=== PATIENT | female | born 1940 | race Caucasian/White ===

== ENCOUNTER 2020-10-09 16:52 | Inpatient (IN) | payer MEDICARE, BC, SELFPAY ==
[2020-10-09] VITALS (10 sets, daily range): BP systolic 90–115; BP diastolic 34–60; PULSE 92–118; RESP 18–28; TEMP 36.6–38.6; O2SAT 92–99; BMI 23.4; BMI 23.8; BMI 23.9
--- NOTE | 2020-10-09 17:17 | ED.DCSUM_ITS ---
History of Present Illness Chief Complaint: Fever Informant: Patient Narrative: Patient is a 79-year-old female with a past medical history of gastric lymphoma who presents to the emergency department after being told she had a fever today. She was at her oncologist office whenever they told her this. She was not aware that she had a fever. She has no complaints at time of arrival to the emergency department. She denies a cough, sore throat. No rashes. She denies any nausea/vomiting or diarrhea. No urinary symptoms. She states that she has been undergoing chemotherapy for the past few months. Patient is a relatively poor historian and wants me to contact her about most questions. She does not recall any other pertinent medical history. States she has a very distant smoking history. No known coronavirus exposures. Past Medical History - Allergies and Home Meds Allergies/Adverse Reactions: Allergies shellfish derived Allergy (Verified 10/09/20 16:55) Other Prior records reviewed: Yes Past Medical History: - - Gastric lymphoma Smoking Status: Former smoker - Family History Maternal Family History: Reports: No pertinent history Review of Systems All systems negative except as indicated General: Reports: Fever. Denies: Chills, Sweats Eyes: Denies: Visual changes - bilaterally, Diplopia ENT: Denies: Rhinorrhea, Sore throat Cardiovascular: Denies: Chest pain, Palpitations Respiratory: Denies: Dyspnea, Cough, Dyspnea on exertion Gastrointestinal: Denies: Abdominal pain, Nausea, Vomiting, Diarrhea, Melena, Hematochezia Genitourinary: Denies: Dysuria, Hematuria, Frequency Musculoskeletal: Denies: Back pain, Extremity Pain Skin: Denies: Rash, Wounds Neurological: Denies: Headache, Weakness, Numbness Physical Exam Vital Signs/Narrative: Vital Signs Temp Pulse Resp BP Pulse Ox 10/09/20 16:53 98.5 F 118 H 18 115/60 99 Inital Vital Signs reviewed: Yes - Tachycardic General: Well nourished, Well developed, No Acute Distress Head: Normocephalic, Atraumatic Eyes: Perrl, EOMI ENT: Moist mucous membranes, No rhinorrhea Neck: Supple, Nontender Cardiovascular: Regular rhythm, No murmurs, Tachycardia Respiratory: No distress, CTA bilaterally, Chest nontender Abdomen: Soft, Nontender, Nondistended, Normal bowel sounds Back: Nontender, Normal Inspection Extremities: Nontender, No edema Skin: Normal color, No rash Neurological: Alert, Cranial nerves II-XII grossly intact, Normal Strength, Normal Sensation Psychological: Normal affect, Normal Mood Diagnostic/Tx/Re-eval - Medical Decision Making Patient presents to the emerge department after she was told she has a fever. She has no infectious complaints. Upon arrival to the emergency department she is tachycardic and but does not have a fever here. She is satting 99% on room air. She is in no acute distress. Her oncologist did call him and recommended that she be hospitalized on IV antibiotics. Will check blood cultures, basic lab work, coronavirus swab, chest x-ray and urinalysis. Patient work-up showed her to have 0 neutrophils. She is leukopenic. She did receive Zosyn by her oncologist prior to coming in. We will add vancomycin as she started to have low blood pressure readings. Her work-up did not reveal any obvious source of infection including no pneumonia, no coronavirus, no evidence of urinary tract infection. She was asymptomatic with her low blood pressure readings but this was able to be brought up with IV fluids eventually. Patient is agreeable to staying in the hospital at this time. Blood cultures have been drawn prior to the vancomycin but not the Zosyn given prehospital. ED Disposition - Plan for ED Patient: Disposition: Acute Care Hospital [facility] Diagnosis: Neutropenic fever, Hypotension, Pancytopenia
--- NOTE | 2020-10-09 17:45 | RAD_ITS ---
STUDY: X-RAY CHEST REASON FOR EXAM: Female, 79 years old. Chemotherapy on Friday. Fever today. TECHNIQUE: Single AP portable view of the chest. COMPARISON: None. FINDINGS: Right jugular Port-A-Cath with its tip in the proximal superior vena cava. The lungs are clear and expanded. There is no demonstrated pleural abnormality. Normal size heart. Normal mediastinum and boo. Normal visualized pulmonary arteries. Normal visualized aortic arch and descending thoracic aorta. Normal visualized thoracic spine. There is degenerative osteoarthritis of the bilateral shoulders. Cholecystectomy clips are seen in the right upper quadrant. There is no other abnormality. RAD/Chest 1 View (Portable) IMPRESSION: 1. Right Port-A-Cath. 2. No acute cardiopulmonary disease. Electronically Signed: Imtiaz Aj DO at 18:02 EST Tel [phone], Service support ,
[2020-10-09 18:58] LABS: Absolute Lymphocyte Count 0.12 X10^3/uL (0.83-4.51); Hematocrit 25.8 % (37-47); Hemoglobin 8.8 g/dL (12.0-15.0); Lymphocyte # 0.12 X10^3/ul (4.0); Lymphocyte % 38.7 % (19-41); Mean Corp Hgb Conc 34.1 g/dL (32-36); Mean Corpuscular Hgb 31.4 pg (27.0-32.0); Mean Corpuscular Volume 92.1 fL (81-99); Mean Platelet Vol. 9.7 fl (6.2-12.0); Monocyte# 0.14 X10^3/uL; Monocyte% 45.2 % (0-10); NRBC Flagged by Analyzer 0 % (0-5); Neutrophil # 0.04 X10^3/uL (2.7-7.7); Neutrophil % 12.9 % (47-70); POSITIVE COUNT YES; POSITIVE DIFFERENTIAL YES; POSITIVE MORPHOLOGY YES; Platelet Count 51 K/mm3 (150-450); RBC Distribution Width CV 15.7 % (11.6-14.6); RBC Distribution Width SD 52.6 fl (35.1-43.9); White Blood Count 0.3 K/mm3 (4.4-11.0)
[2020-10-09 19:14] LABS: Differential Indicated SCAN CRITERIA MET
[2020-10-09 19:17] LABS: Lactic Acid 1.1 mmol/L (0.4-1.9)
[2020-10-09 19:31] LABS: ALB/GLOB Ratio 0.8 RATIO (0.9-2.4); AST(SGOT) 4 U/L (15-37); Alanine Aminotransfer ALT/SGPT 10 U/L (13-56); Albumin, Serum 2.3 g/dL (3.2-5.0); Alkaline Phosphatase 61 U/L (45-117); Anion Gap 5 (5-15); BUN 8 mg/dL (7-18); BUN/Creat Ratio 16.4 RATIO (10-20); Calcium,Total 8.2 mg/dL (8.5-10.1); Chloride 103 mmol/L (98-107); Creatinine, Serum 0.49 mg/dL (0.55-1.02); EST Glomerular Filtration Rate 130 mL/min (>60); Est Glom Filt Rate - Afr Amer 157 mL/min (>60); Estimated Creatinine Clearance 32.77 ml/min; Glucose 273 mg/dL (74-106); Potassium 3.7 mmol/L (3.5-5.1); Protein, Total 5.3 g/dL (6.4-8.2); Sodium Level 133 mmol/L (136-145)
[2020-10-09] MEDS: 0.9% Normal Saline 1,000 ML 999 ML IV (20:12)
[2020-10-09 21:36] LABS: Bacteria 0 SEEN /hpf (None Seen); Mucous, Urine 0 SEEN /hpf (<or=2+); Red Blood Cells-Urine 0 SEEN /hpf (0-5); Squamous Epithelial Cells - UA 0 SEEN /hpf (5-10); White Blood Cells 0 SEEN /hpf (0-5)
--- NOTE | 2020-10-09 21:41 | ED.RN ---
PT DOES NOT KNOW HOME MEDICATIONS.
[2020-10-09 21:46] LABS: Color, Urine Yellow (Yellow); Glucose, Dipstick 1000 mg/dl (Normal); Ketone-Dipstick 5 mg/dl (Negative); Leukocyte Esterase-Dipstick Negative /ul (Negative); Nitrite-Dipstick Negative (Negative); Occult Blood-Urine Negative /ul (Negative); Protein-Dipstick 30 mg/dl (Negative); Specific Gravity, Urine 1.015 (1.002-1.030); Urine Bilirubin Dipstick Negative (Negative); Urine Clarity Clear (Clear); Urine Urobilinogen Normal (Normal)
--- NOTE | 2020-10-09 22:12 | PCM.HP.STD ---
Problem List (1) Gastric lymphoma Status: Chronic (2) Neutropenic fever Status: Acute History of Present Illness Date of Admission: 10/09/20 Chief Complaint: fever after chemotherapy The patient is a 79 year old male patient with a significant past medical history of gastric lymphoma who presents to the emergency department after having fever following chemotherapy. The patient was at the office of her oncologist today when she was diagnosed with fever and given a dose of Zosyn. Patient denies any complaints at present time she does not have cough, sore throat no dysuria or nausea and/or vomiting. She has been ongoing chemotherapy for the past several months. She admits to being a poor historian and wants her contacted for further details. Patient has no known exposure to coronavirus. She has a remote history of smoking. Past Medical History Past Medical History (Chronic Problems): Chronic Problems Gastric lymphoma (Chronic) Allergies shellfish derived Allergy (Verified 10/09/20 16:55) Other Home Medications: Ambulatory Orders Medication Instructions Recorded Calcium Carb/Vitamin D 1 tab PO BIDCM 07/04/16 [Caltrate-600 With Vit D Tab] Metoprolol Tartrate [Lopressor 50 mg PO DAILY 07/04/16 (Beta Danyelle)] metFORMIN HCl [Glucophage] 500 mg PO 4X/DAY 07/04/16 Smoking Status: Former smoker - *Family History Maternal History Items: No pertinent history Review of Systems Constitutional: Reports: Fever, Weakness. Denies: Chills, Weight Change HEENT: Denies: Head Aches, Sinus Congestion, Sinus Drainage Cardiovascular: Denies: Chest Pain, Palpitations Respiratory: Denies: Cough, Shortness of breath at rest, Sputum production Gastrointestinal: Denies: Abdominal Pain, Nausea, Vomiting Genitourinary: Denies: Dysuria Musculoskeletal: Denies: Joint Pain, Joint Tenderness Skin: Denies: Rash, Wounds Neurological: Denies: Numbness, Tingling, Focal weakness Psychiatric: Denies: Anxiety, Depression, Homicidal Ideations, Suicidal Ideations Hematologic/ Lymphatic: Denies: Easy Bruising, Easy Bleeding VTE Information - Inpt Only VTE Present on Admission: No VTE Mechan Device Prophylaxis: SCD's VTE Pharm Prophylaxis ordered?: No - Physical Exam Vitals/I&O's: Vital Signs Temp Pulse Resp BP Pulse Ox 98 F 92 22 H 100/43 L 92 10/09/20 21:00 10/09/20 21:00 10/09/20 21:00 10/09/20 21:50 10/09/20 21:00 Oxygen Delivery Method Room Air Weight: 120 lb Body Mass Index (BMI) 23.4 General: Alert, Cooperative HEENT: Atraumatic, Normocephalic Neck: Supple Lungs: Clear to auscultation, Normal air movement Cardiovascular: Regular rate, Normal S1, Normal S2, No murmurs Abdomen: Bowel Sounds Present Extremities: No edema Skin: No rashes Musculoskeletal: No Tenderness to Palpation of Joints or Extremities Neurological: Neuro grossly intact Psych/Mental Status: Normal Affect, Appropriate Microbiology Past 72 Hours 10/09/20 19:02 Mucosa - Nose SARS-CoV-2 Antigen (Rapid) - Final Laboratory Results 10/09/20 18:35: WBC 0.3 L*, RBC 2.80 L, Hgb 8.8 L, Hct 25.8 L, MCV 92.1, MCH 31.4, MCHC 34.1, RDW Std Deviation 52.6 H, RDW Coeff of Renetta 15.7 H, Plt Count 51 L, MPV 9.7, Immature Gran % (Auto) 3.200 H, Neut % (Auto) 12.9 L, Lymph % (Auto) 38.7, [place] % (Auto) 45.2 H, Eos % (Auto) 0.0, Baso % (Auto) 0.0, Absolute Neuts (auto) 0.0 L, Absolute Lymphs (auto) 0.12 L, Nucleated RBC % 0, Diff Path Review January10/09/20 18:35: Sodium 133 L, Potassium 3.7, Chloride 103, Carbon Dioxide 25.0, Anion Gap 5, BUN 8, Creatinine 0.49 L, Estim Creat Clear Calc 32.77, Est GFR (MDRD) Af Amer 157, Est GFR (MDRD) Non-Af 130, BUN/Creatinine Ratio 16.4, Glucose 273 H, Calcium 8.2 L, Total Bilirubin 0.50, AST 4 L, ALT 10 L, Alkaline Phosphatase 61, Troponin I < 0.015, Total Protein 5.3 L, Albumin 2.3 L, Globulin 3.0, Albumin/Globulin Ratio 0.8 L 10/09/20 18:35: Lactic Acid 1.1 10/09/20 21:05: Urine Color Yellow, Urine Clarity Clear, Urine pH 6.0, Ur Specific Fischer 1.015, Urine Protein 30 H, Urine Glucose (UA) 1000 H, Urine Ketones 5 H, Urine Occult Blood Negative, Urine Nitrite Negative, Urine Bilirubin Negative, Urine Urobilinogen Normal, Ur Leukocyte Esterase Negative, Urine RBC 0 SEEN, Urine WBC 0 SEEN, Ur Squamous Epith Cells 0 SEEN, Urine Bacteria 0 SEEN, Urine Mucus 0 SEEN Assessment/Plan All Active Problems Neutropenic fever (Acute) Chronic Problems Gastric lymphoma (Chronic) Plan 1. Neutropenic fever- admit patient to general medical floor?initiate isolation per neutropenia procedures, vancomycin by weight protocol, Zosyn 3.375 mg IV every 6 hours, consult Dr. Carranza. Repeat CBC BMP in the morning 2. DVT prophylaxis?SCDs Inpatient E&M: 47035 Init Hosp L2
[2020-10-09] MEDS: Acetaminophen 325 MG Tablet 650 MG PO (22:34)
--- NOTE | 2020-10-09 22:43 | ED.RN ---
SPOUSE, YENNI NOTIFIED OF PT'S ADMISSION. HE STATES HE WILL BRING A LIST OF MEDICATIONS TOMORROW, BUT HE DOESN'T FEEL ANY OF THEM ARE CRITICAL FOR TONIGHT.
[2020-10-10 01:44] VITALS: BP 117/43; PULSE 103; RESP 18; TEMP 37.1; O2SAT 96
--- NOTE | 2020-10-10 02:59 | PCM.RX.CS ---
Consult Pharmacy has been consulted to manage selected antiobiotic: Vancomycin Type of Consult: New start Labs: Sodium 133 mmol/L (136-145) L 10/09/20 18:35 Potassium 3.7 mmol/L (3.5-5.1) 10/09/20 18:35 Chloride 103 mmol/L (98-107) 10/09/20 18:35 Carbon Dioxide 25.0 mmol/L (21.0-32.0) 10/09/20 18:35 Anion Gap 5 (5-15) 10/09/20 18:35 BUN 8 mg/dL (7-18) 10/09/20 18:35 Creatinine 0.49 mg/dL (0.55-1.02) L 10/09/20 18:35 Est GFR (MDRD) Af Amer 157 mL/min (>60) 10/09/20 18:35 Est GFR (MDRD) Non-Af 130 mL/min (>60) 10/09/20 18:35 BUN/Creatinine Ratio 16.4 RATIO (10-20) 10/09/20 18:35 Glucose 273 mg/dL (74-106) H 10/09/20 18:35 Microbiology: Microbiology 10/09/20 19:02 Mucosa - Nose SARS-CoV-2 Antigen (Rapid) - Final Weight used for dosin.5 kg Estimated Creatinine Clearance: 44.5 Goal Trough: 10-15 mcg/mL Pharmacy Plan for Drug Dosing: Pharmacy Service will continue to monitor and adjust dosing as required. Medications Vancomycin HCl 750 mg/ Sodium (Chloride) 265 mls @ 250 mls/hr IV Q24H SANGEETA Discontinued Medications Vancomycin HCl 1,250 mg/ (Sodium Chloride) 275 mls @ 167 mls/hr IV X1 ONE Stop: 10/09/20 21:53 Last Admin: 10/09/20 22:32 Dose: Infused Documented by: Follow-Up Labs: Trough Vancomycin Labs to be done on [date and time ordered]: 10/11 @ 1930
[2020-10-10] MEDS: 0.9% Saline Lock 10 ML Syringe IV ×3 (05:34→07:19)
[2020-10-10 05:36] VITALS: BP 111/46; PULSE 93; RESP 18; TEMP 36.4; O2SAT 96
[2020-10-10 06:14] LABS: Absolute Neutrophil Count 0.3 X10^3/uL (2.0-7.7); Basophil# 0.01 X10^3/uL; Basophil% 1.1 % (0-1); Differential Indicated SCAN CRITERIA MET; Eosinophil# 0.03 X10^3/uL; Eosinophils% 3.3 % (0-5); Hematocrit 28.5 % (37-47); Hemoglobin 9.3 g/dL (12.0-15.0); Lymphocyte % 32.6 % (19-41); Mean Corp Hgb Conc 32.6 g/dL (32-36); Mean Corpuscular Hgb 30.9 pg (27.0-32.0); Mean Corpuscular Volume 94.7 fL (81-99); Mean Platelet Vol. 9.9 fl (6.2-12.0); Monocyte# 0.28 X10^3/uL; Monocyte% 30.4 % (0-10); NRBC Flagged by Analyzer 0 % (0-5); Neutrophil % 32.6 % (47-70); POSITIVE COUNT YES; POSITIVE DIFFERENTIAL YES; POSITIVE MORPHOLOGY YES; Platelet Count 64 K/mm3 (150-450); RBC Distribution Width CV 15.7 % (11.6-14.6); RBC Distribution Width SD 54.8 fl (35.1-43.9); Red Blood Count 3.01 M/mm3 (4.2-5.4)
[2020-10-10 06:17] LABS: White Blood Count 0.9 K/mm3 (4.4-11.0)
[2020-10-10 06:33] LABS: Anion Gap 6 (5-15); BUN 8 mg/dL (7-18); BUN/Creat Ratio 14.3 RATIO (10-20); Calcium,Total 8.7 mg/dL (8.5-10.1); Chloride 108 mmol/L (98-107); Creatinine, Serum 0.56 mg/dL (0.55-1.02); EST Glomerular Filtration Rate 111 mL/min (>60); Est Glom Filt Rate - Afr Amer 134 mL/min (>60); Estimated Creatinine Clearance 32.77 ml/min; Glucose 161 mg/dL (74-106); Sodium Level 137 mmol/L (136-145)
[2020-10-10 06:36] LABS: Differential Comment SCANNED
[2020-10-10] MEDS: metFORMIN HCl 500 MG Tablet PO ×4 (07:19→21:30)
[2020-10-10] MEDS: Calcium Carb/Vitamin D 1 TABLET Tablet PO ×2 (07:19→17:42)
[2020-10-10 09:30] VITALS: BP 117/48; PULSE 94; RESP 16; TEMP 36.5; O2SAT 100
[2020-10-10 09:35] VITALS: PULSE 88
--- NOTE | 2020-10-10 10:07 | PCM.PROGNOTE ---
Patient Problems: Active and Suspected Problems Neutropenic fever (Acute) Pancytopenia (Acute) Subjective: Chief complaint: Follow-up after admission for febrile neutropenia, pancytopenia. Patient seen and examined. No acute events overnight. She denied any complaints. She still having spikes of fever, highest was 101.4 Fahrenheit. Other vital signs are stable. - Physical Exam Vitals/I&O's: Vital Signs Temp Pulse Resp BP Pulse Ox 97.6 F L 93 18 111/46 L 96 10/10/20 05:36 10/10/20 05:36 10/10/20 05:36 10/10/20 05:36 10/10/20 05:36 Oxygen Delivery Method Room Air Weight: 122 lb 6.4 oz Body Mass Index (BMI) 23.8 Intake and Output for Last 24 Hours 10/08/20 10/09/20 10/10/20 23:59 23:59 23:59 Intake Total 1475 / 1475 450.25 / 450.25 Balance 1475 / 1475 450.25 / 450.25 General: Alert, Oriented x3, Cooperative, No apparent distress HEENT: Atraumatic, PERRLA, EOMI, Normocephalic Oral: Moist Mucosa, No Gingival or Mucosal Lesions/ Ulcerations Neck: Supple, No JVD, Negative Carotid Bruits, Trachea Midline, Thyroid Normal Size and Texture Lungs: Clear to auscultation, Normal air movement, No rhonchi, No wheeze, No rales, Diminished Cardiovascular: Regular rate, Regular Rhythm, Normal S1, Normal S2, PMI Normal Abdomen: Bowel Sounds Present, Soft, Non Tender, Non-Distended, No Hepato-splenomegaly Extremities: No clubbing, No cyanosis, No edema Skin: No rashes, No breakdown Lymphatic: No Cervical, Supraclavicular, or Inguinal Adenopathy Neurological: Cranial nerves II-XII grossly intact, Motor Exam 5/5 strength throughout Psych/Mental Status: Normal Affect, Appropriate, Alert and oriented to time, place, person, mood and affect Microbiology Past 72 Hours 10/09/20 19:02 Mucosa - Nose SARS-CoV-2 Antigen (Rapid) - Final Laboratory Results 10/09/20 18:35: WBC 0.3 L*, RBC 2.80 L, Hgb 8.8 L, Hct 25.8 L, MCV 92.1, MCH 31.4, MCHC 34.1, RDW Std Deviation 52.6 H, RDW Coeff of Renetta 15.7 H, Plt Count 51 L, MPV 9.7, Immature Gran % (Auto) 3.200 H, Neut % (Auto) 12.9 L, Lymph % (Auto) 38.7, [place] % (Auto) 45.2 H, Eos % (Auto) 0.0, Baso % (Auto) 0.0, Absolute Neuts (auto) 0.0 L, Absolute Lymphs (auto) 0.12 L, Nucleated RBC % 0, Diff Path Review January10/09/20 18:35: Sodium 133 L, Potassium 3.7, Chloride 103, Carbon Dioxide 25.0, Anion Gap 5, BUN 8, Creatinine 0.49 L, Estim Creat Clear Calc 32.77, Est GFR (MDRD) Af Amer 157, Est GFR (MDRD) Non-Af 130, BUN/Creatinine Ratio 16.4, Glucose 273 H, Calcium 8.2 L, Total Bilirubin 0.50, AST 4 L, ALT 10 L, Alkaline Phosphatase 61, Troponin I < 0.015, Total Protein 5.3 L, Albumin 2.3 L, Globulin 3.0, Albumin/Globulin Ratio 0.8 L 10/09/20 18:35: Lactic Acid 1.1 10/09/20 21:05: Urine Color Yellow, Urine Clarity Clear, Urine pH 6.0, Ur Specific [place] 1.015, Urine Protein 30 H, Urine Glucose (UA) 1000 H, Urine Ketones 5 H, Urine Occult Blood Negative, Urine Nitrite Negative, Urine Bilirubin Negative, Urine Urobilinogen Normal, Ur Leukocyte Esterase Negative, Urine RBC 0 SEEN, Urine WBC 0 SEEN, Ur Squamous Epith Cells 0 SEEN, Urine Bacteria 0 SEEN, Urine Mucus 0 SEEN 10/10/20 06:06: Sodium 137, Potassium 3.0 L, Chloride 108 H, Carbon Dioxide 23.0, Anion Gap 6, BUN 8, Creatinine 0.56, Estim Creat Clear Calc 32.77, Est GFR (MDRD) Af Amer 134, Est GFR (MDRD) Non-Af 111, BUN/Creatinine Ratio 14.3, Glucose 161 H, Calcium 8.7 10/10/20 06:06: WBC 0.9 L*, RBC 3.01 L, Hgb 9.3 L, Hct 28.5 L, MCV 94.7, MCH 30.9, MCHC 32.6, RDW Std Deviation 54.8 H, RDW Coeff of Renetta 15.7 H, Plt Count 64 L, MPV 9.9, Immature Gran % (Auto) 0.000, Neut % (Auto) 32.6 L, Lymph % (Auto) 32.6, [place] % (Auto) 30.4 H, Eos % (Auto) 3.3, Baso % (Auto) 1.1 H, Absolute Neuts (auto) 0.3 L, Absolute Lymphs (auto) 0.30 L, Nucleated RBC % 0, Differential Comment SCANNED, Diff Path Review May foll Current Medications Calcium/Vitamin D (Calcium Carb/Vitamin D 1 Tablet Tablet) 1 tablet PO BIDCM [facility] Last Admin: 10/10/20 07:19 Dose: 1 tablet Documented by: Piperacillin Sod/Tazobactam (Sod 3.375 gm/ Sodium Chloride) 50 mls @ 12.5 mls/hr IV Q8 [facility] Last Infusion: 10/10/20 09:33 Dose: Infused Documented by: Sodium Chloride () 250 mls @ 15 mls/hr IV .[id number] PRN PRN Reason: Saline Flush Last Infusion: 10/10/20 09:33 Dose: 15 mls/hr Documented by: Sodium Chloride () 250 mls @ 15 mls/hr IV .[id number] PRN PRN Reason: Additional IVPB Infusion Metformin HCl (Metformin Hcl 500 Mg Tablet) 500 mg PO ACHS [facility] Last Admin: 10/10/20 07:19 Dose: 500 mg Documented by: Nutritional Formula (Lactose Free) (Ensure Enlive 120 Ml Liquid) 120 ml PO 4X/DAY [facility] Last Admin: 10/10/20 09:42 Dose: 120 ml Documented by: Ondansetron HCl (Ondansetron 4 Mg/2 Ml Vial) 4 mg IV Q8H PRN PRN PRN Reason: NAUSEA/VOMITING Sodium Chloride (0.9% Saline Lock 10 Ml Syringe) 10 - 40 ml IV UD PRN PRN Reason: Port-a-Cath (VAD) Flush Last Admin: 10/10/20 07:19 Dose: 10 ml Documented by: Medical Necessity - Tobacco Use Smoking Status: Former smoker Tobacco Use: Cigarettes Assessment/Plan All Active Problems Neutropenic fever (Acute) Pancytopenia (Acute) This is a 79 years old female patient presented to the emergency room because of fever after she received chemotherapy and she was found to have febrile neutropenia. #1 febrile neutropenia: She is on IV Zosyn and vancomycin. Absolute neutrophil count is 300 today, improved compared to yesterday. Chest x-ray showed no acute findings. Urinalysis was negative for acute cystitis. Patient has been having spikes of fever, blood pressure stabilized. Pulse ox is 96% on room air. Blood and urine cultures are pending. COVID-19 antigen came back negative. I am not sure if patient received Neulasta or Granix after chemotherapy but her ANC is improving as well as platelet count. Plan: DC IV vancomycin, continue IV Zosyn, monitor blood cultures, repeat CBC and BMP tomorrow morning, awaiting oncology recommendations. #2 pancytopenia: Secondary to chemotherapy. WBC is 900, hemoglobin is 9.3, platelets either, platelet count is 64,000 and all are improving. No indication for transfusion. Plan as above. #3 hypokalemia: Plan to replace with potassium chloride p.o. 60 mEq x 1, repeat BMP tomorrow morning. #4 type 2 diabetes mellitus: ADA diet, Accu-Cheks, insulin sliding scale, continue Metformin. #5 hypertension: Blood pressure stabilized, resume metoprolol when home medication list updated. #6 DVT prophylaxis: SCDs, no chemical prophylaxis because of thrombocytopenia. This note was generated with [employer] software. It may contain incorrect words, spelling, and punctuation that were not noted in checking the note before signing. Inpatient E&M: 24990 Subs Hosp L2
--- NOTE | 2020-10-10 10:15 | CASEMGMT ---
RN CM Face to Face with patient for initial transition planning/care coordination assessment. RN CM introduced self and role at [facility]. Patient sitting in chair, alert and oriented, at bedside. Patient willing to participate in assessment and is able to answer all questions appropriately. Care providers, pharmacy, and demographics verified. Patient wishes to discharge home, denies need for home health at this time. Patient states she has no further needs or concerns at this time. CM to follow for discharge planning needs that may arise. PCP: Nando Specialists: Tere oncologist Preferred Pharmacy: [address] [facility] Benef[facility]: yes Living Will/HPOA: yes, Eduard Aldrich LNOK: Living Arrangements: Patient lives with in a 2 story home with bed and bath on the first floor, 3 steps and railing to enter the home. Patient states he is independent at home. Transportation: self/ DME/HHC: patient states she has a cane at home. Denies previous HHC. Disposition Plan: Patient to discharge home with family support and follow-up plans in place. Rehana SCOTT, RN, CM
[2020-10-10] MEDS: Insulin Lispro 100 UNIT/ML INSULN.PEN SC ×3 (11:57→21:30)
[2020-10-10 12:06] LABS: Bedside Glucose 202 mg/dL (70-110)
--- NOTE | 2020-10-10 12:25 | CON.PCM_ITS ---
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 HPI:?79-year-old female with history of hypertension, diabetes mellitus who presented with progressive weight loss and abdominal pain for last 2 months. She had a history of pancreatic cancer status post [facility]ipple almost 25 years ago. ? She has no fever, chills or night sweats. However,?she had increased fatigue as well as weight loss of 15 pounds in the last 3 months. She initially started on Pepcid and subsequently saw her family physician and she started Protonix wi thout improvement. CT scan abdomen and pelvis showed gastric wall thickening with periaortic lymphadenopathy. Finding was consistent with possible lymphoma. She was referred to Dr. Leyva who performed upper endoscopy?on 05/23/20.?There were moderate inflammation of the gastric mucosa found in the antrum. The?biopsy specimen was positive for lymphoma, H. pylori was negative. ? Current treatment: 1) R-CHOP?&?Neulasta Following cycle number 3 was seen in the office yesterday for complaint of weakness and lethargy. CBC demonstrated profound neutropenia. Blood cultures were obtained and patient was given a dose of Zosyn and sent to the ER. Continued on Zosyn and vancomycin was administered. Blood cultures were obtained. Patient was admitted. She endorses that she is feeling good this morning. She has not had any shaking chills, nausea, rash, diarrhea or cough. No bladder symptoms. Past Medical History: Chronic Problems Hypertension (Chronic) Type 2 diabetes mellitus (Chronic) Gastric lymphoma (Chronic) Past Medical/Surgical History: Past Medical History - Most Recent Inpatient Visit Past Medical History Start: 10/09/20 23:15 Text: Status: Complete Freq: ONCE Protocol: Document 10/09/20 23:24 CDS (Rec: 10/09/20 23:27 CDS [id number]) BMI Required to complete PMH What is Patient's BMI 23.9 Past Medical History Unable History Recalled No Query Text:Pt Unable/Family Not Present Neurologic Medical History Hx Stroke/TIA No Hx Dementia/Alzheimer's No Hx Parkinson's Disease No Hx Seizures No Hx Multiple Sclerosis No Hx Migraines No Cardiac Medical History VTE Present on Admission No Hx of Deep Vein Thrombosis/VTE/PE No Hx Hypertension No Hx Chest Pain/Angina No Hx Heart Attack No Hx Cardiac Surgery/Stents/Etc. No Hx Heart Failure No Hx Pacemaker/AICD No Hx Irregular Heartbeat and/or Afib No Hx Anticoagulant Therapy No Query Text:(Coumadin, Aspirin, Plavix, Xarelto, etc.) Hx Pain in Legs when Walking/Leg Cramps No Respiratory Medical History Hx COPD No Hx Emphysema No Hx Smoking Yes Smoking Status Former smoker Tobacco Use Cigarettes Years Smoking 3 Packs Smoked per Day 0.5 Hx Smoking Cessation Date 09/22/1962 Hx Tobacco Use in last 12 months No Hx Sleep Apnea No Do you snore loudly (louder than talking No or can be heard through closed doors)? Do you often feel tired/ fatigued/ Yes sleepy during daytime? Has anyone observed you stop breathing No during sleep? STOP Results Negative GI Medical History Hx Ulcer No Hx Hepatitis No Hx Cirrhosis No Hx GI Bleed No Hx Unplanned Weight Loss Yes Genitourinary Medical History Indwelling Catheter in Place on Arrival/ No Admission Hx Renal Disease No Hx Dialysis No Musculoskeletal History Hx Arthritis No Hx Rheumatoid Arthritis No Endocrine Medical History Hx Diabetes No Hx Thyroid Disease No Hematologic Medical History Hx of Blood Transfusion No Hx of Transfusion in last 3 Months No Ever experience any problems with No transfusion(s)? Hx of Preganancy in last 3 Months No Nurse Filling Out Transfusion & CSNYDER Questions: Date: 10/09/20 Time: 23:26 Psycho/Social Medical History Hx Depression No Hx Anxiety No Hx Behavior Disorder No Hx Alcohol Use No Hx Substance Use No Other Medical History Hx Blood Disorders No Hx Anemia No Hx Cancer Yes: stomach Hx Drug Resistant Organism No Wound/Pressure Injury Present on Arrival No /Admission Query Text:If yes, chart assessment in Shift/Clinical Findings Central Line/PICC/VAD Present on Arrival Yes /Admission Risk for Readmission Number of Risk Factors 2 At Risk for Readmission Patient is Not at Risk Patient is eligible for Call Back N Maternal Family History: No pertinent history - Social History Smoking Status: Former smoker Tobacco Use: Cigarettes Allergies/Adverse Reactions: Allergy/AdvReac Type Severity Reaction Status Date / Time shellfish derived Allergy Other Verified 10/09/20 16:55 Vital Signs Temperature 97.7 F L 10/10/20 09:30 Temperature Source Oral 10/10/20 09:30 Pulse Rate 88 10/10/20 09:35 Pulse Strength Normal (2+) 10/10/20 09:35 Respiratory Rate 16 10/10/20 09:30 Respiratory Effort 10/10/20 09:35 Respiratory Depth Normal 10/10/20 09:35 Respiratory Pattern Normal 10/10/20 09:35 Blood Pressure 117/48 L 10/10/20 09:30 Blood Pressure Mean 71 10/10/20 09:30 Blood Pressure Source Monitor 10/10/20 09:30 Blood Pressure Position Semi-Fowlers 10/10/20 09:30 Blood Pressure Location Right Arm 10/10/20 09:30 Pulse Ox 100 10/10/20 09:30 Oxygen Delivery Method Room Air 10/10/20 09:35 - Physical Exam General: Alert, Oriented x3 Cardiac:: Regular rhythm Lungs: Normal air movement Abdomen:: Soft, Non-tender Laboratory Data: Microbiology 10/09/20 19:02 SARS-CoV-2 Antigen (Rapid) - Final Mucosa - Nose Laboratory Tests 10/10/20 10/10/20 10/10/20 Range/Units 11:50 06:06 06:06 WBC 0.9 L* (4.4-11.0) K/mm3 RBC 3.01 L (4.2-5.4) M/mm3 Hgb 9.3 L (12.0-15.0) g/dL Hct 28.5 L (37-47) % MCV 94.7 (81-99) fL MCH 30.9 (27.0-32.0) pg MCHC 32.6 (32-36) g/dL RDW Std Deviation 54.8 H (35.1-43.9) fl RDW Coeff of Renetta 15.7 H (11.6-14.6) % Plt Count 64 L (150-450) K/mm3 MPV 9.9 (6.2-12.0) fl Immature Gran % (Auto) 0.000 (0.0-0.9) % Neut % (Auto) 32.6 L (47-70) % Lymph % (Auto) 32.6 (19-41) % [place] % (Auto) 30.4 H (0-10) % Eos % (Auto) 3.3 (0-5) % Baso % (Auto) 1.1 H (0-1) % Absolute Neuts (auto) 0.3 L (2.0-7.7) X10^3/uL Absolute Lymphs (auto) 0.30 L (0.83-4.51) X10^3/uL Nucleated RBC % 0 (0-5) % Differential Comment SCANNED Diff Path Review January Sodium 137 (136-145) mmol/L Potassium 3.0 L (3.5-5.1) mmol/L Chloride 108 H (98-107) mmol/L Carbon Dioxide 23.0 (21.0-32.0) mmol/L Anion Gap 6 (5-15) BUN 8 (7-18) mg/dL Creatinine 0.56 (0.55-1.02) mg/dL Estim Creat Clear Calc 32.77 ml/min Est GFR (MDRD) Af Amer 134 (>60) mL/min Est GFR (MDRD) Non-Af 111 (>60) mL/min BUN/Creatinine Ratio 14.3 (10-20) RATIO Glucose 161 H (74-106) mg/dL Lactic Acid (0.4-1.9) mmol/L Calcium 8.7 (8.5-10.1) mg/dL Total Bilirubin (0.20-1.00) mg/dL AST (15-37) U/L ALT (13-56) U/L Alkaline Phosphatase (45-117) U/L Troponin I (<0.045) ng/mL Total Protein (6.4-8.2) g/dL Albumin (3.2-5.0) g/dL Globulin (2.2-4.2) g/dL Albumin/Globulin Ratio (0.9-2.4) RATIO Urine Color (Yellow) Urine Clarity (Clear) Urine pH (5.0 - 8.0) Ur Specific [place] (1.002-1.030) Urine Protein (Negative) mg/dl Urine Glucose (UA) (Normal) mg/dl Urine Ketones (Negative) mg/dl Urine Occult Blood (Negative) /ul Urine Nitrite (Negative) Urine Bilirubin (Negative) mg/dL Urine Urobilinogen (Normal) mg/dl Ur Leukocyte Esterase (Negative) /ul Urine RBC (0-5) /hpf Urine WBC (0-5) /hpf Ur Squamous Epith Cells (5-10) /hpf Urine Bacteria (None Seen) /hpf Urine Mucus (<or=2+) /hpf POC Glucose 202 H (70-110) mg/dL 10/09/20 10/09/20 10/09/20 Range/Units 21:05 18:35 18:35 WBC (4.4-11.0) K/mm3 RBC (4.2-5.4) M/mm3 Hgb (12.0-15.0) g/dL Hct (37-47) % MCV (81-99) fL MCH (27.0-32.0) pg MCHC (32-36) g/dL RDW Std Deviation (35.1-43.9) fl RDW Coeff of Renetta (11.6-14.6) % Plt Count (150-450) K/mm3 MPV (6.2-12.0) fl Immature Gran % (Auto) (0.0-0.9) % Neut % (Auto) (47-70) % Lymph % (Auto) (19-41) % [place] % (Auto) (0-10) % Eos % (Auto) (0-5) % Baso % (Auto) (0-1) % Absolute Neuts (auto) (2.0-7.7) X10^3/uL Absolute Lymphs (auto) (0.83-4.51) X10^3/uL Nucleated RBC % (0-5) % Differential Comment Diff Path Review Sodium 133 L (136-145) mmol/L Potassium 3.7 (3.5-5.1) mmol/L Chloride 103 (98-107) mmol/L Carbon Dioxide 25.0 (21.0-32.0) mmol/L Anion Gap 5 (5-15) BUN 8 (7-18) mg/dL Creatinine 0.49 L (0.55-1.02) mg/dL Estim Creat Clear Calc 32.77 ml/min Est GFR (MDRD) Af Amer 157 (>60) mL/min Est GFR (MDRD) Non-Af 130 (>60) mL/min BUN/Creatinine Ratio 16.4 (10-20) RATIO Glucose 273 H (74-106) mg/dL Lactic Acid 1.1 (0.4-1.9) mmol/L Calcium 8.2 L (8.5-10.1) mg/dL Total Bilirubin 0.50 (0.20-1.00) mg/dL AST 4 L (15-37) U/L ALT 10 L (13-56) U/L Alkaline Phosphatase 61 (45-117) U/L Troponin I < 0.015 (<0.045) ng/mL Total Protein 5.3 L (6.4-8.2) g/dL Albumin 2.3 L (3.2-5.0) g/dL Globulin 3.0 (2.2-4.2) g/dL Albumin/Globulin Ratio 0.8 L (0.9-2.4) RATIO Urine Color Yellow (Yellow) Urine Clarity Clear (Clear) Urine pH 6.0 (5.0 - 8.0) Ur Specific [place] 1.015 (1.002-1.030) Urine Protein 30 H (Negative) mg/dl Urine Glucose (UA) 1000 H (Normal) mg/dl Urine Ketones 5 H (Negative) mg/dl Urine Occult Blood Negative (Negative) /ul Urine Nitrite Negative (Negative) Urine Bilirubin Negative (Negative) mg/dL Urine Urobilinogen Normal (Normal) mg/dl Ur Leukocyte Esterase Negative (Negative) /ul Urine RBC 0 SEEN (0-5) /hpf Urine WBC 0 SEEN (0-5) /hpf Ur Squamous Epith Cells 0 SEEN (5-10) /hpf Urine Bacteria 0 SEEN (None Seen) /hpf Urine Mucus 0 SEEN (<or=2+) /hpf POC Glucose (70-110) mg/dL 10/09/20 Range/Units 18:35 WBC 0.3 L* (4.4-11.0) K/mm3 RBC 2.80 L (4.2-5.4) M/mm3 Hgb 8.8 L (12.0-15.0) g/dL Hct 25.8 L (37-47) % MCV 92.1 (81-99) fL MCH 31.4 (27.0-32.0) pg MCHC 34.1 (32-36) g/dL RDW Std Deviation 52.6 H (35.1-43.9) fl RDW Coeff of Renetta 15.7 H (11.6-14.6) % Plt Count 51 L (150-450) K/mm3 MPV 9.7 (6.2-12.0) fl Immature Gran % (Auto) 3.200 H (0.0-0.9) % Neut % (Auto) 12.9 L (47-70) % Lymph % (Auto) 38.7 (19-41) % [place] % (Auto) 45.2 H (0-10) % Eos % (Auto) 0.0 (0-5) % Baso % (Auto) 0.0 (0-1) % Absolute Neuts (auto) 0.0 L (2.0-7.7) X10^3/uL Absolute Lymphs (auto) 0.12 L (0.83-4.51) X10^3/uL Nucleated RBC % 0 (0-5) % Differential Comment Diff Path Review May foll Sodium (136-145) mmol/L Potassium (3.5-5.1) mmol/L Chloride (98-107) mmol/L Carbon Dioxide (21.0-32.0) mmol/L Anion Gap (5-15) BUN (7-18) mg/dL Creatinine (0.55-1.02) mg/dL Estim Creat Clear Calc ml/min Est GFR (MDRD) Af Amer (>60) mL/min Est GFR (MDRD) Non-Af (>60) mL/min BUN/Creatinine Ratio (10-20) RATIO Glucose (74-106) mg/dL Lactic Acid (0.4-1.9) mmol/L Calcium (8.5-10.1) mg/dL Total Bilirubin (0.20-1.00) mg/dL AST (15-37) U/L ALT (13-56) U/L Alkaline Phosphatase (45-117) U/L Troponin I (<0.045) ng/mL Total Protein (6.4-8.2) g/dL Albumin (3.2-5.0) g/dL Globulin (2.2-4.2) g/dL Albumin/Globulin Ratio (0.9-2.4) RATIO Urine Color (Yellow) Urine Clarity (Clear) Urine pH (5.0 - 8.0) Ur Specific [place] (1.002-1.030) Urine Protein (Negative) mg/dl Urine Glucose (UA) (Normal) mg/dl Urine Ketones (Negative) mg/dl Urine Occult Blood (Negative) /ul Urine Nitrite (Negative) Urine Bilirubin (Negative) mg/dL Urine Urobilinogen (Normal) mg/dl Ur Leukocyte Esterase (Negative) /ul Urine RBC (0-5) /hpf Urine WBC (0-5) /hpf Ur Squamous Epith Cells (5-10) /hpf Urine Bacteria (None Seen) /hpf Urine Mucus (<or=2+) /hpf POC Glucose (70-110) mg/dL Diagnostic Data: Diagnostic Data Chest X-Ray 10/09/20 17:45 IMPRESSION: 1. Right Port-A-Cath. 2. No acute cardiopulmonary disease. Electronically Signed: Imtiaz AjDO at 18:02 EST Tel [phone], Service support , Assessment and Plan 1) Neutropenic fever. Assessment: -Blood cultures drawn in the office yesterday remain negative. -Blood and urine cultures obtained here also no growth thus far. -ANC appears to be recovering. Plan: -Continue Zosyn. -No need for Neupogen unless ANC declines. -Monitor counts. Medications: Medications Added to Medication List This Visit Category Date Time Status Calcium Carb/Vitamin D [Os-Rodney 500MG + D] Med 10/10/20 08:00 Active 1 tablet PO BIDCM Ensure Enlive Med 10/10/20 10:00 Active 120 ml PO 4X/DAY Insulin Lispro [Humalog kwikpen (BKC)] Med 10/10/20 11:00 Active See Protocol SC ACHS Piperacil/Tazobactam [Zosyn] 3.375 gm Med 10/10/20 06:00 Active 0.9% Normal Saline 50 ml IV Q8 metFORMIN HCl [Glucophage] Med 10/10/20 07:00 Active 500 mg PO ACHS Primary Care Provider: Dr. Jose Collier MD Referring Provider:
[2020-10-10 14:14] LABS: Pathologist Review Reviewed
[2020-10-10 14:14] LABS: Pathologist Review Reviewed
[2020-10-10 15:43] VITALS: BP 124/48; PULSE 114; RESP 17; TEMP 37.2; O2SAT 100
[2020-10-10 16:11] LABS: Bedside Glucose 234 mg/dL (70-110)
[2020-10-10 21:30] VITALS: BP 116/45; PULSE 112; RESP 16; TEMP 36.9; O2SAT 98
[2020-10-10 22:11] LABS: Bedside Glucose 247 mg/dL (70-110)
[2020-10-11 05:45] VITALS: BP 107/58; PULSE 98; RESP 16; TEMP 36.8; O2SAT 98
[2020-10-11] MEDS: metFORMIN HCl 500 MG Tablet PO (06:16)
[2020-10-11] MEDS: Insulin Lispro 100 UNIT/ML INSULN.PEN SC (06:17)
[2020-10-11 06:29] LABS: Hematocrit 24.8 % (37-47); Hemoglobin 8.5 g/dL (12.0-15.0); Mean Corp Hgb Conc 34.3 g/dL (32-36); Mean Corpuscular Hgb 31.4 pg (27.0-32.0); Mean Corpuscular Volume 91.5 fL (81-99); Mean Platelet Vol. 10.5 fl (6.2-12.0); POSITIVE COUNT YES; POSITIVE DIFFERENTIAL YES; POSITIVE MORPHOLOGY YES; Platelet Count 110 K/mm3 (150-450); RBC Distribution Width CV 15.6 % (11.6-14.6); Red Blood Count 2.71 M/mm3 (4.2-5.4); White Blood Count 4.8 K/mm3 (4.4-11.0)
[2020-10-11 06:30] LABS: Bedside Glucose 220 mg/dL (70-110)
[2020-10-11 06:31] LABS: Differential Indicated MANUAL DIFF
[2020-10-11 06:57] LABS: Total Cells Counted 100 (MANUAL DIFF)
[2020-10-11 06:58] LABS: Anion Gap 6 (5-15); BUN 10 mg/dL (7-18); BUN/Creat Ratio 17.5 RATIO (10-20); Calcium,Total 8.8 mg/dL (8.5-10.1); Chloride 106 mmol/L (98-107); Creatinine, Serum 0.57 mg/dL (0.55-1.02); EST Glomerular Filtration Rate 109 mL/min (>60); Est Glom Filt Rate - Afr Amer 131 mL/min (>60); Estimated Creatinine Clearance 32.77 ml/min; Glucose 210 mg/dL (74-106); Potassium 3.6 mmol/L (3.5-5.1); Sodium Level 135 mmol/L (136-145)
[2020-10-11 07:02] LABS: Neutrophil-Band 8 % (0-5)
[2020-10-11 07:03] LABS: Eosinophil 1 % (0-5); Lymphocyte 8 % (19-41); Metamyelocyte 3 % (0-1); Monocyte 10 % (0-10); Neutrophil-Segmented 70 % (47-70)
[2020-10-11 07:04] LABS: Absolute Lymphocyte Count 0.38 X10^3/uL (0.83-4.51); Absolute Neutrophil Count 3.8 X10^3/uL (2.0-7.7); Lymphocyte # 0.38 X10^3/ul (4.0); Neutrophil # 3.77 X10^3/uL (2.7-7.7)
[2020-10-11 07:05] LABS: Platelet Estimate SLT DEC (ADEQ)
[2020-10-11 07:06] LABS: Red Cell Morphology NORM C+C NORMAL (NORM C&C); Toxic Granulation 1+
[2020-10-11 07:10] VITALS: O2SAT 95
[2020-10-11 07:34] VITALS: PULSE 100
[2020-10-11] MEDS: Calcium Carb/Vitamin D 1 TABLET Tablet PO (07:41)
[2020-10-11 08:15] VITALS: BP 132/67; PULSE 102; RESP 16; TEMP 36.7; O2SAT 98
--- NOTE | 2020-10-11 09:15 | DCINST_ITS ---
- Discharge Diagnoses Current Active Problems: Current Active and Chronic Problems Gastric lymphoma (Chronic) Neutropenic fever (Acute) Pancytopenia (Acute) You will use the following diet at home:: Calorie/Carbohydrate Controlled (specify 1200, 1400, etc) - 1800 ashly. Your food should be the consistency of: Regular Discharge Activity: Return to Normal Activity Weight Bearing Status: Weight bearing as tolerated Call your doctor if you observe: Fever of 101 or Higher, Shortness of breath, Dizziness, Fainting spells, Chest pain, Increased palpitations (irregular heartbeat), Uncontrolled pain Allergies/Adverse Reactions: Allergies shellfish derived Allergy (Verified 10/09/20 16:55) Other Medications to take at Discharge metFORMIN HCl [Glucophage] 1,000 mg PO BIDCM 07/04/16 Iron Polysaccharide Complex [Ferrex 150] 150 mg PO BIDCM 10/10/20 Metoprolol Succinate [Toprol Xl] 100 mg PO DAILY 10/10/20 Pantoprazole Sodium [Protonix] 40 mg PO 0700 10/10/20 Potassium Chloride [K-Dur] 20 meq PO DAILY 10/10/20 Primary Care Physician: Jose Collier MD [Primary Care Provider] - Please follow up with your Primary Care Physician in: 1 week. Test Results: Test results from this visit will be discussed in further detail at your follow- up appointment, if applicable. Please Follow Up With: Festus Bermudez DO When: please call his office.
[2020-10-11 09:20] VITALS: PULSE 102
[2020-10-11] MEDS: Metoprolol(XL)Succ 100 MG Tablet PO (09:20)
[2020-10-11] MEDS: 0.9% Saline Lock 10 ML Syringe IV (11:13)
--- NOTE | 2020-10-11 11:24 | DS.PCM_ITS ---
Discharge Date and Diagnosis - Problem List Patient Problems: Active and Suspected Problems Neutropenic fever (Acute) Pancytopenia (Acute) Date of Admission: 10/09/20 Date of Discharge: 10/11/20 - Primary Discharge Diagnosis Acute Problems: Active Problems #1 febrile neutropenia. #2 pancytopenia. #3 hypokalemia. - Secondary Discharge Diagnosis Chronic Problems: Chronic Problems Hypertension (Chronic) Type 2 diabetes mellitus (Chronic) Gastric lymphoma (Chronic) Hospital Course and Treatment Imaging Results: Clinical Impression(s) from Imaging Studies Chest X-Ray 10/09/20 17:45 IMPRESSION: 1. Right Port-A-Cath. 2. No acute cardiopulmonary disease. Electronically Signed: Imtiaz RochaonDO at 18:02 EST Tel [phone], Service support , Dr. Bermudez, oncology. Operations: None Procedures: None Summary of Care Provided: Patient seen and examined on the day of discharge and appeared to be stable to be discharged home. She denied any significant complaints. She has been afebrile for more than 24 hours. Her vital signs are stable. The patient is a 79 year old F presented to the emergency room because of fever after she received chemotherapy for gastric diffuse large B-cell lymphoma and she was found to have WBC of 300 and absolute neutrophil count of 0. She had fever of up to 101.4 Fahrenheit. There was no evidence of infection identified. She was treated with IV Zosyn empirically urinalysis showed no evidence of acute cystitis. Chest x-ray showed no acute infiltrate or consolidation. Reportedly, patient received Neulasta injection after her chemotherapy. On adm ission, WBC was 300 which improved to 4800. Admission absolute neutrophil count was 0 and upon discharge, her ANC was 3800. Hemoglobin was 8.8 on admission and upon discharge, it was 8.5 g/dL. There was no evidence of active bleeding and there was no indication for blood transfusion. Her platelet count also improved. Oncology consulted and recommended that patient received Neulasta injection on chemotherapy and her bone was recovering. COVID-19 antigen came back negative. Urine culture showed no growth. Blood culture showed no growth up to time of discharge. Patient felt better, symptoms improved. She remained afebrile for more than 24 hours. Patient discharged home in a stable medical condition, discharged on her same previous home medications without any changes, recommended follow-up with PCP in 1 week and follow-up with oncology as scheduled. Patient Problems: Active and Suspected Problems Neutropenic fever (Acute) Pancytopenia (Acute) - Physical Exam Vitals/I&O's: Vital Signs Temp Pulse Resp BP Pulse Ox 98.0 F 102 H 16 132/67 H 98 10/11/20 08:15 10/11/20 09:20 10/11/20 08:15 10/11/20 08:15 10/11/20 08:15 Oxygen Delivery Method Room Air Weight: 122 lb 6.41 oz Body Mass Index (BMI) 23.8 Intake and Output for Last 24 Hours 10/09/20 10/10/20 10/11/20 23:59 23:59 23:59 Intake Total 1475 / 1475 1489.50 / 1489.50 470.5 / 470.5 Output Total 0 / 0 Balance 1475 / 1475 1489.50 / 1489.50 470.5 / 470.5 General: Alert, Oriented x3, Cooperative, No apparent distress HEENT: Atraumatic, PERRLA, EOMI, Normocephalic Oral: Moist Mucosa, No Gingival or Mucosal Lesions/ Ulcerations Neck: Supple, No JVD, Negative Carotid Bruits, Trachea Midline, Thyroid Normal Size and Texture Lungs: Clear to auscultation, Normal air movement, No rhonchi, No wheeze, No rales, Diminished Cardiovascular: Regular rate, Regular Rhythm, Normal S1, Normal S2, PMI Normal Abdomen: Bowel Sounds Present, Soft, Non Tender, Non-Distended, No Hepato- splenomegaly Extremities: No clubbing, No cyanosis, No edema Skin: No rashes, No breakdown Lymphatic: No Cervical, Supraclavicular, or Inguinal Adenopathy Neurological: Cranial nerves II-XII grossly intact, Neuro grossly intact Psych/Mental Status: Normal Affect, Appropriate Microbiology Past 72 Hours 10/09/20 21:05 Urine, Clean Catch Urine Culture - Preliminary Culture exhibits no growth. 10/09/20 19:02 Mucosa - Nose SARS-CoV-2 Antigen (Rapid) - Final Laboratory Results 10/09/20 18:35: Diff Path Review Reviewed 10/10/20 06:06: Diff Path Review Reviewed 10/10/20 11:50: POC Glucose 202 H 10/10/20 16:03: POC Glucose 234 H 10/10/20 21:25: POC Glucose 247 H 10/11/20 06:15: POC Glucose 220 H 10/11/20 06:24: WBC 4.8, RBC 2.71 L, Hgb 8.5 L, Hct 24.8 L, MCV 91.5, MCH 31.4, MCHC 34.3 D, RDW Std Deviation 52.0 H, RDW Coeff of Renetta 15.6 H, Plt Count 110 L , MPV 10.5, Neut % (Auto) Not Reportable, Absolute Neuts (auto) 3.8, Absolute Ly mphs (auto) 0.38 L, Total Counted 100, Neutrophils % (Manual) 70, Band Neutrophils % 8 H, Lymphocytes % (Manual) 8 L, Monocytes % (Manual) 10, Eosinophils % (Manual) 1, Metamyelocytes % 3 H, Diff Path Review May foll, Toxic Granulation 1+, Platelet Estimate SLT DEC, RBC Morphology NORM C+C 10/11/20 06:24: Sodium 135 L, Potassium 3.6, Chloride 106, Carbon Dioxide 23.0, Anion Gap 6, BUN 10, Creatinine 0.57, Estim Creat Clear Calc 32.77, Est GFR (MDRD) Af Amer 131, Est GFR (MDRD) Non-Af 109, BUN/Creatinine Ratio 17.5, Glucose 210 H, Calcium 8.8 Current Medications Calcium/Vitamin D (Calcium Carb/Vitamin D 1 Tablet Tablet) 1 tablet PO BIDCM [facility] [place] Last Admin: 10/11/20 07:41 Dose: 1 tablet Documented by: Heparin Sodium (Beef Lung) (Heparin Pf Lock 10 Units/Ml 50 Units/5 Ml Syringe) 50 units IV UD PRN PRN Reason: Port-a-Cath (VAD)Heparin Flush Last Admin: 10/11/20 11:13 Dose: 50 units Documented by: Piperacillin Sod/Tazobactam (Sod 3.375 gm/ Sodium Chloride) 50 mls @ 12.5 mls/hr IV Q8 SANGEETA Last Infusion: 10/11/20 11:12 Dose: Infused Documented by: Sodium Chloride () 250 mls @ 15 mls/hr IV .[id number] PRN PRN Reason: Saline Flush Last Infusion: 10/11/20 11:12 Dose: Infused Documented by: Sodium Chloride () 250 mls @ 15 mls/hr IV .[id number] PRN PRN Reason: Additional IVPB Infusion Insulin Human Lispro (Insulin Lispro 100 Unit/Ml Insuln.Pen) 0 unit SC [facility]; Protocol Last Admin: 10/11/20 06:17 Dose: 2 u Documented by: Metformin HCl (Metformin Hcl 500 Mg Tablet) 500 mg PO [facility] [place] Last Admin: 10/11/20 06:16 Dose: 500 mg Documented by: Metoprolol Succinate (Metoprolol(Xl)Succ 100 Mg Tablet) 100 mg PO DAILY [facility] Last Admin: 10/11/20 09:20 Dose: 100 mg Documented by: Nutritional Formula (Lactose Free) (Ensure Enlive 120 Ml Liquid) 120 ml PO 4X/DAY [facility] [place] Last Admin: 10/11/20 07:41 Dose: Not Given Documented by: Ondansetron HCl (Ondansetron 4 Mg/2 Ml Vial) 4 mg IV Q8H PRN PRN PRN Reason: NAUSEA/VOMITING Pantoprazole Sodium (Pantoprazole Sodium 40 Mg Tablet) 40 mg PO 0700 [facility] [place] Polysaccharide Iron Complex (Iron Polysaccharide Complex 150 Mg Capsule) 150 mg PO BIDCM [facility] Sodium Chloride (0.9% Saline Lock 10 Ml Syringe) 10 - 40 ml IV UD PRN PRN Reason: Port-a-Cath (VAD) Flush Last Admin: 10/11/20 11:13 Dose: 10 ml Documented by: Discharge Activity: Return to Normal Activity Weight Bearing Status: Weight bearing as tolerated Call your doctor if you observe: Fever of 101 or Higher, Shortness of breath, Dizziness, Fainting spells, Chest pain, Increased palpitations (irregular heartbeat), Uncontrolled pain Home Medications: Medications to take at Discharge metFORMIN HCl [Glucophage] 1,000 mg PO BID 07/04/16 Iron Polysaccharide Complex [Ferrex 150] 150 mg PO BIDCM 10/10/20 Metoprolol Succinate [Toprol Xl] 100 mg PO DAILY 10/10/20 Pantoprazole Sodium [Protonix] 40 mg PO 0700 10/10/20 Potassium Chloride [K-Dur] 20 meq PO DAILY 10/10/20 Primary Care Physician: Jose Collier MD [Primary Care Provider] - Please follow up with your Primary Care Physician in: 1 week. Please Follow Up With: Festus Bermudez, DO When: please call his office. Disposition: Home Minutes spent on discharge:: 32 Patient Condition:: Stable Medical Necessity - Tobacco Use Smoking Status: Former smoker Tobacco Use: Cigarettes Meaningful Use Info Meaningful Use Diagnoses (Choose all that apply): None applicable Inpatient E&M: 83304 Disch Hosp
[2020-10-11 15:02] LABS: Pathologist Review Reviewed
== END 2020-10-11 11:41 | disposition home or self-care (01) | DRG 809 ==
LOC: ED 19:29 → MS3 22:42
PROVIDERS: Admitting Provider Family Medicine; Emergency Provider Emergency Medicine; PCP Family Medicine; Visit Provider Hospitalist
DX: D61.810 Antineoplastic chemotherapy induced pancytopenia (principal); C83.39 Diffuse large B-cell lymphoma, extranodal and solid organ sites; R50.81 Fever presenting with conditions classified elsewhere; T45.1X5A Adverse effect of antineoplastic and immunosuppressive drugs, initial encounter; Y92.9 Unspecified place or not applicable; E87.6 Hypokalemia; I95.9 Hypotension, unspecified; E11.9 Type 2 diabetes mellitus without complications; I10 Essential (primary) hypertension; Z20.822 Contact with and (suspected) exposure to COVID-19; Z79.84 Long term (current) use of oral hypoglycemic drugs; Z79.899 Other long term (current) drug therapy; Z87.891 Personal history of nicotine dependence; Z85.07 Personal history of malignant neoplasm of pancreas; Z90.411 Acquired partial absence of pancreas
CPT/HCPCS: 36591; 71045; 80048; 80053; 81001; 82962; 83605; 84484; 85025; 87040; 87086; 87088; 87426; 97161; 97530; 97802; 99284; J7030; J7050; A4216

== ENCOUNTER → 2020-10-20 12:11 | Outpatient (CLI) | payer MEDICARE, BC, SELFPAY ==
[2020-10-09 23:21] VITALS: BMI 23.8
[2020-10-20] VITALS (7 sets, daily range): BP systolic 102–134; BP diastolic 51–69; PULSE 80–93; RESP 16–18; TEMP 35.7–36.6; O2SAT 98–100
== END ==
PROVIDERS: PCP Family Medicine; Referring Provider Internal Medicine Hematology & Oncology; Visit Provider Internal Medicine Hematology & Oncology
DX: Z51.89 Encounter for other specified aftercare (principal); C85.93 Non-Hodgkin lymphoma, unspecified, intra-abdominal lymph nodes; D50.9 Iron deficiency anemia, unspecified
CPT/HCPCS: 36415; 36430; 86850; 86900; 86901; 86920; 86922; J7040; P9016; A4216

== ENCOUNTER 2021-07-15 15:17 | Inpatient (IN) | payer MEDICARE, BC, SELFPAY ==
[2021-07-15] VITALS (10 sets, daily range): BP systolic 91–116; BP diastolic 42–57; PULSE 71–94; RESP 16–20; TEMP 36.8–38.7; O2SAT 87–95; BMI 28.9; BMI 29.4
--- NOTE | 2021-07-15 15:34 | EKG12_ITS ---
Test Reason : SOB Blood Pressure : / mmHG Vent. Rate : 084 BPM Atrial Rate : 084 BPM P-R Int : 130 ms QRS Dur : 138 ms QT Int : 392 ms P-R-T Axes : 036 -06 021 degrees QTc Int : 463 ms Normal sinus rhythm Right bundle branch block Abnormal ECG Confirmed by YEMI MARTINEZ, RADHA ([id number]), primer expeditor and drier FARIHA GRIMES ([id number]) on 07/17/2021 10:58:04 AM Referred By: CON Confirmed By:RADHA BRAGG MD
--- NOTE | 2021-07-15 15:36 | EX.ED.DYSGE1 ---
HPI History of Present Illness Chief Complaint: Shortness of Breath Detail of Chief Complaint: Generalized weakness and fatigue Informant: patient and spouse/S.O. Narrative Narrative: Patient presents to the emergency department with complaint of generalized weakness and low oxygen levels today. states that patient's had symptoms for 7 or 8 days and yesterday had a COVID-19 test through the [facility] and today returned positive. Patient has been fully immunized with Covid vaccine by [facility]. Patient's O2 sat at home today down to 82%. She denies chest pain. Patient has history of lymphoma that is in remission as well as history of diabetes and hypertension and some mild dementia. A lot of the history comes from the patient's . Prior similar symptoms: No PFSH PFS Medical History (Updated 07/15/21 @ 17:[address] Smith Tim DO) Hypertension Type 2 diabetes mellitus Home Medications metoprolol succinate 100 mg PO DAILY 10/10/20 [History Last Taken Unknown] pantoprazole 40 mg PO 0700 10/10/20 [History Last Taken Unknown] glimepiride 2 mg PO DAILY 07/15/21 [History Last Taken Unknown] Allergy/AdvReac Type Severity Reaction Status Date / Time shellfish derived Allergy Other Verified 10/09/20 16:55 Family History no significant family his Surgical History (Updated 07/15/21 @ 16:55 by Neville Hart) H/O Whipple procedure Social History Smoking Status: Never smoker ROS ROS ED Constitutional Constitutional ED: Reports systems reviewed and no addt'l complaints, except as documented; Denies body ache(s), change in weight or chills Eyes Eyes: Denies acute decrease in peripheral vision, change in vision, double vision or loss of vision ENT ENT ED: Reports none; Denies ear pain, lip swelling, loss taste/smell, neck pain, otalgia or sore throat Cardiovascular Cardiovascular: Reports none; Denies abdominal pain, chest pain with activity, leg edema, lightheadedness, palpitations, rapid heart rate or syncope Respiratory/Chest Respiratory/Chest: Reports none, cough and dyspnea; Denies change in mental status, dry cough, hemoptysis, shortness of breath at rest or shortness of breath with exertion Gastrointestinal Gastrointestinal: Reports none; Denies abdominal pain, change in stool character, diarrhea, hematemesis, hematochezia, melena, rectal bleeding or vomiting Genitourinary Genitourinary ED: Reports none; Denies abdominal discomfort, anuria, dysuria, genital pain or polyuria Musculoskeletal Musculoskeletal: Reports none; Denies arthralgias, back pain, difficulty walking, extremity pain, muscle weakness or myalgias Integumentary Reports none; Denies abscess or rash Neurologic Neurologic: Reports none and weakness; Denies abnormal gait, confusion, focal weakness, frequent falls, headache(s), loss of vision, numbness, paresthesias, radicular pain or vertigo Psychiatric Psychiatric: Reports systems reviewed and no addt'l complaints, except as documented and none; Denies behavioral changes, confusion, difficulty concentrating, hallucinations, suicidal ideation, tactile hallucinations or visual hallucinations Endocrine Endocrinology: Denies none, cold intolerance, excessive sweating, fatigue or heat intolerance Hematologic/Lymphatic Hematologic/Lymphatic: Reports none; Denies anemia, easy bleeding or easy bruising Allergic/Immunologic Allergic/Immunologic ED: Denies as per HPI, none, lip swelling, mouth swelling, throat swelling, tongue swelling or hives EXAM Physical Exam Const Vital Signs: 07/15/21 15:19 07/15/21 16:50 07/15/21 16:59 Temperature 98.9 F Temperature Source Temporal Pulse Rate 87 80 Respiratory Rate 16 18 Respiratory Effort Respiratory Depth Respiratory Pattern Blood Pressure 107/52 L Blood Pressure Mean 70 Pulse Ox 87 90 92 Pulse Ox [AMBULATING with Oxygen #1] Pulse Ox [At REST on Room Air] Pulse Ox [At REST with Oxygen] Oxygen Delivery Method Room Air Nasal Cannula Nasal Cannula Oxygen Flow Rate (L/min) 2 4 Oxygen Flow Rate (L/min) [AMBULATING with Oxygen #1] 07/15/21 17:04 07/15/21 17:07 Temperature Temperature Source Pulse Rate Respiratory Rate Respiratory Effort Normal Respiratory Depth Normal Respiratory Pattern Normal Blood Pressure Blood Pressure Mean Pulse Ox Pulse Ox [AMBULATING with Oxygen #1] 91 Pulse Ox [At REST on Room Air] 87 Pulse Ox [At REST with Oxygen] 94 Oxygen Delivery Method Nasal Cannula Oxygen Flow Rate (L/min) 4 Oxygen Flow Rate (L/min) [AMBULATING with Oxygen #1] 4 Positive well nourished and well developed General Appearance ED: well developed and NAD HEENT Reports TM's clear and moist mucous membranes normocephalic and atraumatic; Negative for trauma or tenderness Tympanic Membrane ED: Yes TM's clear Eyes PERRL and EOMs intact bilaterally General Eye ED: Negative for pale conjunctiva or scleral icterus Neck no lymphadenopathy, supple and no JVD General: Negative for tenderness Chest Wall inspection of chest normal and palpation of chest normal Chest: Negative for tenderness Resp normal respiratory effort and clear to auscultation bilaterally Effort and Inspection: Negative for respiratory distress or pain with movement Auscultation: rales bilateral; Negative for rhonchi, wheezes or diminished lung sounds Cardio regular rate, regular rhythm, S1 normal heart sound, S2 normal heart sound and no murmurs Peripheral Pulses: pulses 2+ throughout GI normal to inspection, nondistended, normoactive bowel sounds, soft to palpation, non-tender, non-distended and no masses Back/Spine no CVA tenderness and no thoracic nor lumbar tenderness Extremity normal to inspection General Extremety ED: Negative for edema General Extremity: Negative for edema Neuro oriented x3, CN's II-XII intact bilaterally, no sensory deficits noted and gait normal Sensorium / Orientation: awake, alert, oriented to person, oriented to place and oriented to time Motor Exam: strength 5/5 throughout and strength abnormal Psych mental status grossly normal Skin no rashes or lesions noted and no wounds MDM MDM MDM Narrative Medical decision making narrative: IV line established on arrival. Patient was given Decadron p.o. Patient placed on 2 L nasal cannula O2. Lab Data Attestation: I reviewed the patient's lab results. Labs: Laboratory Results - last 24 hr 07/15/21 07/15/21 07/15/21 16:00 16:00 16:00 WBC 6.0 RBC 4.04 L Hgb 12.5 Hct 37.3 MCV 92.3 MCH 30.9 MCHC 33.5 RDW Std Deviation 44.7 H RDW Coeff of Renetta 13.2 Plt Count 151 MPV 10.8 Immature Gran % (Auto) 0.500 Neut % (Auto) 85.1 H Lymph % (Auto) 8.9 L [place] % (Auto) 5.5 Eos % (Auto) 0.0 Baso % (Auto) 0.0 Absolute Neuts (auto) 5.1 Absolute Lymphs (auto) 0.53 L Nucleated RBC % 0 Differential Comment SCANNED D-Dimer Quant (PE/DVT) 0.67 H* Sodium 135 L Potassium 3.9 Chloride 99 Carbon Dioxide 26.0 Anion Gap 10 BUN 9 Creatinine 0.80 Estim Creat Clear Calc 40.29 Est GFR (MDRD) Af Amer 89 Est GFR (MDRD) Non-Af 74 BUN/Creatinine Ratio 11.3 Glucose 285 H Lactic Acid Calcium 8.1 L Troponin I High Sens 32 07/15/21 16:00 WBC RBC Hgb Hct MCV MCH MCHC RDW Std Deviation RDW Coeff of Renetta Plt Count MPV Immature Gran % (Auto) Neut % (Auto) Lymph % (Auto) [place] % (Auto) Eos % (Auto) Baso % (Auto) Absolute Neuts (auto) Absolute Lymphs (auto) Nucleated RBC % Differential Comment D-Dimer Quant (PE/DVT) Sodium Potassium Chloride Carbon Dioxide Anion Gap BUN Creatinine Estim Creat Clear Calc Est GFR (MDRD) Af Amer Est GFR (MDRD) Non-Af BUN/Creatinine Ratio Glucose Lactic Acid 3.5 H* Calcium Troponin I High Sens Radiography Chest X-Ray - ED: 1 View Diagnostic Testing: Clinical Impression(s) from Imaging Studies Chest X-Ray 07/15/21 16:20 IMPRESSION: Bilateral pneumonia. at 1652 Reported and signed by: Jonatan Galaviz MD Electronically Signed: Jonatan Galaviz MD at 16:50 EDT Tel , Service support , 1 view chest x-ray obtained interpreted by myself as bilateral infiltrates with fluid in the right fissure. Official report from radiology pending. EKG Initial EKG: Attestation: I personally reviewed and interpreted this EKG as follows: Comments: Sinus rhythm with a ventricular rate of 84 bpm with a right bundle branch block Discharge Plan Triage Chief Complaint: Shortness of Breath ED Provider: Smith Tim Dx/Rx/DC Orders Clinical Impression: Pneumonia due to 2019 novel coronavirus, Hypoxemia, Weakness, Adult failure to thrive Prescriptions: No Action metoprolol succinate 100 MG tablet extended release 24 hr 100 mg PO DAILY RF: 0 pantoprazole 40 MG tablet 40 mg PO 0700 RF: 0 glimepiride 2 mg tablet 2 mg PO DAILY RF: 0 Primary Care Provider: Jose Collier Referrals: Jose Collier MD [Primary Care Provider] -
[2021-07-15 16:10] LABS: Absolute Lymphocyte Count 0.53 X10^3/uL (0.83-4.51); Absolute Neutrophil Count 5.1 X10^3/uL (2.0-7.7); Hematocrit 37.3 % (37-47); Hemoglobin 12.5 g/dL (12.0-15.0); Lymphocyte # 0.53 X10^3/ul (0.83-4.51); Lymphocyte % 8.9 % (19-41); Mean Corp Hgb Conc 33.5 g/dL (32-36); Mean Corpuscular Hgb 30.9 pg (27.0-32.0); Mean Corpuscular Volume 92.3 fL (81-99); Mean Platelet Vol. 10.8 fl (6.2-12.0); Monocyte# 0.33 X10^3/uL; Monocyte% 5.5 % (0-10); NRBC Flagged by Analyzer 0 % (0-5); Neutrophil # 5.06 X10^3/uL (2.7-7.7); Neutrophil % 85.1 % (47-70); POSITIVE DIFFERENTIAL YES; Platelet Count 151 K/mm3 (150-450); RBC Distribution Width CV 13.2 % (11.6-14.6); RBC Distribution Width SD 44.7 fl (35.1-43.9); Red Blood Count 4.04 M/mm3 (4.2-5.4)
[2021-07-15 16:14] LABS: Differential Indicated SCAN CRITERIA MET
--- NOTE | 2021-07-15 16:20 | RAD_ITS ---
History: dyspnea EXAMINATION/TECHNIQUE: XR Chest 1 View: Portable COMPARISON: October 09, 2020 FINDINGS: LINES/DEVICES: None. LUNGS: Bilateral airspace opacification of both lungs consistent with pneumonia. No pneumothorax. MEDIASTINUM AND CARDIOVASCULAR STRUCTURES: Cardiac silhouette not enlarged. Central airways and mediastinal contour are unremarkable. BONES AND SOFT TISSUES: Unremarkable. RAD/Chest 1 View (Portable) IMPRESSION: Bilateral pneumonia. at 1652 Reported and signed by: Jonatan Galaviz MD Electronically Signed: Jonatan Galaviz MD at 16:50 EDT Tel , Service support ,
[2021-07-15 16:29] LABS: Anion Gap 10 (5-15); BUN 9 mg/dL (7-18); BUN/Creat Ratio 11.3 RATIO (10-20); Calcium,Total 8.1 mg/dL (8.5-10.1); Chloride 99 mmol/L (98-107); EST Glomerular Filtration Rate 74 mL/min (>60); Est Glom Filt Rate - Afr Amer 89 mL/min (>60); Estimated Creatinine Clearance 40.29 ml/min; Glucose 285 mg/dL (74-106); Potassium 3.9 mmol/L (3.5-5.1); Sodium Level 135 mmol/L (136-145); Troponin-I HS 32 pg/mL (3.0-54.0)
[2021-07-15 16:30] LABS: D-Dimer Quantitative (DVT/PE) 0.67 FEU/ug/m (0.27-0.49)
[2021-07-15 16:45] LABS: Differential Comment SCANNED
[2021-07-15] MEDS: dexAMETHasone 4 MG Tablet 6 MG PO (17:00)
[2021-07-15 17:01] LABS: Lactic Acid 3.5 mmol/L (0.4-1.9)
--- NOTE | 2021-07-15 17:07 | HP.PCM.HOS_ITS ---
HPI - General HPI Narrative JIMMY DESAI, is a 80 F who presents to the hospital with hypoxia and shortness of breath. She has been having Covid-like symptoms for the last 7 to 10 days and yesterday was tested at the [facility] and were notified today that her test came back positive for Covid. Her has a home pulse oximeter and said that this morning she was around 82% and then later in the afternoon when they are eating she was up to 88% therefore he brought her in because she also seems little bit tired at home. She has no severe medical history at home other than diabetes. She did recently go into remission for lymphoma and in the had a Whipple procedure for a biliary cancer. I had extensive discussion with her and her about the pros and cons of going home versus staying in the hospital. I preface this with going home is only an option if we can actually get oxygen delivered to the home today and whether or not with ambulation she needs less than 6 L. The other aspect is that they endorse some weakness at home though he thinks that this is secondary to her hypoxia. She is still able to get up and walk from the living room to the kitchen for meals and she is able to ambulate to the bathroom but she just feels tired and fatigued. In the ER chest x-ray demonstrated bilateral pneumonias, her D-dimer was 0.6 which is normal for her age. She has no elevated leukocytosis and has been afebrile. Her blood sugars are little bit elevated to 285, and her lactic acid was elevated at 3.5 but she does not have any signs of sepsis [facility] Medical History (Updated 07/15/21 @ 17:[address] Smith Tim, ) Hypertension Type 2 diabetes mellitus Home Medications metoprolol succinate 100 mg PO DAILY 10/10/20 [History Last Taken Unknown] pantoprazole 40 mg PO 0700 10/10/20 [History Last Taken Unknown] glimepiride 2 mg PO DAILY 07/15/21 [History Last Taken Unknown] Allergy/AdvReac Type Severity Reaction Status Date / Time shellfish derived Allergy Other Verified 10/09/20 16:55 Family History no significant family his no significant family history Surgical History (Updated 07/15/21 @ 16:55 by Neville Hart) H/O Whipple procedure Social History Smoking Status: Never smoker ROS Constitutional Constitutional: Denies chills, fatigue, fever(s) or malaise Eyes Eyes: Denies blurry vision ENT HEENT: Denies headache(s) or nasal discharge Cardiovascular Cardiovascular: Denies chest pain, dyspnea on exertion or syncope Respiratory/Chest Respiratory/Chest: Reports cough, shortness of breath at rest and shortness of breath with exertion Gastrointestinal Gastrointestinal: Denies constipation, diarrhea, nausea or vomiting Genitourinary Genitourinary: Denies dysuria Neurologic Neurologic: Denies focal weakness, numbness or tremor(s) Psychiatric Psychiatric: Denies anxiety or depression Vital Signs Vital Signs Vital Signs: 07/15/21 15:19 07/15/21 16:50 07/15/21 16:59 Temperature 98.9 F Temperature Source Temporal Pulse Rate 87 80 Respiratory Rate 16 18 Respiratory Effort Respiratory Depth Respiratory Pattern Blood Pressure 107/52 L Blood Pressure Mean 70 Pulse Ox 87 90 92 Oxygen Delivery Method Room Air Nasal Cannula Nasal Cannula Oxygen Flow Rate (L/min) 2 4 07/15/21 17:04 Temperature Temperature Source Pulse Rate Respiratory Rate Respiratory Effort Normal Respiratory Depth Normal Respiratory Pattern Normal Blood Pressure Blood Pressure Mean Pulse Ox Oxygen Delivery Method Nasal Cannula Oxygen Flow Rate (L/min) 4 Weight Weight: 148 lb Body Mass Index (BMI) 28.9 Physical Exam Const alert, oriented x3 and no apparent distress General Appearance: cooperative HEENT normocephalic Mouth: dry mucous membranes Eyes PERRL, EOMs intact bilaterally and conjunctivae normal Neck supple and no JVD Resp normal respiratory effort, no retractions and no use of accessory muscles Auscultation: rales and diminished lung sounds; Negative for crackles, rhonchi or wheezes Cardio regular rate, regular rhythm, S1 normal heart sound, S2 normal heart sound and no murmurs GI soft to palpation, non-tender and non-distended; Negative for hepatosplenomegaly Extremity no clubbing, cyanosis or edema Skin no rashes or lesions noted Neuro no focal motor deficits and no sensory deficits noted Psych affect normal Appearance: appropriate Results Lab / Micro Data Result Diagrams: 07/15/21 16:00 07/15/21 16:00 Labs: Laboratory Results - last 24 hr 07/15/21 16:00: WBC 6.0, RBC 4.04 L, Hgb 12.5, Hct 37.3, MCV 92.3, MCH 30.9, MCHC 33.5, RDW Std Deviation 44.7 H, RDW Coeff of Renetta 13.2, Plt Count 151, MPV 10.8, Immature Gran % (Auto) 0.500, Neut % (Auto) 85.1 H, Lymph % (Auto) 8.9 L, [place] % (Auto) 5.5, Eos % (Auto) 0.0, Baso % (Auto) 0.0, Absolute Neuts (auto) 5.1, Absolute Lymphs (auto) 0.53 L, Nucleated RBC % 0, Differential Comment SCANNED 07/15/21 16:00: D-Dimer Quant (PE/DVT) 0.67 H* 07/15/21 16:00: Sodium 135 L, Potassium 3.9, Chloride 99, Carbon Dioxide 26.0, Anion Gap 10, BUN 9, Creatinine 0.80, Estim Creat Clear Calc 40.29, Est GFR (MDRD) Af Amer 89, Est GFR (MDRD) Non-Af 74, BUN/Creatinine Ratio 11.3, Glucose 285 H, Calcium 8.1 L, Troponin I High Sens 32 07/15/21 16:00: Lactic Acid 3.5 H* Radiology Impression Chest X-Ray 07/15/21 16:20 IMPRESSION: Bilateral pneumonia. at 1652 Reported and signed by: Jonatan Galaviz MD Electronically Signed: Jonatan Galaviz MD at 16:50 EDT Tel , Service support , Assessment & Plan Assessment/Plan (1) Pneumonia due to 2019 novel coronavirus: (2) Acute respiratory failure with hypoxia: PLAN: 1. Acute hypoxic respiratory failure secondary to COVID-19 pneumonia -Has had ambulation was unsuccessful she was too weak therefore she will be admitted to the hospital -We will start her on remdesivir and Decadron as well as maintaining her oxygen saturations 3 to 4 L nasal cannula -We will recommend incentive spirometry as well as Pep therapy -We will give her a dose of IV Lasix given the rales that were heard on exam -PT/OT -D-dimer was unremarkable compared to age 2. DM2 -We will hold her glipizide and place her on sliding scale insulin as well as long-acting insulin -Accu-Cheks AC at bedtime -We will make adjustments as necessary 3. HTN -Blood pressure stable -Continue with metoprolol 4. GERD -Stable -Continue with PPI DVT: Lovenox Charges/Coding Visit Charges Inpatient E&M: 11198 Init Hosp L3
--- NOTE | 2021-07-15 18:39 | ED.RN ---
dr langley made aware of pt's vital signs, Tylenol ordered for fever
[2021-07-15] MEDS: Acetaminophen 325 MG Tablet 650 MG PO (18:52)
--- NOTE | 2021-07-15 18:55 | ED.RN ---
per dr. arriola the second blood culture is not necessary. this nurse did attempt to obtain it while starting the iv but the iv did not draw, slight bruising at insertion sight, iv flushes well.
[2021-07-15 20:07] LABS: Reflex Lactate? Y
[2021-07-15 22:08] LABS: Lactic Acid 1.2 mmol/L (0.4-1.9)
[2021-07-15] MEDS: Furosemide 20 MG/2 ML VIAL IV (22:28)
[2021-07-15] MEDS: Enoxaparin 30 MG/0.3 ML Syringe SC (22:29)
[2021-07-15] MEDS: Insulin Lispro 100 UNIT/ML INSULN.PEN SC (22:40)
--- NOTE | 2021-07-15 23:37 | PCS.PANDOC ---
PANDEMIC DOCUMENTATION INITIATED: Date: 07/15/21 Time: 2199
[2021-07-16] VITALS (9 sets, daily range): BP systolic 113–125; BP diastolic 56–64; PULSE 57–70; RESP 18–20; TEMP 36.5–36.8; O2SAT 84–96
[2021-07-16 00:20] LABS: Bedside Glucose 296 mg/dL (70-110)
[2021-07-16] MEDS: Pantoprazole Sodium 40 MG Tablet PO (06:52)
[2021-07-16] MEDS: Insulin Lispro 100 UNIT/ML INSULN.PEN SC ×4 (06:52→22:56)
[2021-07-16 07:03] LABS: Absolute Lymphocyte Count 0.53 X10^3/uL (0.83-4.51); Absolute Neutrophil Count 3.4 X10^3/uL (2.0-7.7); Hematocrit 39.1 % (37-47); Hemoglobin 13.1 g/dL (12.0-15.0); Lymphocyte # 0.53 X10^3/ul (0.83-4.51); Lymphocyte % 12.1 % (19-41); Mean Corp Hgb Conc 33.5 g/dL (32-36); Mean Corpuscular Hgb 30.9 pg (27.0-32.0); Mean Corpuscular Volume 92.2 fL (81-99); Mean Platelet Vol. 11.6 fl (6.2-12.0); Monocyte# 0.36 X10^3/uL; Monocyte% 8.2 % (0-10); NRBC Flagged by Analyzer 0 % (0-5); Neutrophil # 3.44 X10^3/uL (2.7-7.7); Neutrophil % 78.8 % (47-70); POSITIVE DIFFERENTIAL YES; Platelet Count 147 K/mm3 (150-450); Red Blood Count 4.24 M/mm3 (4.2-5.4); White Blood Count 4.4 K/mm3 (4.4-11.0)
[2021-07-16 07:28] LABS: ALB/GLOB Ratio 0.6 RATIO (0.9-2.4); AST(SGOT) 31 U/L (15-37); Alanine Aminotransfer ALT/SGPT 21 U/L (13-56); Albumin, Serum 2.5 g/dL (3.2-5.0); Alkaline Phosphatase 70 U/L (45-117); Anion Gap 8 (5-15); BUN 13 mg/dL (7-18); Calcium,Total 8.2 mg/dL (8.5-10.1); Chloride 101 mmol/L (98-107); Creatinine, Serum 0.76 mg/dL (0.55-1.02); EST Glomerular Filtration Rate 77 mL/min (>60); Est Glom Filt Rate - Afr Amer 94 mL/min (>60); Estimated Creatinine Clearance 48.17 ml/min; Glucose 301 mg/dL (74-106); Potassium 3.6 mmol/L (3.5-5.1); Protein, Total 6.5 g/dL (6.4-8.2); Sodium Level 136 mmol/L (136-145)
[2021-07-16 07:34] LABS: Differential Indicated SCAN CRITERIA MET
[2021-07-16 07:36] LABS: Platelet Estimate ADEQUATE (ADEQ); Red Cell Morphology NORM C+C NORMAL (NORM C&C)
[2021-07-16] MEDS: Metoprolol(XL)Succ 100 MG Tablet PO (09:06)
[2021-07-16] MEDS: dexAMETHasone 4 MG Tablet 6 MG PO (09:06)
[2021-07-16] MEDS: Enoxaparin 30 MG/0.3 ML Syringe SC ×2 (09:06→22:54)
--- NOTE | 2021-07-16 11:50 | PCM.PN.HOSP ---
Subjective Subjective No new issues overnight, she is up to 7 L nasal cannula. She did diurese fairly well with last night's Lasix dose will continue to encourage pulmonary toileting Objective Data Objective Data Vital Signs: Vital Signs Temp Pulse Resp BP Pulse Ox 97.7 F L 70 20 H 118/61 84 07/16/21 08:53 07/16/21 09:06 07/16/21 08:53 07/16/21 08:53 07/16/21 11:46 Oxygen Flow Rate (L/min) [ 4 AMBULATING with Oxygen #1] Oxygen Flow Rate (L/min) 10 Oxygen Delivery Method Nasal Cannula Weight: 149 lb 14.629 oz Body Mass Index (BMI) 29.4 Intake & Output: Intake and Output for Last 24 Hours 07/15/21 07/16/21 07/17/21 03:59 03:59 03:59 Intake Total 450 / 450 366.75 / 366.75 Balance 450 / 450 366.75 / 366.75 Lab / Micro Data Result Diagrams: 07/16/21 06:25 07/16/21 06:25 Labs: Laboratory Results - last 24 hr 07/15/21 16:00: WBC 6.0, RBC 4.04 L, Hgb 12.5, Hct 37.3, MCV 92.3, MCH 30.9, MCHC 33.5, RDW Std Deviation 44.7 H, RDW Coeff of Renetta 13.2, Plt Count 151, MPV 10.8, Immature Gran % (Auto) 0.500, Neut % (Auto) 85.1 H, Lymph % (Auto) 8.9 L, [place] % (Auto) 5.5, Eos % (Auto) 0.0, Baso % (Auto) 0.0, Absolute Neuts (auto) 5.1, Absolute Lymphs (auto) 0.53 L, Nucleated RBC % 0, Differential Comment SCANNED 07/15/21 16:00: D-Dimer Quant (PE/DVT) 0.67 H* 07/15/21 16:00: Sodium 135 L, Potassium 3.9, Chloride 99, Carbon Dioxide 26.0, Anion Gap 10, BUN 9, Creatinine 0.80, Estim Creat Clear Calc 40.29, Est GFR (MDRD) Af Amer 89, Est GFR (MDRD) Non-Af 74, BUN/Creatinine Ratio 11.3, Glucose 285 H, Calcium 8.1 L, Troponin I High Sens 32 07/15/21 16:00: Lactic Acid 3.5 H* 07/15/21 20:45: Lactic Acid 1.2 07/15/21 22:39: POC Glucose 296 H 07/16/21 06:25: WBC 4.4, RBC 4.24, Hgb 13.1, Hct 39.1, MCV 92.2, MCH 30.9, MCHC 33.5, RDW Std Deviation 44.0 H, RDW Coeff of Renetta 13.0, Plt Count 147 L, MPV 11.6, Immature Gran % (Auto) 0.900, Neut % (Auto) 78.8 H, Lymph % (Auto) 12.1 L, [place] % (Auto) 8.2, Eos % (Auto) 0.0, Baso % (Auto) 0.0, Absolute Neuts (auto) 3.4, Absolute Lymphs (auto) 0.53 L, Nucleated RBC % 0, Platelet Estimate ADEQUATE, RBC Morphology NORM C+C 07/16/21 06:25: Sodium 136, Potassium 3.6, Chloride 101, Carbon Dioxide 27.0, Anion Gap 8, BUN 13, Creatinine 0.76, Estim Creat Clear Calc 48.17, Est GFR (MDRD) Af Amer 94, Est GFR (MDRD) Non-Af 77, BUN/Creatinine Ratio 17.0, Glucose 301 H, Calcium 8.2 L, Total Bilirubin 0.50, AST 31, ALT 21, Alkaline Phosphatase 70, Total Protein 6.5, Albumin 2.5 L, Globulin 4.0, Albumin/Globulin Ratio 0.6 L Radiography Diagnostic Testing: Radiology Impression Chest X-Ray 07/15/21 16:20 IMPRESSION: Bilateral pneumonia. at 1652 Reported and signed by: Jonatan Galaviz MD Electronically Signed: Jonatan Galaviz MD at 16:50 EDT Tel , Service support , Physical Exam Const alert, oriented x3 and no apparent distress General Appearance: cooperative HEENT normocephalic Eyes PERRL, EOMs intact bilaterally and conjunctivae normal Neck supple and no JVD Resp normal respiratory effort, no retractions and no use of accessory muscles Auscultation: rales and diminished lung sounds; Negative for crackles, rhonchi or wheezes Cardio regular rate, regular rhythm, S1 normal heart sound, S2 normal heart sound and no murmurs GI soft to palpation, non-tender and non-distended; Negative for hepatosplenomegaly Extremity no clubbing, cyanosis or edema Skin no rashes or lesions noted Neuro no focal motor deficits and no sensory deficits noted Psych affect normal Appearance: appropriate Assessment & Plan Assessment/Plan (1) Pneumonia due to 2019 novel coronavirus: (2) Acute respiratory failure with hypoxia: PLAN: 1. Acute hypoxic respiratory failure secondary to COVID-19 pneumonia -She was able to go from the bed to the chair relatively unassisted -We will start her on remdesivir and Decadron -We will recommend incentive spirometry as well as Pep therapy -We will give her a dose of IV Lasix given the rales that were heard on exam and monitor renal function -PT/OT -D-dimer was unremarkable compared to age 2. DM2 -We will hold her glipizide and place her on sliding scale insulin as well as long-acting insulin -Accu-Cheks AC at bedtime -We will make adjustments as necessary 3. HTN -Blood pressure stable -Continue with metoprolol 4. GERD -Stable -Continue with PPI DVT: Lovenox Charges/Coding Visit Charges Inpatient E&M: 77858 Subs Hosp L2
[2021-07-16] MEDS: Furosemide 20 MG/2 ML VIAL IV (13:14)
[2021-07-16] MEDS: 0.9% Saline Lock 10 ML Syringe IV ×2 (13:15→22:53)
[2021-07-16 14:11] LABS: Bedside Glucose 354 mg/dL (70-110)
--- NOTE | 2021-07-16 14:33 | CASEMGMT ---
Addendum entered by Rehana Hankins 07/16/21 14:44: Patient states that he is vaccinated and denies s/s illness. QING Shipley Original Note: RN WAYNE Assessment Patient is in Covid isolation, called patient Eduard and completed IA with him via phone. Introduced role of RN WAYNE to agatha Chapa. Patient unable to participate in RN CM Assessment. Care providers, pharmacy, and demographics verified. Admit Dx: Covid Re-Admit: No Barriers/Issues: None. Patient Covid Test done at [facility]. In the - had whipple for biliary CA. H/o Lymphoma-remission. H/o Mild Dementia. PCP: Jose Collier Specialists: Onc- Tere Rosas Pharmacy: [address] Insurance: [employer] A/B, [place] Rx Benefit: yes LNOK: Eduard Aldrich LW/HPOA: Completed both- on file at [facility]. Aware not on file at [facility] and if brought in, a copy will be scanned on file. HPOA- Eduard Aldrich. Living Arrangements: Lives with in a H with 2 steps to enter the home. ADL?s: Patient is independent with ambulation and ADLs Transportation: Both patient and drive. will transport on DC. DME: None HHC: None SNF: None Goal: Per - believes patient would want to return home. Believes she would be okay if HH recommended- No Preference on agency as list was being discussed with star ratings. States to pick one that would be closest to them. Discussed list of DME companies for potential home oxygen and states [employer]. DC PLAN: Home with possible Home Os ([employer]) and possible HH PT/SN- No preference. QING Lynch
[2021-07-16] MEDS: Insulin Lispro 100 UNIT/ML INSULN.PEN 10 UNIT SC (15:51)
[2021-07-16 17:05] LABS: Bedside Glucose 269 mg/dL (70-110)
[2021-07-16 23:36] LABS: Bedside Glucose 273 mg/dL (70-110)
[2021-07-16 23:36] LABS: Bedside Glucose 382 mg/dL (70-110)
[2021-07-17] VITALS (11 sets, daily range): BP systolic 91–109; BP diastolic 52–58; PULSE 57–63; RESP 18–24; TEMP 36.4–36.8; O2SAT 90–99
[2021-07-17 05:58] LABS: Absolute Neutrophil Count 7.8 X10^3/uL (2.0-7.7); Basophil# 0.02 X10^3/uL; Basophil% 0.2 % (0-1); Hematocrit 39.8 % (37-47); Lymphocyte % 5.6 % (19-41); Mean Corp Hgb Conc 32.7 g/dL (32-36); Mean Corpuscular Hgb 30.9 pg (27.0-32.0); Mean Corpuscular Volume 94.5 fL (81-99); Mean Platelet Vol. 10.4 fl (6.2-12.0); Monocyte% 6.7 % (0-10); NRBC Flagged by Analyzer 0 % (0-5); Neutrophil # 7.78 X10^3/uL (2.7-7.7); Neutrophil % 86.8 % (47-70); POSITIVE DIFFERENTIAL YES; Platelet Count 178 K/mm3 (150-450); RBC Distribution Width CV 12.9 % (11.6-14.6); RBC Distribution Width SD 45.1 fl (35.1-43.9); Red Blood Count 4.21 M/mm3 (4.2-5.4)
[2021-07-17 06:02] LABS: Differential Indicated SCAN CRITERIA MET
[2021-07-17 06:19] LABS: Differential Comment SCANNED
[2021-07-17 06:23] LABS: ALB/GLOB Ratio 0.6 RATIO (0.9-2.4); AST(SGOT) 29 U/L (15-37); Alanine Aminotransfer ALT/SGPT 20 U/L (13-56); Albumin, Serum 2.4 g/dL (3.2-5.0); Alkaline Phosphatase 68 U/L (45-117); Anion Gap 8 (5-15); BUN 23 mg/dL (7-18); BUN/Creat Ratio 29.4 RATIO (10-20); Calcium,Total 8.1 mg/dL (8.5-10.1); Chloride 102 mmol/L (98-107); Creatinine, Serum 0.78 mg/dL (0.55-1.02); EST Glomerular Filtration Rate 75 mL/min (>60); Est Glom Filt Rate - Afr Amer 91 mL/min (>60); Estimated Creatinine Clearance 48.17 ml/min; Globulin 3.8 g/dL (2.2-4.2); Glucose 185 mg/dL (74-106); Potassium 3.5 mmol/L (3.5-5.1); Protein, Total 6.2 g/dL (6.4-8.2); Sodium Level 135 mmol/L (136-145)
[2021-07-17] MEDS: Pantoprazole Sodium 40 MG Tablet PO (06:56)
[2021-07-17] MEDS: Nystatin Powder 15gm Bottle 1 APPLIC TOPICAL ×3 (06:58→22:24)
[2021-07-17 07:06] LABS: Bedside Glucose 172 mg/dL (70-110)
[2021-07-17] MEDS: dexAMETHasone 4 MG Tablet 6 MG PO (08:28)
[2021-07-17] MEDS: Enoxaparin 30 MG/0.3 ML Syringe SC ×2 (08:29→22:33)
[2021-07-17] MEDS: Insulin Lispro 100 UNIT/ML INSULN.PEN SC ×4 (08:31→22:32)
--- NOTE | 2021-07-17 11:26 | CT_ITS ---
STUDY: CTA CHEST REASON FOR EXAM: Female, 80 years old. Hypoxia, covid RADIATION DOSAGE (If Supplied By Facility): CTDIvol = ( 9.78 ) mGy, DLP = ( 289.04 ) mGycm TECHNIQUE: The examination was performed with the intravenous administration of IV 100mL Isovue-370. Post-processing of the angiographic images was performed, with multiplanar reformation and 3D reconstruction. Individualized dose optimization techniques were used for this CT. COMPARISON: Comparison is made with prior chest radiograph dated 07/15/2021. FINDINGS: Normal enhancement of the main pulmonary artery and right and left pulmonary arteries. Normal enhancement of the bilateral peripheral pulmonary arteries. There is no demonstrated pulmonary embolism. Normal thoracic aorta and visualized great vessels. There is no demonstrated aortic dissection. Normal heart and pericardium. Normal mediastinum. Normal hilar regions. Normal visualized trachea and bronchi. The lungs are well expanded. Diffuse bilateral pulmonary infiltrates worse in the right hemithorax and lower lungs. Normal pleura. Normal chest wall structures. There are degenerative changes of thoracic spine. Loss of height of the mid dorsal vertebrae with increased kyphosis. The patient is status post cholecystectomy. CT/CTA Chest W/WO Contrast IMPRESSION: No evidence of pulmonary embolism. Diffuse bilateral pulmonary infiltrates in keeping with diffuse bilateral patchy pneumonias. Electronically Signed: Parviz Clark MD at 13:30 EDT , Service support ,
--- NOTE | 2021-07-17 11:28 | CON.PCM.ID_ITS ---
Assessment & Plan Assessment/Plan (1) Pneumonia due to 2019 novel coronavirus: PLAN: Sx started around 07/09. Vaccinated. tested neg, asymptomatic. On dex, remdesivir. Worsened O2, discussed EUA and risks/isai efits with her, we agree to start baricitinib. Will check CRP and CT-PE given worsening. Pulm consulted. Will follow, thank you (2) Hypoxemia: HPI Consult Data Date of Consult: 07/17/21 HPI Narrative HPI Narrative: JIMMY DESAI, is a 80 F with h/o lymphoma in remission, DM, presented to ED 07/15 with 7-8 days of weakness, dyspnea, fever, cough, clear sputum. No aches, no n/v/d, no change in taste or smell. Reports had visited with family 2 weeks ago who had been in [facility], now multiple members of that family are in hospital in [place] with covid. She is vaccinated. doing fine, tested neg. She was admitted on dex and remdesivir, now worsened O2. Full ROS performed and neg except as noted above. [facility] Medical History Hepatitis Hypertension Type 2 diabetes mellitus Home Medications metoprolol succinate 100 mg PO DAILY 10/10/20 [History Last Taken Unknown] pantoprazole 40 mg PO 0700 10/10/20 [History Last Taken Unknown] glimepiride 2 mg PO DAILY 07/15/21 [History Last Taken Unknown] Allergy/AdvReac Type Severity Reaction Status Date / Time shellfish derived Allergy Other Verified 10/09/20 16:55 Family History no significant family his Surgical History (Updated 07/15/21 @ 20:39 by Mickey Avila) H/O Whipple procedure History of cholecystectomy Social History Smoking Status: Never smoker Physical Exam Const alert, oriented x3 and no apparent distress General Appearance: cooperative Exam Limitations: no limitations HEENT head/scalp atraumatic Eyes PERRL and EOMs intact bilaterally Neck supple and No nodes Resp Auscultation: diminished lung sounds Cardio regular rate and regular rhythm GI normal to inspection, nondistended, normoactive bowel sounds Extremity no clubbing, cyanosis or edema Skin no rashes or lesions noted Neuro CN's II-XII intact bilaterally Lab / Micro Data Result Diagrams: 07/17/21 05:50 07/17/21 05:50 Labs: Laboratory Results - last 24 hr 07/16/21 06:49: POC Glucose 269 H 07/16/21 11:07: POC Glucose 354 H 07/16/21 15:42: POC Glucose 273 H 07/16/21 22:52: POC Glucose 382 H 07/17/21 05:50: WBC 9.0, RBC 4.21, Hgb 13.0, Hct 39.8, MCV 94.5, MCH 30.9, MCHC 32.7, RDW Std Deviation 45.1 H, RDW Coeff of Renetta 12.9, Plt Count 178, MPV 10.4, Immature Gran % (Auto) 0.700, Neut % (Auto) 86.8 H, Lymph % (Auto) 5.6 L, D[place] % (Auto) 6.7, Eos % (Auto) 0.0, Baso % (Auto) 0.2, Absolute Neuts (auto) 7.8 H, Absolute Lymphs (auto) 0.50 L, Nucleated RBC % 0, Differential Comment SCANNED 07/17/21 05:50: Sodium 135 L, Potassium 3.5, Chloride 102, Carbon Dioxide 25.0, Anion Gap 8, BUN 23 H, Creatinine 0.78, Estim Creat Clear Calc 48.17, Est GFR (MDRD) Af Amer 91, Est GFR (MDRD) Non-Af 75, BUN/Creatinine Ratio 29.4 H, Glucose 185 H, Calcium 8.1 L, Total Bilirubin 0.30, AST 29, ALT 20, Alkaline Phosphatase 68, Total Protein 6.2 L, Albumin 2.4 L, Globulin 3.8, Albumin/Globulin Ratio 0.6 L 07/17/21 06:47: POC Glucose 172 H
--- NOTE | 2021-07-17 14:47 | CASEMGMT ---
RNCM Note: Palliative screening tool completed per [facility] policy d/t Strata 3. Patient currently does not meet criteria for referral. QING Lynch
[2021-07-17 16:11] LABS: Bedside Glucose 197 mg/dL (70-110)
[2021-07-17] MEDS: Insulin Lispro 100 UNIT/ML INSULN.PEN 10 UNIT SC (16:17)
--- NOTE | 2021-07-17 16:24 | CON.PCM.CC_ITS ---
Assessment & Plan Assessment/Plan (1) Pneumonia due to 2019 novel coronavirus: (2) Acute respiratory failure with hypoxia: PLAN: RECOMMENDATIONS: 1. Continue Decadron, Remdesivir and baricitinib with appropriate monitoring 2. Diuretics as tolerated to maintain euvolemia 3. Encourage incentive spirometer, Acapella and prone positioning as tolerated 4. Hold on bronchodilators given lack of obstructive lung disease 5. Monitor blood sugars closely given Decadron therapy IMPRESSIONS: 1. Acute hypoxic respiratory failure secondary to COVID-19 Fortunately, patient is vaccinated, but has had significant worsening over the last 24 hours. Patient is on Remdesivir, Decadron and baricitinib. We will continue to wean supplemental oxygen as tolerated. Patient appears to have improved significantly after initiation of IV Lasix. We will continue to diurese as tolerated. Suggested to the patient the importance of Acapella, incentive spirometer and prone positioning. Patient appeared to be marginally receptive. CTA does show extensive areas of groundglass infiltrates, but no PE. Likely not necessary to have therapeutic anticoagulation. 2. Diabetes mellitus/hypertension/GERD/advanced age Complicates care, management, recovery and prognosis. We will have to watch blood sugars and pressure closely given Decadron therapy. HPI Consult Data Date of Consult: 07/17/21 HPI Narrative HPI Narrative: JIMMY DESAI is a 80 F, with past medical history listed below, who presented to [facility] on 07/15/2021 secondary to genera lized weakness and fatigue. Patient reportedly had had weakness, shortness of breath and fatigue for 7 to 8 days. Patient was tested for COVID-19 at the [facility] on the day prior to presentation and was found to be positive. Patient was fully immunized by Pfizer vaccine. Patient was monitoring her saturations at home and had dropped to 82%, so she presented to the ER for evaluation. Patient does have a history of lymphoma that is in remission and also some mild dementia. Patient reportedly had family that was in [facility] but she was visiting approximately 2 weeks ago and multiple members have come back positive for COVID-19. In the ER, patient was afebrile, normotensive and not tachypneic. Patient required 4 L nasal cannula to maintain saturations. Laboratory work-up showed a white blood cell count of 6, hemoglobin of 12.5 and platelet count of 151. D- dimer was slightly elevated, but chemistries were unremarkable. Lactate was elevated at 3.5. Chest x-ray showed bilateral infiltrates and an EKG showed sinus rhythm with a right bundle branch. Given patient's need for supplemental oxygen, she was admitted to the floor for further evaluation. Since being admitted, patient's oxygen requirements have significantly worsened. Patient was requiring up to 7 L/min on the first night of presentation, but today was transitioned to Airvo to maintain saturations. Patient overall feels subjectively improved after going to Air, but states that she does not trust [facility] and feels the [facility] would do a better job. Patient is currently on Remdesivir and Decadron. Patient was seen by ID today and initiated on baricitinib. Patient did receive a dose of IV Lasix today secondary to increased oxygen requirements. Patient denies any history of smoking, alcohol or drug use. Patient did not have any environmental allergies. Patient has not seen a ophthalmology surgical technician previously. Patient does not require supplemental oxygen at baseline. Patient has never had a PFT and does not use inhalers. Review of systems otherwise negative from a constitutional, HEENT, respiratory, cardiovascular, GI, genitourinary, musculoskeletal, skin, neurologic, psych iatric and hematologic system unless stated above. [facility] Medical History Hepatitis Hypertension Type 2 diabetes mellitus Home Medications metoprolol succinate 100 mg PO DAILY 10/10/20 [History Last Taken Unknown] pantoprazole 40 mg PO 0700 10/10/20 [History Last Taken Unknown] glimepiride 2 mg PO DAILY 07/15/21 [History Last Taken Unknown] Allergy/AdvReac Type Severity Reaction Status Date / Time shellfish derived Allergy Other Verified 10/09/20 16:55 Family History no significant family his Surgical History (Updated 07/15/21 @ 20:39 by Mickey Avila) H/O Whipple procedure History of cholecystectomy Social History Smoking Status: Never smoker ROS ROS Narrative See HPI Physical Exam Const alert, oriented x3 and no apparent distress General Appearance: cooperative HEENT normocephalic Eyes PERRL, EOMs intact bilaterally and conjunctivae normal Neck supple and no JVD Chest inspection of chest normal Chest: symmetrical chest wall rise; Negative for crepitus Resp no retractions and no use of accessory muscles Effort and Inspection: able to speak in complete sentences Auscultation: rales bilateral and diminished lung sounds; Negative for crackles, rhonchi or wheezes Cardio regular rate, regular rhythm, S1 normal heart sound, S2 normal heart sound and no murmurs GI soft to palpation, non-tender and non-distended; Negative for hepatosplenomegaly Extremity no clubbing, cyanosis or edema Skin no rashes or lesions noted Neuro no focal motor deficits and no sensory deficits noted Psych affect normal Appearance: appropriate Mood & Affect: anxious Lab / Micro Data Result Diagrams: 07/17/21 05:50 07/17/21 05:50 Labs: Laboratory Results - last 24 hr 07/16/21 06:49: POC Glucose 269 H 07/16/21 15:42: POC Glucose 273 H 07/16/21 22:52: POC Glucose 382 H 07/17/21 05:50: WBC 9.0, RBC 4.21, Hgb 13.0, Hct 39.8, MCV 94.5, MCH 30.9, MCHC 32.7, RDW Std Deviation 45.1 H, RDW Coeff of Renetta 12.9, Plt Count 178, MPV 10.4, Immature Gran % (Auto) 0.700, Neut % (Auto) 86.8 H, Lymph % (Auto) 5.6 L, [place] % (Auto) 6.7, Eos % (Auto) 0.0, Baso % (Auto) 0.2, Absolute Neuts (auto) 7.8 H, Absolute Lymphs (auto) 0.50 L, Nucleated RBC % 0, Differential Comment SCANNED 07/17/21 05:50: Sodium 135 L, Potassium 3.5, Chloride 102, Carbon Dioxide 25.0, Anion Gap 8, BUN 23 H, Creatinine 0.78, Estim Creat Clear Calc 48.17, Est GFR (MDRD) Af Amer 91, Est GFR (MDRD) Non-Af 75, BUN/Creatinine Ratio 29.4 H, Glucose 185 H, Calcium 8.1 L, Total Bilirubin 0.30, AST 29, ALT 20, Alkaline Phosphatase 68, Total Protein 6.2 L, Albumin 2.4 L, Globulin 3.8, Albumin/Globulin Ratio 0.6 L 07/17/21 06:47: POC Glucose 172 H 07/17/21 10:25: POC Glucose 197 H Radiology Impression Chest CTA 07/17/21 11:26 IMPRESSION: No evidence of pulmonary embolism. Diffuse bilateral pulmonary infiltrates in keeping with diffuse bilateral patchy pneumonias. Electronically Signed: Parviz Clark MD at 13:30 EDT , Service support , Charges/Coding Visit Charges Inpatient E&M: 95962 Init Hosp L3
--- NOTE | 2021-07-17 17:49 | PCM.PN.HOSP ---
Subjective Subjective She had significant worsening oxygen saturations and has need to be advanced air Vo. She states that she thinks she is breathing better than when she came in. Objective Data Objective Data Vital Signs: Vital Signs Temp Pulse Resp BP Pulse Ox 98.1 F 63 22 H 109/58 L 96 07/17/21 14:44 07/17/21 14:44 07/17/21 14:44 07/17/21 14:44 07/17/21 14:44 Oxygen Flow Rate (L/min) [ 4 AMBULATING with Oxygen #1] Oxygen Flow Rate (L/min) 15 Oxygen Delivery Method Airvo Weight: 145 lb 4.554 oz Body Mass Index (BMI) 29.4 Intake & Output: Intake and Output for Last 24 Hours 07/16/21 07/17/21 07/18/21 03:59 03:59 03:59 Intake Total 450 / 450 666.75 / 666.75 249.5 / 249.5 Output Total 500 / 500 Balance 450 / 450 666.75 / 666.75 -250.5 / -250.5 Lab / Micro Data Result Diagrams: 07/18/21 05:30 07/18/21 05:30 Labs: Laboratory Results - last 24 hr 07/16/21 15:42: POC Glucose 273 H 07/16/21 22:52: POC Glucose 382 H 07/17/21 05:50: WBC 9.0, RBC 4.21, Hgb 13.0, Hct 39.8, MCV 94.5, MCH 30.9, MCHC 32.7, RDW Std Deviation 45.1 H, RDW Coeff of Renetta 12.9, Plt Count 178, MPV 10.4, Immature Gran % (Auto) 0.700, Neut % (Auto) 86.8 H, Lymph % (Auto) 5.6 L, Armstrong % (Auto) 6.7, Eos % (Auto) 0.0, Baso % (Auto) 0.2, Absolute Neuts (auto) 7.8 H, Absolute Lymphs (auto) 0.50 L, Nucleated RBC % 0, Differential Comment SCANNED 07/17/21 05:50: Sodium 135 L, Potassium 3.5, Chloride 102, Carbon Dioxide 25.0, Anion Gap 8, BUN 23 H, Creatinine 0.78, Estim Creat Clear Calc 48.17, Est GFR (MDRD) Af Amer 91, Est GFR (MDRD) Non-Af 75, BUN/Creatinine Ratio 29.4 H, Glucose 185 H, Calcium 8.1 L, Total Bilirubin 0.30, AST 29, ALT 20, Alkaline Phosphatase 68, Total Protein 6.2 L, Albumin 2.4 L, Globulin 3.8, Albumin/Globulin Ratio 0.6 L 07/17/21 06:47: POC Glucose 172 H 07/17/21 10:25: POC Glucose 197 H Radiography Diagnostic Testing: Radiology Impression Chest CTA 07/17/21 11:26 IMPRESSION: No evidence of pulmonary embolism. Diffuse bilateral pulmonary infiltrates in keeping with diffuse bilateral patchy pneumonias. Electronically Signed: Parviz Clark MD at 13:30 EDT , Service support , Physical Exam Const alert, oriented x3 and no apparent distress General Appearance: cooperative HEENT normocephalic Eyes PERRL, EOMs intact bilaterally and conjunctivae normal Neck supple and no JVD Resp normal respiratory effort, no retractions and no use of accessory muscles Auscultation: rales and diminished lung sounds; Negative for crackles, rhonchi or wheezes Cardio regular rate, regular rhythm, S1 normal heart sound, S2 normal heart sound and no murmurs GI soft to palpation, non-tender and non-distended; Negative for hepatosplenomegaly Extremity no clubbing, cyanosis or edema Skin no rashes or lesions noted Neuro no focal motor deficits and no sensory deficits noted Psych affect normal Appearance: appropriate Assessment & Plan Assessment/Plan (1) Pneumonia due to 2019 novel coronavirus: (2) Acute respiratory failure with hypoxia: PLAN: 1. Acute hypoxic respiratory failure secondary to COVID-19 pneumonia -She was able to go from the bed to the chair relatively unassisted -We will start her on remdesivir and Decadron -We will recommend incentive spirometry as well as Pep therapy -We will give her a dose of IV Lasix given the rales that were heard on exam and monitor renal function -PT/OT -D-dimer was unremarkable compared to age -We will consult infectious disease and pulmonology for assistance as she has worsened in her respiratory status needing air Vo 2. DM2 -We will hold her glipizide and place her on sliding scale insulin as well as long-acting insulin -Accu-Cheks AC at bedtime -We will make adjustments as necessary 3. HTN -Blood pressure stable -Continue with metoprolol 4. GERD -Stable -Continue with PPI DVT: Lovenox Charges/Coding Visit Charges Inpatient E&M: 63148 Subs Hosp L2
[2021-07-17 22:46] LABS: Bedside Glucose 178 mg/dL (70-110)
[2021-07-18] VITALS (11 sets, daily range): BP systolic 99–113; BP diastolic 46–61; PULSE 52–61; RESP 16–22; TEMP 36.2–36.6; O2SAT 91–97
[2021-07-18 06:10] LABS: Absolute Neutrophil Count 5.6 X10^3/uL (2.0-7.7); Basophil# 0.01 X10^3/uL; Basophil% 0.1 % (0-1); Hematocrit 34.8 % (37-47); Hemoglobin 11.8 g/dL (12.0-15.0); Mean Corp Hgb Conc 33.9 g/dL (32-36); Mean Corpuscular Hgb 30.9 pg (27.0-32.0); Mean Corpuscular Volume 91.1 fL (81-99); Mean Platelet Vol. 10.6 fl (6.2-12.0); Monocyte# 0.67 X10^3/uL; Monocyte% 9.5 % (0-10); NRBC Flagged by Analyzer 0 % (0-5); Neutrophil # 5.62 X10^3/uL (2.7-7.7); Platelet Count 225 K/mm3 (150-450); RBC Distribution Width CV 12.9 % (11.6-14.6); Red Blood Count 3.82 M/mm3 (4.2-5.4)
[2021-07-18 06:37] LABS: ALB/GLOB Ratio 0.7 RATIO (0.9-2.4); AST(SGOT) 30 U/L (15-37); Alanine Aminotransfer ALT/SGPT 19 U/L (13-56); Albumin, Serum 2.5 g/dL (3.2-5.0); Alkaline Phosphatase 65 U/L (45-117); Anion Gap 7 (5-15); BUN 21 mg/dL (7-18); BUN/Creat Ratio 32.4 RATIO (10-20); Calcium,Total 7.9 mg/dL (8.5-10.1); Chloride 100 mmol/L (98-107); Creatinine, Serum 0.65 mg/dL (0.55-1.02); EST Glomerular Filtration Rate 93 mL/min (>60); Est Glom Filt Rate - Afr Amer 113 mL/min (>60); Estimated Creatinine Clearance 47.03 ml/min; Globulin 3.6 g/dL (2.2-4.2); Glucose 105 mg/dL (74-106); Potassium 3.4 mmol/L (3.5-5.1); Protein, Total 6.1 g/dL (6.4-8.2); Sodium Level 137 mmol/L (136-145)
[2021-07-18] MEDS: Pantoprazole Sodium 40 MG Tablet PO (06:51)
[2021-07-18] MEDS: Nystatin Powder 15gm Bottle 1 APPLIC TOPICAL ×3 (06:51→21:48)
[2021-07-18] MEDS: Enoxaparin 30 MG/0.3 ML Syringe SC ×2 (08:43→21:50)
[2021-07-18] MEDS: dexAMETHasone 4 MG Tablet 6 MG PO (08:50)
--- NOTE | 2021-07-18 10:00 | PCM.PN.INT ---
Assessment & Plan Assessment/Plan (1) Pneumonia due to 2019 novel coronavirus: (2) Acute respiratory failure with hypoxia: PLAN: RECOMMENDATIONS: 1. Continue Decadron, Remdesivir and baricitinib with appropriate monitoring 2. Diuretics as tolerated to maintain euvolemia 3. Encourage incentive spirometer, Acapella and prone positioning as tolerated 4. Hold on bronchodilators given lack of obstructive lung disease 5. Monitor blood sugars closely given Decadron therapy IMPRESSIONS: 1. Acute hypoxic respiratory failure secondary to COVID-19 Fortunately, patient is vaccinated, but has had significant worsening over the initial 24 hours. Patient is on Remdesivir, Decadron and baricitinib. We will continue to wean supplemental oxygen as tolerated. Patient appears to have improved significantly after initiation of IV Lasix, so will continue to diurese as tolerated. Suggested to the patient the importance of Acapella, incentive spirometer and prone positioning. Patient appeared to be marginally receptive. CTA does show extensive areas of groundglass infiltrates, but no PE. Likely not necessary to have therapeutic anticoagulation. 2. Diabetes mellitus/hypertension/GERD/advanced age Complicates care, management, recovery and prognosis. We will have to watch blood sugars and pressure closely given Decadron therapy. Subjective Subjective Patient subjectively feels improved compared to previous. Patient still has a cough that is productive of clear to white sputum. No change in volume or frequency. Patient is not reporting any chest pain. No bleeding complications have been reported. Objective Data Objective Data Vital Signs: Vital Signs Temp Pulse Resp BP Pulse Ox 36.6 C 58 L 16 110/46 L 91 07/18/21 07:55 07/18/21 08:44 07/18/21 07:55 07/18/21 07:55 07/18/21 08:00 Oxygen Flow Rate (L/min) [ 4 AMBULATING with Oxygen #1] Oxygen Flow Rate (L/min) 6 Oxygen Delivery Method Nasal Cannula Weight: 66.4 kg Body Mass Index (BMI) 29.4 Intake & Output: Intake and Output for Last 24 Hours 07/16/21 07/17/21 07/18/21 23:59 23:59 23:59 Intake Total 816.75 / 866.75 549.5 / 549.5 250 / 250 Output Total 500 / 850 350 / 350 Balance 816.75 / 866.75 49.5 / -300.5 -100 / -100 Lab / Micro Data Result Diagrams: 07/18/21 05:30 07/18/21 05:30 Labs: Laboratory Results - last 24 hr 07/17/21 10:25: POC Glucose 197 H 07/17/21 22:28: POC Glucose 178 H 07/18/21 05:30: WBC 7.0, RBC 3.82 L, Hgb 11.8 L, Hct 34.8 L, MCV 91.1, MCH 30.9, MCHC 33.9, RDW Std Deviation 43.0, RDW Coeff of Renetta 12.9, Plt Count 225, MPV 10.6, Immature Gran % (Auto) 0.400, Neut % (Auto) 80.0 H, Lymph % (Auto) 10.0 L, Sebastian % (Auto) 9.5, Eos % (Auto) 0.0, Baso % (Auto) 0.1, Absolute Neuts (auto) 5.6, Absolute Lymphs (auto) 0.70 L, Nucleated RBC % 0 07/18/21 05:30: Sodium 137, Potassium 3.4 L, Chloride 100, Carbon Dioxide 30.0, Anion Gap 7, BUN 21 H, Creatinine 0.65, Estim Creat Clear Calc 47.03, Est GFR (MDRD) Af Amer 113, Est GFR (MDRD) Non-Af 93, BUN/Creatinine Ratio 32.4 H, Glucose 105, Calcium 7.9 L, Total Bilirubin 0.40, AST 30, ALT 19, Alkaline Phosphatase 65, C-React Prot Ext Range 25.70 H, Total Protein 6.1 L, Albumin 2.5 L, Globulin 3.6, Albumin/Globulin Ratio 0.7 L Micro: Microbiology 07/15/21 22:34 Blood Culture (Wb) - Venous Blood Culture - Preliminary No growth in 48 hours. 07/15/21 16:00 Blood Culture (Wb) - Arm Left Blood Culture - Preliminary No growth in 48 hours. Radiography Diagnostic Testing: Radiology Impression Chest CTA 07/17/21 11:26 IMPRESSION: No evidence of pulmonary embolism. Diffuse bilateral pulmonary infiltrates in keeping with diffuse bilateral patchy pneumonias. Electronically Signed: Parviz Clark MD at 13:30 EDT , Service support , Physical Exam Const alert, oriented x3 and no apparent distress General Appearance: cooperative HEENT normocephalic Eyes PERRL, EOMs intact bilaterally and conjunctivae normal Neck supple and no JVD Chest inspection of chest normal Chest: symmetrical chest wall rise; Negative for crepitus Resp no retractions and no use of accessory muscles Effort and Inspection: able to speak in complete sentences Auscultation: rales bilateral and diminished lung sounds; Negative for crackles, rhonchi or wheezes Cardio regular rate, regular rhythm, S1 normal heart sound, S2 normal heart sound and no murmurs GI soft to palpation, non-tender and non-distended; Negative for hepatosplenomegaly Extremity no clubbing, cyanosis or edema Skin no rashes or lesions noted Neuro no focal motor deficits and no sensory deficits noted Psych affect normal Appearance: appropriate Mood & Affect: anxious Charges/Coding Visit Charges Inpatient E&M: 75870 Subs Hosp L3
[2021-07-18 10:36] LABS: Bedside Glucose 270 mg/dL (70-110)
[2021-07-18 11:20] LABS: Bedside Glucose 91 mg/dL (70-110)
[2021-07-18] MEDS: Furosemide 40 MG/4 ML Vial IV (11:57)
[2021-07-18] MEDS: Insulin Lispro 100 UNIT/ML INSULN.PEN SC ×2 (11:57→21:50)
[2021-07-18] MEDS: Insulin Lispro 100 UNIT/ML INSULN.PEN 10 UNIT SC (11:57)
[2021-07-18] MEDS: 0.9% Saline Lock 10 ML Syringe IV (11:58)
[2021-07-18 12:55] LABS: Bedside Glucose 250 mg/dL (70-110)
--- NOTE | 2021-07-18 16:01 | PCM.PN.HOSP ---
Subjective Subjective She is doing well today, no change from yesterday. She is down to 50% FiO2. Objective Data Objective Data Vital Signs: Vital Signs Temp Pulse Resp BP Pulse Ox 97.9 F 61 16 113/61 94 07/18/21 14:45 07/18/21 14:45 07/18/21 14:45 07/18/21 14:45 07/18/21 14:45 Oxygen Flow Rate (L/min) [ 4 AMBULATING with Oxygen #1] Oxygen Flow Rate (L/min) 50 Oxygen Delivery Method Airvo Weight: 146 lb 6.191 oz Body Mass Index (BMI) 29.4 Intake & Output: Intake and Output for Last 24 Hours 07/17/21 07/18/21 07/19/21 03:59 03:59 03:59 Intake Total 666.75 / 666.75 499.5 / 499.5 Output Total 850 / 850 Balance 666.75 / 666.75 -350.5 / -350.5 Lab / Micro Data Result Diagrams: 07/18/21 05:30 07/18/21 05:30 Labs: Laboratory Results - last 24 hr 07/17/21 10:25: POC Glucose 197 H 07/17/21 16:12: POC Glucose 270 H 07/17/21 22:28: POC Glucose 178 H 07/18/21 05:30: WBC 7.0, RBC 3.82 L, Hgb 11.8 L, Hct 34.8 L, MCV 91.1, MCH 30.9, MCHC 33.9, RDW Std Deviation 43.0, RDW Coeff of Renetta 12.9, Plt Count 225, MPV 10.6, Immature Gran % (Auto) 0.400, Neut % (Auto) 80.0 H, Lymph % (Auto) 10.0 L, [place] % (Auto) 9.5, Eos % (Auto) 0.0, Baso % (Auto) 0.1, Absolute Neuts (auto) 5.6, Absolute Lymphs (auto) 0.70 L, Nucleated RBC % 0 07/18/21 05:30: Sodium 137, Potassium 3.4 L, Chloride 100, Carbon Dioxide 30.0, Anion Gap 7, BUN 21 H, Creatinine 0.65, Estim Creat Clear Calc 47.03, Est GFR (MDRD) Af Amer 113, Est GFR (MDRD) Non-Af 93, BUN/Creatinine Ratio 32.4 H, Glucose 105, Calcium 7.9 L, Total Bilirubin 0.40, AST 30, ALT 19, Alkaline Phosphatase 65, C-React Prot Ext Range 25.70 H, Total Protein 6.1 L, Albumin 2.5 L, Globulin 3.6, Albumin/Globulin Ratio 0.7 L 07/18/21 08:36: POC Glucose 91 07/18/21 11:51: POC Glucose 250 H Micro: Microbiology 07/15/21 22:34 Blood Culture (Wb) - Venous Blood Culture - Preliminary No growth in 48 hours. 07/15/21 16:00 Blood Culture (Wb) - Arm Left Blood Culture - Preliminary No growth in 48 hours. Physical Exam Const alert, oriented x3 and no apparent distress General Appearance: cooperative HEENT normocephalic Eyes PERRL, EOMs intact bilaterally and conjunctivae normal Neck supple and no JVD Resp normal respiratory effort, no retractions and no use of accessory muscles Auscultation: rales and diminished lung sounds; Negative for crackles, rhonchi or wheezes Cardio regular rate, regular rhythm, S1 normal heart sound, S2 normal heart sound and no murmurs GI soft to palpation, non-tender and non-distended; Negative for hepatosplenomegaly Extremity no clubbing, cyanosis or edema Skin no rashes or lesions noted Neuro no focal motor deficits and no sensory deficits noted Psych affect normal Appearance: appropriate Assessment & Plan Assessment/Plan (1) Pneumonia due to 2019 novel coronavirus: (2) Acute respiratory failure with hypoxia: PLAN: 1. Acute hypoxic respiratory failure secondary to COVID-19 pneumonia -She was able to go from the bed to the chair relatively unassisted -We will start her on remdesivir and Decadron, started on baricitinib. She was concerned because she has a history of hepatitis as well as a history of cancer and she thought these were contraindications for baricitinib however upon literature review there is no mention about cancer is a contraindication and she is not currently having active liver disease -Appreciate infectious disease input on remdesivir Decadron and baricitinib -Appreciate pulmonology. -We will recommend incentive spirometry as well as Pep therapy -We will give her a dose of IV Lasix given the rales that were heard on exam and monitor renal function -PT/OT -D-dimer was unremarkable compared to age, CTA was negative for PE 2. DM2 -We will hold her glipizide and place her on sliding scale insulin as well as long-acting insulin -Accu-Cheks AC at bedtime -We will make adjustments as necessary 3. HTN -Blood pressure stable -Continue with metoprolol 4. GERD -Stable -Continue with PPI DVT: Lovenox Charges/Coding Visit Charges Inpatient E&M: 20920 Subs Hosp L2
[2021-07-18] MEDS: Potassium Chloride Oral Tablet 20 MEQ PO (17:15)
[2021-07-18 18:40] LABS: Bedside Glucose 97 mg/dL (70-110)
[2021-07-18] MEDS: MELATONIN 3 MG TABLET PO (21:49)
[2021-07-18 22:45] LABS: Bedside Glucose 166 mg/dL (70-110)
[2021-07-19] VITALS (10 sets, daily range): BP systolic 97–122; BP diastolic 38–68; PULSE 55–66; RESP 16–24; TEMP 36.6–36.7; O2SAT 90–96
[2021-07-19] MEDS: Pantoprazole Sodium 40 MG Tablet PO (06:09)
[2021-07-19 06:28] LABS: Absolute Lymphocyte Count 0.52 X10^3/uL (0.83-4.51); Absolute Neutrophil Count 6.9 X10^3/uL (2.0-7.7); Hematocrit 35.6 % (37-47); Hemoglobin 12.2 g/dL (12.0-15.0); Lymphocyte # 0.52 X10^3/ul (0.83-4.51); Lymphocyte % 6.5 % (19-41); Mean Corp Hgb Conc 34.3 g/dL (32-36); Mean Corpuscular Hgb 30.9 pg (27.0-32.0); Mean Corpuscular Volume 90.1 fL (81-99); Mean Platelet Vol. 10.2 fl (6.2-12.0); Monocyte# 0.56 X10^3/uL; NRBC Flagged by Analyzer 0 % (0-5); Neutrophil # 6.89 X10^3/uL (2.7-7.7); Neutrophil % 85.9 % (47-70); POSITIVE DIFFERENTIAL YES; Platelet Count 231 K/mm3 (150-450); RBC Distribution Width CV 12.7 % (11.6-14.6); RBC Distribution Width SD 42.2 fl (35.1-43.9); Red Blood Count 3.95 M/mm3 (4.2-5.4)
[2021-07-19 06:33] LABS: Differential Indicated SCAN CRITERIA MET
[2021-07-19 06:55] LABS: ALB/GLOB Ratio 0.7 RATIO (0.9-2.4); AST(SGOT) 30 U/L (15-37); Alanine Aminotransfer ALT/SGPT 18 U/L (13-56); Albumin, Serum 2.4 g/dL (3.2-5.0); Alkaline Phosphatase 67 U/L (45-117); Anion Gap 7 (5-15); BUN 17 mg/dL (7-18); BUN/Creat Ratio 30.9 RATIO (10-20); Calcium,Total 8.1 mg/dL (8.5-10.1); Chloride 105 mmol/L (98-107); Creatinine, Serum 0.55 mg/dL (0.55-1.02); EST Glomerular Filtration Rate 113 mL/min (>60); Est Glom Filt Rate - Afr Amer 136 mL/min (>60); Estimated Creatinine Clearance 46.33 ml/min; Globulin 3.5 g/dL (2.2-4.2); Glucose 86 mg/dL (74-106); Magnesium 2.3 mg/dL (1.6-2.6); Phosphorus 2.5 mg/dL (2.5-4.9); Potassium 3.1 mmol/L (3.5-5.1); Protein, Total 5.9 g/dL (6.4-8.2); Sodium Level 140 mmol/L (136-145)
[2021-07-19 07:00] LABS: Differential Comment SCANNED
--- NOTE | 2021-07-19 08:41 | PN.CC_ITS ---
Assessment & Plan Assessment/Plan (1) Pneumonia due to 2019 novel coronavirus: (2) Acute respiratory failure with hypoxia: PLAN: RECOMMENDATIONS: 1. Continue Decadron (07/26/2021) and baricitinib (07/30/2021) with appropriate monitoring. Completes Remdesivir today 2. Diuretics as tolerated to maintain euvolemia 3. Encourage incentive spirometer, Acapella and prone positioning as tole rated 4. Hold on bronchodilators given lack of obstructive lung disease 5. Monitor blood sugars closely given Decadron therapy IMPRESSIONS: 1. Acute hypoxic respiratory failure secondary to COVID-19 Fortunately, patient is vaccinated, but has had significant worsening over the initial 24 hours. Patient is on Remdesivir, Decadron and baricitinib. We will continue to wean supplemental oxygen as tolerated. Patient appears to have improved significantly after initiation of IV Lasix, so will continue to diurese as tolerated. Aggressive potassium repletion indicated. Suggested to the patient the importance of Acapella, incentive spirometer and prone positioning. Patient appeared to be marginally receptive. CTA does show extensive areas of groundglass infiltrates, but no PE. Likely not necessary to have therapeutic anticoagulation. 2. Diabetes mellitus/hypertension/GERD/advanced age Complicates care, management, recovery and prognosis. We will have to watch blood sugars and pressure closely given Decadron therapy. Subjective Subjective Patient did okay overnight. No acute issues were reported. Patient overall f eels subjectively slightly improved compared to yesterday. Patient is still reporting significant cough. Objective Data Objective Data Vital Signs: Vital Signs Temp Pulse Resp BP Pulse Ox 36.6 C 60 18 100/55 L 95 07/19/21 06:00 07/19/21 06:00 07/19/21 06:00 07/19/21 06:00 07/19/21 06:00 Oxygen Flow Rate (L/min) [ 4 AMBULATING with Oxygen #1] Oxygen Flow Rate (L/min) 50 Oxygen Delivery Method Airvo Weight: 65.4 kg Body Mass Index (BMI) 29.4 Intake & Output: Intake and Output for Last 24 Hours 07/17/21 07/18/21 07/19/21 23:59 23:59 23:59 Intake Total 549.5 / 549.5 250 / 250 250 / 250 Output Total 500 / 850 350 / 1000 650 / 650 Balance 49.5 / -300.5 -100 / -750 -400 / -400 Lab / Micro Data Result Diagrams: 07/19/21 06:16 07/19/21 06:16 Labs: Laboratory Results - last 24 hr 07/17/21 16:12: POC Glucose 270 H 07/18/21 08:36: POC Glucose 91 07/18/21 11:51: POC Glucose 250 H 07/18/21 17:13: POC Glucose 97 07/18/21 21:46: POC Glucose 166 H 07/19/21 06:16: WBC 8.0, RBC 3.95 L, Hgb 12.2, Hct 35.6 L, MCV 90.1, MCH 30.9, MCHC 34.3, RDW Std Deviation 42.2, RDW Coeff of Renetta 12.7, Plt Count 231, MPV 10.2, Immature Gran % (Auto) 0.600, Neut % (Auto) 85.9 H, Lymph % (Auto) 6.5 L, [place] % (Auto) 7.0, Eos % (Auto) 0.0, Baso % (Auto) 0.0, Absolute Neuts (auto) 6.9, Absolute Lymphs (auto) 0.52 L, Nucleated RBC % 0, Differential Comment SCANNED 07/19/21 06:16: Sodium 140, Potassium 3.1 L, Chloride 105, Carbon Dioxide 28.0, Anion Gap 7, BUN 17, Creatinine 0.55, Estim Creat Clear Calc 46.33, Est GFR (MDRD) Af Amer 136, Est GFR (MDRD) Non-Af 113, BUN/Creatinine Ratio 30.9 H, Glucose 86, Calcium 8.1 L, Phosphorus 2.5, Magnesium 2.3, Total Bilirubin 0.50, AST 30, ALT 18, Alkaline Phosphatase 67, Total Protein 5.9 L, Albumin 2.4 L, Globulin 3.5, Albumin/Globulin Ratio 0.7 L Micro: Microbiology 07/15/21 22:34 Blood Culture (Wb) - Venous Blood Culture - Preliminary No growth in 48 hours. 07/15/21 16:00 Blood Culture (Wb) - Arm Left Blood Culture - Preliminary No growth in 48 hours. Physical Exam Const alert, oriented x3 and no apparent distress General Appearance: cooperative HEENT normocephalic Eyes PERRL, EOMs intact bilaterally and conjunctivae normal Neck supple and no JVD Chest inspection of chest normal Chest: symmetrical chest wall rise; Negative for crepitus Resp no retractions and no use of accessory muscles Effort and Inspection: able to speak in complete sentences Auscultation: rales bilateral and diminished lung sounds; Negative for crackles, rhonchi or wheezes Cardio regular rate, regular rhythm, S1 normal heart sound, S2 normal heart sound and no murmurs GI soft to palpation, non-tender and non-distended; Negative for hepatosplenomegaly Extremity no clubbing, cyanosis or edema Skin no rashes or lesions noted Neuro no focal motor deficits and no sensory deficits noted Psych affect normal Appearance: appropriate Mood & Affect: anxious Charges/Coding Visit Charges Inpatient E&M: 01404 Subs Hosp L3
[2021-07-19] MEDS: dexAMETHasone 4 MG Tablet 6 MG PO (09:26)
[2021-07-19] MEDS: Potassium Chloride Oral Tablet 20 MEQ PO (09:30)
[2021-07-19] MEDS: Enoxaparin 30 MG/0.3 ML Syringe SC ×2 (09:30→23:00)
[2021-07-19] MEDS: Potassium Chloride 10mEq/100mL 10 MEQ/100 ML IV.SOLN. 100 MEQ IV BOLUS (09:30)
--- NOTE | 2021-07-19 10:52 | PCM.PN.ID ---
Physical Exam Narrative Feeling a little better, breathing stable, no fever Const alert General Appearance: cooperative Resp Auscultation: diminished lung sounds Cardio regular rate and regular rhythm GI normal to inspection, nondistended, normoactive bowel sounds Skin no rashes or lesions noted ID ID: Route of nutrition/ use of supplements: [] Nutritional Intake: [] IV Site: [] Edgar Catheter: [] Assessment & Plan Assessment/Plan (1) Pneumonia due to 2019 novel coronavirus: PLAN: Sx started around 07/09. Vaccinated. tested neg, asymptomatic. On dex, remdesivir, baricitinib. On 85% airvo Will follow (2) Hypoxemia:
[2021-07-19] MEDS: 0.9% Saline Lock 10 ML Syringe IV (10:57)
[2021-07-19 11:31] LABS: Bedside Glucose 66 mg/dL (70-110)
[2021-07-19] MEDS: Potassium Chloride 10mEq/100mL 10 MEQ/100 ML IV.SOLN. 60 MEQ IV BOLUS (12:08)
[2021-07-19 12:50] LABS: Bedside Glucose 243 mg/dL (70-110)
[2021-07-19] MEDS: Furosemide 40 MG/4 ML Vial IV (14:18)
[2021-07-19] MEDS: Nystatin Powder 15gm Bottle 1 APPLIC TOPICAL ×2 (14:18→23:00)
--- NOTE | 2021-07-19 16:10 | PN.HOSP_ITS ---
Subjective Subjective Doing well, no issues overnight. Continue with air Vo and wean FiO2 as able Objective Data Objective Data Vital Signs: Vital Signs Temp Pulse Resp BP Pulse Ox 98.0 F 60 16 122/68 H 96 07/19/21 14:28 07/19/21 14:28 07/19/21 14:28 07/19/21 14:28 07/19/21 14:28 Oxygen Flow Rate (L/min) [ 4 AMBULATING with Oxygen #1] Oxygen Flow Rate (L/min) 50 Oxygen Delivery Method Airvo Weight: 144 lb 2.917 oz Body Mass Index (BMI) 29.4 Intake & Output: Intake and Output for Last 24 Hours 07/18/21 07/19/21 07/20/21 03:59 03:59 03:59 Intake Total 499.5 / 499.5 250 / 250 100 / 100 Output Total 850 / 850 650 / 650 700 / 700 Balance -350.5 / -350.5 -400 / -400 -600 / -600 Lab / Micro Data Result Diagrams: 07/20/21 07:04 07/20/21 07:04 Labs: Laboratory Results - last 24 hr 07/18/21 17:13: POC Glucose 97 07/18/21 21:46: POC Glucose 166 H 07/19/21 06:16: WBC 8.0, RBC 3.95 L, Hgb 12.2, Hct 35.6 L, MCV 90.1, MCH 30.9, MCHC 34.3, RDW Std Deviation 42.2, RDW Coeff of Renetta 12.7, Plt Count 231, MPV 10.2, Immature Gran % (Auto) 0.600, Neut % (Auto) 85.9 H, Lymph % (Auto) 6.5 L, [place] % (Auto) 7.0, Eos % (Auto) 0.0, Baso % (Auto) 0.0, Absolute Neuts (auto) 6.9, Absolute Lymphs (auto) 0.52 L, Nucleated RBC % 0, Differential Comment SCANNED 07/19/21 06:16: Sodium 140, Potassium 3.1 L, Chloride 105, Carbon Dioxide 28.0, Anion Gap 7, BUN 17, Creatinine 0.55, Estim Creat Clear Calc 46.33, Est GFR (M DRD) Af Amer 136, Est GFR (MDRD) Non-Af 113, BUN/Creatinine Ratio 30.9 H, Glu cose 86, Calcium 8.1 L, Phosphorus 2.5, Magnesium 2.3, Total Bilirubin 0.50, AST 30, ALT 18, Alkaline Phosphatase 67, Total Protein 5.9 L, Albumin 2.4 L, Globulin 3.5, Albumin/Globulin Ratio 0.7 L 07/19/21 08:32: POC Glucose 66 L 07/19/21 12:13: POC Glucose 243 H Micro: Microbiology 07/15/21 22:34 Blood Culture (Wb) - Venous Blood Culture - Preliminary No growth in 48 hours. 07/15/21 16:00 Blood Culture (Wb) - Arm Left Blood Culture - Preliminary No growth in 48 hours. Physical Exam Const alert, oriented x3 and no apparent distress General Appearance: cooperative HEENT normocephalic Eyes PERRL, EOMs intact bilaterally and conjunctivae normal Neck supple and no JVD Resp normal respiratory effort, no retractions and no use of accessory muscles Auscultation: rales and diminished lung sounds; Negative for crackles, rhonchi or wheezes Cardio regular rate, regular rhythm, S1 normal heart sound, S2 normal heart sound and no murmurs GI soft to palpation, non-tender and non-distended; Negative for hepatosplenomegaly Extremity no clubbing, cyanosis or edema Skin no rashes or lesions noted Neuro no focal motor deficits and no sensory deficits noted Psych affect normal Appearance: appropriate Assessment & Plan Assessment/Plan (1) Pneumonia due to 2019 novel coronavirus: (2) Acute respiratory failure with hypoxia: PLAN: 1. Acute hypoxic respiratory failure secondary to COVID-19 pneumonia -She was able to go from the bed to the chair relatively unassisted -We will start her on remdesivir and Decadron, started on baricitinib. She was concerned because she has a history of hepatitis as well as a history of cancer and she thought these were contraindications for baricitinib however upon literature review there is no mention about cancer is a contraindication and she is not currently having active liver disease -Appreciate infectious disease input on remdesivir Decadron and baricitinib -Appreciate pulmonology. -We will recommend incentive spirometry as well as Pep therapy -We will give her a dose of IV Lasix given the rales that were heard on exam and monitor renal function -PT/OT -D-dimer was unremarkable compared to age, CTA was negative for PE 2. DM2 -We will hold her glipizide and place her on sliding scale insulin as well as long-acting insulin -Accu-Cheks AC at bedtime -We will make adjustments as necessary 3. HTN -Blood pressure stable -Continue with metoprolol 4. GERD -Stable -Continue with PPI DVT: Lovenox Charges/Coding Visit Charges Inpatient E&M: 98341 Subs Hosp L2
[2021-07-19] MEDS: Insulin Lispro 100 UNIT/ML INSULN.PEN 10 UNIT SC (16:58)
[2021-07-19] MEDS: Insulin Lispro 100 UNIT/ML INSULN.PEN SC ×2 (16:58→22:59)
[2021-07-19] MEDS: Potassium Chloride Oral Tablet 20 MEQ 40 MEQ PO (16:59)
[2021-07-19 18:45] LABS: Bedside Glucose 334 mg/dL (70-110)
[2021-07-19] MEDS: MELATONIN 3 MG TABLET PO (23:01)
[2021-07-20] VITALS (12 sets, daily range): BP systolic 106–123; BP diastolic 50–62; PULSE 50–66; RESP 18–24; TEMP 36.5–37.1; O2SAT 89–95
[2021-07-20 01:05] LABS: Bedside Glucose 197 mg/dL (70-110)
--- NOTE | 2021-07-20 02:16 | NURSING ---
Called respiratory therapy to evaluate pt. She is running 85-86% on current airvo settings.
--- NOTE | 2021-07-20 03:07 | CPS ---
increased fio2 to 65% for low sats
[2021-07-20] MEDS: Nystatin Powder 15gm Bottle 1 APPLIC TOPICAL ×3 (06:58→22:33)
[2021-07-20] MEDS: 0.9% Saline Lock 10 ML Syringe IV (06:58)
[2021-07-20 07:28] LABS: Absolute Lymphocyte Count 0.55 X10^3/uL (0.83-4.51); Basophil# 0.02 X10^3/uL; Basophil% 0.2 % (0-1); Hematocrit 38.8 % (37-47); Hemoglobin 13.2 g/dL (12.0-15.0); Lymphocyte # 0.55 X10^3/ul (0.83-4.51); Lymphocyte % 4.9 % (19-41); Mean Corpuscular Hgb 30.7 pg (27.0-32.0); Mean Corpuscular Volume 90.2 fL (81-99); Mean Platelet Vol. 10.6 fl (6.2-12.0); Monocyte# 0.49 X10^3/uL; Monocyte% 4.4 % (0-10); NRBC Flagged by Analyzer 0 % (0-5); Neutrophil # 10.03 X10^3/uL (2.7-7.7); Neutrophil % 89.7 % (47-70); POSITIVE DIFFERENTIAL YES; Platelet Count 254 K/mm3 (150-450); RBC Distribution Width CV 12.8 % (11.6-14.6); RBC Distribution Width SD 42.4 fl (35.1-43.9); White Blood Count 11.2 K/mm3 (4.4-11.0)
[2021-07-20 07:32] LABS: Differential Indicated SCAN CRITERIA MET
[2021-07-20] MEDS: Insulin Lispro 100 UNIT/ML INSULN.PEN SC ×4 (07:45→22:32)
[2021-07-20] MEDS: Potassium Chloride Oral Tablet 20 MEQ 40 MEQ PO (07:46)
[2021-07-20] MEDS: Pantoprazole Sodium 40 MG Tablet PO (07:47)
[2021-07-20 07:53] LABS: ALB/GLOB Ratio 0.6 RATIO (0.9-2.4); AST(SGOT) 26 U/L (15-37); Alanine Aminotransfer ALT/SGPT 18 U/L (13-56); Albumin, Serum 2.4 g/dL (3.2-5.0); Alkaline Phosphatase 77 U/L (45-117); Anion Gap 6 (5-15); BUN 20 mg/dL (7-18); Calcium,Total 8.2 mg/dL (8.5-10.1); Chloride 107 mmol/L (98-107); Creatinine, Serum 0.62 mg/dL (0.55-1.02); EST Glomerular Filtration Rate 97 mL/min (>60); Est Glom Filt Rate - Afr Amer 118 mL/min (>60); Estimated Creatinine Clearance 46.96 ml/min; Globulin 3.8 g/dL (2.2-4.2); Glucose 143 mg/dL (74-106); Protein, Total 6.2 g/dL (6.4-8.2); Sodium Level 140 mmol/L (136-145)
[2021-07-20 08:36] LABS: Bedside Glucose 155 mg/dL (70-110)
--- NOTE | 2021-07-20 08:51 | PN.CC_ITS ---
Assessment & Plan Assessment/Plan (1) Pneumonia due to 2019 novel coronavirus: (2) Acute respiratory failure with hypoxia: PLAN: RECOMMENDATIONS: 1. Continue Decadron (07/26/2021) and baricitinib (07/30/2021) with appropriate monitoring. Completed Remdesivir 2. Diuretics as tolerated to maintain euvolemia. Challenge today 3. Encourage incentive spirometer, Acapella and prone positioning as tolerated 4. Hold on bronchodilators given lack of obstructive lung disease 5. Monitor blood sugars closely given Decadron therapy IMPRESSIONS: 1. Acute hypoxic respiratory failure secondary to COVID-19 Fortunately, patient is vaccinated, but has had significant worsening over the initial 24 hours. Patient is on Remdesivir, Decadron and baricitinib. We will continue to wean supplemental oxygen as tolerated. Patient appears to have improved significantly after initiation of IV Lasix, so will continue to diurese as tolerated. Aggressive potassium repletion indicated. Suggested to the patient the importance of Acapella, incentive spirometer and prone positioning. Patient appeared to be marginally receptive. CTA does show extensive areas of groundglass infiltrates, but no PE. Likely not necessary to have therapeutic anticoagulation. Patient slowly improving, but still requiring Airvo at night. Potentially attempt nasal cannula in the next 24 to 48 hours 2. Diabetes mellitus/hypertension/GERD/advanced age Complicates care, management, recovery and prognosis. We will have to opal ch blood sugars and pressure closely given Decadron therapy. Subjective Subjective Patient did okay overnight. No acute issues were reported. Patient continues to go up on her FiO2 requirements while sleeping, but subjectively feels improved compared to yesterday. Patient is not reporting any chest pain, nausea or vomiting. Objective Data Objective Data Vital Signs: Vital Signs Temp Pulse Resp BP Pulse Ox 37.1 C 62 22 H 123/58 H 92 07/20/21 07:48 07/20/21 08:06 07/20/21 08:06 07/20/21 07:48 07/20/21 08:06 Oxygen Flow Rate (L/min) [ 4 AMBULATING with Oxygen #1] Oxygen Flow Rate (L/min) 45 Oxygen Delivery Method Airvo Weight: 66.3 kg Body Mass Index (BMI) 29.4 Intake & Output: Intake and Output for Last 24 Hours 07/18/21 07/19/21 07/20/21 23:59 23:59 23:59 Intake Total 250 / 250 700 / 700 250 / 250 Output Total 350 / 1000 1350 / 1950 800 / 800 Balance -100 / -750 -650 / -1250 -550 / -550 Lab / Micro Data Result Diagrams: 07/20/21 07:04 07/20/21 07:04 Labs: Laboratory Results - last 24 hr 07/19/21 08:32: POC Glucose 66 L 07/19/21 12:13: POC Glucose 243 H 07/19/21 16:56: POC Glucose 334 H 07/19/21 22:57: POC Glucose 197 H 07/20/21 07:04: WBC 11.2 H, RBC 4.30, Hgb 13.2, Hct 38.8, MCV 90.2, MCH 30.7, MCHC 34.0, RDW Std Deviation 42.4, RDW Coeff of Renetta 12.8, Plt Count 254, MPV 10.6, Immature Gran % (Auto) 0.800, Neut % (Auto) 89.7 H, Lymph % (Auto) 4.9 L, [place] % (Auto) 4.4, Eos % (Auto) 0.0, Baso % (Auto) 0.2, Absolute Neuts (auto) 10.0 H, Absolute Lymphs (auto) 0.55 L, Nucleated RBC % 0 07/20/21 07:04: Sodium 140, Potassium 4.0, Chloride 107, Carbon Dioxide 27.0, Anion Gap 6, BUN 20 H, Creatinine 0.62, Estim Creat Clear Calc 46.96, Est GFR (MDRD) Af Amer 118, Est GFR (MDRD) Non-Af 97, BUN/Creatinine Ratio 32.0 H, Glucose 143 H, Calcium 8.2 L, Total Bilirubin 0.60, AST 26, ALT 18, Alkaline Phosphatase 77, Total Protein 6.2 L, Albumin 2.4 L, Globulin 3.8, Albumin/Globulin Ratio 0.6 L 07/20/21 07:40: POC Glucose 155 H Micro: Microbiology 07/15/21 22:34 Blood Culture (Wb) - Venous Blood Culture - Preliminary No growth in 48 hours. 07/15/21 16:00 Blood Culture (Wb) - Arm Left Blood Culture - Preliminary No growth in 48 hours. Physical Exam Const alert, oriented x3 and no apparent distress General Appearance: cooperative HEENT normocephalic Eyes PERRL, EOMs intact bilaterally and conjunctivae normal Neck supple and no JVD Chest inspection of chest normal Chest: symmetrical chest wall rise; Negative for crepitus Resp no retractions and no use of accessory muscles Effort and Inspection: able to speak in complete sentences Auscultation: rales bilateral and diminished lung sounds; Negative for crackles, rhonchi or wheezes Cardio regular rate, regular rhythm, S1 normal heart sound, S2 normal heart sound and no murmurs GI soft to palpation, non-tender and non-distended; Negative for hepatosplenomegaly Extremity no clubbing, cyanosis or edema Skin no rashes or lesions noted Neuro no focal motor deficits and no sensory deficits noted Psych affect normal Appearance: appropriate Mood & Affect: anxious Charges/Coding Visit Charges Inpatient E&M: 61522 Subs Hosp L3
[2021-07-20] MEDS: dexAMETHasone 4 MG Tablet 6 MG PO (10:19)
[2021-07-20] MEDS: Enoxaparin 30 MG/0.3 ML Syringe SC ×2 (10:19→22:33)
[2021-07-20] MEDS: Metoprolol(XL)Succ 100 MG Tablet PO (10:20)
[2021-07-20] MEDS: Furosemide 40 MG/4 ML Vial IV (10:29)
[2021-07-20] MEDS: Insulin Lispro 100 UNIT/ML INSULN.PEN 10 UNIT SC ×2 (12:25→16:58)
[2021-07-20 12:30] LABS: Bedside Glucose 202 mg/dL (70-110)
--- NOTE | 2021-07-20 14:57 | CPS ---
unable to wean
[2021-07-20 17:15] LABS: Bedside Glucose 228 mg/dL (70-110)
[2021-07-20 22:50] LABS: Bedside Glucose 199 mg/dL (70-110)
[2021-07-21] VITALS (11 sets, daily range): BP systolic 111–125; BP diastolic 56–87; PULSE 46–61; RESP 14–26; TEMP 36.2–36.8; O2SAT 87–96
[2021-07-21] MEDS: Nystatin Powder 15gm Bottle 1 APPLIC TOPICAL ×3 (04:29→22:00)
--- NOTE | 2021-07-21 07:36 | PN.HOSP_ITS ---
Subjective Subjective Late note for 07/20/2021: Doing well, maintaining her oxygen saturations on air Vo weaning FiO2 as able. Objective Data Objective Data Vital Signs: Vital Signs Temp Pulse Resp BP Pulse Ox 97.6 F L 53 L 22 H 118/62 90 07/21/21 04:15 07/21/21 04:15 07/21/21 04:26 07/21/21 04:15 07/21/21 04:15 Oxygen Flow Rate (L/min) [ 4 AMBULATING with Oxygen #1] Oxygen Flow Rate (L/min) 60 Oxygen Delivery Method Airvo Weight: 145 lb 1.027 oz Body Mass Index (BMI) 29.4 Intake & Output: Intake and Output for Last 24 Hours 07/20/21 07/21/21 07/22/21 03:59 03:59 03:59 Intake Total 700 / 700 950 / 950 Output Total 1300 / 1300 800 / 800 1100 / 1100 Balance -600 / -600 150 / 150 -1100 / -1100 Lab / Micro Data Result Diagrams: 07/20/21 07:04 07/20/21 07:04 Labs: Laboratory Results - last 24 hr 07/20/21 07:04: Sodium 140, Potassium 4.0, Chloride 107, Carbon Dioxide 27.0, Anion Gap 6, BUN 20 H, Creatinine 0.62, Estim Creat Clear Calc 46.96, Est GFR (MDRD) Af Amer 118, Est GFR (MDRD) Non-Af 97, BUN/Creatinine Ratio 32.0 H, Glucose 143 H, Calcium 8.2 L, Total Bilirubin 0.60, AST 26, ALT 18, Alkaline Phosphatase 77, Total Protein 6.2 L, Albumin 2.4 L, Globulin 3.8, Albumin/G lobulin Ratio 0.6 L 07/20/21 07:40: POC Glucose 155 H 07/20/21 12:21: POC Glucose 202 H 07/20/21 16:48: POC Glucose 228 H 07/20/21 22:30: POC Glucose 199 H Micro: Microbiology 07/15/21 22:34 Blood Culture (Wb) - Venous Blood Culture - Final No growth in 5 days. 07/15/21 16:00 Blood Culture (Wb) - Arm Left Blood Culture - Final No growth in 5 days. Physical Exam Const alert, oriented x3 and no apparent distress General Appearance: cooperative HEENT normocephalic Eyes PERRL, EOMs intact bilaterally and conjunctivae normal Neck supple and no JVD Resp normal respiratory effort, no retractions and no use of accessory muscles Auscultation: rales and diminished lung sounds; Negative for crackles, rhonchi or wheezes Cardio regular rate, regular rhythm, S1 normal heart sound, S2 normal heart sound and no murmurs GI soft to palpation, non-tender and non-distended; Negative for hepatosplenomegaly Extremity no clubbing, cyanosis or edema Skin no rashes or lesions noted Neuro no focal motor deficits and no sensory deficits noted Psych affect normal Appearance: appropriate Assessment & Plan Assessment/Plan (1) Pneumonia due to 2019 novel coronavirus: (2) Acute respiratory failure with hypoxia: PLAN: 1. Acute hypoxic respiratory failure secondary to COVID-19 pneumonia -She was able to go from the bed to the chair relatively unassisted -Continue with baricitinib and Decadron, completed remdesivir -Appreciate infectious disease -Appreciate pulmonology. -We will recommend incentive spirometry as well as Pep therapy -We will give her a dose of IV Lasix given the rales that were heard on exam and monitor renal function -PT/OT -D-dimer was unremarkable compared to age, CTA was negative for PE 2. DM2 -We will hold her glipizide and place her on sliding scale insulin as well as long-acting insulin -Accu-Cheks AC at bedtime -We will make adjustments as necessary 3. HTN -Blood pressure stable -Continue with metoprolol 4. GERD -Stable -Continue with PPI DVT: Lovenox Charges/Coding Visit Charges Inpatient E&M: 85125 Subs Hosp L2
[2021-07-21] MEDS: Pantoprazole Sodium 40 MG Tablet PO ×2 (08:03→08:04)
[2021-07-21 08:21] LABS: Bedside Glucose 103 mg/dL (70-110)
[2021-07-21] MEDS: dexAMETHasone 4 MG Tablet 6 MG PO (10:22)
[2021-07-21] MEDS: Enoxaparin 30 MG/0.3 ML Syringe SC ×2 (10:22→21:58)
[2021-07-21] MEDS: Acetaminophen 325 MG Tablet 650 MG PO (10:24)
[2021-07-21 11:42] LABS: Anion Gap 8 (5-15); BUN 23 mg/dL (7-18); BUN/Creat Ratio 33.3 RATIO (10-20); Calcium,Total 8.6 mg/dL (8.5-10.1); Chloride 102 mmol/L (98-107); Creatinine, Serum 0.69 mg/dL (0.55-1.02); EST Glomerular Filtration Rate 87 mL/min (>60); Est Glom Filt Rate - Afr Amer 105 mL/min (>60); Estimated Creatinine Clearance 46.61 ml/min; Glucose 139 mg/dL (74-106); Potassium 3.6 mmol/L (3.5-5.1); Sodium Level 139 mmol/L (136-145)
[2021-07-21 11:55] LABS: Bedside Glucose 139 mg/dL (70-110)
--- NOTE | 2021-07-21 14:32 | PCM.PN.HOSP ---
Subjective Subjective She seems apathetic today, she is little bit downtrodden and does not understand why this is happening to her. She did everything right and got vaccinated. I tried to motivate her especially to use the incentive spirometer and Pap therapy to try to improve her oxygen status, I discussed with her that she is getting better her flow rate is improved and her FiO2 is down but she just does not have much of an appetite and does not seem to be very interested in being active Objective Data Objective Data Vital Signs: Vital Signs Temp Pulse Resp BP Pulse Ox 97.2 F L 58 L 18 112/87 H 87 07/21/21 08:10 07/21/21 10:24 07/21/21 08:55 07/21/21 08:10 07/21/21 09:24 Oxygen Flow Rate (L/min) [ 4 AMBULATING with Oxygen #1] Oxygen Flow Rate (L/min) 20 Oxygen Delivery Method Airvo Weight: 145 lb 1.027 oz Body Mass Index (BMI) 29.4 Intake & Output: Intake and Output for Last 24 Hours 07/20/21 07/21/21 07/22/21 03:59 03:59 03:59 Intake Total 700 / 700 950 / 950 650 / 650 Output Total 1300 / 1300 800 / 800 1100 / 1100 Balance -600 / -600 150 / 150 -450 / -450 Lab / Micro Data Result Diagrams: 07/20/21 07:04 07/21/21 11:06 Labs: Laboratory Results - last 24 hr 07/20/21 16:48: POC Glucose 228 H 07/20/21 22:30: POC Glucose 199 H 07/21/21 07:36: POC Glucose 103 07/21/21 11:06: Sodium 139, Potassium 3.6, Chloride 102, Carbon Dioxide 29.0, Anion Gap 8, BUN 23 H, Creatinine 0.69, Estim Creat Clear Calc 46.61, Est GFR (MDRD) Af Amer 105, Est GFR (MDRD) Non-Af 87, BUN/Creatinine Ratio 33.3 H, Glucose 139 H, Calcium 8.6 07/21/21 11:42: POC Glucose 139 H Micro: Microbiology 07/15/21 22:34 Blood Culture (Wb) - Venous Blood Culture - Final No growth in 5 days. 07/15/21 16:00 Blood Culture (Wb) - Arm Left Blood Culture - Final No growth in 5 days. Physical Exam Const alert, oriented x3 and no apparent distress General Appearance: cooperative HEENT normocephalic Eyes PERRL, EOMs intact bilaterally and conjunctivae normal Neck supple and no JVD Resp normal respiratory effort, no retractions and no use of accessory muscles Auscultation: diminished lung sounds; Negative for crackles, rales, rhonchi or wheezes Cardio regular rate, regular rhythm, S1 normal heart sound, S2 normal heart sound and no murmurs GI soft to palpation, non-tender and non-distended; Negative for hepatosplenomegaly Extremity no clubbing, cyanosis or edema Skin no rashes or lesions noted Neuro no focal motor deficits and no sensory deficits noted Psych Appearance: appropriate Mood & Affect: depressed Assessment & Plan Assessment/Plan (1) Pneumonia due to 2019 novel coronavirus: (2) Acute respiratory failure with hypoxia: PLAN: 1. Acute hypoxic respiratory failure secondary to COVID-19 pneumonia -She was able to go from the bed to the chair relatively unassisted -Continue with baricitinib and Decadron, completed remdesivir -Appreciate infectious disease -Appreciate pulmonology. -We will recommend incentive spirometry as well as Pep therapy -She has had very little p.o. intake, will hold Lasix today and give her 500 cc of normal saline back -PT/OT -D-dimer was unremarkable compared to age, CTA was negative for PE -Can trial her on Effexor to see if this motivates her mood 2. DM2 -We will hold her glipizide and place her on sliding scale insulin as well as long-acting insulin -Accu-Cheks AC at bedtime -We will make adjustments as necessary 3. HTN -Blood pressure stable -Continue with metoprolol, will put on hold parameters secondary to low heart rates and softer blood pressures 4. GERD -Stable -Continue with PPI DVT: Lovenox Charges/Coding Visit Charges Inpatient E&M: 66021 Subs Hosp L2
[2021-07-21] MEDS: 0.9% Normal Saline 1,000 ML 60 ML IV (14:43)
[2021-07-21] MEDS: Insulin Lispro 100 UNIT/ML INSULN.PEN SC ×2 (16:41→21:57)
[2021-07-21] MEDS: Venlafaxine HCl 25 MG Tablet PO ×2 (16:47→21:57)
[2021-07-21 17:30] LABS: Bedside Glucose 403 mg/dL (70-110)
[2021-07-21] MEDS: MELATONIN 3 MG TABLET PO (21:57)
[2021-07-21 22:11] LABS: Bedside Glucose 251 mg/dL (70-110)
[2021-07-22] VITALS (15 sets, daily range): BP systolic 109–127; BP diastolic 39–59; PULSE 45–60; RESP 17–19; TEMP 36.5–36.8; O2SAT 88–95
[2021-07-22] MEDS: Nystatin Powder 15gm Bottle 1 APPLIC TOPICAL ×3 (06:28→21:56)
[2021-07-22] MEDS: Venlafaxine HCl 25 MG Tablet PO ×3 (06:28→21:56)
[2021-07-22 06:33] LABS: Absolute Lymphocyte Count 0.37 X10^3/uL (0.83-4.51); Absolute Neutrophil Count 12.9 X10^3/uL (2.0-7.7); Basophil# 0.03 X10^3/uL; Basophil% 0.2 % (0-1); Eosinophil# 0.01 X10^3/uL; Eosinophils% 0.1 % (0-5); Hemoglobin 13.2 g/dL (12.0-15.0); Lymphocyte # 0.37 X10^3/ul (0.83-4.51); Lymphocyte % 2.6 % (19-41); Mean Corp Hgb Conc 34.7 g/dL (32-36); Mean Corpuscular Hgb 31.1 pg (27.0-32.0); Mean Corpuscular Volume 89.6 fL (81-99); Monocyte% 3.6 % (0-10); NRBC Flagged by Analyzer 0 % (0-5); Neutrophil # 12.88 X10^3/uL (2.7-7.7); Neutrophil % 91.5 % (47-70); POSITIVE DIFFERENTIAL YES; Platelet Count 292 K/mm3 (150-450); RBC Distribution Width CV 12.8 % (11.6-14.6); RBC Distribution Width SD 42.3 fl (35.1-43.9); Red Blood Count 4.24 M/mm3 (4.2-5.4); White Blood Count 14.1 K/mm3 (4.4-11.0)
[2021-07-22 06:35] LABS: Differential Indicated SCAN CRITERIA MET
[2021-07-22 06:51] LABS: Bedside Glucose 141 mg/dL (70-110)
[2021-07-22 06:59] LABS: Anion Gap 6 (5-15); BUN 21 mg/dL (7-18); BUN/Creat Ratio 37.9 RATIO (10-20); Calcium,Total 8.4 mg/dL (8.5-10.1); Chloride 104 mmol/L (98-107); Creatinine, Serum 0.55 mg/dL (0.55-1.02); EST Glomerular Filtration Rate 112 mL/min (>60); Est Glom Filt Rate - Afr Amer 135 mL/min (>60); Estimated Creatinine Clearance 45.33 ml/min; Glucose 135 mg/dL (74-106); Potassium 3.6 mmol/L (3.5-5.1); Sodium Level 137 mmol/L (136-145)
[2021-07-22] MEDS: dexAMETHasone 4 MG Tablet 6 MG PO (09:30)
[2021-07-22] MEDS: Enoxaparin 30 MG/0.3 ML Syringe SC ×2 (09:37→21:56)
[2021-07-22] MEDS: Insulin Lispro 100 UNIT/ML INSULN.PEN SC ×3 (11:30→21:57)
[2021-07-22 11:46] LABS: Bedside Glucose 183 mg/dL (70-110)
--- NOTE | 2021-07-22 12:42 | PCM.PN.HOSP ---
Subjective Subjective Still seems apathetic but she is up in the chair today. Unsure as to how consistently she does the pulmonary toileting though I do continue to encourage her in its use. Objective Data Objective Data Vital Signs: Vital Signs Temp Pulse Resp BP Pulse Ox 98.3 F 57 L 18 109/39 L 92 07/22/21 09:45 07/22/21 10:40 07/22/21 10:00 07/22/21 09:45 07/22/21 09:45 Oxygen Flow Rate (L/min) [ 4 AMBULATING with Oxygen #1] Oxygen Flow Rate (L/min) 60 Oxygen Delivery Method Airvo Weight: 141 lb 1.533 oz Body Mass Index (BMI) 29.4 Intake & Output: Intake and Output for Last 24 Hours 07/21/21 07/22/21 07/23/21 03:59 03:59 03:59 Intake Total 950 / 950 1737 / 1737 700 / 700 Output Total 800 / 800 1100 / 1100 Balance 150 / 150 637 / 637 700 / 700 Lab / Micro Data Result Diagrams: 07/22/21 06:18 07/22/21 06:18 Labs: Laboratory Results - last 24 hr 07/21/21 16:40: POC Glucose 403 H 07/21/21 21:51: POC Glucose 251 H 07/22/21 06:18: WBC 14.1 H, RBC 4.24, Hgb 13.2, Hct 38.0, MCV 89.6, MCH 31.1, MCHC 34.7, RDW Std Deviation 42.3, RDW Coeff of Renetta 12.8, Plt Count 292, MPV 10.0, Immature Gran % (Auto) 2.000 H, Neut % (Auto) 91.5 H, Lymph % (Auto) 2.6 L, [place] % (Auto) 3.6, Eos % (Auto) 0.1, Baso % (Auto) 0.2, Absolute Neuts (auto) 12.9 H, Absolute Lymphs (auto) 0.37 L, Nucleated RBC % 0 07/22/21 06:18: Sodium 137, Potassium 3.6, Chloride 104, Carbon Dioxide 27.0, Anion Gap 6, BUN 21 H, Creatinine 0.55, Estim Creat Clear Calc 45.33, Est GFR (MDRD) Af Amer 135, Est GFR (MDRD) Non-Af 112, BUN/Creatinine Ratio 37.9 H, Glucose 135 H, Calcium 8.4 L 07/22/21 06:26: POC Glucose 141 H 07/22/21 11:27: POC Glucose 183 H Micro: Microbiology 07/15/21 22:34 Blood Culture (Wb) - Venous Blood Culture - Final No growth in 5 days. 07/15/21 16:00 Blood Culture (Wb) - Arm Left Blood Culture - Final No growth in 5 days. Physical Exam Const alert, oriented x3 and no apparent distress General Appearance: cooperative HEENT normocephalic Eyes PERRL, EOMs intact bilaterally and conjunctivae normal Neck supple and no JVD Resp normal respiratory effort, no retractions and no use of accessory muscles Auscultation: diminished lung sounds; Negative for crackles, rales, rhonchi or wheezes Cardio regular rate, regular rhythm, S1 normal heart sound, S2 normal heart sound and no murmurs GI soft to palpation, non-tender and non-distended; Negative for hepatosplenomegaly Extremity no clubbing, cyanosis or edema Skin no rashes or lesions noted Neuro no focal motor deficits and no sensory deficits noted Psych Appearance: appropriate Mood & Affect: depressed Assessment & Plan Assessment/Plan (1) Pneumonia due to 2019 novel coronavirus: (2) Acute respiratory failure with hypoxia: PLAN: 1. Acute hypoxic respiratory failure secondary to COVID-19 pneumonia -She was able to go from the bed to the chair relatively unassisted -Continue with baricitinib and Decadron, completed remdesivir -Appreciate infectious disease -Appreciate pulmonology. -We will recommend incentive spirometry as well as Pep therapy -She has had very little p.o. intake, will hold Lasix today -PT/OT -D-dimer was unremarkable compared to age, CTA was negative for PE -Can trial her on Effexor to see if this motivates her mood -We will obtain a sputum culture 2. DM2 -We will hold her glipizide and place her on sliding scale insulin as well as long-acting insulin -Accu-Cheks AC at bedtime -We will make adjustments as necessary 3. HTN -Blood pressure stable -Continue with metoprolol, will put on hold parameters secondary to low heart rates and softer blood pressures 4. GERD -Stable -Continue with PPI DVT: Lovenox Charges/Coding Visit Charges Inpatient E&M: 79229 Subs Hosp L2
[2021-07-22 17:06] LABS: Bedside Glucose 304 mg/dL (70-110)
[2021-07-22 22:56] LABS: Bedside Glucose 235 mg/dL (70-110)
--- NOTE | 2021-07-22 23:58 | CPS ---
pt sleeping with mouth open, RN aware
[2021-07-23] VITALS (14 sets, daily range): BP systolic 112–137; BP diastolic 50–62; PULSE 46–70; RESP 16–24; TEMP 36.4–36.9; O2SAT 92–98
[2021-07-23 05:47] LABS: Absolute Lymphocyte Count 0.29 X10^3/uL (0.83-4.51); Absolute Neutrophil Count 12.6 X10^3/uL (2.0-7.7); Basophil# 0.05 X10^3/uL; Basophil% 0.4 % (0-1); Eosinophil# 0.01 X10^3/uL; Eosinophils% 0.1 % (0-5); Hematocrit 40.9 % (37-47); Hemoglobin 13.6 g/dL (12.0-15.0); Lymphocyte # 0.29 X10^3/ul (0.83-4.51); Lymphocyte % 2.1 % (19-41); Mean Corp Hgb Conc 33.3 g/dL (32-36); Mean Corpuscular Hgb 30.3 pg (27.0-32.0); Mean Corpuscular Volume 91.1 fL (81-99); Mean Platelet Vol. 10.2 fl (6.2-12.0); Monocyte# 0.56 X10^3/uL; NRBC Flagged by Analyzer 0 % (0-5); Neutrophil # 12.62 X10^3/uL (2.7-7.7); Neutrophil % 90.5 % (47-70); POSITIVE DIFFERENTIAL YES; Platelet Count 298 K/mm3 (150-450); RBC Distribution Width CV 12.6 % (11.6-14.6); RBC Distribution Width SD 41.9 fl (35.1-43.9); Red Blood Count 4.49 M/mm3 (4.2-5.4); White Blood Count 13.9 K/mm3 (4.4-11.0)
[2021-07-23 06:34] LABS: Differential Indicated SCAN CRITERIA MET
[2021-07-23] MEDS: Pantoprazole Sodium 40 MG Tablet PO (06:34)
[2021-07-23] MEDS: Venlafaxine HCl 25 MG Tablet PO ×3 (06:34→21:33)
[2021-07-23] MEDS: Nystatin Powder 15gm Bottle 1 APPLIC TOPICAL ×3 (06:34→21:33)
[2021-07-23 06:38] LABS: ALB/GLOB Ratio 0.6 RATIO (0.9-2.4); AST(SGOT) 13 U/L (15-37); Alanine Aminotransfer ALT/SGPT 12 U/L (13-56); Albumin, Serum 2.2 g/dL (3.2-5.0); Alkaline Phosphatase 80 U/L (45-117); Anion Gap 6 (5-15); BUN 19 mg/dL (7-18); BUN/Creat Ratio 40.8 RATIO (10-20); Calcium,Total 8.4 mg/dL (8.5-10.1); Chloride 105 mmol/L (98-107); Creatinine, Serum 0.47 mg/dL (0.55-1.02); EST Glomerular Filtration Rate 137 mL/min (>60); Est Glom Filt Rate - Afr Amer 165 mL/min (>60); Estimated Creatinine Clearance 44.84 ml/min; Globulin 3.9 g/dL (2.2-4.2); Glucose 99 mg/dL (74-106); Potassium 3.8 mmol/L (3.5-5.1); Protein, Total 6.1 g/dL (6.4-8.2); Sodium Level 137 mmol/L (136-145)
[2021-07-23 06:55] LABS: Bedside Glucose 102 mg/dL (70-110)
[2021-07-23 07:01] LABS: Burr Cells RARE; Tear Drop Cell RARE
[2021-07-23] MEDS: Enoxaparin 30 MG/0.3 ML Syringe SC ×2 (10:32→21:31)
[2021-07-23] MEDS: dexAMETHasone 4 MG Tablet 6 MG PO (10:32)
[2021-07-23] MEDS: Metoprolol(XL)Succ 100 MG Tablet PO (12:19)
[2021-07-23] MEDS: Insulin Lispro 100 UNIT/ML INSULN.PEN SC ×3 (12:19→21:30)
[2021-07-23 13:56] LABS: Bedside Glucose 244 mg/dL (70-110)
--- NOTE | 2021-07-23 14:35 | PN.HOSP_ITS ---
Subjective Subjective Patient seen and examined. She had no complaints this morning. She was on AirVo. She felt her breathing was still the same. Review of systems otherwise negative. Objective Data Objective Data Vital Signs: Vital Signs Temp Pulse Resp BP Pulse Ox 97.8 F 64 16 112/53 L 98 07/23/21 10:00 07/23/21 12:19 07/23/21 10:00 07/23/21 10:00 07/23/21 11:25 Oxygen Flow Rate (L/min) [ 4 AMBULATING with Oxygen #1] Oxygen Flow Rate (L/min) 60 Oxygen Delivery Method Airvo Weight: 139 lb 8.842 oz Body Mass Index (BMI) 29.4 Intake & Output: Intake and Output for Last 24 Hours 07/21/21 07/22/21 07/23/21 23:59 23:59 23:59 Intake Total 1737 / 1737 1550 / 1550 Output Total 1700 / 1700 0 / 0 Balance 37 / 37 1550 / 1550 0 / 0 Lab / Micro Data Result Diagrams: 07/23/21 05:24 07/23/21 05:24 Labs: Laboratory Results - last 24 hr 07/22/21 16:35: POC Glucose 304 H 07/22/21 21:54: POC Glucose 235 H 07/23/21 05:24: WBC 13.9 H, RBC 4.49, Hgb 13.6, Hct 40.9, MCV 91.1, MCH 30.3, MCHC 33.3, RDW Std Deviation 41.9, RDW Coeff of Renetta 12.6, Plt Count 298, MPV 10.2, Immature Gran % (Auto) 2.900 H, Neut % (Auto) 90.5 H, Lymph % (Auto) 2.1 L , [place] % (Auto) 4.0, Eos % (Auto) 0.1, Baso % (Auto) 0.4, Absolute Neuts (auto) 12.6 H, Absolute Lymphs (auto) 0.29 L, Nucleated RBC % 0, Tear Drop Cells RARE, [place] Cells RARE 07/23/21 05:24: Sodium 137, Potassium 3.8, Chloride 105, Carbon Dioxide 26.0, Anion Gap 6, BUN 19 H, Creatinine 0.47 L, Estim Creat Clear Calc 44.84, Est GFR (MDRD) Af Amer 165, Est GFR (MDRD) Non-Af 137, BUN/Creatinine Ratio 40.8 H, Glucose 99, Calcium 8.4 L, Total Bilirubin 0.50, AST 13 L, ALT 12 L, Alkaline Phosphatase 80, Total Protein 6.1 L, Albumin 2.2 L, Globulin 3.9, Albumin/Globulin Ratio 0.6 L 07/23/21 06:24: POC Glucose 102 07/23/21 10:55: POC Glucose 244 H Micro: Microbiology 07/23/21 05:30 Sputum, Expectorated/Coughed Gram Stain - Final 07/15/21 22:34 Blood Culture (Wb) - Venous Blood Culture - Final No growth in 5 days. 07/15/21 16:00 Blood Culture (Wb) - Arm Left Blood Culture - Final No growth in 5 days. Physical Exam Const alert, oriented x3 and no apparent distress Exam Limitations: no limitations HEENT head/scalp atraumatic and moist oral mucous membranes Head and Scalp: normocephalic Eyes PERRL and EOMs intact bilaterally Neck no lymphadenopathy Resp Resp Narrative: diminished breath sounds bibasally, no wheezes or crackles. On Airvo. Cardio regular rate, regular rhythm, S1 normal heart sound, S2 normal heart sound and no murmurs GI normal to inspection, nondistended, normoactive bowel sounds, soft to palpation, non-tender and non-distended Extremity normal to inspection, full ROM and no clubbing, cyanosis or edema Peripheral Pulses: Yes pulses 2+ throughout Skin no rashes or lesions noted Neuro oriented x3, CN's II-XII intact bilaterally and moves all extremities Sensorium / Orientation: awake and alert Psych affect normal Assessment & Plan Assessment/Plan (1) Acute respiratory failure with hypoxia: (2) Pneumonia due to 2019 novel coronavirus: PLAN: #Acute hypoxic respiratory failure due to COVID 19 pneumonia * on AIrvo at time of review. * On baricitinib and Decadron. Has completed course of remdesivir * ID and pulmonology on board. * Incentive spirometry as needed. * Sputum culture pending. CT was negative for PE * Breathing treatments of bronchodilators. Titrate oxygen to maintain saturation above 90%. * #Type 2 diabetes mellitus: Glipizide on hold. Insulin sliding scale and Lantus 15 units daily. Obviously seizures. #Hypertension: On metoprolol. IV hydralazine as needed. GERD: On PPI DVT prophylaxis: Lovenox Charges/Coding Visit Charges Inpatient E&M: 15183 Subs Hosp L2
[2021-07-23 21:10] LABS: Bedside Glucose 189 mg/dL (70-110)
[2021-07-23 22:46] LABS: Bedside Glucose 313 mg/dL (70-110)
[2021-07-24] VITALS (9 sets, daily range): BP systolic 109–131; BP diastolic 45–58; PULSE 46–52; RESP 18; TEMP 36.2–36.6; O2SAT 90–99
[2021-07-24] MEDS: Pantoprazole Sodium 40 MG Tablet PO (04:24)
[2021-07-24] MEDS: Venlafaxine HCl 25 MG Tablet PO ×3 (04:24→21:59)
[2021-07-24] MEDS: Nystatin Powder 15gm Bottle 1 APPLIC TOPICAL ×3 (04:26→21:59)
[2021-07-24 05:05] LABS: Bedside Glucose 146 mg/dL (70-110)
[2021-07-24 08:51] LABS: Absolute Lymphocyte Count 0.31 X10^3/uL (0.83-4.51); Absolute Neutrophil Count 13.6 X10^3/uL (2.0-7.7); Basophil# 0.06 X10^3/uL; Basophil% 0.4 % (0-1); Eosinophil# 0.03 X10^3/uL; Eosinophils% 0.2 % (0-5); Hematocrit 45.3 % (37-47); Hemoglobin 14.5 g/dL (12.0-15.0); Lymphocyte # 0.31 X10^3/ul (0.83-4.51); Lymphocyte % 2.1 % (19-41); Mean Corpuscular Hgb 30.5 pg (27.0-32.0); Mean Corpuscular Volume 95.4 fL (81-99); Mean Platelet Vol. 10.5 fl (6.2-12.0); Monocyte# 0.66 X10^3/uL; Monocyte% 4.4 % (0-10); NRBC Flagged by Analyzer 0 % (0-5); Neutrophil # 13.57 X10^3/uL (2.7-7.7); Neutrophil % 90.6 % (47-70); POSITIVE DIFFERENTIAL YES; Platelet Count 209 K/mm3 (150-450); RBC Distribution Width CV 12.9 % (11.6-14.6); RBC Distribution Width SD 45.8 fl (35.1-43.9); Red Blood Count 4.75 M/mm3 (4.2-5.4)
[2021-07-24 08:52] LABS: Differential Indicated SCAN CRITERIA MET
[2021-07-24 09:13] LABS: Anion Gap 8 (5-15); BUN 19 mg/dL (7-18); BUN/Creat Ratio 39.5 RATIO (10-20); Calcium,Total 8.7 mg/dL (8.5-10.1); Chloride 104 mmol/L (98-107); Creatinine, Serum 0.48 mg/dL (0.55-1.02); Differential Comment SCANNED; EST Glomerular Filtration Rate 132 mL/min (>60); Est Glom Filt Rate - Afr Amer 159 mL/min (>60); Estimated Creatinine Clearance 45.08 ml/min; Glucose 109 mg/dL (74-106); Potassium 3.8 mmol/L (3.5-5.1); Sodium Level 136 mmol/L (136-145)
[2021-07-24] MEDS: dexAMETHasone 4 MG Tablet 6 MG PO (09:27)
[2021-07-24] MEDS: Enoxaparin 30 MG/0.3 ML Syringe SC ×2 (09:27→22:01)
[2021-07-24] MEDS: Insulin Lispro 100 UNIT/ML INSULN.PEN SC ×3 (12:22→22:01)
--- NOTE | 2021-07-24 12:58 | PN.HOSP_ITS ---
Subjective Subjective Patient seen and examined. She has no active complaints today. She does not feel her breathing has gotten any worse. She remains on air Vo. Review of stents otherwise negative. She is in cumulative positive balance by 2.14 L. Objective Data Objective Data Vital Signs: Vital Signs Temp Pulse Resp BP Pulse Ox 97.8 F 51 L 18 119/45 L 93 07/24/21 09:23 07/24/21 09:27 07/24/21 09:23 07/24/21 09:23 07/24/21 09:23 Oxygen Flow Rate (L/min) [ 4 AMBULATING with Oxygen #1] Oxygen Flow Rate (L/min) 60 Oxygen Delivery Method Airvo Weight: 140 lb 4.8 oz Body Mass Index (BMI) 29.4 Intake & Output: Intake and Output for Last 24 Hours 07/22/21 07/23/21 07/24/21 23:59 23:59 23:59 Intake Total 1550 / 1550 240 / 240 100 / 100 Output Total 0 / 0 300 / 300 Balance 1550 / 1550 240 / 240 -200 / -200 Lab / Micro Data Result Diagrams: 07/24/21 08:40 07/24/21 08:40 Labs: Laboratory Results - last 24 hr 07/23/21 10:55: POC Glucose 244 H 07/23/21 17:05: POC Glucose 189 H 07/23/21 21:29: POC Glucose 313 H 07/24/21 04:25: POC Glucose 146 H 07/24/21 08:40: WBC 15.0 H, RBC 4.75, Hgb 14.5, Hct 45.3, MCV 95.4, MCH 30.5, MCHC 32.0, RDW Std Deviation 45.8 H, RDW Coeff of Renetta 12.9, Plt Count 209, MPV 10.5, Immature Gran % (Auto) 2.300 H, Neut % (Auto) 90.6 H, Lymph % (Auto) 2.1 L , [place] % (Auto) 4.4, Eos % (Auto) 0.2, Baso % (Auto) 0.4, Absolute Neuts (auto) 13.6 H, Absolute Lymphs (auto) 0.31 L, Nucleated RBC % 0, Differential Comment SCANNED 07/24/21 08:40: Sodium 136, Potassium 3.8, Chloride 104, Carbon Dioxide 24.0, Anion Gap 8, BUN 19 H, Creatinine 0.48 L, Estim Creat Clear Calc 45.08, Est GFR (MDRD) Af Amer 159, Est GFR (MDRD) Non-Af 132, BUN/Creatinine Ratio 39.5 H, Glucose 109 H, Calcium 8.7 Micro: Microbiology 07/23/21 05:30 Sputum, Expectorated/Coughed Gram Stain - Final 07/23/21 05:30 Sputum, Expectorated/Coughed Respiratory Culture - Preliminary Appears to be normal respiratory shanika. Further studies to follow. 07/15/21 22:34 Blood Culture (Wb) - Venous Blood Culture - Final No growth in 5 days. 07/15/21 16:00 Blood Culture (Wb) - Arm Left Blood Culture - Final No growth in 5 days. Physical Exam Const alert, oriented x3 and no apparent distress General Appearance: cooperative Exam Limitations: no limitations HEENT normocephalic, head/scalp atraumatic and moist oral mucous membranes Head and Scalp: normocephalic Eyes PERRL, EOMs intact bilaterally and conjunctivae normal Neck no lymphadenopathy, supple and no JVD Resp Resp Narrative: diminished breath sounds bibasally, no wheezes or crackles. On Airvo. Auscultation: diminished lung sounds Cardio regular rate, regular rhythm, S1 normal heart sound, S2 normal heart sound and no murmurs GI normal to inspection, nondistended, normoactive bowel sounds, soft to palpation, non-tender and non-distended Extremity normal to inspection, full ROM and no clubbing, cyanosis or edema Skin no rashes or lesions noted Neuro oriented x3, CN's II-XII intact bilaterally, moves all extremities, no focal motor deficits and no sensory deficits noted Sensorium / Orientation: awake and alert Psych affect normal Appearance: appropriate Assessment & Plan Assessment/Plan (1) Acute respiratory failure with hypoxia: (2) Pneumonia due to 2019 novel coronavirus: PLAN: #Acute hypoxic respiratory failure due to COVID 19 pneumonia * remains on AirVo * On baricitinib and Decadron. Has completed course of remdesivir * ID and pulmonology on board. * Incentive spirometry as needed. * Sputum culture pending. CT was negative for PE * Breathing treatments of bronchodilators. Titrate oxygen to maintain saturation above 90%. * #Type 2 diabetes mellitus: Glipizide on hold. Insulin sliding scale and Lantus 15 units daily. Accuchecks ACHS #Hypertension: On metoprolol. IV hydralazine as needed. GERD: On PPI DVT prophylaxis: Lovenox Charges/Coding Visit Charges Inpatient E&M: 72357 [facility] Hosp L3
[2021-07-24 13:40] LABS: Bedside Glucose 237 mg/dL (70-110)
[2021-07-24 16:45] LABS: Bedside Glucose 313 mg/dL (70-110)
[2021-07-24 22:20] LABS: Bedside Glucose 192 mg/dL (70-110)
[2021-07-25] VITALS (7 sets, daily range): BP systolic 90–131; BP diastolic 41–64; PULSE 55–60; RESP 16–20; TEMP 36.1–36.4; O2SAT 91–95
[2021-07-25] MEDS: Venlafaxine HCl 25 MG Tablet PO ×3 (06:25→20:59)
[2021-07-25] MEDS: Pantoprazole Sodium 40 MG Tablet PO (06:25)
[2021-07-25] MEDS: Nystatin Powder 15gm Bottle 1 APPLIC TOPICAL ×3 (06:25→20:58)
[2021-07-25 07:06] LABS: Bedside Glucose 112 mg/dL (70-110)
[2021-07-25 07:06] LABS: Bedside Glucose 73 mg/dL (70-110)
[2021-07-25 08:45] LABS: Absolute Lymphocyte Count 0.36 X10^3/uL (0.83-4.51); Absolute Neutrophil Count 12.7 X10^3/uL (2.0-7.7); Basophil# 0.07 X10^3/uL; Basophil% 0.5 % (0-1); Eosinophil# 1.03 X10^3/uL; Eosinophils% 6.9 % (0-5); Hematocrit 44.9 % (37-47); Hemoglobin 14.7 g/dL (12.0-15.0); Lymphocyte # 0.36 X10^3/ul (0.83-4.51); Lymphocyte % 2.4 % (19-41); Mean Corp Hgb Conc 32.7 g/dL (32-36); Mean Corpuscular Hgb 30.9 pg (27.0-32.0); Mean Corpuscular Volume 94.3 fL (81-99); Mean Platelet Vol. 10.4 fl (6.2-12.0); Monocyte# 0.58 X10^3/uL; Monocyte% 3.9 % (0-10); NRBC Flagged by Analyzer 0 % (0-5); Neutrophil # 12.65 X10^3/uL (2.7-7.7); Neutrophil % 84.4 % (47-70); POSITIVE DIFFERENTIAL YES; POSITIVE MORPHOLOGY YES; Platelet Count 200 K/mm3 (150-450); RBC Distribution Width CV 13.2 % (11.6-14.6); RBC Distribution Width SD 45.5 fl (35.1-43.9); Red Blood Count 4.76 M/mm3 (4.2-5.4)
[2021-07-25 08:50] LABS: Differential Indicated SCAN CRITERIA MET
[2021-07-25] MEDS: dexAMETHasone 4 MG Tablet 6 MG PO (09:13)
[2021-07-25] MEDS: Enoxaparin 30 MG/0.3 ML Syringe SC ×2 (09:13→20:58)
[2021-07-25 10:36] LABS: ALB/GLOB Ratio 0.3 RATIO (0.9-2.4); AST(SGOT) 28 U/L (15-37); Alanine Aminotransfer ALT/SGPT 19 U/L (13-56); Albumin, Serum 1.6 g/dL (3.2-5.0); Alkaline Phosphatase 124 U/L (45-117); Anion Gap 3 (5-15); BUN 17 mg/dL (7-18); BUN/Creat Ratio 26.7 RATIO (10-20); Calcium,Total 8.4 mg/dL (8.5-10.1); Chloride 108 mmol/L (98-107); Creatinine, Serum 0.64 mg/dL (0.55-1.02); EST Glomerular Filtration Rate 95 mL/min (>60); Est Glom Filt Rate - Afr Amer 115 mL/min (>60); Estimated Creatinine Clearance 45.08 ml/min; Globulin 4.7 g/dL (2.2-4.2); Glucose 122 mg/dL (74-106); Potassium 3.7 mmol/L (3.5-5.1); Protein, Total 6.3 g/dL (6.4-8.2); Sodium Level 132 mmol/L (136-145)
--- NOTE | 2021-07-25 12:56 | PN.HOSP_ITS ---
Subjective Subjective Patient seen and examined. She was lying comfortably in bed and had no complaints. She has been weaned off of AirVo and was now on 10 L of oxygen by nasal cannula. She was actually weaned down all the way to 4 L yesterday but was put on airflow during the night. She has no active complaints and review of systems otherwise negative. Objective Data Objective Data Vital Signs: Vital Signs Temp Pulse Resp BP Pulse Ox 97 F L 56 L 18 121/50 H 92 07/25/21 09:09 07/25/21 09:09 07/25/21 09:09 07/25/21 09:09 07/25/21 09:09 Oxygen Flow Rate (L/min) [ 4 AMBULATING with Oxygen #1] Oxygen Flow Rate (L/min) 10 Oxygen Delivery Method High Flow Weight: 140 lb 4.8 oz Body Mass Index (BMI) 29.4 Intake & Output: Intake and Output for Last 24 Hours 07/23/21 07/24/21 07/25/21 23:59 23:59 23:59 Intake Total 240 / 240 100 / 100 Output Total 0 / 0 900 / 900 Balance 240 / 240 -800 / -800 Medical Nutrition Assessment Dietitian: Malnutrition Criteria Met Start: 07/24/21 14:45 Freq: Status: Active Protocol: Document 07/24/21 14:46 AG (Rec: 07/24/21 14:46 AG [id number]) Nutrition Malnutrition Evidence of Malnutrition Exists Yes Malnutrition (severe): Acute Illness/Injury Evidenced By Suboptimal Energy Intake ( Severe),Weight Loss (Severe) Intake Problem Inadequate Oral Intake Etiology r/t decreased appetite w/ acute illness Signs/Symptoms as evidenced by nursing reports of pt consuming ~50% or less of meals Status Active Problem Clinical Problem Acute Disease or Injury Related Malnutrition Etiology severe, acute malnutrition r/t inadequate energy intake w/ increased energy needs d/t acute illness Signs/Symptoms as evidenced by estimated PO intake meeting <50% of estimated nutritional needs >1 week; unintentional wt loss of 4.36kg/6.4% x 9 days Status Active Problem Altered Nutrient-Related Laboratory Values Etiology - Signs/Symptoms - Status Inactive Problem Recommendation Dietitian Recommendations/Changes continue regular diet and 120mL Glucerna ONS w/ meals for additional calories/ protein if consumed given malnutrition Lab / Micro Data Result Diagrams: 07/25/21 06:50 07/25/21 09:52 Labs: Laboratory Results - last 24 hr 07/24/21 12:18: POC Glucose 237 H 07/24/21 16:22: POC Glucose 313 H 07/24/21 21:55: POC Glucose 192 H 07/25/21 06:27: POC Glucose 73 07/25/21 06:50: WBC 15.0 H, RBC 4.76, Hgb 14.7, Hct 44.9, MCV 94.3, MCH 30.9, MCHC 32.7, RDW Std Deviation 45.5 H, RDW Coeff of Renetta 13.2, Plt Count 200, MPV 10.4, Immature Gran % (Auto) 1.900 H, Neut % (Auto) 84.4 H, Lymph % (Auto) 2.4 L , [place] % (Auto) 3.9, Eos % (Auto) 6.9 H, Baso % (Auto) 0.5, Absolute Neuts (auto) 12.7 H, Absolute Lymphs (auto) 0.36 L, Nucleated RBC % 0, Differential Comment COMMENT 07/25/21 07:00: POC Glucose 112 H 07/25/21 09:52: Sodium 132 L, Potassium 3.7, Chloride 108 H, Carbon Dioxide 21.0, Anion Gap 3 L, BUN 17, Creatinine 0.64, Estim Creat Clear Calc 45.08, Est GFR (MDRD) Af Amer 115, Est GFR (MDRD) Non-Af 95, BUN/Creatinine Ratio 26.7 H, Glucose 122 H, Calcium 8.4 L, Total Bilirubin 0.70, AST 28, ALT 19, Alkaline Phosphatase 124 H, Total Protein 6.3 L, Albumin 1.6 L, Globulin 4.7 H, Albumin/Globulin Ratio 0.3 L Micro: Microbiology 07/23/21 05:30 Sputum, Expectorated/Coughed Gram Stain - Final 07/23/21 05:30 Sputum, Expectorated/Coughed Respiratory Culture - Final 07/15/21 22:34 Blood Culture (Wb) - Venous Blood Culture - Final No growth in 5 days. 07/15/21 16:00 Blood Culture (Wb) - Arm Left Blood Culture - Final No growth in 5 days. Physical Exam Const alert, oriented x3 and no apparent distress General Appearance: cooperative Exam Limitations: no limitations HEENT normocephalic, head/scalp atraumatic and moist oral mucous membranes Head and Scalp: normocephalic Eyes PERRL, EOMs intact bilaterally and conjunctivae normal Neck no lymphadenopathy, supple and no JVD Resp Resp Narrative: diminished breath sounds bibasally, no wheezes or crackles. On 10L of oxygen by nasal canula Auscultation: diminished lung sounds Cardio regular rate, regular rhythm, S1 normal heart sound, S2 normal heart sound and no murmurs GI normal to inspection, nondistended, normoactive bowel sounds, soft to palpation, non-tender and non-distended Extremity normal to inspection, full ROM and no clubbing, cyanosis or edema Peripheral Pulses: Yes pulses 2+ throughout Skin no rashes or lesions noted Neuro oriented x3, CN's II-XII intact bilaterally, moves all extremities, no focal motor deficits and no sensory deficits noted Sensorium / Orientation: awake and alert Psych affect normal Appearance: appropriate Assessment & Plan Assessment/Plan (1) Acute respiratory failure with hypoxia: (2) Pneumonia due to 2019 novel coronavirus: PLAN: #Acute hypoxic respiratory failure due to COVID 19 pneumonia * now on 10L of oxygen by nasal canula * On baricitinib and Decadron. Has completed course of remdesivir * ID and pulmonology on board. * Incentive spirometry as needed. * Sputum culture negative, blood culture also negative. CT was negative for PE * Breathing treatments of bronchodilators. Titrate oxygen to maintain saturation above 90%. * #Type 2 diabetes mellitus: Glipizide on hold. Insulin sliding scale and Lantus 15 units daily. Accuchecks ACHS #Hypertension: On metoprolol. IV hydralazine as needed. GERD: On PPI DVT prophylaxis: Lovenox Charges/Coding Visit Charges Inpatient E&M: 12885 Subs Hosp L3
[2021-07-25] MEDS: 0.9% Saline Lock 10 ML Syringe IV (15:10)
[2021-07-25 15:25] LABS: Bedside Glucose 126 mg/dL (70-110)
[2021-07-25 17:00] LABS: Bedside Glucose 242 mg/dL (70-110)
[2021-07-25] MEDS: Insulin Lispro 100 UNIT/ML INSULN.PEN SC ×2 (17:59→20:58)
[2021-07-25 23:26] LABS: Bedside Glucose 334 mg/dL (70-110)
[2021-07-26] VITALS (10 sets, daily range): BP systolic 102–139; BP diastolic 51–70; PULSE 56–60; RESP 10–20; TEMP 35.8–36.4; O2SAT 88–100
[2021-07-26] MEDS: Venlafaxine HCl 25 MG Tablet PO ×3 (05:28→21:27)
[2021-07-26] MEDS: Pantoprazole Sodium 40 MG Tablet PO (05:28)
[2021-07-26] MEDS: Nystatin Powder 15gm Bottle 1 APPLIC TOPICAL ×3 (05:29→21:29)
[2021-07-26 05:50] LABS: Bedside Glucose 118 mg/dL (70-110)
[2021-07-26 06:48] LABS: Absolute Lymphocyte Count 0.27 X10^3/uL (0.83-4.51); Absolute Neutrophil Count 14.7 X10^3/uL (2.0-7.7); Basophil# 0.04 X10^3/uL; Basophil% 0.3 % (0-1); Eosinophil# 0.02 X10^3/uL; Eosinophils% 0.1 % (0-5); Hematocrit 42.5 % (37-47); Hemoglobin 14.1 g/dL (12.0-15.0); Lymphocyte # 0.27 X10^3/ul (0.83-4.51); Lymphocyte % 1.7 % (19-41); Mean Corp Hgb Conc 33.2 g/dL (32-36); Mean Corpuscular Hgb 30.3 pg (27.0-32.0); Mean Corpuscular Volume 91.2 fL (81-99); Mean Platelet Vol. 9.8 fl (6.2-12.0); Monocyte# 0.48 X10^3/uL; NRBC Flagged by Analyzer 0 % (0-5); Neutrophil # 14.65 X10^3/uL (2.7-7.7); Neutrophil % 92.4 % (47-70); POSITIVE DIFFERENTIAL YES; Platelet Count 242 K/mm3 (150-450); RBC Distribution Width CV 12.9 % (11.6-14.6); RBC Distribution Width SD 42.8 fl (35.1-43.9); Red Blood Count 4.66 M/mm3 (4.2-5.4); White Blood Count 15.9 K/mm3 (4.4-11.0)
[2021-07-26 06:55] LABS: Differential Indicated SCAN CRITERIA MET
[2021-07-26 07:06] LABS: Differential Comment SCANNED
[2021-07-26 07:18] LABS: ALB/GLOB Ratio 0.5 RATIO (0.9-2.4); AST(SGOT) 16 U/L (15-37); Alanine Aminotransfer ALT/SGPT 12 U/L (13-56); Albumin, Serum 1.9 g/dL (3.2-5.0); Alkaline Phosphatase 77 U/L (45-117); Anion Gap 4 (5-15); BUN 18 mg/dL (7-18); BUN/Creat Ratio 34.1 RATIO (10-20); Calcium,Total 8.3 mg/dL (8.5-10.1); Chloride 107 mmol/L (98-107); Creatinine, Serum 0.53 mg/dL (0.55-1.02); EST Glomerular Filtration Rate 118 mL/min (>60); Est Glom Filt Rate - Afr Amer 143 mL/min (>60); Globulin 4.1 g/dL (2.2-4.2); Glucose 106 mg/dL (74-106); Sodium Level 135 mmol/L (136-145)
[2021-07-26] MEDS: Enoxaparin 30 MG/0.3 ML Syringe SC (08:34)
[2021-07-26] MEDS: dexAMETHasone 4 MG Tablet 6 MG PO (08:34)
[2021-07-26 09:56] LABS: Troponin-I HS 45 pg/mL (3.0-54.0)
[2021-07-26 10:57] LABS: D-Dimer Quantitative (DVT/PE) 1.92 FEU/ug/m (0.27-0.49)
--- NOTE | 2021-07-26 11:43 | PCM.RX.CS ---
Consult Pharmacy has been consulted to manage selected antiobiotic: Vancomycin Type of Consult: New start Suspected Infection: Pneumonia Labs: Sodium 135 mmol/L (136-145) L 07/26/21 06:40 Potassium 4.0 mmol/L (3.5-5.1) 07/26/21 06:40 Chloride 107 mmol/L (98-107) 07/26/21 06:40 Carbon Dioxide 24.0 mmol/L (21.0-32.0) 07/26/21 06:40 Anion Gap 4 (5-15) L 07/26/21 06:40 BUN 18 mg/dL (7-18) 07/26/21 06:40 Creatinine 0.53 mg/dL (0.55-1.02) L 07/26/21 06:40 Est GFR (MDRD) Af Amer 143 mL/min (>60) 07/26/21 06:40 Est GFR (MDRD) Non-Af 118 mL/min (>60) 07/26/21 06:40 BUN/Creatinine Ratio 34.1 RATIO (10-20) H 07/26/21 06:40 Glucose 106 mg/dL (74-106) 07/26/21 06:40 Microbiology: Microbiology 07/23/21 05:30 Sputum, Expectorated/Coughed Gram Stain - Final 07/23/21 05:30 Sputum, Expectorated/Coughed Respiratory Culture - Final 07/15/21 22:34 Blood Culture (Wb) - Venous Blood Culture - Final No growth in 5 days. 07/15/21 16:00 Blood Culture (Wb) - Arm Left Blood Culture - Final No growth in 5 days. Goal Trough: 15-20 mcg/mL Pharmacy Plan for Drug Dosing: NEW START IV VANCOMYCIN Consulting Physician: Ben Indication: Pneumonia (Covid) Goal Trough: 15-20 SrCr: 0.8 (adjusted for age of 80) CrCl: 40mls/min (adjusted for age and height) Comments: pt to receive a x1 loading dose of 1500mg (25mg/kg) on 07/26/21 Vancomcyin Dose: based on pts weight and renal function, recommend an initial dose of 1000mg q24h starting 07/27/21 at 1200. (dose calculated from clinical pharmacology) Pending Level: 07/28/21 at 1130 Pharmacy Service will continue to monitor and adjust dosing as required. Follow-Up Labs: Trough Vancomycin - 07/28/21 at 1130
[2021-07-26 12:10] LABS: BNP,B-Type NATRIURETIC PEPTIDE 78.1 pg/mL (0-100)
[2021-07-26 12:20] LABS: Procalcitonin 0.07 ng/mL (0.00-0.09)
[2021-07-26 12:25] LABS: Bedside Glucose 146 mg/dL (70-110)
--- NOTE | 2021-07-26 12:47 | CT_ITS ---
STUDY: CTA CHEST REASON FOR EXAM: Female, 80 years old. Elevated d dimer RADIATION DOSAGE (If Supplied By Facility): CTDIvol = ( 12.13 ) mGy, DLP = ( 315.14 ) mGycm TECHNIQUE: The examination was performed with the intravenous administration of IV 100mL Isovue-370. Post-processing of the angiographic images was performed, with multiplanar reformation and 3D reconstruction. Individualized dose optimization techniques were used for this CT. COMPARISON: Comparison is made with prior study dated 07/17/2021. FINDINGS: Intraluminal filling defects are seen in branches of the right lower lobe pulmonary artery in keeping with the pulmonary emboli. Smaller defects are seen in the left lower lobe pulmonary artery branches. Normal thoracic aorta and visualized great vessels. There is no demonstrated aortic dissection. Normal heart and pericardium. Normal mediastinum. Normal hilar regions. Normal visualized trachea and bronchi. The lungs are well expanded. Persistent diffuse bilateral pulmonary infiltrates involving both lungs worse in the lower lobes. There has been essentially no change. Normal pleura. Normal chest wall structures. There are degenerative changes of thoracic spine. The patient is status post cholecystectomy. CT/CTA Chest W/WO Contrast IMPRESSION: Pulmonary emboli in branches of both lower lobe pulmonary arteries worse on the right side. Stable diffuse bilateral pulmonary infiltrates worse in the right hemithorax. Electronically Signed: Parviz Clark MD at 14:43 EDT , Service support ,
--- NOTE | 2021-07-26 13:19 | PN.HOSP_ITS ---
Subjective Subjective Patient seen and examined. She was on oxygen by CO this morning, and this had been increased to 15L. She was subsequently placed back on AirVO. She had no active complaints but did feel weak. D dimer was elevated today, so CTA was ordered and is pending. She has otherwise remained hemodynamically stable. Objective Data Objective Data Vital Signs: Vital Signs Temp Pulse Resp BP Pulse Ox 96.5 F L 60 10 L 102/51 L 94 07/26/21 09:30 07/26/21 09:30 07/26/21 09:30 07/26/21 08:47 07/26/21 09:51 Oxygen Flow Rate (L/min) [ 4 AMBULATING with Oxygen #1] Oxygen Flow Rate (L/min) 54 Oxygen Delivery Method Airvo Weight: 141 lb Body Mass Index (BMI) 29.4 Intake & Output: Intake and Output for Last 24 Hours 07/24/21 07/25/21 07/26/21 23:59 23:59 23:59 Intake Total 100 / 100 600 / 600 100 / 100 Output Total 900 / 900 400 / 400 300 / 300 Balance -800 / -800 200 / 200 -200 / -200 Medical Nutrition Assessment Dietitian: Malnutrition Criteria Met Start: 07/24/21 14:45 Freq: Status: Active Protocol: Document 07/24/21 14:46 AG (Rec: 07/24/21 14:46 AG [id number]) Nutrition Malnutrition Evidence of Malnutrition Exists Yes Malnutrition (severe): Acute Illness/Injury Evidenced By Suboptimal Energy Intake ( Severe),Weight Loss (Severe) Intake Problem Inadequate Oral Intake Etiology r/t decreased appetite w/ acute illness Signs/Symptoms as evidenced by nursing reports of pt consuming ~50% or less of meals Status Active Problem Clinical Problem Acute Disease or Injury Related Malnutrition Etiology severe, acute malnutrition r/t inadequate energy intake w/ increased energy needs d/t acute illness Signs/Symptoms as evidenced by estimated PO intake meeting <50% of estimated nutritional needs >1 week; unintentional wt loss of 4.36kg/6.4% x 9 days Status Active Problem Altered Nutrient-Related Laboratory Values Etiology - Signs/Symptoms - Status Inactive Problem Recommendation Dietitian Recommendations/Changes continue regular diet and 120mL Glucerna ONS w/ meals for additional calories/ protein if consumed given malnutrition Lab / Micro Data Result Diagrams: 07/26/21 06:40 07/26/21 06:40 Labs: Laboratory Results - last 24 hr 07/25/21 12:27: POC Glucose 126 H 07/25/21 16:50: POC Glucose 242 H 07/25/21 20:56: POC Glucose 334 H 07/26/21 05:27: POC Glucose 118 H 07/26/21 06:40: WBC 15.9 H, RBC 4.66, Hgb 14.1, Hct 42.5, MCV 91.2, MCH 30.3, MCHC 33.2, RDW Std Deviation 42.8, RDW Coeff of Renetta 12.9, Plt Count 242, MPV 9.8, Immature Gran % (Auto) 2.500 H, Neut % (Auto) 92.4 H, Lymph % (Auto) 1.7 L, Young % (Auto) 3.0, Eos % (Auto) 0.1, Baso % (Auto) 0.3, Absolute Neuts (auto) 14.7 H, Absolute Lymphs (auto) 0.27 L, Nucleated RBC % 0, Differential Comment SCANNED 07/26/21 06:40: Sodium 135 L, Potassium 4.0, Chloride 107, Carbon Dioxide 24.0, Anion Gap 4 L, BUN 18, Creatinine 0.53 L, Estim Creat Clear Calc 45.30, Est GFR (MDRD) Af Amer 143, Est GFR (MDRD) Non-Af 118, BUN/Creatinine Ratio 34.1 H, Glucose 106, Calcium 8.3 L, Total Bilirubin 0.40, AST 16, ALT 12 L, Alkaline Phosphatase 77, Total Protein 6.0 L, Albumin 1.9 L, Globulin 4.1, Albumin/Globu juan Ratio 0.5 L 07/26/21 06:40: Troponin I High Sens 45 07/26/21 06:40: B-Natriuretic Peptide 78.1 07/26/21 10:20: D-Dimer Quant (PE/DVT) 1.92 H* 07/26/21 10:20: Procalcitonin 0.07 07/26/21 12:09: POC Glucose 146 H Micro: Microbiology 07/23/21 05:30 Sputum, Expectorated/Coughed Gram Stain - Final 07/23/21 05:30 Sputum, Expectorated/Coughed Respiratory Culture - Final 07/15/21 22:34 Blood Culture (Wb) - Venous Blood Culture - Final No growth in 5 days. 07/15/21 16:00 Blood Culture (Wb) - Arm Left Blood Culture - Final No growth in 5 days. Physical Exam Const alert, oriented x3 and no apparent distress General Appearance: cooperative Exam Limitations: no limitations HEENT normocephalic, head/scalp atraumatic and moist oral mucous membranes Head and Scalp: normocephalic Eyes PERRL, EOMs intact bilaterally and conjunctivae normal Neck no lymphadenopathy, supple and no JVD Resp normal respiratory effort, no retractions and no use of accessory muscles Resp Narrative: diminished breath sounds bibasally, no wheezes or crackles. On 15L of oxygen by nasal canula, subsequently transitioned to AirVo. Auscultation: diminished lung sounds Cardio regular rate, regular rhythm, S1 normal heart sound, S2 normal heart sound and no murmurs GI normal to inspection, nondistended, normoactive bowel sounds, soft to palpation, non-tender and non-distended Extremity normal to inspection, full ROM and no clubbing, cyanosis or edema Peripheral Pulses: Yes pulses 2+ throughout Skin no rashes or lesions noted Neuro oriented x3, CN's II-XII intact bilaterally, moves all extremities, no focal motor deficits and no sensory deficits noted Sensorium / Orientation: awake and alert Psych affect normal Appearance: appropriate Assessment & Plan Assessment/Plan (1) Acute respiratory failure with hypoxia: (2) Pneumonia due to 2019 novel coronavirus: PLAN: #Acute hypoxic respiratory failure due to COVID 19 pneumonia * went up to 15L of oxygen today, and is now on back on AirVo. * On baricitinib and Decadron. Has completed course of remdesivir * ID and pulmonology on board. * Incentive spirometry as needed. * Sputum culture negative, blood culture also negative. CT was negative for PE * D dimer even more elevated today, so CTA is pending to rule out PE * Breathing treatments of bronchodilators. Titrate oxygen to maintain saturation above 90%. * on empiric antibiotics with IV cefepime and vancomycin * #Type 2 diabetes mellitus: Glipizide on hold. Insulin sliding scale and Lantus 15 units daily. Accuchecks ACHS #Hypertension: On metoprolol. IV hydralazine as needed. GERD: On PPI DVT prophylaxis: Lovenox Charges/Coding Visit Charges Inpatient E&M: 90628 Subs Hosp L3
--- NOTE | 2021-07-26 15:27 | PCM.PN.ID ---
Physical Exam Narrative Worsened o2. No fever. New yellow sputum. Const alert General Appearance: cooperative Resp Auscultation: diminished lung sounds Cardio regular rate and regular rhythm GI normal to inspection, nondistended, normoactive bowel sounds Extremity no clubbing, cyanosis or edema Skin no rashes or lesions noted ID ID: Route of nutrition/ use of supplements: [] Nutritional Intake: [] IV Site: [] Edgar Catheter: [] Assessment & Plan Assessment/Plan (1) Pneumonia due to 2019 novel coronavirus: PLAN: Sx started around 07/09. Vaccinated. tested neg, asymptomatic. On dex, baricitinib. Completed remdesivir. Was down to 10L NC, now back up to 15. New yellow sputum. Will check labs, sputum cx, start empiric vanc/zosyn. Will follow (2) Hypoxemia:
[2021-07-26] MEDS: Insulin Lispro 100 UNIT/ML INSULN.PEN SC ×2 (16:44→21:28)
[2021-07-26 16:55] LABS: Bedside Glucose 250 mg/dL (70-110)
--- NOTE | 2021-07-26 18:16 | NURSING ---
updated on pts ct scan and new meds today, Questions answered.
[2021-07-26] MEDS: Enoxaparin 60 MG/0.6 ML Syringe SC (21:27)
[2021-07-26 21:45] LABS: Bedside Glucose 263 mg/dL (70-110)
[2021-07-27] VITALS (10 sets, daily range): BP systolic 92–150; BP diastolic 58–71; PULSE 48–60; RESP 16–20; TEMP 36.1–36.4; O2SAT 90–97
[2021-07-27] MEDS: Nystatin Powder 15gm Bottle 1 APPLIC TOPICAL ×3 (06:30→21:34)
[2021-07-27] MEDS: Pantoprazole Sodium 40 MG Tablet PO (06:31)
[2021-07-27] MEDS: Venlafaxine HCl 25 MG Tablet PO ×3 (06:32→21:34)
[2021-07-27 06:40] LABS: Bedside Glucose 101 mg/dL (70-110)
[2021-07-27 07:15] LABS: Absolute Lymphocyte Count 0.38 X10^3/uL (0.83-4.51); Absolute Neutrophil Count 13.2 X10^3/uL (2.0-7.7); Basophil# 0.03 X10^3/uL; Basophil% 0.2 % (0-1); Eosinophil# 0.02 X10^3/uL; Eosinophils% 0.1 % (0-5); Hematocrit 42.4 % (37-47); Hemoglobin 14.2 g/dL (12.0-15.0); Lymphocyte # 0.38 X10^3/ul (0.83-4.51); Lymphocyte % 2.6 % (19-41); Mean Corp Hgb Conc 33.5 g/dL (32-36); Mean Corpuscular Hgb 30.7 pg (27.0-32.0); Mean Corpuscular Volume 91.8 fL (81-99); Mean Platelet Vol. 10.3 fl (6.2-12.0); Monocyte# 0.51 X10^3/uL; Monocyte% 3.6 % (0-10); NRBC Flagged by Analyzer 0 % (0-5); Neutrophil # 13.17 X10^3/uL (2.7-7.7); Neutrophil % 91.8 % (47-70); POSITIVE DIFFERENTIAL YES; Platelet Count 185 K/mm3 (150-450); RBC Distribution Width CV 13.1 % (11.6-14.6); RBC Distribution Width SD 44.3 fl (35.1-43.9); Red Blood Count 4.62 M/mm3 (4.2-5.4); White Blood Count 14.4 K/mm3 (4.4-11.0)
[2021-07-27 07:23] LABS: Differential Indicated SCAN CRITERIA MET
[2021-07-27] MEDS: Enoxaparin 60 MG/0.6 ML Syringe SC ×2 (07:45→21:34)
[2021-07-27] MEDS: dexAMETHasone 4 MG Tablet 6 MG PO (07:45)
[2021-07-27] MEDS: Metoprolol(XL)Succ 100 MG Tablet PO (07:46)
[2021-07-27 07:54] LABS: ALB/GLOB Ratio 0.4 RATIO (0.9-2.4); AST(SGOT) 16 U/L (15-37); Alanine Aminotransfer ALT/SGPT 12 U/L (13-56); Albumin, Serum 1.8 g/dL (3.2-5.0); Alkaline Phosphatase 73 U/L (45-117); Anion Gap 4 (5-15); BUN 17 mg/dL (7-18); BUN/Creat Ratio 37.7 RATIO (10-20); Calcium,Total 8.4 mg/dL (8.5-10.1); Chloride 108 mmol/L (98-107); Creatinine, Serum 0.45 mg/dL (0.55-1.02); EST Glomerular Filtration Rate 142 mL/min (>60); Est Glom Filt Rate - Afr Amer 172 mL/min (>60); Estimated Creatinine Clearance 44.98 ml/min; Globulin 4.2 g/dL (2.2-4.2); Glucose 92 mg/dL (74-106); Potassium 4.2 mmol/L (3.5-5.1); Sodium Level 134 mmol/L (136-145)
--- NOTE | 2021-07-27 10:47 | PCM.PN.HOSP ---
Subjective Subjective Patient seen and examined. She was on 12L of oxygen at time of review. She had no active complaints and said she was feeling better. Review of systems otherwise negative. She has remained hemodynamically stable apart from being on high flow oxygen. Objective Data Objective Data Vital Signs: Vital Signs Temp Pulse Resp BP Pulse Ox 97.5 F L 57 L 18 126/62 H 96 07/27/21 07:43 07/27/21 07:46 07/27/21 07:43 07/27/21 07:43 07/27/21 08:09 Oxygen Flow Rate (L/min) [ 4 AMBULATING with Oxygen #1] Oxygen Flow Rate (L/min) 10 Oxygen Delivery Method High Flow Weight: 139 lb 15.896 oz Body Mass Index (BMI) 29.4 Intake & Output: Intake and Output for Last 24 Hours 07/25/21 07/26/21 07/27/21 23:59 23:59 23:59 Intake Total 600 / 600 1320 / 1320 50 / 50 Output Total 400 / 400 1000 / 1000 1000 / 1000 Balance 200 / 200 320 / 320 -950 / -950 Medical Nutrition Assessment Dietitian: Malnutrition Criteria Met Start: 07/24/21 14:45 Freq: Status: Active Protocol: Document 07/24/21 14:46 AG (Rec: 07/24/21 14:46 AG [id number]) Nutrition Malnutrition Evidence of Malnutrition Exists Yes Malnutrition (severe): Acute Illness/Injury Evidenced By Suboptimal Energy Intake ( Severe),Weight Loss (Severe) Intake Problem Inadequate Oral Intake Etiology r/t decreased appetite w/ acute illness Signs/Symptoms as evidenced by nursing reports of pt consuming ~50% or less of meals Status Active Problem Clinical Problem Acute Disease or Injury Related Malnutrition Etiology severe, acute malnutrition r/t inadequate energy intake w/ increased energy needs d/t acute illness Signs/Symptoms as evidenced by estimated PO intake meeting <50% of estimated nutritional needs >1 week; unintentional wt loss of 4.36kg/6.4% x 9 days Status Active Problem Altered Nutrient-Related Laboratory Values Etiology - Signs/Symptoms - Status Inactive Problem Recommendation Dietitian Recommendations/Changes continue regular diet and 120mL Glucerna ONS w/ meals for additional calories/ protein if consumed given malnutrition Lab / Micro Data Result Diagrams: 07/27/21 06:45 07/27/21 06:45 Labs: Laboratory Results - last 24 hr 07/26/21 06:40: B-Natriuretic Peptide 78.1 07/26/21 10:20: D-Dimer Quant (PE/DVT) 1.92 H* 07/26/21 10:20: Procalcitonin 0.07 07/26/21 12:09: POC Glucose 146 H 07/26/21 16:40: POC Glucose 250 H 07/26/21 21:26: POC Glucose 263 H 07/27/21 06:28: POC Glucose 101 07/27/21 06:45: WBC 14.4 H, RBC 4.62, Hgb 14.2, Hct 42.4, MCV 91.8, MCH 30.7, MCHC 33.5, RDW Std Deviation 44.3 H, RDW Coeff of Renetta 13.1, Plt Count 185, MPV 10.3, Immature Gran % (Auto) 1.700 H, Neut % (Auto) 91.8 H, Lymph % (Auto) 2.6 L, Marin % (Auto) 3.6, Eos % (Auto) 0.1, Baso % (Auto) 0.2, Absolute Neuts (auto) 13.2 H, Absolute Lymphs (auto) 0.38 L, Nucleated RBC % 0 07/27/21 06:45: Sodium 134 L, Potassium 4.2, Chloride 108 H, Carbon Dioxide 22.0, Anion Gap 4 L, BUN 17, Creatinine 0.45 L, Estim Creat Clear Calc 44.98, Est GFR (MDRD) Af Amer 172, Est GFR (MDRD) Non-Af 142, BUN/Creatinine Ratio 37.7 H, Glucose 92, Calcium 8.4 L, Total Bilirubin 0.40, AST 16, ALT 12 L, Alkaline Phosphatase 73, Total Protein 6.0 L, Albumin 1.8 L, Globulin 4.2, Albumin/Globulin Ratio 0.4 L Micro: Microbiology 07/23/21 05:30 Sputum, Expectorated/Coughed Gram Stain - Final 07/23/21 05:30 Sputum, Expectorated/Coughed Respiratory Culture - Final 07/15/21 22:34 Blood Culture (Wb) - Venous Blood Culture - Final No growth in 5 days. 07/15/21 16:00 Blood Culture (Wb) - Arm Left Blood Culture - Final No growth in 5 days. Radiography Diagnostic Testing: Radiology Impression Chest CTA 07/26/21 12:47 IMPRESSION: Pulmonary emboli in branches of both lower lobe pulmonary arteries worse on the right side. Stable diffuse bilateral pulmonary infiltrates worse in the right hemithorax. Electronically Signed: Parviz Clark MD at 14:43 EDT , Service support , Physical Exam Const alert, oriented x3 and no apparent distress General Appearance: cooperative Exam Limitations: no limitations HEENT normocephalic, head/scalp atraumatic and moist oral mucous membranes Head and Scalp: normocephalic Eyes PERRL, EOMs intact bilaterally and conjunctivae normal Neck no lymphadenopathy, supple and no JVD Resp normal respiratory effort, no retractions and no use of accessory muscles Resp Narrative: diminished breath sounds bibasally, no wheezes or crackles. On 10L of oxygen by nasal canula, subsequently transitioned to AirVo. Auscultation: diminished lung sounds Cardio regular rate, regular rhythm, S1 normal heart sound, S2 normal heart sound and no murmurs GI normal to inspection, nondistended, normoactive bowel sounds, soft to palpation, non-tender and non-distended Extremity normal to inspection, full ROM and no clubbing, cyanosis or edema Peripheral Pulses: Yes pulses 2+ throughout Skin no rashes or lesions noted Neuro oriented x3, CN's II-XII intact bilaterally, moves all extremities, no focal motor deficits and no sensory deficits noted Sensorium / Orientation: awake and alert Psych affect normal Appearance: appropriate Assessment & Plan Assessment/Plan (1) Acute respiratory failure with hypoxia: (2) Pneumonia due to 2019 novel coronavirus: PLAN: #Acute hypoxic respiratory failure due to COVID 19 pneumonia now on 12L of oxygen this morning. On baricitinib and Decadron. Has completed course of remdesivir ID and pulmonology on board. Incentive spirometry as needed. Sputum culture negative, blood culture also negative. CT was negative for PE D dimer even more elevated today, so CTA is pending to rule out PE Breathing treatments of bronchodilators. Titrate oxygen to maintain saturation above 90%. on empiric antibiotics with IV cefepime and vancomycin blood cultures are negative so far, and sputum gram stain shows 4+ gram positive cocci and 3+ gram positive rods. resp cultures show mixed normal respiratory shanika. #Type 2 diabetes mellitus: Glipizide on hold. Insulin sliding scale and Lantus 15 units daily. Accuchecks ACHS #Hypertension: On metoprolol. IV hydralazine as needed. GERD: On PPI DVT prophylaxis: Lovenox Charges/Coding Visit Charges Inpatient E&M: 25232 [facility] Hosp L3
[2021-07-27] MEDS: Vancomycin IV 1,000 MG/200 ML BAG 200 MG IV (11:42)
--- NOTE | 2021-07-27 12:58 | PCM.PN.ID ---
Physical Exam Narrative Breathing a little better, less sputum, no fever Const alert General Appearance: cooperative Resp Auscultation: diminished lung sounds Cardio regular rate and regular rhythm GI normal to inspection, nondistended, normoactive bowel sounds Skin no rashes or lesions noted ID ID: Route of nutrition/ use of supplements: [] Nutritional Intake: [] IV Site: [] Edgar Catheter: [] Assessment & Plan Assessment/Plan (1) Pneumonia due to 2019 novel coronavirus: PLAN: Sx started around 07/09. Vaccinated. tested neg, asymptomatic. On dex, baricitinib. Completed remdesivir. O2 worsened, d-dimer repeat was high, repeat CTA 07/26 showed new PEs. On therapeutic lovenox. Will stop vanc, cont cefepime for now, sputum cx so far showing normal shanika. Will follow (2) Hypoxemia:
[2021-07-27 13:01] LABS: Bedside Glucose 130 mg/dL (70-110)
[2021-07-27] MEDS: Insulin Lispro 100 UNIT/ML INSULN.PEN SC ×2 (16:29→21:35)
[2021-07-27 17:41] LABS: Bedside Glucose 359 mg/dL (70-110)
[2021-07-27] MEDS: 0.9% Saline Lock 10 ML Syringe IV (21:42)
[2021-07-27 21:56] LABS: Bedside Glucose 181 mg/dL (70-110)
[2021-07-28] VITALS (10 sets, daily range): BP systolic 92–142; BP diastolic 42–69; PULSE 48–62; RESP 16–20; TEMP 35.8–36.2; O2SAT 84–99
[2021-07-28] MEDS: Venlafaxine HCl 25 MG Tablet PO ×3 (06:22→22:26)
[2021-07-28] MEDS: Pantoprazole Sodium 40 MG Tablet PO (06:22)
[2021-07-28] MEDS: Nystatin Powder 15gm Bottle 1 APPLIC TOPICAL ×3 (06:23→22:27)
[2021-07-28 07:00] LABS: Bedside Glucose 58 mg/dL (70-110)
[2021-07-28 07:00] LABS: Bedside Glucose 82 mg/dL (70-110)
[2021-07-28 07:12] LABS: Absolute Lymphocyte Count 0.34 X10^3/uL (0.83-4.51); Absolute Neutrophil Count 13.9 X10^3/uL (2.0-7.7); Basophil# 0.03 X10^3/uL; Basophil% 0.2 % (0-1); Eosinophil# 0.03 X10^3/uL; Eosinophils% 0.2 % (0-5); Hematocrit 40.5 % (37-47); Hemoglobin 13.5 g/dL (12.0-15.0); Lymphocyte # 0.34 X10^3/ul (0.83-4.51); Lymphocyte % 2.2 % (19-41); Mean Corp Hgb Conc 33.3 g/dL (32-36); Mean Corpuscular Hgb 30.5 pg (27.0-32.0); Mean Corpuscular Volume 91.6 fL (81-99); Mean Platelet Vol. 9.9 fl (6.2-12.0); Monocyte% 5.2 % (0-10); NRBC Flagged by Analyzer 0 % (0-5); Neutrophil # 13.91 X10^3/uL (2.7-7.7); Neutrophil % 90.8 % (47-70); POSITIVE DIFFERENTIAL YES; Platelet Count 272 K/mm3 (150-450); RBC Distribution Width CV 12.7 % (11.6-14.6); RBC Distribution Width SD 42.5 fl (35.1-43.9); Red Blood Count 4.42 M/mm3 (4.2-5.4); White Blood Count 15.3 K/mm3 (4.4-11.0)
[2021-07-28 07:18] LABS: Differential Indicated SCAN CRITERIA MET
[2021-07-28 07:35] LABS: ALB/GLOB Ratio 0.5 RATIO (0.9-2.4); AST(SGOT) 18 U/L (15-37); Alanine Aminotransfer ALT/SGPT 15 U/L (13-56); Albumin, Serum 2.1 g/dL (3.2-5.0); Alkaline Phosphatase 70 U/L (45-117); Anion Gap 3 (5-15); BUN 19 mg/dL (7-18); BUN/Creat Ratio 32.1 RATIO (10-20); Calcium,Total 8.5 mg/dL (8.5-10.1); Chloride 104 mmol/L (98-107); Creatinine, Serum 0.59 mg/dL (0.55-1.02); EST Glomerular Filtration Rate 104 mL/min (>60); Est Glom Filt Rate - Afr Amer 126 mL/min (>60); Estimated Creatinine Clearance 45.05 ml/min; Glucose 69 mg/dL (74-106); Potassium 3.9 mmol/L (3.5-5.1); Protein, Total 6.1 g/dL (6.4-8.2); Sodium Level 137 mmol/L (136-145)
[2021-07-28 07:51] LABS: Platelet Estimate ADEQUATE (ADEQ); Red Cell Morphology NORM C+C NORMAL (NORM C&C)
[2021-07-28] MEDS: Bisacodyl 5 MG Tablet PO (08:59)
[2021-07-28] MEDS: dexAMETHasone 4 MG Tablet 6 MG PO (09:01)
[2021-07-28] MEDS: Enoxaparin 60 MG/0.6 ML Syringe SC ×2 (09:02→22:27)
[2021-07-28] MEDS: Insulin Lispro 100 UNIT/ML INSULN.PEN SC ×3 (11:10→22:28)
--- NOTE | 2021-07-28 11:14 | PN.HOSP_ITS ---
Subjective Subjective Patient seen and examined. SHe was on 8L of oxygen at time of review today. She has no active complaints and feels well. Review of systems is otherwise negative. She is bradycardic today, but has otherwise remained stable. Review of systems otherwise negative. Objective Data Objective Data Vital Signs: Vital Signs Temp Pulse Resp BP Pulse Ox 97.1 F L 53 L 18 92/42 L 94 07/28/21 09:11 07/28/21 09:35 07/28/21 09:11 07/28/21 09:11 07/28/21 09:35 Oxygen Flow Rate (L/min) [ 4 AMBULATING with Oxygen #1] Oxygen Flow Rate (L/min) 45 Oxygen Delivery Method Airvo Weight: 140 lb 3.424 oz Body Mass Index (BMI) 29.4 Intake & Output: Intake and Output for Last 24 Hours 07/26/21 07/27/21 07/28/21 23:59 23:59 23:59 Intake Total 1320 / 1320 1000 / 1050 50 / 50 Output Total 1000 / 1000 1650 / 1650 750 / 750 Balance 320 / 320 -650 / -600 -700 / -700 Medical Nutrition Assessment Dietitian: Malnutrition Criteria Met Start: 07/24/21 14:45 Freq: Status: Active Protocol: Document 07/24/21 14:46 AG (Rec: 07/24/21 14:46 AG [id number]) Nutrition Malnutrition Evidence of Malnutrition Exists Yes Malnutrition (severe): Acute Illness/Injury Evidenced By Suboptimal Energy Intake ( Severe),Weight Loss (Severe) Intake Problem Inadequate Oral Intake Etiology r/t decreased appetite w/ acute illness Signs/Symptoms as evidenced by nursing reports of pt consuming ~50% or less of meals Status Active Problem Clinical Problem Acute Disease or Injury Related Malnutrition Etiology severe, acute malnutrition r/t inadequate energy intake w/ increased energy needs d/t acute illness Signs/Symptoms as evidenced by estimated PO intake meeting <50% of estimated nutritional needs >1 week; unintentional wt loss of 4.36kg/6.4% x 9 days Status Active Problem Altered Nutrient-Related Laboratory Values Etiology - Signs/Symptoms - Status Inactive Problem Recommendation Dietitian Recommendations/Changes continue regular diet and 120mL Glucerna ONS w/ meals for additional calories/ protein if consumed given malnutrition Lab / Micro Data Result Diagrams: 07/28/21 07:00 07/28/21 07:00 Labs: Laboratory Results - last 24 hr 07/27/21 11:37: POC Glucose 130 H 07/27/21 16:27: POC Glucose 359 H 07/27/21 21:33: POC Glucose 181 H 07/28/21 06:25: POC Glucose 58 L 07/28/21 06:56: POC Glucose 82 07/28/21 07:00: WBC 15.3 H, RBC 4.42, Hgb 13.5, Hct 40.5, MCV 91.6, MCH 30.5, MCHC 33.3, RDW Std Deviation 42.5, RDW Coeff of Renetta 12.7, Plt Count 272, MPV 9.9, Immature Gran % (Auto) 1.400 H, Neut % (Auto) 90.8 H, Lymph % (Auto) 2.2 L, Thayer % (Auto) 5.2, Eos % (Auto) 0.2, Baso % (Auto) 0.2, Absolute Neuts (auto) 13.9 H, Absolute Lymphs (auto) 0.34 L, Nucleated RBC % 0, Platelet Estimate ADEQUATE, RBC Morphology NORM C+C 07/28/21 07:00: Sodium 137, Potassium 3.9, Chloride 104, Carbon Dioxide 30.0, Anion Gap 3 L, BUN 19 H, Creatinine 0.59, Estim Creat Clear Calc 45.05, Est GFR (MDRD) Af Amer 126, Est GFR (MDRD) Non-Af 104, BUN/Creatinine Ratio 32.1 H, Glucose 69 L, Calcium 8.5, Total Bilirubin 0.40, AST 18, ALT 15, Alkaline Phosphatase 70, Total Protein 6.1 L, Albumin 2.1 L, Globulin 4.0, Albumin/Globulin Ratio 0.5 L Micro: Microbiology 07/23/21 05:30 Sputum, Expectorated/Coughed Gram Stain - Final 07/23/21 05:30 Sputum, Expectorated/Coughed Respiratory Culture - Final 07/15/21 22:34 Blood Culture (Wb) - Venous Blood Culture - Final No growth in 5 days. 07/15/21 16:00 Blood Culture (Wb) - Arm Left Blood Culture - Final No growth in 5 days. Physical Exam Const alert, oriented x3 and no apparent distress General Appearance: cooperative Exam Limitations: no limitations HEENT normocephalic, head/scalp atraumatic and moist oral mucous membranes Head and Scalp: normocephalic Eyes PERRL, EOMs intact bilaterally and conjunctivae normal Neck no lymphadenopathy, supple and no JVD Resp normal respiratory effort, no retractions and no use of accessory muscles Resp Narrative: diminished breath sounds bibasally, no wheezes or crackles. On 10L of oxygen by nasal canula, subsequently transitioned to AirVo. Auscultation: diminished lung sounds Cardio regular rate, regular rhythm, S1 normal heart sound, S2 normal heart sound and no murmurs GI normal to inspection, nondistended, normoactive bowel sounds, soft to palpation, non-tender and non-distended Extremity normal to inspection, full ROM and no clubbing, cyanosis or edema Skin no rashes or lesions noted Neuro oriented x3, CN's II-XII intact bilaterally, moves all extremities, no focal motor deficits and no sensory deficits noted Sensorium / Orientation: awake and alert Psych affect normal Appearance: appropriate Mood & Affect: depressed Assessment & Plan Assessment/Plan (1) Acute respiratory failure with hypoxia: (2) Pneumonia due to 2019 novel coronavirus: PLAN: #Acute hypoxic respiratory failure due to COVID 19 pneumonia * now on 12L of oxygen this morning. * On baricitinib and Decadron. Has completed course of remdesivir * ID and pulmonology on board. * Incentive spirometry as needed. * Sputum culture negative, blood culture also negative. CT was negative for PE * D dimer even more elevated today, so CTA is pending to rule out PE * Breathing treatments of bronchodilators. Titrate oxygen to maintain saturation above 90%. * on empiric antibiotics with IV cefepime and vancomycin * blood cultures are negative so far, and sputum gram stain shows 4+ gram positive cocci and 3+ gram positive rods. * resp cultures show mixed normal respiratory shanika. * #Type 2 diabetes mellitus: Glipizide on hold. Insulin sliding scale and Lantus 15 units daily. Accuchecks ACHS #Hypertension: On metoprolol. IV hydralazine as needed. GERD: On PPI DVT prophylaxis: Lovenox
[2021-07-28 11:20] LABS: Bedside Glucose 197 mg/dL (70-110)
[2021-07-28 16:40] LABS: Bedside Glucose 327 mg/dL (70-110)
[2021-07-28] MEDS: 0.9% Saline Lock 10 ML Syringe IV (22:27)
[2021-07-28 22:56] LABS: Bedside Glucose 308 mg/dL (70-110)
[2021-07-29] VITALS (11 sets, daily range): BP systolic 96–159; BP diastolic 49–75; PULSE 55–66; RESP 18; TEMP 35.8–36.7; O2SAT 92–100
[2021-07-29] MEDS: Pantoprazole Sodium 40 MG Tablet PO (07:00)
[2021-07-29] MEDS: Venlafaxine HCl 25 MG Tablet PO ×3 (07:00→22:34)
[2021-07-29] MEDS: Nystatin Powder 15gm Bottle 1 APPLIC TOPICAL ×3 (07:00→22:34)
[2021-07-29] MEDS: Insulin Lispro 100 UNIT/ML INSULN.PEN SC ×4 (07:02→22:41)
[2021-07-29 07:21] LABS: Bedside Glucose 154 mg/dL (70-110)
[2021-07-29 08:14] LABS: Absolute Lymphocyte Count 1.27 X10^3/uL (0.83-4.51); Basophil# 0.02 X10^3/uL; Basophil% 0.1 % (0-1); Hematocrit 43.4 % (37-47); Hemoglobin 14.5 g/dL (12.0-15.0); Lymphocyte # 1.27 X10^3/ul (0.83-4.51); Lymphocyte % 8.3 % (19-41); Mean Corp Hgb Conc 33.4 g/dL (32-36); Mean Corpuscular Hgb 30.8 pg (27.0-32.0); Mean Corpuscular Volume 92.1 fL (81-99); Mean Platelet Vol. 9.9 fl (6.2-12.0); Monocyte# 0.72 X10^3/uL; Monocyte% 4.7 % (0-10); NRBC Flagged by Analyzer 0 % (0-5); Neutrophil # 12.99 X10^3/uL (2.7-7.7); Platelet Count 305 K/mm3 (150-450); RBC Distribution Width CV 12.7 % (11.6-14.6); Red Blood Count 4.71 M/mm3 (4.2-5.4); White Blood Count 15.3 K/mm3 (4.4-11.0)
[2021-07-29 08:43] LABS: ALB/GLOB Ratio 0.6 RATIO (0.9-2.4); AST(SGOT) 14 U/L (15-37); Alanine Aminotransfer ALT/SGPT 17 U/L (13-56); Albumin, Serum 2.5 g/dL (3.2-5.0); Alkaline Phosphatase 85 U/L (45-117); Anion Gap 5 (5-15); BUN 17 mg/dL (7-18); BUN/Creat Ratio 31.2 RATIO (10-20); Calcium,Total 8.9 mg/dL (8.5-10.1); Chloride 102 mmol/L (98-107); Creatinine, Serum 0.54 mg/dL (0.55-1.02); EST Glomerular Filtration Rate 114 mL/min (>60); Est Glom Filt Rate - Afr Amer 138 mL/min (>60); Estimated Creatinine Clearance 44.77 ml/min; Globulin 3.9 g/dL (2.2-4.2); Glucose 149 mg/dL (74-106); Potassium 4.4 mmol/L (3.5-5.1); Protein, Total 6.4 g/dL (6.4-8.2); Sodium Level 136 mmol/L (136-145)
[2021-07-29] MEDS: Enoxaparin 60 MG/0.6 ML Syringe SC ×2 (09:01→22:34)
[2021-07-29] MEDS: dexAMETHasone 4 MG Tablet 6 MG PO (09:02)
[2021-07-29] MEDS: Bisacodyl 5 MG Tablet PO (09:02)
--- NOTE | 2021-07-29 09:58 | PCM.PN.HOSP ---
Subjective Subjective Patient seen and examined. She has no active complaints today. She is on 14 L of oxygen today. Review of systems is otherwise negative. She is noted to be mildly bradycardic today. She is noted to be mildly bradycardic today. She is in cumulative negative balance by 117L. Objective Data Objective Data Vital Signs: Vital Signs Temp Pulse Resp BP Pulse Ox 97.8 F 58 L 18 100/49 L 92 07/29/21 08:58 07/29/21 09:22 07/29/21 08:58 07/29/21 09:03 07/29/21 08:58 Oxygen Flow Rate (L/min) [ 4 AMBULATING with Oxygen #1] Oxygen Flow Rate (L/min) 14 Oxygen Delivery Method Nasal Cannula Weight: 139 lb 5.314 oz Body Mass Index (BMI) 29.4 Intake & Output: Intake and Output for Last 24 Hours 07/27/21 07/28/21 07/29/21 23:59 23:59 22:59 Intake Total 1000 / 1050 600 / 800 219.25 / 219.25 Output Total 1650 / 1650 1350 / 2350 1000 / 1000 Balance -650 / -600 -750 / -1550 -780.75 / -780.75 Medical Nutrition Assessment Dietitian: Malnutrition Criteria Met Start: 07/24/21 14:45 Freq: Status: Active Protocol: Document 07/24/21 14:46 AG (Rec: 07/24/21 14:46 AG [id number]) Nutrition Malnutrition Evidence of Malnutrition Exists Yes Malnutrition (severe): Acute Illness/Injury Evidenced By Suboptimal Energy Intake ( Severe),Weight Loss (Severe) Intake Problem Inadequate Oral Intake Etiology r/t decreased appetite w/ acute illness Signs/Symptoms as evidenced by nursing reports of pt consuming ~50% or less of meals Status Active Problem Clinical Problem Acute Disease or Injury Related Malnutrition Etiology severe, acute malnutrition r/t inadequate energy intake w/ increased energy needs d/t acute illness Signs/Symptoms as evidenced by estimated PO intake meeting <50% of estimated nutritional needs >1 week; unintentional wt loss of 4.36kg/6.4% x 9 days Status Active Problem Altered Nutrient-Related Laboratory Values Etiology - Signs/Symptoms - Status Inactive Problem Recommendation Dietitian Recommendations/Changes continue regular diet and 120mL Glucerna ONS w/ meals for additional calories/ protein if consumed given malnutrition Lab / Micro Data Result Diagrams: 07/29/21 08:04 07/29/21 08:04 Labs: Laboratory Results - last 24 hr 07/28/21 11:09: POC Glucose 197 H 07/28/21 16:18: POC Glucose 327 H 07/28/21 22:17: POC Glucose 308 H 07/29/21 07:01: POC Glucose 154 H 07/29/21 08:04: WBC 15.3 H, RBC 4.71, Hgb 14.5, Hct 43.4, MCV 92.1, MCH 30.8, MCHC 33.4, RDW Std Deviation 43.0, RDW Coeff of Renetta 12.7, Plt Count 305, MPV 9.9, Immature Gran % (Auto) 1.900 H, Neut % (Auto) 85.0 H, Lymph % (Auto) 8.3 L, [place] % (Auto) 4.7, Eos % (Auto) 0.0, Baso % (Auto) 0.1, Absolute Neuts (auto) 13.0 H, Absolute Lymphs (auto) 1.27, Nucleated RBC % 0 07/29/21 08:04: Sodium 136, Potassium 4.4, Chloride 102, Carbon Dioxide 29.0, Anion Gap 5, BUN 17, Creatinine 0.54 L, Estim Creat Clear Calc 44.77, Est GFR (MDRD) Af Amer 138, Est GFR (MDRD) Non-Af 114, BUN/Creatinine Ratio 31.2 H, Glucose 149 H, Calcium 8.9, Total Bilirubin 0.50, AST 14 L, ALT 17, Alkaline Phosphatase 85, Total Protein 6.4, Albumin 2.5 L, Globulin 3.9, Albumin/Globulin Ratio 0.6 L Micro: Microbiology 07/23/21 05:30 Sputum, Expectorated/Coughed Gram Stain - Final 07/23/21 05:30 Sputum, Expectorated/Coughed Respiratory Culture - Final 07/15/21 22:34 Blood Culture (Wb) - Venous Blood Culture - Final No growth in 5 days. 07/15/21 16:00 Blood Culture (Wb) - Arm Left Blood Culture - Final No growth in 5 days. Physical Exam Const alert, oriented x3 and no apparent distress General Appearance: cooperative Exam Limitations: no limitations HEENT normocephalic, head/scalp atraumatic and moist oral mucous membranes Head and Scalp: normocephalic Eyes PERRL, EOMs intact bilaterally and conjunctivae normal Neck no lymphadenopathy, supple and no JVD Resp normal respiratory effort, no retractions and no use of accessory muscles Resp Narrative: diminished breath sounds bibasally, no wheezes or crackles. On 14L of oxygen by nasal canula, subsequently transitioned to AirVo. Auscultation: diminished lung sounds Cardio regular rate, regular rhythm, S1 normal heart sound, S2 normal heart sound and no murmurs GI normal to inspection, nondistended, normoactive bowel sounds, soft to palpation, non-tender and non-distended Extremity normal to inspection, full ROM and no clubbing, cyanosis or edema Skin no rashes or lesions noted Neuro oriented x3, CN's II-XII intact bilaterally, moves all extremities, no focal motor deficits and no sensory deficits noted Sensorium / Orientation: awake and alert Psych affect normal Appearance: appropriate Mood & Affect: depressed Assessment & Plan Assessment/Plan (1) Acute respiratory failure with hypoxia: (2) Pneumonia due to 2019 novel coronavirus: PLAN: #Acute hypoxic respiratory failure due to COVID 19 pneumonia now on 14L of oxygen this morning. On baricitinib and Decadron. Has completed course of remdesivir ID and pulmonology on board. Incentive spirometry as needed. Sputum culture negative, blood culture also negative. CTA was positive for PE in branches of both lower lobe pulmonary arteries worse on the right side and stable bilateral diffuse infiltrates worse in the right hemithorax. Breathing treatments of bronchodilators. Titrate oxygen to maintain saturation above 90%. on empiric antibiotics with IV cefepime and vancomycin blood cultures are negative so far, and sputum gram stain shows 4+ gram positive cocci and 3+ gram positive rods. resp cultures show mixed normal respiratory shanika. #Type 2 diabetes mellitus: Glipizide on hold. Insulin sliding scale and Lantus 15 units daily. Accuchecks ACHS #Hypertension: On metoprolol. IV hydralazine as needed. GERD: On PPI DVT prophylaxis:not indicated as patient is on therapeutic lovenox for DVT treatment Charges/Coding Visit Charges Inpatient E&M: 37024 [facility] Hosp L3
[2021-07-29 11:25] LABS: Bedside Glucose 293 mg/dL (70-110)
[2021-07-29 17:10] LABS: Bedside Glucose 272 mg/dL (70-110)
[2021-07-29] MEDS: 0.9% Saline Lock 10 ML Syringe IV (22:35)
[2021-07-29 23:06] LABS: Bedside Glucose 264 mg/dL (70-110)
[2021-07-30] VITALS (8 sets, daily range): BP systolic 98–142; BP diastolic 43–69; PULSE 53–74; RESP 18–22; TEMP 35.8–36.3; O2SAT 84–99
[2021-07-30] MEDS: Pantoprazole Sodium 40 MG Tablet PO (04:49)
[2021-07-30] MEDS: Venlafaxine HCl 25 MG Tablet PO ×3 (04:49→21:32)
[2021-07-30] MEDS: Nystatin Powder 15gm Bottle 1 APPLIC TOPICAL ×3 (04:50→21:36)
[2021-07-30 07:10] LABS: Bedside Glucose 65 mg/dL (70-110)
[2021-07-30 07:29] LABS: Absolute Neutrophil Count 12.2 X10^3/uL (2.0-7.7); Basophil# 0.06 X10^3/uL; Basophil% 0.4 % (0-1); Eosinophil# 0.02 X10^3/uL; Eosinophils% 0.1 % (0-5); Hematocrit 44.3 % (37-47); Hemoglobin 14.4 g/dL (12.0-15.0); Lymphocyte % 8.9 % (19-41); Mean Corp Hgb Conc 32.5 g/dL (32-36); Mean Corpuscular Hgb 30.1 pg (27.0-32.0); Mean Corpuscular Volume 92.7 fL (81-99); Mean Platelet Vol. 11.3 fl (6.2-12.0); Monocyte# 0.71 X10^3/uL; Monocyte% 4.9 % (0-10); NRBC Flagged by Analyzer 0 % (0-5); Neutrophil # 12.21 X10^3/uL (2.7-7.7); Neutrophil % 83.9 % (47-70); Platelet Count 378 K/mm3 (150-450); RBC Distribution Width CV 12.5 % (11.6-14.6); RBC Distribution Width SD 42.8 fl (35.1-43.9); Red Blood Count 4.78 M/mm3 (4.2-5.4); White Blood Count 14.6 K/mm3 (4.4-11.0)
[2021-07-30 07:45] LABS: Bedside Glucose 88 mg/dL (70-110)
[2021-07-30 07:51] LABS: Anion Gap 5 (5-15); BUN 17 mg/dL (7-18); BUN/Creat Ratio 40.2 RATIO (10-20); Calcium,Total 8.6 mg/dL (8.5-10.1); Chloride 108 mmol/L (98-107); Creatinine, Serum 0.42 mg/dL (0.55-1.02); EST Glomerular Filtration Rate 153 mL/min (>60); Est Glom Filt Rate - Afr Amer 185 mL/min (>60); Estimated Creatinine Clearance 44.91 ml/min; Glucose 61 mg/dL (74-106); Potassium 3.9 mmol/L (3.5-5.1); Sodium Level 135 mmol/L (136-145)
[2021-07-30] MEDS: Enoxaparin 60 MG/0.6 ML Syringe SC ×2 (09:51→21:32)
[2021-07-30] MEDS: Bisacodyl 5 MG Tablet PO (09:51)
[2021-07-30] MEDS: dexAMETHasone 4 MG Tablet 6 MG PO (09:51)
[2021-07-30 11:46] LABS: Bedside Glucose 148 mg/dL (70-110)
--- NOTE | 2021-07-30 15:14 | PCM.PN.ID ---
Physical Exam Narrative Feeling better, no fever, breathing easier Const alert General Appearance: cooperative Resp Auscultation: diminished lung sounds Cardio regular rate and regular rhythm GI normal to inspection, nondistended, normoactive bowel sounds Skin no rashes or lesions noted ID ID: Route of nutrition/ use of supplements: [] Nutritional Intake: [] IV Site: [] Edgar Catheter: [] Assessment & Plan Assessment/Plan (1) Pneumonia due to 2019 novel coronavirus: PLAN: Sx started around 07/09. Vaccinated. tested neg, asymptomatic. On dex. Completed remdesivir. O2 worsened, d-dimer repeat was high, repeat CTA 07/26 showed new PEs. On therapeutic lovenox. Will stop cefepime, sputum cx so far showing normal shanika. Will follow (2) Hypoxemia:
--- NOTE | 2021-07-30 16:59 | PN.HOSP_ITS ---
Subjective Subjective Patient reports she is not having any respiratory distress however she has been on 10 to 11 L of heated high flow nasal cannula and her sats are 84 to 94% on this flow. She continues to require more oxygen as she was on 9 L yesterday but had been on more previously. She is asking to go home but I explained that she will not be able to go home until we can wean her oxygen down much further than it is at this time. Objective Data Objective Data Vital Signs: Vital Signs Temp Pulse Resp BP Pulse Ox 97.4 F L 74 20 H 103/50 L 92 07/30/21 14:52 07/30/21 14:52 07/30/21 14:52 07/30/21 14:52 07/30/21 14:52 Oxygen Flow Rate (L/min) [ 4 AMBULATING with Oxygen #1] Oxygen Flow Rate (L/min) 10 Oxygen Delivery Method High Flow Weight: 63.4 kg Body Mass Index (BMI) 29.4 Intake & Output: Intake and Output for Last 24 Hours 07/29/21 07/29/21 07/30/21 00:59 23:59 23:59 Intake Total 400 / 400 Output Total 1000 / 1000 Balance -600 / -600 Medical Nutrition Assessment Dietitian: Malnutrition Criteria Met Start: 07/24/21 14:45 Freq: Status: Active Protocol: Document 07/24/21 14:46 AG (Rec: 07/24/21 14:46 AG [id number]) Nutrition Malnutrition Evidence of Malnutrition Exists Yes Malnutrition (severe): Acute Illness/Injury Evidenced By Suboptimal Energy Intake ( Severe),Weight Loss (Severe) Intake Problem Inadequate Oral Intake Etiology r/t decreased appetite w/ acute illness Signs/Symptoms as evidenced by nursing reports of pt consuming ~50% or less of meals Status Active Problem Clinical Problem Acute Disease or Injury Related Malnutrition Etiology severe, acute malnutrition r/t inadequate energy intake w/ increased energy needs d/t acute illness Signs/Symptoms as evidenced by estimated PO intake meeting <50% of estimated nutritional needs >1 week; unintentional wt loss of 4.36kg/6.4% x 9 days Status Active Problem Altered Nutrient-Related Laboratory Values Etiology - Signs/Symptoms - Status Inactive Problem Recommendation Dietitian Recommendations/Changes continue regular diet and 120mL Glucerna ONS w/ meals for additional calories/ protein if consumed given malnutrition Lab / Micro Data Result Diagrams: 07/30/21 07:00 07/30/21 07:00 Labs: Laboratory Results - last 24 hr 07/29/21 17:00: POC Glucose 272 H 07/29/21 22:40: POC Glucose 264 H 07/30/21 06:59: POC Glucose 65 L 07/30/21 07:00: WBC 14.6 H, RBC 4.78, Hgb 14.4, Hct 44.3, MCV 92.7, MCH 30.1, MCHC 32.5, RDW Std Deviation 42.8, RDW Coeff of Renetta 12.5, Plt Count 378, MPV 11.3, Immature Gran % (Auto) 1.800 H, Neut % (Auto) 83.9 H, Lymph % (Auto) 8.9 L , [place] % (Auto) 4.9, Eos % (Auto) 0.1, Baso % (Auto) 0.4, Absolute Neuts (auto) 12.2 H, Absolute Lymphs (auto) 1.30, Nucleated RBC % 0 07/30/21 07:00: Sodium 135 L, Potassium 3.9, Chloride 108 H, Carbon Dioxide 22.0, Anion Gap 5, BUN 17, Creatinine 0.42 L, Estim Creat Clear Calc 44.91, Est GFR (MDRD) Af Amer 185, Est GFR (MDRD) Non-Af 153, BUN/Creatinine Ratio 40.2 H, Glucose 61 L, Calcium 8.6 07/30/21 07:41: POC Glucose 88 07/30/21 11:07: POC Glucose 148 H Micro: Microbiology 07/23/21 05:30 Sputum, Expectorated/Coughed Gram Stain - Final 07/23/21 05:30 Sputum, Expectorated/Coughed Respiratory Culture - Final 07/15/21 22:34 Blood Culture (Wb) - Venous Blood Culture - Final No growth in 5 days. 07/15/21 16:00 Blood Culture (Wb) - Arm Left Blood Culture - Final No growth in 5 days. Physical Exam Const alert, oriented x3, no apparent distress and average body habitus Constitutional Narrative: Slightly overweight elderly white female sitting up in bed on heated high flow nasal cannula, appears comfortable at this time, watching television, nontoxic Exam Limitations: no limitations Nutritional Appearance: overweight HEENT head/scalp atraumatic and moist oral mucous membranes HEENT Narrative: No thrush noted, Mallampati 2 Head and Scalp: normocephalic Resp normal respiratory effort, no retractions, no use of accessory muscles and clear to auscultation bilaterally Resp Narrative: Diffusely diminished but clear Auscultation: Negative for crackles, rales, rhonchi or wheezes Cardio regular rate, regular rhythm, S1 normal heart sound, S2 normal heart sound, no murmurs, no rub, no gallops, no clicks and no JVD GI normal to inspection, nondistended, normoactive bowel sounds, soft to palpation, non-tender and non-distended Extremity no clubbing, cyanosis or edema Peripheral Pulses: Yes pulses 2+ throughout Neuro oriented x3, moves all extremities and no focal motor deficits Sensorium / Orientation: awake and alert Speech: speech normal Assessment & Plan Assessment/Plan (1) Acute respiratory failure with hypoxia: (2) Pneumonia due to 2019 novel coronavirus: (3) Hyponatremia: PLAN: Acute hypoxic respiratory failure secondary to COVID-19 pneumonia -Sputum culture from 07/23/2021 is negative -Patient was vaccinated -She remains on heated high flow nasal cannula at 10 to 11 L with an SPO2 of 84 to 94% -Continue Decadron dose 4 of 10 -Remdesivir completed -Wean oxygen as able Bilateral pulmonary emboli -CTA from 07/26/2021 found bilateral pulmonary emboli worse on the right -Had a negative scan on 07/17/2021 -Continue therapeutic Lovenox -We will transition to Eliquis if patient clinically remained stable in the next 24 to 48 hours -We will need at least 3 months of treatment given the fact that these are provoked Hyponatremia -Mild at 135 -Likely related to acute Covid infection -Continue to monitor DM-2 -Oral agents on hold -Decrease Lantus to 10 units as a.m. blood sugar on BMP was 61 -Continue SSI -Goal blood sugar 140-180 -Continue Accu-Cheks Hypertension -Continue metoprolol but monitor heart rate as patient has had some mild bradycardia -As needed meds available GERD -Continue PPI Depression -Continue venlafaxine CODE STATUS -DNR CCA no intubation Charges/Coding Visit Charges Inpatient E&M: 41271 Subs Hosp L2
[2021-07-30] MEDS: Insulin Lispro 100 UNIT/ML INSULN.PEN SC ×2 (17:39→21:32)
[2021-07-30 17:45] LABS: Bedside Glucose 376 mg/dL (70-110)
[2021-07-30 21:46] LABS: Bedside Glucose 204 mg/dL (70-110)
[2021-07-31] VITALS (10 sets, daily range): BP systolic 96–130; BP diastolic 50–62; PULSE 57–69; RESP 15–20; TEMP 36.2–36.6; O2SAT 88–96
[2021-07-31] MEDS: Pantoprazole Sodium 40 MG Tablet PO (06:26)
[2021-07-31] MEDS: Venlafaxine HCl 25 MG Tablet PO ×3 (06:26→20:59)
[2021-07-31] MEDS: Nystatin Powder 15gm Bottle 1 APPLIC TOPICAL ×3 (06:26→21:00)
[2021-07-31 06:36] LABS: Bedside Glucose 97 mg/dL (70-110)
[2021-07-31 08:02] LABS: Absolute Lymphocyte Count 0.71 X10^3/uL (0.83-4.51); Absolute Neutrophil Count 11.9 X10^3/uL (2.0-7.7); Basophil# 0.05 X10^3/uL; Basophil% 0.4 % (0-1); Eosinophil# 0.01 X10^3/uL; Eosinophils% 0.1 % (0-5); Hematocrit 44.1 % (37-47); Hemoglobin 14.8 g/dL (12.0-15.0); Lymphocyte # 0.71 X10^3/ul (0.83-4.51); Lymphocyte % 5.1 % (19-41); Mean Corp Hgb Conc 33.6 g/dL (32-36); Mean Corpuscular Hgb 30.5 pg (27.0-32.0); Mean Corpuscular Volume 90.9 fL (81-99); Mean Platelet Vol. 11.1 fl (6.2-12.0); Monocyte# 0.93 X10^3/uL; Monocyte% 6.7 % (0-10); NRBC Flagged by Analyzer 0 % (0-5); Neutrophil # 11.93 X10^3/uL (2.7-7.7); Neutrophil % 85.9 % (47-70); Platelet Count 207 K/mm3 (150-450); RBC Distribution Width CV 12.6 % (11.6-14.6); RBC Distribution Width SD 41.8 fl (35.1-43.9); Red Blood Count 4.85 M/mm3 (4.2-5.4); White Blood Count 13.9 K/mm3 (4.4-11.0)
[2021-07-31 08:29] LABS: Anion Gap 5 (5-15); BUN 13 mg/dL (7-18); BUN/Creat Ratio 21.2 RATIO (10-20); Calcium,Total 8.6 mg/dL (8.5-10.1); Chloride 104 mmol/L (98-107); Creatinine, Serum 0.61 mg/dL (0.55-1.02); EST Glomerular Filtration Rate 100 mL/min (>60); Est Glom Filt Rate - Afr Amer 120 mL/min (>60); Estimated Creatinine Clearance 44.91 ml/min; Glucose 91 mg/dL (74-106); Potassium 4.1 mmol/L (3.5-5.1); Sodium Level 131 mmol/L (136-145)
[2021-07-31] MEDS: Enoxaparin 60 MG/0.6 ML Syringe SC ×2 (09:53→20:59)
[2021-07-31] MEDS: dexAMETHasone 4 MG Tablet 6 MG PO (09:53)
[2021-07-31] MEDS: Bisacodyl 5 MG Tablet PO (09:54)
--- NOTE | 2021-07-31 11:47 | NURSING ---
Updated patient's that she is no longer in enhanced covid precautions and that he may come and visit her.
[2021-07-31] MEDS: Insulin Lispro 100 UNIT/ML INSULN.PEN SC ×3 (12:33→20:56)
[2021-07-31 12:40] LABS: Bedside Glucose 218 mg/dL (70-110)
--- NOTE | 2021-07-31 14:41 | PN.HOSP_ITS ---
Subjective Subjective Patient has no significant complaints today although she does admit she would like to get up into a chair and is waiting to do so. She was able to be weaned to 9 L last evening and has tolerated this well. Sats over the right were 96 to 99%. We did discuss the importance of continued incentive spirometry and Shaista pella along with therapy services and getting out of bed. She voiced understanding and is anxious to be able to be discharged. Objective Data Objective Data Vital Signs: Vital Signs Temp Pulse Resp BP Pulse Ox 97.2 F L 66 20 H 112/62 91 07/31/21 09:50 07/31/21 09:50 07/31/21 09:50 07/31/21 09:50 07/31/21 12:48 Oxygen Flow Rate (L/min) [ 4 AMBULATING with Oxygen #1] Oxygen Flow Rate (L/min) 9 Oxygen Delivery Method High Flow Weight: 63.4 kg Body Mass Index (BMI) 29.4 Intake & Output: Intake and Output for Last 24 Hours 07/29/21 07/30/21 07/31/21 23:59 23:59 23:59 Intake Total 750 / 750 Output Total 1700 / 1700 0 / 0 Balance -950 / -950 0 / 0 Medical Nutrition Assessment Dietitian: Malnutrition Criteria Met Start: 07/24/21 14:45 Freq: Status: Active Protocol: Document 07/31/21 12:15 RMA (Rec: 07/31/21 12:15 RMA [id number]) Nutrition Malnutrition Evidence of Malnutrition Exists Yes Malnutrition (severe): Acute Illness/Injury Evidenced By Suboptimal Energy Intake ( Severe),Weight Loss (Severe) Intake Problem Inadequate Oral Intake Etiology r/t decreased appetite w/ acute illness Signs/Symptoms as evidenced by nursing reports of pt consuming ~50% or less of meals Status Active Problem Clinical Problem Acute Disease or Injury Related Malnutrition Etiology severe, acute malnutrition r/t inadequate energy intake w/ increased energy needs d/t acute illness Signs/Symptoms as evidenced by estimated PO intake meeting <50% of estimated nutritional needs >1 week; 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 Will try fortified pudding w/ meals for tolerance. Lab / Micro Data Result Diagrams: 07/31/21 07:26 07/31/21 07:26 Labs: Laboratory Results - last 24 hr 07/30/21 17:38: POC Glucose 376 H 07/30/21 21:30: POC Glucose 204 H 07/31/21 06:25: POC Glucose 97 07/31/21 07:26: WBC 13.9 H, RBC 4.85, Hgb 14.8, Hct 44.1, MCV 90.9, MCH 30.5, MCHC 33.6, RDW Std Deviation 41.8, RDW Coeff of Renetta 12.6, Plt Count 207, MPV 11.1, Immature Gran % (Auto) 1.800 H, Neut % (Auto) 85.9 H, Lymph % (Auto) 5.1 L , [place] % (Auto) 6.7, Eos % (Auto) 0.1, Baso % (Auto) 0.4, Absolute Neuts (auto) 11.9 H, Absolute Lymphs (auto) 0.71 L, Nucleated RBC % 0 07/31/21 07:26: Sodium 131 L, Potassium 4.1, Chloride 104, Carbon Dioxide 22.0, Anion Gap 5, BUN 13, Creatinine 0.61, Estim Creat Clear Calc 44.91, Est GFR (MDRD) Af Amer 120, Est GFR (MDRD) Non-Af 100, BUN/Creatinine Ratio 21.2 H, Glucose 91, Calcium 8.6 07/31/21 12:29: POC Glucose 218 H Micro: Microbiology 07/23/21 05:30 Sputum, Expectorated/Coughed Gram Stain - Final 07/23/21 05:30 Sputum, Expectorated/Coughed Respiratory Culture - Final 07/15/21 22:34 Blood Culture (Wb) - Venous Blood Culture - Final No growth in 5 days. 07/15/21 16:00 Blood Culture (Wb) - Arm Left Blood Culture - Final No growth in 5 days. Physical Exam Const alert, oriented x3, no apparent distress and average body habitus Constitutional Narrative: Slightly overweight elderly white female sitting up in bed on heated high flow nasal cannula, appears comfortable at this time, watching television, nontoxic General Appearance: cooperative Exam Limitations: no limitations Nutritional Appearance: overweight HEENT normocephalic, head/scalp atraumatic and moist oral mucous membranes HEENT Narrative: No thrush Head and Scalp: normocephalic Resp normal respiratory effort, no retractions, no use of accessory muscles and clear to auscultation bilaterally Resp Narrative: Diffusely diminished but clear Auscultation: diminished lung sounds; Negative for crackles, rales, rhonchi or wheezes Cardio regular rate, regular rhythm, S1 normal heart sound, S2 normal heart sound, no murmurs, no rub, no gallops, no clicks and no JVD GI normal to inspection, nondistended, normoactive bowel sounds, soft to palpation, non-tender and non-distended Extremity normal to inspection, full ROM and no clubbing, cyanosis or edema Peripheral Pulses: Yes pulses 2+ throughout Neuro oriented x3, moves all extremities and no focal motor deficits Sensorium / Orientation: awake and alert Speech: speech normal Psych Appearance: appropriate Assessment & Plan Assessment/Plan (1) Acute respiratory failure with hypoxia: (2) Pneumonia due to 2019 novel coronavirus: (3) Hyponatremia: (4) Bradycardia: PLAN: Acute hypoxic respiratory failure secondary to COVID-19 pneumonia -Sputum culture from 07/23/2021 is negative -Patient was vaccinated -She remains on heated high flow nasal cannula at 9 L with an SPO2 of 91 to 99% -Continue Decadron dose 5 of 10 -Remdesivir completed -Lasix 40 mg IV push x1 dose today and reevaluate daily for need -Wean oxygen as able Bilateral pulmonary emboli -CTA from 07/26/2021 found bilateral pulmonary emboli worse on the right -Had a negative scan on 07/17/2021 -Continue therapeutic Lovenox -We will transition to Eliquis tomorrow if patient clinically remains stable -We will need at least 3 months of treatment given the fact that these are provoked Hyponatremia -Mild at 131 -Likely related to acute Covid infection -Continue to monitor Intermittent bradycardia -Patient is on a beta-wu at baseline -Continue metoprolol 100 mg daily -May need to consider dose decrease if heart rates drop below 50 -Most of her bradycardic episodes appear to be at night with her low overnight being 53 DM-2 -Oral agents on hold -Continue Lantus to 10 units as a.m. blood sugar on BMP was 91 -Continue SSI -Goal blood sugar 140-180 -Continue Accu-Cheks Hypertension -Continue metoprolol but monitor heart rate as patient has had some mild bradycardia -As needed meds available GERD -Continue PPI Depression -Continue venlafaxine CODE STATUS -DNR CCA no intubation Charges/Coding Visit Charges Inpatient E&M: 45040 Subs Hosp L2
[2021-07-31] MEDS: Furosemide 40 MG/4 ML Vial IV (16:11)
[2021-07-31] MEDS: 0.9% Saline Lock 10 ML Syringe IV (16:11)
[2021-07-31 17:26] LABS: Bedside Glucose 241 mg/dL (70-110)
[2021-07-31 21:10] LABS: Bedside Glucose 436 mg/dL (70-110)
[2021-08-01] VITALS (20 sets, daily range): BP systolic 96–112; BP diastolic 52–62; PULSE 55–77; RESP 16–25; TEMP 36.1–36.6; O2SAT 84–96
[2021-08-01] MEDS: Venlafaxine HCl 25 MG Tablet PO ×3 (05:09→22:21)
--- NOTE | 2021-08-01 05:20 | NURSING ---
This RN assisted patient to the bathroom via walker and on 12HF 02, while sitting on the toilet patient became very pale and started to feel very weak per patient. Patient assisted back to be via X2 with walker. Patient assisted into bed and placed on 15L HF. Slowly increasing in Sp02. Will continue to monitor.
--- NOTE | 2021-08-01 06:14 | CPS ---
pt placed back on airvo due to low sats on 15 l/m via high flow-allison well-pt in no resp distress at this time-loose productive cough
[2021-08-01 06:45] LABS: Bedside Glucose 98 mg/dL (70-110)
--- NOTE | 2021-08-01 06:45 | NURSING ---
After returning from the bathroom and assisted into bed, 02 increased to 15L, HF. After some time to recover Sp02 still remained in the mid to low 80's. This RN went into patient room. Patient seemed in no distress and was blowing nose and coughing. Patient seemed to be producing dried blood. This RN called RT d/t patients Sp02 levels not increasing. RT came to room to assess. When this RN returned into patients room patient was on Airvo. 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
[2021-08-01 07:18] LABS: Absolute Lymphocyte Count 0.43 X10^3/uL (0.83-4.51); Absolute Neutrophil Count 12.3 X10^3/uL (2.0-7.7); Basophil# 0.05 X10^3/uL; Basophil% 0.4 % (0-1); Eosinophil# 0.03 X10^3/uL; Eosinophils% 0.2 % (0-5); Hematocrit 43.7 % (37-47); Hemoglobin 14.4 g/dL (12.0-15.0); Lymphocyte # 0.43 X10^3/ul (0.83-4.51); Lymphocyte % 3.1 % (19-41); Mean Corpuscular Hgb 30.4 pg (27.0-32.0); Mean Corpuscular Volume 92.2 fL (81-99); Mean Platelet Vol. 10.5 fl (6.2-12.0); Monocyte# 0.92 X10^3/uL; Monocyte% 6.5 % (0-10); NRBC Flagged by Analyzer 0 % (0-5); Neutrophil # 12.34 X10^3/uL (2.7-7.7); Neutrophil % 87.7 % (47-70); POSITIVE DIFFERENTIAL YES; Platelet Count 272 K/mm3 (150-450); RBC Distribution Width CV 12.7 % (11.6-14.6); RBC Distribution Width SD 43.3 fl (35.1-43.9); Red Blood Count 4.74 M/mm3 (4.2-5.4); White Blood Count 14.1 K/mm3 (4.4-11.0)
[2021-08-01 07:19] LABS: Differential Indicated SCAN CRITERIA MET
[2021-08-01 07:43] LABS: Anion Gap 5 (5-15); BUN 21 mg/dL (7-18); BUN/Creat Ratio 37.1 RATIO (10-20); Chloride 98 mmol/L (98-107); Creatinine, Serum 0.57 mg/dL (0.55-1.02); EST Glomerular Filtration Rate 109 mL/min (>60); Est Glom Filt Rate - Afr Amer 132 mL/min (>60); Glucose 107 mg/dL (74-106); Potassium 3.6 mmol/L (3.5-5.1); Sodium Level 134 mmol/L (136-145)
[2021-08-01] MEDS: Pantoprazole Sodium 40 MG Tablet PO (08:22)
[2021-08-01] MEDS: dexAMETHasone 4 MG Tablet 6 MG PO (08:22)
[2021-08-01] MEDS: Bisacodyl 5 MG Tablet PO (08:23)
[2021-08-01] MEDS: Furosemide 40 MG/4 ML Vial IV (08:23)
[2021-08-01] MEDS: Metoprolol(XL)Succ 100 MG Tablet PO (08:23)
[2021-08-01] MEDS: Enoxaparin 60 MG/0.6 ML Syringe SC ×2 (08:26→22:21)
[2021-08-01] MEDS: 0.9% Saline Lock 10 ML Syringe IV ×3 (08:27→23:59)
--- NOTE | 2021-08-01 11:41 | PCM.PN.INT ---
Assessment & Plan Assessment/Plan (1) Pneumonia due to 2019 novel coronavirus: (2) Acute respiratory failure with hypoxia: PLAN: RECOMMENDATIONS: 1. Complete second course of Decadron. Completed Remdesivir and baricitinib 2. Diuretics as tolerated to maintain euvolemia. Challenge today 3. Encourage incentive spirometer, Acapella and prone positioning as tolerated 4. Obtain sputum and blood cultures. Agree with empiric antibiotics 5. Obtain chest x-ray IMPRESSIONS: 1. Acute hypoxic respiratory failure secondary to COVID-19 Patient with acute decompensation of the last 24 to 48 hours. Patient has completed a course of baricitinib and Remdesivir previously. Patient is currently on a second dose of Decadron. Patient has received some diuretics with some improvement, but overall hospitalization is negative. Patient has reported some change in sputum. Given high-dose steroids and baricitinib, secondary bacterial infection would be a consideration. Will obtain a chest x-ray, blood and sputum cultures. Agree with empiric antibiotics for now. Patient will be given nasal saline to help with epistaxis. Await response to therapies. 2. Diabetes mellitus/hypertension/GERD/advanced age Complicates care, management, recovery and prognosis. We will have to watch blood sugars and pressure closely given Decadron therapy. Subjective Subjective Pulmonary was requested to see the patient after she acutely decompensated going from nasal cannula to Airvo to maintain saturations. Patient subjectively states that she feels much improved over the last 24 hours. Patient has been having intermittent epistaxis. Patient is also reported that her sputum has changed to a pale yellow. Patient denies any chest pain, nausea or vomiting. Objective Data Objective Data Vital Signs: Vital Signs Temp Pulse Resp BP Pulse Ox 36.4 C L 77 25 H 105/53 L 90 08/01/21 08:14 08/01/21 10:57 08/01/21 08:14 08/01/21 08:14 08/01/21 10:57 Oxygen Flow Rate (L/min) [ 4 AMBULATING with Oxygen #1] Oxygen Flow Rate (L/min) 15 Oxygen Delivery Method Airvo Weight: 64.1 kg Body Mass Index (BMI) 29.4 Intake & Output: Intake and Output for Last 24 Hours 07/30/21 07/31/21 08/01/21 23:59 23:59 23:59 Intake Total 750 / 750 670 / 670 Output Total 1700 / 1700 0 / 0 900 / 900 Balance -950 / -950 670 / 670 -900 / -900 Medical Nutrition Assessment Dietitian: Malnutrition Criteria Met Start: 07/24/21 14:45 Freq: Status: Active Protocol: Document 07/31/21 12:15 RMA (Rec: 07/31/21 12:15 RMA [id number]) Nutrition Malnutrition Evidence of Malnutrition Exists Yes Malnutrition (severe): Acute Illness/Injury Evidenced By Suboptimal Energy Intake ( Severe),Weight Loss (Severe) Intake Problem Inadequate Oral Intake Etiology r/t decreased appetite w/ acute illness Signs/Symptoms as evidenced by nursing reports of pt consuming ~50% or less of meals Status Active Problem Clinical Problem Acute Disease or Injury Related Malnutrition Etiology severe, acute malnutrition r/t inadequate energy intake w/ increased energy needs d/t acute illness Signs/Symptoms as evidenced by estimated PO intake meeting <50% of estimated nutritional needs >1 week; unintentional wt loss of 4.36kg/6.4% x 9 days 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 Will try fortified pudding w/ meals for tolerance. Lab / Micro Data Result Diagrams: 08/01/21 06:55 08/01/21 06:55 Labs: Laboratory Results - last 24 hr 07/31/21 12:29: POC Glucose 218 H 07/31/21 17:18: POC Glucose 241 H 07/31/21 20:52: POC Glucose 436 H 08/01/21 06:42: POC Glucose 98 08/01/21 06:55: WBC 14.1 H, RBC 4.74, Hgb 14.4, Hct 43.7, MCV 92.2, MCH 30.4, MCHC 33.0, RDW Std Deviation 43.3, RDW Coeff of Renetta 12.7, Plt Count 272, MPV 10.5, Immature Gran % (Auto) 2.100 H, Neut % (Auto) 87.7 H, Lymph % (Auto) 3.1 L, [place] % (Auto) 6.5, Eos % (Auto) 0.2, Baso % (Auto) 0.4, Absolute Neuts (auto) 12.3 H, Absolute Lymphs (auto) 0.43 L, Nucleated RBC % 0 08/01/21 06:55: Sodium 134 L, Potassium 3.6, Chloride 98, Carbon Dioxide 31.0, Anion Gap 5, BUN 21 H, Creatinine 0.57, Estim Creat Clear Calc 45.40, Est GFR (MDRD) Af Amer 132, Est GFR (MDRD) Non-Af 109, BUN/Creatinine Ratio 37.1 H, Glucose 107 H, Calcium 9.0 Micro: Microbiology 07/23/21 05:30 Sputum, Expectorated/Coughed Gram Stain - Final 07/23/21 05:30 Sputum, Expectorated/Coughed Respiratory Culture - Final 07/15/21 22:34 Blood Culture (Wb) - Venous Blood Culture - Final No growth in 5 days. 07/15/21 16:00 Blood Culture (Wb) - Arm Left Blood Culture - Final No growth in 5 days. Physical Exam Const alert, oriented x3 and no apparent distress General Appearance: cooperative Exam Limitations: no limitations HEENT normocephalic, head/scalp atraumatic and moist oral mucous membranes Head and Scalp: normocephalic Eyes PERRL, EOMs intact bilaterally and conjunctivae normal Neck no lymphadenopathy, supple and no JVD Chest inspection of chest normal Chest: symmetrical chest wall rise; Negative for crepitus Resp normal respiratory effort, no retractions and no use of accessory muscles Resp Narrative: On Airvo Auscultation: diminished lung sounds Cardio regular rate, regular rhythm, S1 normal heart sound, S2 normal heart sound and no murmurs GI normal to inspection, nondistended, normoactive bowel sounds, soft to palpation, non-tender and non-distended Extremity normal to inspection, full ROM and no clubbing, cyanosis or edema Skin no rashes or lesions noted Neuro oriented x3, CN's II-XII intact bilaterally, moves all extremities, no focal motor deficits and no sensory deficits noted Sensorium / Orientation: awake and alert Psych affect normal Appearance: appropriate Mood & Affect: depressed Charges/Coding Visit Charges Inpatient E&M: 12999 Subs Hosp L3
[2021-08-01] MEDS: Vancomycin IV 1,000 MG/200 ML BAG 200 MG IV (11:59)
--- NOTE | 2021-08-01 12:20 | RAD_ITS ---
STUDY: X-RAY CHEST REASON FOR EXAM: Female, 80 years old. Worsening hypoxia post covid TECHNIQUE: Single AP portable view of the chest. COMPARISON: Comparison is made with prior examination dated 07/15/2021. FINDINGS: Progressive pulmonary infiltrates in the preferential peripheral distribution involving both lungs worse on the right side. There is no demonstrated pleural abnormality. Normal size heart. Normal mediastinum and boo. Normal visualized pulmonary arteries. There is atherosclerotic tortuosity of the aortic arch and descending thoracic aorta. There are degenerative changes of the visualized thoracic spine. Normal visualized ribs, clavicles, and shoulders. Prior cholecystectomy. Moderate amount of fecal material is seen in the colon. RAD/Chest PA and Lateral IMPRESSION: Progressive bilateral pulmonary infiltrates in the preferential peripheral distribution worse on the right side. Pneumonitis associated with Covid should be ruled out. Electronically Signed: Parviz Clark MD at 15:35 EST , Service support ,
--- NOTE | 2021-08-01 12:56 | PHA.PHARE_ITS ---
Consult Pharmacy has been consulted to manage selected antiobiotic: Vancomycin Type of Consult: New start Labs: Sodium 134 mmol/L (136-145) L 08/01/21 06:55 Potassium 3.6 mmol/L (3.5-5.1) 08/01/21 06:55 Chloride 98 mmol/L (98-107) 08/01/21 06:55 Carbon Dioxide 31.0 mmol/L (21.0-32.0) 08/01/21 06:55 Anion Gap 5 (5-15) 08/01/21 06:55 BUN 21 mg/dL (7-18) H 08/01/21 06:55 Creatinine 0.57 mg/dL (0.55-1.02) 08/01/21 06:55 Est GFR (MDRD) Af Amer 132 mL/min (>60) 08/01/21 06:55 Est GFR (MDRD) Non-Af 109 mL/min (>60) 08/01/21 06:55 BUN/Creatinine Ratio 37.1 RATIO (10-20) H 08/01/21 06:55 Glucose 107 mg/dL (74-106) H 08/01/21 06:55 Microbiology: Microbiology 07/23/21 05:30 Sputum, Expectorated/Coughed Gram Stain - Final 07/23/21 05:30 Sputum, Expectorated/Coughed Respiratory Culture - Final 07/15/21 22:34 Blood Culture (Wb) - Venous Blood Culture - Final No growth in 5 days. 07/15/21 16:00 Blood Culture (Wb) - Arm Left Blood Culture - Final No growth in 5 days. Weight used for dosin.1 kg Estimated Creatinine Clearance: 45 ML/MIN Goal Trough: 15-20 mcg/mL Pharmacy Plan for Drug Dosing: Give initial dose of 1000mg IV x1, then start 500mg IV q12h. Will check a trou gh before the 4th total dose. Pharmacy Service will continue to monitor and adjust dosing as required. Follow-Up Labs: Trough Vancomycin Labs to be done on [date and time ordered]: 08/02/21 23:30
[2021-08-01 13:40] LABS: Bedside Glucose 465 mg/dL (70-110)
[2021-08-01] MEDS: Insulin Lispro 100 UNIT/ML INSULN.PEN SC ×3 (14:41→22:25)
[2021-08-01] MEDS: Sodium Chloride 0.65% 1 SPRAY SPRAY.BTL 2 SPRAY NASAL ×2 (14:47→21:09)
--- NOTE | 2021-08-01 15:30 | PN.HOSP_ITS ---
Subjective Subjective Patient is frustrated that her oxygen requirements are again increasing. We discussed that we are working her up for possible bacterial superinfection and explained that a viral pneumonia increases her risk for bacterial pneumonia. She voiced understanding and was appreciative that we have placed her on antibiotics. She states she is trying to do her incentive spirometer and Acapella and mobilizing herself around the room. She does indicate that she may not be doing this as much as we have asked her to but will try to do it more. She did respond well to her Lasix yesterday with a net negative output and she is net negative for the hospitalization. Objective Data Objective Data Vital Signs: Vital Signs Temp Pulse Resp BP Pulse Ox 97.5 F L 75 25 H 105/53 L 91 08/01/21 08:14 08/01/21 13:06 08/01/21 08:14 08/01/21 08:14 08/01/21 13:06 Oxygen Flow Rate (L/min) [ 4 AMBULATING with Oxygen #1] Oxygen Flow Rate (L/min) 15 Oxygen Delivery Method Airvo Weight: 64.1 kg Body Mass Index (BMI) 29.4 Intake & Output: Intake and Output for Last 24 Hours 07/30/21 07/31/21 08/01/21 23:59 23:59 23:59 Intake Total 750 / 750 670 / 670 225.21 / 225.21 Output Total 1700 / 1700 0 / 0 900 / 900 Balance -950 / -950 670 / 670 -674.79 / -674.79 Medical Nutrition Assessment Dietitian: Malnutrition Criteria Met Start: 07/24/21 14:45 Freq: Status: Active Protocol: Document 07/31/21 12:15 RMA (Rec: 07/31/21 12:15 RMA [id number]) Nutrition Malnutrition Evidence of Malnutrition Exists Yes Malnutrition (severe): Acute Illness/Injury Evidenced By Suboptimal Energy Intake ( Severe),Weight Loss (Severe) Intake Problem Inadequate Oral Intake Etiology r/t decreased appetite w/ acute illness Signs/Symptoms as evidenced by nursing reports of pt consuming ~50% or less of meals Status Active Problem Clinical Problem Acute Disease or Injury Related Malnutrition Etiology severe, acute malnutrition r/t inadequate energy intake w/ increased energy needs d/t acute illness Signs/Symptoms as evidenced by estimated PO intake meeting <50% of estimated nutritional needs >1 week; 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 Will try fortified pudding w/ meals for tolerance. Lab / Micro Data Result Diagrams: 08/01/21 06:55 08/01/21 06:55 Labs: Laboratory Results - last 24 hr 07/31/21 17:18: POC Glucose 241 H 07/31/21 20:52: POC Glucose 436 H 08/01/21 06:42: POC Glucose 98 08/01/21 06:55: WBC 14.1 H, RBC 4.74, Hgb 14.4, Hct 43.7, MCV 92.2, MCH 30.4, MCHC 33.0, RDW Std Deviation 43.3, RDW Coeff of Renetta 12.7, Plt Count 272, MPV 10.5, Immature Gran % (Auto) 2.100 H, Neut % (Auto) 87.7 H, Lymph % (Auto) 3.1 L , [place] % (Auto) 6.5, Eos % (Auto) 0.2, Baso % (Auto) 0.4, Absolute Neuts (auto) 12.3 H, Absolute Lymphs (auto) 0.43 L, Nucleated RBC % 0 08/01/21 06:55: Sodium 134 L, Potassium 3.6, Chloride 98, Carbon Dioxide 31.0, Anion Gap 5, BUN 21 H, Creatinine 0.57, Estim Creat Clear Calc 45.40, Est GFR (MDRD) Af Amer 132, Est GFR (MDRD) Non-Af 109, BUN/Creatinine Ratio 37.1 H, Glucose 107 H, Calcium 9.0 08/01/21 13:33: POC Glucose 465 H* Micro: Microbiology 07/23/21 05:30 Sputum, Expectorated/Coughed Gram Stain - Final 07/23/21 05:30 Sputum, Expectorated/Coughed Respiratory Culture - Final 07/15/21 22:34 Blood Culture (Wb) - Venous Blood Culture - Final No growth in 5 days. 07/15/21 16:00 Blood Culture (Wb) - Arm Left Blood Culture - Final No growth in 5 days. Physical Exam Const alert, oriented x3, no apparent distress and average body habitus Constitutional Narrative: Slightly overweight elderly white female sitting up in bed on air Vo, appears comfortable at this time, watching television and eating breakfast, nontoxic General Appearance: cooperative Exam Limitations: no limitations Nutritional Appearance: overweight HEENT normocephalic, head/scalp atraumatic and moist oral mucous membranes Head and Scalp: normocephalic Resp normal respiratory effort, no retractions, no use of accessory muscles and clear to auscultation bilaterally Resp Narrative: Diffusely diminished but clear with no adventitious sounds Auscultation: diminished lung sounds; Negative for crackles, rales, rhonchi or wheezes Cardio regular rate, regular rhythm, S1 normal heart sound, S2 normal heart sound, no murmurs, no rub, no gallops, no clicks and no JVD GI normal to inspection, nondistended, normoactive bowel sounds, soft to palpation, non-tender and non-distended Extremity normal to inspection and no clubbing, cyanosis or edema Peripheral Pulses: Yes pulses 2+ throughout Neuro oriented x3, moves all extremities and no focal motor deficits Sensorium / Orientation: awake and alert Speech: speech normal Psych Appearance: appropriate Assessment & Plan Assessment/Plan (1) Acute respiratory failure with hypoxia: (2) Pneumonia due to 2019 novel coronavirus: (3) Hyponatremia: (4) Bradycardia: PLAN: Acute hypoxic respiratory failure secondary to COVID-19 pneumonia -Sputum culture from 07/23/2021 is negative -We will repeat cultures blood and sputum given worsening respiratory status -Blood cultures have been drawn but sputum culture is pending -Vancomycin and Zosyn initiated with worsening oxygenation -Patient was vaccinated -Patient required up titration to air Vo overnight and is currently on air Vo at 80% with an FiO2 of 91% -She is a DO NOT INTUBATE and neck step would be noninvasive ventilation -Continue Decadron dose 6 of 10 of a second course of Decadron -Remdesivir completed -Baricitinib completed -Repeat Lasix 40 mg IV push today -Prone positioning is able -Wean oxygen as able -Pulmonary reconsulted today with increasing FiO2 and appreciate input Bilateral pulmonary emboli -CTA from 07/26/2021 found bilateral pulmonary emboli worse on the right -Had a negative scan on 07/17/2021 -Continue on Lovenox at this point with her persistent hypoxia and transition to Eliquis when she is more clinically stable in the future -We will need at least 3 months of treatment given the fact that these are provoked Hyponatremia -Mild at 134 -Likely related to acute Covid infection -Continue to monitor Intermittent bradycardia -Patient is on a beta-wu at baseline -Continue metoprolol 100 mg daily -May need to consider dose decrease if heart rates drop below 50 -Heart rate has mostly been maintained in the 60s with her danielito being 58 in the last 24 hours DM-2 -Oral agents on hold -Continue Lantus to 10 units as a.m. blood sugar on BMP was 91 -Blood sugars appear to be somewhat labile but I hesitate to add much insulin as her fasting blood sugars are in the 90s -Continue SSI but increase to high-dose -Goal blood sugar 140-180 -Continue Accu-Cheks Hypertension -Continue metoprolol but monitor heart rate as patient has had some mild bradycardia -As needed meds available GERD -Continue PPI Depression -Continue venlafaxine CODE STATUS -DNR CCA no intubation Charges/Coding Visit Charges Inpatient E&M: 32955 Subs Hosp L2
[2021-08-01] MEDS: Nystatin Powder 15gm Bottle 1 APPLIC TOPICAL ×2 (16:36→22:20)
[2021-08-01 16:51] LABS: Bedside Glucose 366 mg/dL (70-110)
[2021-08-01] MEDS: Oxymetazoline 0.05% 1 SPRAY SPRAY.BTL 2 SPRAY NASAL (21:32)
[2021-08-01 22:30] LABS: Bedside Glucose 242 mg/dL (70-110)
[2021-08-01] MEDS: Vancomycin IV 500 MG/100 ML BAG 100 MG IV (23:59)
[2021-08-02] VITALS (24 sets, daily range): BP systolic 84–120; BP diastolic 40–66; PULSE 53–72; RESP 16–18; TEMP 36.3–36.8; O2SAT 84–99
[2021-08-02] MEDS: Sodium Chloride 0.65% 1 SPRAY SPRAY.BTL 2 SPRAY NASAL (06:49)
[2021-08-02 07:01] LABS: Bedside Glucose 78 mg/dL (70-110)
[2021-08-02 07:02] LABS: Absolute Lymphocyte Count 0.32 X10^3/uL (0.83-4.51); Absolute Neutrophil Count 11.6 X10^3/uL (2.0-7.7); Basophil# 0.04 X10^3/uL; Basophil% 0.3 % (0-1); Eosinophil# 0.11 X10^3/uL; Eosinophils% 0.8 % (0-5); Hematocrit 37.5 % (37-47); Hemoglobin 12.5 g/dL (12.0-15.0); Lymphocyte # 0.32 X10^3/ul (0.83-4.51); Lymphocyte % 2.4 % (19-41); Mean Corp Hgb Conc 33.3 g/dL (32-36); Mean Corpuscular Hgb 30.5 pg (27.0-32.0); Mean Corpuscular Volume 91.5 fL (81-99); Mean Platelet Vol. 10.4 fl (6.2-12.0); Monocyte# 1.08 X10^3/uL; NRBC Flagged by Analyzer 0 % (0-5); Neutrophil # 11.63 X10^3/uL (2.7-7.7); Neutrophil % 86.6 % (47-70); POSITIVE DIFFERENTIAL YES; Platelet Count 271 K/mm3 (150-450); White Blood Count 13.4 K/mm3 (4.4-11.0)
[2021-08-02 07:10] LABS: Differential Indicated SCAN CRITERIA MET
[2021-08-02] MEDS: Pantoprazole Sodium 40 MG Tablet PO (07:13)
[2021-08-02] MEDS: Venlafaxine HCl 25 MG Tablet PO ×3 (07:13→22:30)
[2021-08-02 07:36] LABS: Anion Gap 4 (5-15); BUN 24 mg/dL (7-18); BUN/Creat Ratio 45.9 RATIO (10-20); Calcium,Total 8.6 mg/dL (8.5-10.1); Chloride 102 mmol/L (98-107); Creatinine, Serum 0.52 mg/dL (0.55-1.02); EST Glomerular Filtration Rate 120 mL/min (>60); Est Glom Filt Rate - Afr Amer 145 mL/min (>60); Estimated Creatinine Clearance 45.12 ml/min; Glucose 78 mg/dL (74-106); Potassium 3.4 mmol/L (3.5-5.1); Sodium Level 138 mmol/L (136-145)
[2021-08-02] MEDS: Oxymetazoline 0.05% 1 SPRAY SPRAY.BTL 2 SPRAY NASAL ×2 (08:24→22:29)
--- NOTE | 2021-08-02 08:27 | EKG12_ITS ---
Test Reason : POST VAG Blood Pressure : / mmHG Vent. Rate : 056 BPM Atrial Rate : 056 BPM P-R Int : 122 ms QRS Dur : 080 ms QT Int : 400 ms P-R-T Axes : 035 011 -04 degrees QTc Int : 386 ms Sinus bradycardia Nonspecific T wave abnormality Abnormal ECG Confirmed by EDMUND MARTINEZ, HOMAR ([id number]), publications editor FARIHA GRIMES ([id number]) on 08/02/2021 11:38:48 AM Referred By: KRISTIN Confirmed By:HOMAR SHAFFER MD
--- NOTE | 2021-08-02 09:01 | NURSING ---
staff alert was called to room at 0817. therapy in room and had pt laying supine in bed. stated that she became unresponsive while working with therapy. upon entering room, pt was able to make eye contact, PERRLA, and alert and oriented x3. denied feeling light-headed or dizzy, denied SOB, but O2 was reading in the low 80s. blood sugar 112 and vitals taken and stable. breathing non-labored. MD notified and requested EKG. pt began having nosebleed and afrin was administered with ice pack to back of neck. pt put on venti mask 12L 50%FIO2. assessed back of throat for bleeding as pt was coughing up blood. unable to determine if sputum is bloody due to nosebleed or if sputum is blood tinged. pt resting comfortably in bed at this time.
[2021-08-02 09:16] LABS: Bedside Glucose 112 mg/dL (70-110)
--- NOTE | 2021-08-02 09:53 | PCM.PN.INT ---
Assessment & Plan Assessment/Plan (1) Pneumonia due to 2019 novel coronavirus: (2) Acute respiratory failure with hypoxia: PLAN: RECOMMENDATIONS: 1. Complete second course of Decadron (08/04/2021). Completed Remdesivir and baricitinib 2. Diuretics as tolerated to maintain euvolemia. Challenge today 3. Encourage incentive spirometer, Acapella and prone positioning as tolerated 4. Obtain sputum and blood cultures. Agree with empiric antibiotics pending negative cultures 5. ENT evaluation for epistaxis IMPRESSIONS: 1. Acute hypoxic respiratory failure secondary to COVID-19 Patient with significant improvement through the day yesterday. Clinical suspicion for decreased oxygen delivery secondary to epistaxis. Unfortunately, patient has had documented pulmonary emboli, so anticoagulation would be recommended for at least 3 months. Recommend ENT evaluation for possible intervention. Continue Ventimask for now, but wean as tolerated. 2. Diabetes mellitus/hypertension/GERD/advanced age Complicates care, management, recovery and prognosis. We will have to watch blood sugars and pressure closely given Decadron therapy. Subjective Subjective Patient did well yesterday and was actually down to 6 L nasal cannula. However, patient developed epistaxis with significant worsening in oxygenation. Patient subsequently was placed on a Ventimask and has been tolerating this well. Patient is clear that her hemoptysis happened after her epistaxis. Objective Data Objective Data Vital Signs: Vital Signs Temp Pulse Resp BP Pulse Ox 36.6 C 59 L 16 95/52 L 95 08/02/21 09:50 08/02/21 09:50 08/02/21 09:50 08/02/21 09:50 08/02/21 09:50 Oxygen Flow Rate (L/min) [ 4 AMBULATING with Oxygen #1] Oxygen Flow Rate (L/min) 12 Oxygen Delivery Method Venturi Mask Weight: 63.7 kg Body Mass Index (BMI) 29.4 Intake & Output: Intake and Output for Last 24 Hours 07/31/21 08/01/21 08/02/21 23:59 23:59 23:59 Intake Total 670 / 670 500.00 / 500.00 250 / 250 Output Total 0 / 0 900 / 900 Balance 670 / 670 -400.00 / -400.00 250 / 250 Medical Nutrition Assessment Dietitian: Malnutrition Criteria Met Start: 07/24/21 14:45 Freq: Status: Active Protocol: Document 07/31/21 12:15 RMA (Rec: 07/31/21 12:15 RMA [id number]) Nutrition Malnutrition Evidence of Malnutrition Exists Yes Malnutrition (severe): Acute Illness/Injury Evidenced By Suboptimal Energy Intake ( Severe),Weight Loss (Severe) Intake Problem Inadequate Oral Intake Etiology r/t decreased appetite w/ acute illness Signs/Symptoms as evidenced by nursing reports of pt consuming ~50% or less of meals Status Active Problem Clinical Problem Acute Disease or Injury Related Malnutrition Etiology severe, acute malnutrition r/t inadequate energy intake w/ increased energy needs d/t acute illness Signs/Symptoms as evidenced by estimated PO intake meeting <50% of estimated nutritional needs >1 week; 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 Will try fortified pudding w/ meals for tolerance. Lab / Micro Data Result Diagrams: 08/02/21 06:20 08/02/21 06:20 Labs: Laboratory Results - last 24 hr 08/01/21 13:33: POC Glucose 465 H* 08/01/21 16:34: POC Glucose 366 H 08/01/21 22:25: POC Glucose 242 H 08/02/21 06:20: WBC 13.4 H, RBC 4.10 L, Hgb 12.5, Hct 37.5, MCV 91.5, MCH 30.5, MCHC 33.3, RDW Std Deviation 43.0, RDW Coeff of Renetta 13.0, Plt Count 271, MPV 10.4, Immature Gran % (Auto) 1.900 H, Neut % (Auto) 86.6 H, Lymph % (Auto) 2.4 L, [place] % (Auto) 8.0, Eos % (Auto) 0.8, Baso % (Auto) 0.3, Absolute Neuts (auto) 11.6 H, Absolute Lymphs (auto) 0.32 L, Nucleated RBC % 0 08/02/21 06:20: Sodium 138, Potassium 3.4 L, Chloride 102, Carbon Dioxide 32.0, Anion Gap 4 L, BUN 24 H, Creatinine 0.52 L, Estim Creat Clear Calc 45.12, Est GFR (MDRD) Af Amer 145, Est GFR (MDRD) Non-Af 120, BUN/Creatinine Ratio 45.9 H, Glucose 78, Calcium 8.6 08/02/21 06:45: POC Glucose 78 08/02/21 08:22: POC Glucose 112 H Micro: Microbiology 07/23/21 05:30 Sputum, Expectorated/Coughed Gram Stain - Final 07/23/21 05:30 Sputum, Expectorated/Coughed Respiratory Culture - Final 07/15/21 22:34 Blood Culture (Wb) - Venous Blood Culture - Final No growth in 5 days. 07/15/21 16:00 Blood Culture (Wb) - Arm Left Blood Culture - Final No growth in 5 days. Radiography Diagnostic Testing: Radiology Impression Chest X-Ray 08/01/21 12:20 IMPRESSION: Progressive bilateral pulmonary infiltrates in the preferential peripheral distribution worse on the right side. Pneumonitis associated with Covid should be ruled out. Electronically Signed: Parviz Clark MD at 15:35 EST , Service support , Physical Exam Const alert, oriented x3 and no apparent distress General Appearance: cooperative Exam Limitations: no limitations HEENT normocephalic, head/scalp atraumatic and moist oral mucous membranes Head and Scalp: normocephalic Eyes PERRL, EOMs intact bilaterally and conjunctivae normal Neck no lymphadenopathy, supple and no JVD Chest inspection of chest normal Chest: symmetrical chest wall rise; Negative for crepitus Resp normal respiratory effort, no retractions and no use of accessory muscles Resp Narrative: On Ventimask Auscultation: diminished lung sounds Cardio regular rate, regular rhythm, S1 normal heart sound, S2 normal heart sound and no murmurs GI normal to inspection, nondistended, normoactive bowel sounds, soft to palpation, non-tender and non-distended Extremity normal to inspection, full ROM and no clubbing, cyanosis or edema Skin no rashes or lesions noted Neuro oriented x3, CN's II-XII intact bilaterally, moves all extremities, no focal motor deficits and no sensory deficits noted Sensorium / Orientation: awake and alert Psych affect normal Appearance: appropriate Mood & Affect: depressed Charges/Coding Visit Charges Inpatient E&M: 94174 Subs Hosp L3
[2021-08-02] MEDS: Bisacodyl 5 MG Tablet PO (10:15)
[2021-08-02] MEDS: dexAMETHasone 4 MG Tablet 6 MG PO (10:15)
[2021-08-02] MEDS: Enoxaparin 60 MG/0.6 ML Syringe SC ×2 (10:21→22:30)
--- NOTE | 2021-08-02 11:36 | TELEMED_ITS ---
[facility] has confirmed receipt of a request for visit. This document confirms receipt of the order initiating the consult. To find the results of the consultation, please view the patient's reports for the scanned Telemed Consult.
[2021-08-02] MEDS: Vancomycin IV 500 MG/100 ML BAG 100 MG IV ×2 (11:43→23:55)
[2021-08-02 11:50] LABS: Bedside Glucose 158 mg/dL (70-110)
--- NOTE | 2021-08-02 12:33 | PCM.PROGNOTE ---
Objective Data Objective Data Vital Signs: Vital Signs Temp Pulse Resp BP Pulse Ox 97.9 F 59 L 18 102/44 L 97 08/02/21 09:50 08/02/21 11:10 08/02/21 11:10 08/02/21 11:10 08/02/21 11:10 Oxygen Flow Rate (L/min) [ 4 AMBULATING with Oxygen #1] Oxygen Flow Rate (L/min) 12 Oxygen Delivery Method Venturi Mask Weight: 63.7 kg Body Mass Index (BMI) 29.4 Intake & Output: Intake and Output for Last 24 Hours 07/31/21 08/01/21 08/02/21 23:59 23:59 23:59 Intake Total 670 / 670 500.00 / 500.00 300 / 300 Output Total 0 / 0 900 / 900 Balance 670 / 670 -400.00 / -400.00 300 / 300 Medical Nutrition Assessment Dietitian: Malnutrition Criteria Met Start: 07/24/21 14:45 Freq: Status: Active Protocol: Document 07/31/21 12:15 RMA (Rec: 07/31/21 12:15 RMA [id number]) Nutrition Malnutrition Evidence of Malnutrition Exists Yes Malnutrition (severe): Acute Illness/Injury Evidenced By Suboptimal Energy Intake ( Severe),Weight Loss (Severe) Intake Problem Inadequate Oral Intake Etiology r/t decreased appetite w/ acute illness Signs/Symptoms as evidenced by nursing reports of pt consuming ~50% or less of meals Status Active Problem Clinical Problem Acute Disease or Injury Related Malnutrition Etiology severe, acute malnutrition r/t inadequate energy intake w/ increased energy needs d/t acute illness Signs/Symptoms as evidenced by estimated PO intake meeting <50% of estimated nutritional needs >1 week; 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 Will try fortified pudding w/ meals for tolerance. Lab / Micro Data Result Diagrams: 08/02/21 06:20 08/02/21 06:20 Labs: Laboratory Results - last 24 hr 08/01/21 13:33: POC Glucose 465 H* 08/01/21 16:34: POC Glucose 366 H 08/01/21 22:25: POC Glucose 242 H 08/02/21 06:20: WBC 13.4 H, RBC 4.10 L, Hgb 12.5, Hct 37.5, MCV 91.5, MCH 30.5, MCHC 33.3, RDW Std Deviation 43.0, RDW Coeff of Renetta 13.0, Plt Count 271, MPV 10.4, Immature Gran % (Auto) 1.900 H, Neut % (Auto) 86.6 H, Lymph % (Auto) 2.4 L, [place] % (Auto) 8.0, Eos % (Auto) 0.8, Baso % (Auto) 0.3, Absolute Neuts (auto) 11.6 H, Absolute Lymphs (auto) 0.32 L, Nucleated RBC % 0 08/02/21 06:20: Sodium 138, Potassium 3.4 L, Chloride 102, Carbon Dioxide 32.0, Anion Gap 4 L, BUN 24 H, Creatinine 0.52 L, Estim Creat Clear Calc 45.12, Est GFR (MDRD) Af Amer 145, Est GFR (MDRD) Non-Af 120, BUN/Creatinine Ratio 45.9 H, Glucose 78, Calcium 8.6 08/02/21 06:45: POC Glucose 78 08/02/21 08:22: POC Glucose 112 H 08/02/21 11:41: POC Glucose 158 H Micro: Microbiology 07/23/21 05:30 Sputum, Expectorated/Coughed Gram Stain - Final 07/23/21 05:30 Sputum, Expectorated/Coughed Respiratory Culture - Final 07/15/21 22:34 Blood Culture (Wb) - Venous Blood Culture - Final No growth in 5 days. 07/15/21 16:00 Blood Culture (Wb) - Arm Left Blood Culture - Final No growth in 5 days. Radiography Diagnostic Testing: Radiology Impression Chest X-Ray 08/01/21 12:20 IMPRESSION: Progressive bilateral pulmonary infiltrates in the preferential peripheral distribution worse on the right side. Pneumonitis associated with Covid should be ruled out. Electronically Signed: Parviz Clark MD at 15:35 EST , Service support , Assessment & Plan Assessment/Plan (1) Epistaxis: PLAN: I spoke with nursing regarding this patient consult after review of the chart. No active bleeding is reports at this time. I advised avoidance of nasal canula use and topical placement of Bactroban ointment to the anterior nasal tissue to reduce dryness. As the patient is oxygen dependent, nasal packing is not likely to be tolerated. I will see the patient this afternoon to see if there is any possibility of cautery, but given the patient's overall condition and support requirements, there may be limited options for intervention. (2) Hypoxemia:
[2021-08-02] MEDS: Nystatin Powder 15gm Bottle 1 APPLIC TOPICAL (14:16)
[2021-08-02] MEDS: Mupirocin Ointment 22gm Tube 1 APPLIC TOPICAL ×2 (14:38→22:32)
--- NOTE | 2021-08-02 15:16 | PN.HOSP_ITS ---
Subjective Subjective Patient had been weaned to 6 L nasal cannula this morning but throughout the day her oxygen requirements have increased. She has been placed on a Ventimask because she had his nosebleed. ENT has been consulted and will evaluate the patient this evening for possible intervention. She will need to remain on anticoagulation due to a pulmonary embolism and she needs continued oxygen. Nasal oxygen would be optimal to allow her to eat. Patient did have an episode today with therapy where she stood up and became somewhat unresponsive although did not lose consciousness. Orthostatic vitals are positive upon standing. She had no loss of bowel or bladder any type of seizure activity. She does not remember the event. Objective Data Objective Data Vital Signs: Vital Signs Temp Pulse Resp BP Pulse Ox 97.7 F L 67 18 119/50 L 93 08/02/21 12:38 08/02/21 14:28 08/02/21 12:38 08/02/21 14:28 08/02/21 12:38 Oxygen Flow Rate (L/min) [ 4 AMBULATING with Oxygen #1] Oxygen Flow Rate (L/min) 12 Oxygen Delivery Method Venturi Mask Weight: 63.7 kg Body Mass Index (BMI) 29.4 Intake & Output: Intake and Output for Last 24 Hours 07/31/21 08/01/21 08/02/21 23:59 23:59 23:59 Intake Total 670 / 670 500.00 / 500.00 640 / 640 Output Total 0 / 0 900 / 900 Balance 670 / 670 -400.00 / -400.00 640 / 640 Medical Nutrition Assessment Dietitian: Malnutrition Criteria Met Start: 07/24/21 14:45 Freq: Status: Active Protocol: Document 07/31/21 12:15 RMA (Rec: 07/31/21 12:15 RMA [id number]) Nutrition Malnutrition Evidence of Malnutrition Exists Yes Malnutrition (severe): Acute Illness/Injury Evidenced By Suboptimal Energy Intake ( Severe),Weight Loss (Severe) Intake Problem Inadequate Oral Intake Etiology r/t decreased appetite w/ acute illness Signs/Symptoms as evidenced by nursing reports of pt consuming ~50% or less of meals Status Active Problem Clinical Problem Acute Disease or Injury Related Malnutrition Etiology severe, acute malnutrition r/t inadequate energy intake w/ increased energy needs d/t acute illness Signs/Symptoms as evidenced by estimated PO intake meeting <50% of estimated nutritional needs >1 week; 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 Will try fortified pudding w/ meals for tolerance. Lab / Micro Data Result Diagrams: 08/02/21 06:20 08/02/21 06:20 Labs: Laboratory Results - last 24 hr 08/01/21 16:34: POC Glucose 366 H 08/01/21 22:25: POC Glucose 242 H 08/02/21 06:20: WBC 13.4 H, RBC 4.10 L, Hgb 12.5, Hct 37.5, MCV 91.5, MCH 30.5, MCHC 33.3, RDW Std Deviation 43.0, RDW Coeff of Renetta 13.0, Plt Count 271, MPV 10.4, Immature Gran % (Auto) 1.900 H, Neut % (Auto) 86.6 H, Lymph % (Auto) 2.4 L , [place] % (Auto) 8.0, Eos % (Auto) 0.8, Baso % (Auto) 0.3, Absolute Neuts (auto) 11.6 H, Absolute Lymphs (auto) 0.32 L, Nucleated RBC % 0 08/02/21 06:20: Sodium 138, Potassium 3.4 L, Chloride 102, Carbon Dioxide 32.0, Anion Gap 4 L, BUN 24 H, Creatinine 0.52 L, Estim Creat Clear Calc 45.12, Est GFR (MDRD) Af Amer 145, Est GFR (MDRD) Non-Af 120, BUN/Creatinine Ratio 45.9 H, Glucose 78, Calcium 8.6 08/02/21 06:45: POC Glucose 78 08/02/21 08:22: POC Glucose 112 H 08/02/21 11:41: POC Glucose 158 H Micro: Microbiology 07/23/21 05:30 Sputum, Expectorated/Coughed Gram Stain - Final 07/23/21 05:30 Sputum, Expectorated/Coughed Respiratory Culture - Final 07/15/21 22:34 Blood Culture (Wb) - Venous Blood Culture - Final No growth in 5 days. 07/15/21 16:00 Blood Culture (Wb) - Arm Left Blood Culture - Final No growth in 5 days. Radiography Diagnostic Testing: Radiology Impression Chest X-Ray 08/01/21 12:20 IMPRESSION: Progressive bilateral pulmonary infiltrates in the preferential peripheral distribution worse on the right side. Pneumonitis associated with Covid should be ruled out. Electronically Signed: Parviz Clark MD at 15:35 EST , Service support , Physical Exam Const alert, oriented x3, no apparent distress and average body habitus Constitutional Narrative: Slightly overweight elderly white female sitting up in bed on a nonrebreather at 12 L, pulmonary medicine is at the bedside with me as well, nontoxic General Appearance: cooperative Exam Limitations: no limitations Nutritional Appearance: overweight HEENT normocephalic, head/scalp atraumatic and moist oral mucous membranes HEENT Narrative: No current nasal drainage or epistaxis Head and Scalp: normocephalic Resp normal respiratory effort, no retractions, no use of accessory muscles and clear to auscultation bilaterally Resp Narrative: Diffusely diminished but clear with few scattered crackles Auscultation: crackles and diminished lung sounds; Negative for rales, rhonchi or wheezes Cardio regular rate, regular rhythm, S1 normal heart sound, S2 normal heart sound, no murmurs, no rub, no gallops, no clicks and no JVD GI normal to inspection, nondistended, normoactive bowel sounds, soft to palpation, non-tender and non-distended Extremity normal to inspection and no clubbing, cyanosis or edema Peripheral Pulses: Yes pulses 2+ throughout Neuro oriented x3, moves all extremities and no focal motor deficits Sensorium / Orientation: awake and alert Speech: speech normal Psych Appearance: appropriate Assessment & Plan Assessment/Plan (1) Acute respiratory failure with hypoxia: (2) Pneumonia due to 2019 novel coronavirus: (3) Hyponatremia: (4) Bradycardia: PLAN: Acute hypoxic respiratory failure secondary to COVID-19 pneumonia -Sputum culture from 07/23/2021 is negative -We will repeat cultures blood and sputum given worsening respiratory status -Repeat blood cultures are pending, sputum culture has not been able to be obtained -Vancomycin and Zosyn initiated with worsening oxygenation--> will continue today -Patient was vaccinated -Patient was able to be weaned to 6 L but is now back up to 12 L on a Ventimask with instructions to wean as able -Continue Decadron dose 7 of 10 of a second course of Decadron -Remdesivir completed -Baricitinib completed -No diuresis today -Prone positioning is able -Wean oxygen as able -Pulmonary reconsulted today with increasing FiO2 and appreciate input Temporary altered mental status -Seem to be atypical -No loss of consciousness but patient also does not remember the event -Orthostatics are positive and will therefore give a 500 cc bolus -Repeat orthostatic vitals in a.m. -EEG pending Bilateral pulmonary emboli -CTA from 07/26/2021 found bilateral pulmonary emboli worse on the right -Had a negative scan on 07/17/2021 -Continue on Lovenox at this point with her persistent hypoxia and transition to Eliquis when she is more clinically stable in the future -We will need at least 3 months of treatment given the fact that these are p rovoked Epistaxis -Patient continues to need oxygen and nasal oxygen would be optimal as this would allow her to eat -Patient will require continued anticoagulation secondary to bilateral acute pulmonary emboli -ENT consultation for possible cauterization Hyponatremia -Resolved Hypokalemia -40 mEq p.o. potassium -Recheck in a.m. Intermittent bradycardia -Patient is on a beta-wu at baseline -Patient was placed on telemetry given her event earlier today -Decrease beta-wu dose from 100 daily to 50 daily DM-2 -Oral agents on hold -Decrease Lantus to 8 units as a.m. blood sugar on BMP was 78 -Blood sugars appear to be somewhat labile but I hesitate to add much insulin as her fasting blood sugars are less than 100 -Continue SSI but increase to high-dose -Goal blood sugar 140-180 -Continue Accu-Cheks Hypertension -Continue metoprolol but decrease dose -As needed meds available GERD -Continue PPI Depression -Continue venlafaxine CODE STATUS -DNR CCA no intubation Charges/Coding Visit Charges Inpatient E&M: 25805 Subs Hosp L2
[2021-08-02] MEDS: Potassium Chloride Oral Tablet 20 MEQ 40 MEQ PO (15:43)
--- NOTE | 2021-08-02 16:29 | NURSING ---
decreased venti mask to 8L 40%
--- NOTE | 2021-08-02 16:51 | EKG12_ITS ---
Test Reason : RY CHANGE Blood Pressure : / mmHG Vent. Rate : 063 BPM Atrial Rate : 063 BPM P-R Int : 134 ms QRS Dur : 126 ms QT Int : 460 ms P-R-T Axes : 035 -12 -03 degrees QTc Int : 470 ms Sinus rhythm with Fusion complexes Right bundle branch block Abnormal ECG Confirmed by EDMUND MARTINEZ, HOMAR ([id number]), brands editor FARIHA GRIMES ([id number]) on 08/06/2021 10:44:14 AM Referred By: NICKI Confirmed By:HOMAR SHAFFER MD
--- NOTE | 2021-08-02 16:59 | CON.PCM_ITS ---
Assessment & Plan Assessment/Plan (1) Epistaxis: PLAN: This patient has suffered a right epistaxis with use of nasal ca nnula oxygen. This is subsided with use of the humidified facemask and topical application of petroleum based ointment. Per respiratory she will have to use nasal cannula oxygen for discharge for home oxygen therapy. Given this I recommended that she cut the prongs of the nasal cannula down to about 4 mm in length to avoid trauma at the level of the nasal mucosa as well as humidify oxygen if possible. Ongoing application of the ointment to moisturize this area and reduce dryness which can result in cracking and further bleeding is also encouraged. Avoidance of nasal trauma and humidifying the surrounding air may also be helpful. At this point she has no active bleeding. With her respi ratory status is precarious as it is requiring oxygen she may not tolerate nasal packing and great care to avoid exacerbation of her anterior nasal injury and further bleeding is strongly encouraged. Please notify me if she is any more bleeding for further assessment but as she has not bled throughout the day today I anticipate that with care this will be avoided going forward. (2) Hypoxemia: HPI Consult Data Date of Consult: 08/02/21 HPI Narrative HPI Narrative: JIMMY DESAI, is a 80 F who presents with post Covid oxygen dependency and subsequent right nasal bleeding with nasal cannula oxygen use. This was most pronounced yesterday but subsided this morning and she has not bled throughout the day today. She denies any previous bleeding tendency or nasal bleeding. She denies any nasal trauma. She denies any hemoptysis hematemesis or spitting of blood clots at this time. She reports that nursing has applied the ointment and she has been switched to a mask for oxygen delivery which has reduced the nasal irritation. [facility] Medical History Hepatitis Hypertension Type 2 diabetes mellitus Home Medications metoprolol succinate 100 mg PO DAILY 10/10/20 [History Last Taken Unknown] pantoprazole 40 mg PO 0700 10/10/20 [History Last Taken Unknown] glimepiride 2 mg PO DAILY 07/15/21 [History Last Taken Unknown] Allergy/AdvReac Type Severity Reaction Status Date / Time shellfish derived Allergy Other Verified 10/09/20 16:55 Family History no significant family his Surgical History (Updated 07/15/21 @ 20:39 by Mickey Avila) H/O Whipple procedure History of cholecystectomy Social History Smoking Status: Never smoker ROS Constitutional Constitutional: Reports systems reviewed and no addt'l complaints, except as documented Eyes Eyes: Reports systems reviewed and no addt'l complaints, except as documented ENT HEENT: Reports systems reviewed and no addt'l complaints, except as documented and epistaxis Cardiovascular Cardiovascular: Reports systems reviewed and no addt'l complaints, except as documented Respiratory/Chest Respiratory/Chest: Reports systems reviewed and no addt'l complaints, except as documented and dyspnea Gastrointestinal Gastrointestinal: Reports systems reviewed and no addt'l complaints, except as documented Genitourinary Genitourinary: Reports systems reviewed and no addt'l complaints, except as documented Musculoskeletal Musculoskeletal: Reports systems reviewed and no addt'l complaints, except as documented Integumentary Integumentary: Reports systems reviewed and no addt'l complaints, except as documented Neurologic Neurologic: Reports systems reviewed and no addt'l complaints, except as docume nted Psychiatric Psychiatric: Reports systems reviewed and no addt'l complaints, except as documented Endocrine Endocrinology: Reports systems reviewed and no addt'l complaints, except as documented Allergic/Immunologic Allergic/Immunologic: Reports systems reviewed and no addt'l complaints, except as documented Physical Exam Narrative Patient is at the bedside resting comfortably on facemask oxygen delivery. Ther e is noted to be some dried blood within the right nasal vault however no bright red bleeding or discharge is noted. There is no bleeding down the posterior oropharyngeal wall. Const alert and oriented x3 General Appearance: cooperative and comfortable Orientation / Consciousness: awake HEENT normocephalic, head/scalp atraumatic and external nose normal HEENT Narrative: Anterior nasal irritation and dryness bilaterally with dried blood on the right Face and Sinus: normal facial exam, sinuses nontender and face symmetric Nose: nares normal and no nasal polyps Eyes PERRL and EOMs intact bilaterally Neck full ROM General: normal visual inspection and trachea midline Lymph Lymphatic: no lymphadenopathy noted Neuro oriented x3 Medical Records Data Medical Nutrition Assessment Dietitian: Malnutrition Criteria Met Start: 07/24/21 14:45 Freq: Status: Active Protocol: Document 07/31/21 12:15 RMA (Rec: 07/31/21 12:15 RMA [id number]) Nutrition Malnutrition Evidence of Malnutrition Exists Yes Malnutrition (severe): Acute Illness/Injury Evidenced By Suboptimal Energy Intake ( Severe),Weight Loss (Severe) Intake Problem Inadequate Oral Intake Etiology r/t decreased appetite w/ acute illness Signs/Symptoms as evidenced by nursing reports of pt consuming ~50% or less of meals Status Active Problem Clinical Problem Acute Disease or Injury Related Malnutrition Etiology severe, acute malnutrition r/t inadequate energy intake w/ increased energy needs d/t acute illness Signs/Symptoms as evidenced by estimated PO intake meeting <50% of estimated nutritional needs >1 week; 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 Will try fortified pudding w/ meals for tolerance. Lab / Micro Data Result Diagrams: 08/02/21 06:20 08/02/21 06:20 Labs: Laboratory Results - last 24 hr 08/01/21 22:25: POC Glucose 242 H 08/02/21 06:20: WBC 13.4 H, RBC 4.10 L, Hgb 12.5, Hct 37.5, MCV 91.5, MCH 30.5, MCHC 33.3, RDW Std Deviation 43.0, RDW Coeff of Renetta 13.0, Plt Count 271, MPV 10.4, Immature Gran % (Auto) 1.900 H, Neut % (Auto) 86.6 H, Lymph % (Auto) 2.4 L , [place] % (Auto) 8.0, Eos % (Auto) 0.8, Baso % (Auto) 0.3, Absolute Neuts (auto) 11.6 H, Absolute Lymphs (auto) 0.32 L, Nucleated RBC % 0 08/02/21 06:20: Sodium 138, Potassium 3.4 L, Chloride 102, Carbon Dioxide 32.0, Anion Gap 4 L, BUN 24 H, Creatinine 0.52 L, Estim Creat Clear Calc 45.12, Est GFR (MDRD) Af Amer 145, Est GFR (MDRD) Non-Af 120, BUN/Creatinine Ratio 45.9 H, Glucose 78, Calcium 8.6 08/02/21 06:45: POC Glucose 78 08/02/21 08:22: POC Glucose 112 H 08/02/21 11:41: POC Glucose 158 H
[2021-08-02] MEDS: Insulin Lispro 100 UNIT/ML INSULN.PEN SC (17:15)
[2021-08-02 17:25] LABS: Bedside Glucose 422 mg/dL (70-110)
--- NOTE | 2021-08-02 18:28 | NURSING ---
pt found with 15LNC stating in mid 70's spo2. patient placed back on 50% venti mask. work of breathing improved 91% spo2
[2021-08-02] MEDS: MELATONIN 3 MG TABLET PO (22:30)
[2021-08-02 23:25] LABS: Bedside Glucose 287 mg/dL (70-110)
[2021-08-02 23:59] LABS: Vancomycin, Trough Level 6.9 ug/mL (5.0-15.0)
[2021-08-03] VITALS (25 sets, daily range): BP systolic 71–147; BP diastolic 43–87; PULSE 52–80; RESP 16–20; TEMP 36.2–37.1; O2SAT 90–100; BMI 28.3
--- NOTE | 2021-08-03 05:39 | PCM.PN.BLA ---
Progress Note Rhino rocket placed for nasal bleeding. Hemoptysis noted.
--- NOTE | 2021-08-03 05:48 | PCM.RX.CS ---
Consult Pharmacy has been consulted to manage selected antiobiotic: Vancomycin Type of Consult: Follow-up Prior Doses of Antibiotics Received/Current Regimen: Medications Vancomycin HCl () 500 mg in 100 mls @ 100 mls/hr IV Q12H SANGEETA Last Admin: 08/03/21 00:55 Dose: Infused Documented by: Labs: Sodium 138 mmol/L (136-145) 08/02/21 06:20 Potassium 3.4 mmol/L (3.5-5.1) L 08/02/21 06:20 Chloride 102 mmol/L (98-107) 08/02/21 06:20 Carbon Dioxide 32.0 mmol/L (21.0-32.0) 08/02/21 06:20 Anion Gap 4 (5-15) L 08/02/21 06:20 BUN 24 mg/dL (7-18) H 08/02/21 06:20 Creatinine 0.52 mg/dL (0.55-1.02) L 08/02/21 06:20 Est GFR (MDRD) Af Amer 145 mL/min (>60) 08/02/21 06:20 Est GFR (MDRD) Non-Af 120 mL/min (>60) 08/02/21 06:20 BUN/Creatinine Ratio 45.9 RATIO (10-20) H 08/02/21 06:20 Glucose 78 mg/dL (74-106) 08/02/21 06:20 Vancomycin Trough 6.9 ug/mL (5.0-15.0) 08/02/21 23:20 Microbiology: Microbiology 07/23/21 05:30 Sputum, Expectorated/Coughed Gram Stain - Final 07/23/21 05:30 Sputum, Expectorated/Coughed Respiratory Culture - Final 07/15/21 22:34 Blood Culture (Wb) - Venous Blood Culture - Final No growth in 5 days. 07/15/21 16:00 Blood Culture (Wb) - Arm Left Blood Culture - Final No growth in 5 days. Goal Trough: 15-20 mcg/mL Pharmacy Plan for Drug Dosing: Trough below goal. Increase vanc to 1000mg IV q12h with trough before 4th dose. Pharmacy Service will continue to monitor and adjust dosing as required. Follow-Up Labs: Trough Vancomycin - 08/04 @ 0730
[2021-08-03 06:32] LABS: Absolute Lymphocyte Count 0.49 X10^3/uL (0.83-4.51); Absolute Neutrophil Count 12.5 X10^3/uL (2.0-7.7); Basophil# 0.06 X10^3/uL; Basophil% 0.4 % (0-1); Eosinophil# 0.06 X10^3/uL; Eosinophils% 0.4 % (0-5); Hematocrit 34.7 % (37-47); Hemoglobin 11.5 g/dL (12.0-15.0); Lymphocyte # 0.49 X10^3/ul (0.83-4.51); Lymphocyte % 3.4 % (19-41); Mean Corp Hgb Conc 33.1 g/dL (32-36); Mean Corpuscular Hgb 30.9 pg (27.0-32.0); Mean Corpuscular Volume 93.3 fL (81-99); Mean Platelet Vol. 10.4 fl (6.2-12.0); Monocyte# 0.96 X10^3/uL; Monocyte% 6.7 % (0-10); NRBC Flagged by Analyzer 0 % (0-5); Neutrophil # 12.46 X10^3/uL (2.7-7.7); Neutrophil % 86.7 % (47-70); POSITIVE DIFFERENTIAL YES; Platelet Count 242 K/mm3 (150-450); RBC Distribution Width SD 44.2 fl (35.1-43.9); Red Blood Count 3.72 M/mm3 (4.2-5.4); White Blood Count 14.4 K/mm3 (4.4-11.0)
[2021-08-03 06:33] LABS: Differential Indicated SCAN CRITERIA MET
[2021-08-03] MEDS: Venlafaxine HCl 25 MG Tablet PO ×2 (06:34→21:38)
[2021-08-03] MEDS: Pantoprazole Sodium 40 MG Tablet PO (06:34)
[2021-08-03] MEDS: Nystatin Powder 15gm Bottle 1 APPLIC TOPICAL ×2 (06:37→21:39)
[2021-08-03 06:56] LABS: Bedside Glucose 112 mg/dL (70-110)
[2021-08-03 07:07] LABS: Differential Comment SCANNED
[2021-08-03] MEDS: Vancomycin IV 1,000 MG/200 ML BAG 200 MG IV (07:52)
[2021-08-03] MEDS: Oxymetazoline 0.05% 1 SPRAY SPRAY.BTL 2 SPRAY NASAL ×2 (07:54→22:39)
[2021-08-03] MEDS: Mupirocin Ointment 22gm Tube 1 APPLIC TOPICAL ×2 (07:55→21:39)
[2021-08-03] MEDS: dexAMETHasone 4 MG Tablet 6 MG PO (07:55)
[2021-08-03] MEDS: Enoxaparin 60 MG/0.6 ML Syringe SC ×2 (07:55→21:39)
[2021-08-03] MEDS: Bisacodyl 5 MG Tablet PO (07:57)
--- NOTE | 2021-08-03 08:11 | NURSING ---
attempted to wean venti mask to 8L 40%FIO2 but pt did not tolerate well, O2 dropped to 86% returned to 12L 50% O2 and pt recovered within 5 minutes. O2 currently 98% while sleeping
[2021-08-03 08:39] LABS: Anion Gap 6 (5-15); BUN 24 mg/dL (7-18); Calcium,Total 8.1 mg/dL (8.5-10.1); Chloride 104 mmol/L (98-107); Creatinine, Serum 0.57 mg/dL (0.55-1.02); EST Glomerular Filtration Rate 108 mL/min (>60); Est Glom Filt Rate - Afr Amer 131 mL/min (>60); Estimated Creatinine Clearance 45.05 ml/min; Glucose 239 mg/dL (74-106); Potassium 4.9 mmol/L (3.5-5.1); Sodium Level 137 mmol/L (136-145)
[2021-08-03] MEDS: 0.9% Normal Saline 1,000 ML 250 ML IV (09:59)
--- NOTE | 2021-08-03 12:01 | PCM.PN.INT ---
Assessment & Plan Assessment/Plan (1) Pneumonia due to 2019 novel coronavirus: (2) Acute respiratory failure with hypoxia: PLAN: RECOMMENDATIONS: 1. Complete second course of Decadron (08/04/2021). Completed Remdesivir and baricitinib 2. Diuretics as tolerated to maintain euvolemia. Likely challenge tomorrow 3. Encourage incentive spirometer, Acapella and prone positioning as tolerated 4. Consider discontinuation of empiric antibiotics 5. Await ENT plan for epistaxis IMPRESSIONS: 1. Acute hypoxic respiratory failure secondary to COVID-19 Patient with significant improvement through the day yesterday. Clinical suspicion for decreased oxygen delivery secondary to epistaxis. Unfortunately, patient has had documented pulmonary emboli, so anticoagulation would be recommended for at least 3 months. Await ENT evaluation for possible intervention. Continue Ventimask for now, but wean as tolerated. 2. Diabetes mellitus/hypertension/GERD/advanced age Complicates care, management, recovery and prognosis. We will have to watch blood sugars and pressure closely given Decadron therapy. Subjective Subjective Patient did okay yesterday. Patient was seen by ENT, but no interventions were completed per the patient. Overnight, patient developed left-sided epistaxis and had a Rhino Rocket placed by the hospitalist. Patient states her hemoptysis has resolved. Objective Data Objective Data Vital Signs: Vital Signs Temp Pulse Resp BP Pulse Ox 36.2 C L 57 L 16 114/46 L 97 08/03/21 07:45 08/03/21 09:54 08/03/21 07:45 08/03/21 07:45 08/03/21 07:45 Oxygen Flow Rate (L/min) [ 4 AMBULATING with Oxygen #1] Oxygen Flow Rate (L/min) 12 Oxygen Delivery Method Venturi Mask Weight: 63.6 kg Body Mass Index (BMI) 29.4 Intake & Output: Intake and Output for Last 24 Hours 08/01/21 08/02/21 08/03/21 23:59 23:59 23:59 Intake Total 500.00 / 500.00 1776.25 / 1776.25 400 / 400 Output Total 900 / 900 1600 / 1600 Balance -400.00 / -400.00 176.25 / 176.25 400 / 400 Medical Nutrition Assessment Dietitian: Malnutrition Criteria Met Start: 07/24/21 14:45 Freq: Status: Active Protocol: Document 07/31/21 12:15 RMA (Rec: 07/31/21 12:15 RMA [id number]) Nutrition Malnutrition Evidence of Malnutrition Exists Yes Malnutrition (severe): Acute Illness/Injury Evidenced By Suboptimal Energy Intake ( Severe),Weight Loss (Severe) Intake Problem Inadequate Oral Intake Etiology r/t decreased appetite w/ acute illness Signs/Symptoms as evidenced by nursing reports of pt consuming ~50% or less of meals Status Active Problem Clinical Problem Acute Disease or Injury Related Malnutrition Etiology severe, acute malnutrition r/t inadequate energy intake w/ increased energy needs d/t acute illness Signs/Symptoms as evidenced by estimated PO intake meeting <50% of estimated nutritional needs >1 week; unintentional wt loss of 4.36kg/6.4% x 9 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 Will try fortified pudding w/ meals for tolerance. Lab / Micro Data Result Diagrams: 08/03/21 06:10 08/03/21 06:10 Labs: Laboratory Results - last 24 hr 08/02/21 17:12: POC Glucose 422 H 08/02/21 22:19: POC Glucose 287 H 08/02/21 23:20: Vancomycin Trough 6.9 08/03/21 06:10: WBC 14.4 H, RBC 3.72 L, Hgb 11.5 L, Hct 34.7 L, MCV 93.3, MCH 30.9, MCHC 33.1, RDW Std Deviation 44.2 H, RDW Coeff of Renetta 13.0, Plt Count 242, MPV 10.4, Immature Gran % (Auto) 2.400 H, Neut % (Auto) 86.7 H, Lymph % (Auto) 3.4 L, [place] % (Auto) 6.7, Eos % (Auto) 0.4, Baso % (Auto) 0.4, Absolute Neuts (auto) 12.5 H, Absolute Lymphs (auto) 0.49 L, Nucleated RBC % 0, Differential Comment SCANNED 08/03/21 06:10: Sodium 137, Potassium 4.9, Chloride 104, Carbon Dioxide 27.0, Anion Gap 6, BUN 24 H, Creatinine 0.57, Estim Creat Clear Calc 45.05, Est GFR (MDRD) Af Amer 131, Est GFR (MDRD) Non-Af 108, BUN/Creatinine Ratio 42.0 H, Glucose 239 H, Calcium 8.1 L 08/03/21 06:32: POC Glucose 112 H Micro: Microbiology 08/01/21 10:00 Blood Culture (Wb) - Left Hand Blood Culture - Preliminary No growth in 48 hours. 08/01/21 09:54 Blood Culture (Wb) - Right Hand Blood Culture - Preliminary No growth in 48 hours. 07/23/21 05:30 Sputum, Expectorated/Coughed Gram Stain - Final 07/23/21 05:30 Sputum, Expectorated/Coughed Respiratory Culture - Final 07/15/21 22:34 Blood Culture (Wb) - Venous Blood Culture - Final No growth in 5 days. 07/15/21 16:00 Blood Culture (Wb) - Arm Left Blood Culture - Final No growth in 5 days. Physical Exam Const alert, oriented x3 and no apparent distress General Appearance: cooperative Exam Limitations: no limitations HEENT normocephalic, head/scalp atraumatic and moist oral mucous membranes HEENT Narrative: Left Rhino Rocket noted Head and Scalp: normocephalic Eyes PERRL, EOMs intact bilaterally and conjunctivae normal Neck no lymphadenopathy, supple and no JVD Chest inspection of chest normal Chest: symmetrical chest wall rise; Negative for crepitus Resp normal respiratory effort, no retractions and no use of accessory muscles Resp Narrative: On Ventimask Auscultation: diminished lung sounds Cardio regular rate, regular rhythm, S1 normal heart sound, S2 normal heart sound and no murmurs GI normal to inspection, nondistended, normoactive bowel sounds, soft to palpation, non-tender and non-distended Extremity normal to inspection, full ROM and no clubbing, cyanosis or edema Skin no rashes or lesions noted Neuro oriented x3, CN's II-XII intact bilaterally, moves all extremities, no focal motor deficits and no sensory deficits noted Sensorium / Orientation: awake and alert Psych affect normal Appearance: appropriate Mood & Affect: depressed Charges/Coding Visit Charges Inpatient E&M: 03697 Subs Hosp L3
--- NOTE | 2021-08-03 12:24 | CASEMGMT ---
Addendum entered by Padma Rodriguez 08/03/21 16:03: Received tc back from [facility], able to accept pt. Referral faxed at this time. Addendum entered by Padma Rodriguez 08/03/21 15:53: TC to [facility], they go to [place]. Referral made to [facility], she will call back with acceptance. Addendum entered by Padma Rodriguez 08/03/21 13:57: Simple mask is for O2 testing only as this is the mask pt will be using once at home. Original Note: TC to Respiratory for simple mask for pt. They will obtain mask.
--- NOTE | 2021-08-03 13:05 | CPS ---
RT stopped in patient room to set up a simple mask. Pt leaving for surgery so Simple Mask was laid on pt's bed.
[2021-08-03 13:50] LABS: Bedside Glucose 253 mg/dL (70-110)
--- NOTE | 2021-08-03 13:51 | NURSING ---
1300 pt transported off unit at this time via bed for surgery
[2021-08-03 13:52] LABS: International Normalized Ratio 1.1
[2021-08-03 13:53] LABS: Partial Thromboplast Time 36.7 Seconds (24.1-36.2)
--- NOTE | 2021-08-03 14:10 | PN.HOSP_ITS ---
Subjective Subjective Patient with continued epistaxis out of the left nares last night and a Rhino Rocket was placed. This has been ineffective. The plan is to go down to the OR for cauterization this afternoon. Her oxygen nation status has improved slightly and she has been weaned to 10 L on a Ventimask until we can get her epistaxis resolved. She states she is tired as she did not sleep well last night secondary to persistently having to deal with her epistaxis. She has no complaints about her breathing at this time. The patient is also evidently been getting regular milkshakes which may be attributing to the lability of her blood sugars and her inability to control them. Nursing is discussing this with the dietitian to see if we can get a replacement. Objective Data Objective Data Vital Signs: Vital Signs Temp Pulse Resp BP Pulse Ox 98.3 F 59 L 20 H 136/62 H 97 08/03/21 12:35 08/03/21 13:39 08/03/21 13:39 08/03/21 13:39 08/03/21 13:55 Oxygen Flow Rate (L/min) [ 4 AMBULATING with Oxygen #1] Oxygen Flow Rate (L/min) 10 Oxygen Delivery Method Venturi Mask Weight: 65.544 kg Body Mass Index (BMI) 28.3 Intake & Output: Intake and Output for Last 24 Hours 08/01/21 08/02/21 08/03/21 23:59 23:59 23:59 Intake Total 500.00 / 500.00 1776.25 / 1776.25 640 / 640 Output Total 900 / 900 1600 / 1600 700 / 700 Balance -400.00 / -400.00 176.25 / 176.25 -60 / -60 Medical Nutrition Assessment Dietitian: Malnutrition Criteria Met Start: 07/24/21 14:45 Freq: Status: Active Protocol: Document 07/31/21 12:15 RMA (Rec: 07/31/21 12:15 RMA [id number]) Nutrition Malnutrition Evidence of Malnutrition Exists Yes Malnutrition (severe): Acute Illness/Injury Evidenced By Suboptimal Energy Intake ( Severe),Weight Loss (Severe) Intake Problem Inadequate Oral Intake Etiology r/t decreased appetite w/ acute illness Signs/Symptoms as evidenced by nursing reports of pt consuming ~50% or less of meals Status Active Problem Clinical Problem Acute Disease or Injury Related Malnutrition Etiology severe, acute malnutrition r/t inadequate energy intake w/ increased energy needs d/t acute illness Signs/Symptoms as evidenced by estimated PO intake meeting <50% of estimated nutritional needs >1 week; 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 Will try fortified pudding w/ meals for tolerance. Lab / Micro Data Result Diagrams: 08/03/21 06:10 08/03/21 06:10 Labs: Laboratory Results - last 24 hr 08/02/21 17:12: POC Glucose 422 H 08/02/21 22:19: POC Glucose 287 H 08/02/21 23:20: Vancomycin Trough 6.9 08/03/21 06:10: WBC 14.4 H, RBC 3.72 L, Hgb 11.5 L, Hct 34.7 L, MCV 93.3, MCH 30.9, MCHC 33.1, RDW Std Deviation 44.2 H, RDW Coeff of Renetta 13.0, Plt Count 242, MPV 10.4, Immature Gran % (Auto) 2.400 H, Neut % (Auto) 86.7 H, Lymph % (Auto) 3.4 L, [place] % (Auto) 6.7, Eos % (Auto) 0.4, Baso % (Auto) 0.4, Absolute Neuts (auto) 12.5 H, Absolute Lymphs (auto) 0.49 L, Nucleated RBC % 0, Differential Comment SCANNED 08/03/21 06:10: Sodium 137, Potassium 4.9, Chloride 104, Carbon Dioxide 27.0, Anion Gap 6, BUN 24 H, Creatinine 0.57, Estim Creat Clear Calc 45.05, Est GFR (MDRD) Af Amer 131, Est GFR (MDRD) Non-Af 108, BUN/Creatinine Ratio 42.0 H, Glucose 239 H, Calcium 8.1 L 08/03/21 06:32: POC Glucose 112 H 08/03/21 13:34: PT 14.0, INR 1.1, APTT 36.7 H 08/03/21 13:46: POC Glucose 253 H Micro: Microbiology 08/01/21 10:00 Blood Culture (Wb) - Left Hand Blood Culture - Preliminary No growth in 48 hours. 08/01/21 09:54 Blood Culture (Wb) - Right Hand Blood Culture - Preliminary No growth in 48 hours. 07/23/21 05:30 Sputum, Expectorated/Coughed Gram Stain - Final 07/23/21 05:30 Sputum, Expectorated/Coughed Respiratory Culture - Final 07/15/21 22:34 Blood Culture (Wb) - Venous Blood Culture - Final No growth in 5 days. 07/15/21 16:00 Blood Culture (Wb) - Arm Left Blood Culture - Final No growth in 5 days. Physical Exam Const alert, oriented x3, no apparent distress and average body habitus Constitutional Narrative: Slightly overweight elderly white female sitting up in bed on a nonrebreather at 10 L, nursing is at the bedside, nontoxic General Appearance: cooperative Exam Limitations: no limitations Nutritional Appearance: overweight HEENT normocephalic, head/scalp atraumatic and moist oral mucous membranes HEENT Narrative: Patient with Rhino Rocket that saturated with blood in her left nares, some blood noted in the posterior oropharynx Head and Scalp: normocephalic Resp normal respiratory effort, no retractions, no use of accessory muscles and clear to auscultation bilaterally Resp Narrative: Diffusely diminished but clear with few scattered crackles Auscultation: crackles and diminished lung sounds; Negative for rales, rhonchi or wheezes Cardio regular rhythm, S1 normal heart sound, S2 normal heart sound, no murmurs, no rub, no gallops, no clicks and no JVD Cardio Narrative: Mild bradycardia GI normal to inspection, nondistended, normoactive bowel sounds, soft to palpation, non-tender and non-distended Extremity normal to inspection and no clubbing, cyanosis or edema Peripheral Pulses: Yes pulses 2+ throughout Neuro oriented x3, moves all extremities and no focal motor deficits Sensorium / Orientation: awake and alert Speech: speech normal Psych affect normal Appearance: appropriate Assessment & Plan Assessment/Plan (1) Acute respiratory failure with hypoxia: (2) Pneumonia due to 2019 novel coronavirus: (3) Hyponatremia: (4) Bradycardia: PLAN: Acute hypoxic respiratory failure secondary to COVID-19 pneumonia -Sputum culture from 07/23/2021 is negative -Repeat cultures are negative -We will stop Comycin but continue Zosyn at this time -Patient was vaccinated -Currently on a Ventimask secondary to epistaxis at 10 L -Continue Decadron dose 8 of 10 of a second course of Decadron -Remdesivir completed -Baricitinib completed -No diuresis today -Prone positioning is able -Wean oxygen as able -Pulmonary reconsulted today with increasing FiO2 and appreciate input Temporary altered mental status -Seem to be atypical -No loss of consciousness but patient also does not remember the event -Orthostatics remain positive and will therefore give a 1 L bolus at hold metoprolol -EEG negative Bilateral pulmonary emboli -CTA from 07/26/2021 found bilateral pulmonary emboli worse on the right -Had a negative scan on 07/17/2021 -Continue on Lovenox at this point with her persistent hypoxia and transition to Eliquis when she is more clinically stable in the future -We will need at least 3 months of treatment given the fact that these are provoked Epistaxis -Patient continues to need oxygen and nasal oxygen would be optimal as this would allow her to eat -Patient will require continued anticoagulation secondary to bilateral acute pulmonary emboli -ENT to cauterize today in OR given persistent epistaxis Hyponatremia -Resolved Hypokalemia - resolved Intermittent bradycardia -Patient is on a beta-wu at baseline -Patient was placed on telemetry given her event earlier today -Decrease beta-wu dose from 100 daily to 50 daily DM-2 -Oral agents on hold -Continue Lantus to 8 units as a.m. for now and monitor blood sugars as they h ave been labile -Patient has been getting milkshakes and this has been addressed -Continue SSI as ordered -Goal blood sugar 140-180 -Continue Accu-Cheks Hypertension -Metoprolol held this morning for hypotension -We will likely be able to restart tomorrow -As needed meds available GERD -Continue PPI Depression -Continue venlafaxine CODE STATUS -DNR CCA no intubation Charges/Coding Visit Charges Inpatient E&M: 90879 Subs Hosp L2
[2021-08-03] MEDS: Oxymetazoline 0.05% 1 SPRAY SPRAY.BTL 15 SPRAY (14:11)
[2021-08-03] MEDS: Lidocaine 4% 50 ML Bottle (14:11)
[2021-08-03 14:14] LABS: Hemoglobin A1c 9.2 % (3.8-5.6)
--- NOTE | 2021-08-03 14:49 | OP.PCM_ITS ---
Problems Associated Problem List Diagnoses (1) Epistaxis: (2) Hypoxemia: Report of Operation Date of Procedure: 08/03/21 Pre-Operative Diagnosis: Epistaxis in setting of anticoagulation therapy, hypoxia Post-Operative Diagnosis: Same Surgery/Procedure Performed:: Endoscopic operative control of epistaxis Description of Surgical Findings:: Christy is an 80-year-old female recovering f rom Covid with persistent hypoxia requiring high oxygen delivery who subsequently developed epistaxis while on Lovenox and nasal cannula oxygen. This had initially subsided however recurred and required a left nasal packing although the initial impression had been of right-sided nasal bleeding. Given her ongoing bleeding and the complications of a bilateral nasal packing due to her hypoxia and oxygen requirement operative exploration with control of epistaxis was advised and she and her were agreeable to proceed. I also discussed with her and her her DNR CC status and this was elected to be extended through her operative session. The risks, alternatives, potential complications, and benefits were discussed at length and any questions answered to the patient and/or caregiver's satisfaction. Witnessed informed consent was obtained in the office, and the patient and/or caregiver was agreeable to proceed. Procedures went as follows: The patient was identified in the preoperative holding and brought to the operating room she was placed under monitoring and oxygen supplementation. There is noted to be copious old blood within the nasal cavities and oropharynx as well as a nasal packing in the left nostril which was removed. Which this suctioned clear this allowed placement of pledgets soaked in a 50-50 mixture of the oxymetazoline 4% topical lidocaine. Under direct visualization no active site of bleeding was able to be identified. Using the 0 degree endoscope the right and left nasal cavities were then examined. There is noted to be broad bilateral excoriation of the nasal septal tissue with some oozing but no tali bleeding. On the left side medial to the middle turbinate high on the nasal septum was not active arterial bleeding site. This was then cauterized with bipolar cautery. After observation it was noted this failed to completely control the bleeding site and a pledget directed at this location was then applied for hemostasis. This slowed the bleeding enough for direct visualization and using suction electrocautery this vessel was then obliterated with electrocautery. This did control the active bleeding. Surgicel was then placed over this location is a small absorbable pack for further control. Again the nasal cavities were suctioned clear and the patient observed for 5 minutes. This resulted in immediate resolution of her wet cough and expectoration of blood clots. On repeat endoscopic evaluation no further bleeding was identified. The patient was then returned to recovery having tolerated the procedure well. Surgeon: Ronald Mcdaniel Type of Anesthesia: MAC and Topical Anesth Anesthesiologist: nicki Special Medications: none Specimen's removed: none Drains: none Estimated Blood Loss (mL): 50 mL Fluids Replaced: none Grafts/Implants Used: none Complications none Admit VTE Documentation VTE Present on Admission: No VTE Mechan Device Prophylaxis: None VTE Pharm Prophylaxis ordered?: Yes
[2021-08-03 15:55] LABS: Bedside Glucose 246 mg/dL (70-110)
[2021-08-03 15:55] LABS: Bedside Glucose 222 mg/dL (70-110)
[2021-08-03] MEDS: Insulin Lispro 100 UNIT/ML INSULN.PEN SC (17:20)
[2021-08-03 17:31] LABS: Bedside Glucose 374 mg/dL (70-110)
[2021-08-03] MEDS: Sodium Chloride 0.65% 1 SPRAY SPRAY.BTL 2 SPRAY NASAL (21:40)
[2021-08-03 22:40] LABS: Bedside Glucose 291 mg/dL (70-110)
[2021-08-04] VITALS (17 sets, daily range): BP systolic 98–136; BP diastolic 49–64; PULSE 57–87; RESP 14–20; TEMP 36.4–37; O2SAT 84–99
[2021-08-04] MEDS: Nystatin Powder 15gm Bottle 1 APPLIC TOPICAL ×3 (05:39→22:19)
[2021-08-04] MEDS: Venlafaxine HCl 25 MG Tablet PO ×3 (05:39→22:19)
[2021-08-04 06:46] LABS: Bedside Glucose 131 mg/dL (70-110)
[2021-08-04] MEDS: Pantoprazole Sodium 40 MG Tablet PO (08:12)
--- NOTE | 2021-08-04 08:47 | PCM.PN.INT ---
Assessment & Plan Assessment/Plan (1) Pneumonia due to 2019 novel coronavirus: (2) Acute respiratory failure with hypoxia: PLAN: RECOMMENDATIONS: 1. Completes second course of Decadron today. Completed Remdesivir and baricitinib 2. Diuretics as tolerated to maintain euvolemia. Likely challenge pending labs 3. Encourage incentive spirometer, Acapella and prone positioning as tolerated 4. Consider discontinuation of empiric antibiotics 5. Obtain walking oximetry. Okay to discharge if tolerates ambulation on 6 L or less IMPRESSIONS: 1. Acute hypoxic respiratory failure secondary to COVID-19 Patient with significant improvement through the day yesterday. Clinical suspicion for decreased oxygen delivery secondary to epistaxis. Unfortunately, patient has had documented pulmonary emboli, so anticoagulation would be recommended for at least 3 months. Patient with significant improvement following control of nasal bleeding. Will obtain a walking oximetry today. If patient tolerates ambulation on 6 L or less, okay to discharge from a pulmonary perspective. Patient will need at least 3 months of anticoagulation. Patient was advised on the proper use of supplemental oxygen. 2. Diabetes mellitus/hypertension/GERD/advanced age Complicates care, management, recovery and prognosis. We will have to watch blood sugars and pressure closely given cessation of Decadron therapy and long-acting insulin. Subjective Subjective Patient did well overnight. No acute issues were reported. Patient was taken down to surgery yesterday with cauterization. Patient has been weaned to nasal cannula oxygen and tolerating well. No repeat bleeding has been reported. Objective Data Objective Data Vital Signs: Vital Signs Temp Pulse Resp BP Pulse Ox 36.4 C L 59 L 14 136/64 H 91 08/04/21 03:42 08/04/21 08:00 08/04/21 03:42 08/04/21 03:42 08/04/21 08:13 Oxygen Flow Rate (L/min) [ 4 AMBULATING with Oxygen #1] Oxygen Flow Rate (L/min) 4 Oxygen Delivery Method Nasal Cannula Weight: 63.7 kg Body Mass Index (BMI) 28.3 Intake & Output: Intake and Output for Last 24 Hours 08/02/21 08/03/21 08/04/21 23:59 23:59 23:59 Intake Total 1776.25 / 1776.25 1810 / 1810 150 / 150 Output Total 1600 / 1600 1600 / 1600 100 / 100 Balance 176.25 / 176.25 210 / 210 50 / 50 Medical Nutrition Assessment Dietitian: Malnutrition Criteria Met Start: 07/24/21 14:45 Freq: Status: Active Protocol: Document 07/31/21 12:15 RMA (Rec: 07/31/21 12:15 RMA [id number]) Nutrition Malnutrition Evidence of Malnutrition Exists Yes Malnutrition (severe): Acute Illness/Injury Evidenced By Suboptimal Energy Intake ( Severe),Weight Loss (Severe) Intake Problem Inadequate Oral Intake Etiology r/t decreased appetite w/ acute illness Signs/Symptoms as evidenced by nursing reports of pt consuming ~50% or less of meals Status Active Problem Clinical Problem Acute Disease or Injury Related Malnutrition Etiology severe, acute malnutrition r/t inadequate energy intake w/ increased energy needs d/t acute illness Signs/Symptoms as evidenced by estimated PO intake meeting <50% of estimated nutritional needs >1 week; 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 Will try fortified pudding w/ meals for tolerance. Lab / Micro Data Result Diagrams: 08/03/21 06:10 08/03/21 06:10 Labs: Laboratory Results - last 24 hr 08/02/21 06:20: Hemoglobin A1c 9.2 H 08/03/21 12:24: POC Glucose 246 H 08/03/21 12:37: POC Glucose 222 H 08/03/21 13:34: PT 14.0, INR 1.1, APTT 36.7 H 08/03/21 13:46: POC Glucose 253 H 08/03/21 17:19: POC Glucose 374 H 08/03/21 22:35: POC Glucose 291 H 08/04/21 06:24: POC Glucose 131 H Micro: Microbiology 08/01/21 10:00 Blood Culture (Wb) - Left Hand Blood Culture - Preliminary No growth in 48 hours. 08/01/21 09:54 Blood Culture (Wb) - Right Hand Blood Culture - Preliminary No growth in 48 hours. 07/23/21 05:30 Sputum, Expectorated/Coughed Gram Stain - Final 07/23/21 05:30 Sputum, Expectorated/Coughed Respiratory Culture - Final 07/15/21 22:34 Blood Culture (Wb) - Venous Blood Culture - Final No growth in 5 days. 07/15/21 16:00 Blood Culture (Wb) - Arm Left Blood Culture - Final No growth in 5 days. Physical Exam Const alert, oriented x3 and no apparent distress General Appearance: cooperative Exam Limitations: no limitations HEENT normocephalic, head/scalp atraumatic and moist oral mucous membranes HEENT Narrative: No blood noted in nares Head and Scalp: normocephalic Eyes PERRL, EOMs intact bilaterally and conjunctivae normal Neck no lymphadenopathy, supple and no JVD Chest inspection of chest normal Chest: symmetrical chest wall rise; Negative for crepitus Resp normal respiratory effort, no retractions and no use of accessory muscles Resp Narrative: On nasal cannula Auscultation: diminished lung sounds Cardio regular rate, regular rhythm, S1 normal heart sound, S2 normal heart sound and no murmurs GI normal to inspection, nondistended, normoactive bowel sounds, soft to palpation, non-tender and non-distended Extremity normal to inspection, full ROM and no clubbing, cyanosis or edema Skin no rashes or lesions noted Neuro oriented x3, CN's II-XII intact bilaterally, moves all extremities, no focal motor deficits and no sensory deficits noted Sensorium / Orientation: awake and alert Psych affect normal Appearance: appropriate Mood & Affect: depressed Charges/Coding Visit Charges Inpatient E&M: 50035 Subs Hosp L2
--- NOTE | 2021-08-04 09:05 | PCM.PROGNOTE ---
Subjective Subjective Patient reports she is been doing well with no further nasal bleeding overnight. She denies any nasal obstruction or postnasal drip. Objective Data Objective Data Patient is sitting comfortably in bed with nasal cannula oxygen in place. There is no bleeding or blood clot within the nasal cavity or oropharynx. Vital Signs: Vital Signs Temp Pulse Resp BP Pulse Ox 97.6 F L 59 L 14 136/64 H 91 08/04/21 03:42 08/04/21 08:00 08/04/21 03:42 08/04/21 03:42 08/04/21 08:13 Oxygen Flow Rate (L/min) [ 4 AMBULATING with Oxygen #1] Oxygen Flow Rate (L/min) 4 Oxygen Delivery Method Nasal Cannula Weight: 63.7 kg Body Mass Index (BMI) 28.3 Intake & Output: Intake and Output for Last 24 Hours 08/02/21 08/03/21 08/04/21 23:59 23:59 23:59 Intake Total 1776.25 / 1776.25 1810 / 1810 150 / 150 Output Total 1600 / 1600 1600 / 1600 100 / 100 Balance 176.25 / 176.25 210 / 210 50 / 50 Medical Nutrition Assessment Dietitian: Malnutrition Criteria Met Start: 07/24/21 14:45 Freq: Status: Active Protocol: Document 07/31/21 12:15 RMA (Rec: 07/31/21 12:15 RMA [id number]) Nutrition Malnutrition Evidence of Malnutrition Exists Yes Malnutrition (severe): Acute Illness/Injury Evidenced By Suboptimal Energy Intake ( Severe),Weight Loss (Severe) Intake Problem Inadequate Oral Intake Etiology r/t decreased appetite w/ acute illness Signs/Symptoms as evidenced by nursing reports of pt consuming ~50% or less of meals Status Active Problem Clinical Problem Acute Disease or Injury Related Malnutrition Etiology severe, acute malnutrition r/t inadequate energy intake w/ increased energy needs d/t acute illness Signs/Symptoms as evidenced by estimated PO intake meeting <50% of estimated nutritional needs >1 week; 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 Will try fortified pudding w/ meals for tolerance. Lab / Micro Data Result Diagrams: 08/03/21 06:10 08/03/21 06:10 Labs: Laboratory Results - last 24 hr 08/02/21 06:20: Hemoglobin A1c 9.2 H 08/03/21 12:24: POC Glucose 246 H 08/03/21 12:37: POC Glucose 222 H 08/03/21 13:34: PT 14.0, INR 1.1, APTT 36.7 H 08/03/21 13:46: POC Glucose 253 H 08/03/21 17:19: POC Glucose 374 H 08/03/21 22:35: POC Glucose 291 H 08/04/21 06:24: POC Glucose 131 H Micro: Microbiology 08/01/21 10:00 Blood Culture (Wb) - Left Hand Blood Culture - Preliminary No growth in 48 hours. 08/01/21 09:54 Blood Culture (Wb) - Right Hand Blood Culture - Preliminary No growth in 48 hours. 07/23/21 05:30 Sputum, Expectorated/Coughed Gram Stain - Final 07/23/21 05:30 Sputum, Expectorated/Coughed Respiratory Culture - Final 07/15/21 22:34 Blood Culture (Wb) - Venous Blood Culture - Final No growth in 5 days. 07/15/21 16:00 Blood Culture (Wb) - Arm Left Blood Culture - Final No growth in 5 days. Physical Exam Const alert and oriented x3 General Appearance: cooperative and comfortable HEENT normocephalic, head/scalp atraumatic and external nose normal HEENT Narrative: Mild dryness of the nasal tissue but no tali bleeding or blood clots Mouth: oral and palatal mucosa normal Eyes General Eye: normal appearance of both eyes Neck full ROM Assessment & Plan Assessment/Plan (1) Epistaxis: PLAN: Patient is doing well status post nasal cautery for severe nasal bleeding uncontrolled with nasal packing and with a high oxygen requirement. She has had no further nasal bleeding. Her oxygen requirement has decreased significantly now only 2 to 4 L which has been as high as 12 preoperatively. I would recommend that she continue with the prophylactic nasal care with topical ointment application and humidification of her oxygen supply whenever possible. Would also consider shortening the nasal cannula prongs to avoid traumatic injury to the anterior nasal cavity. I am certainly available should she have any further nasal bleeding complaints but at this point she appears well controlled and I will sign off at this time. (2) Hypoxemia:
[2021-08-04 09:09] LABS: Vancomycin, Trough Level 4.2 ug/mL (5.0-15.0)
[2021-08-04 09:50] LABS: Absolute Lymphocyte Count 0.46 X10^3/uL (0.83-4.51); Absolute Neutrophil Count 9.8 X10^3/uL (2.0-7.7); Basophil# 0.03 X10^3/uL; Basophil% 0.3 % (0-1); Eosinophil# 0.22 X10^3/uL; Eosinophils% 1.9 % (0-5); Hematocrit 35.2 % (37-47); Hemoglobin 11.7 g/dL (12.0-15.0); Lymphocyte # 0.46 X10^3/ul (0.83-4.51); Lymphocyte % 3.9 % (19-41); Mean Corp Hgb Conc 33.2 g/dL (32-36); Mean Corpuscular Hgb 30.7 pg (27.0-32.0); Mean Corpuscular Volume 92.4 fL (81-99); Mean Platelet Vol. 10.4 fl (6.2-12.0); Monocyte# 0.93 X10^3/uL; Monocyte% 7.8 % (0-10); NRBC Flagged by Analyzer 0 % (0-5); Neutrophil # 9.81 X10^3/uL (2.7-7.7); Neutrophil % 82.7 % (47-70); POSITIVE DIFFERENTIAL YES; Platelet Count 233 K/mm3 (150-450); RBC Distribution Width CV 13.2 % (11.6-14.6); RBC Distribution Width SD 44.4 fl (35.1-43.9); Red Blood Count 3.81 M/mm3 (4.2-5.4); White Blood Count 11.9 K/mm3 (4.4-11.0)
[2021-08-04 09:54] LABS: Differential Indicated SCAN CRITERIA MET
[2021-08-04 10:12] LABS: Anion Gap 11 (5-15); BUN 13 mg/dL (7-18); BUN/Creat Ratio 25.1 RATIO (10-20); Calcium,Total 8.2 mg/dL (8.5-10.1); Chloride 104 mmol/L (98-107); Creatinine, Serum 0.52 mg/dL (0.55-1.02); EST Glomerular Filtration Rate 121 mL/min (>60); Est Glom Filt Rate - Afr Amer 147 mL/min (>60); Estimated Creatinine Clearance 45.12 ml/min; Glucose 98 mg/dL (74-106); Potassium 4.1 mmol/L (3.5-5.1); Sodium Level 136 mmol/L (136-145)
[2021-08-04 10:14] LABS: Differential Comment SCANNED
[2021-08-04] MEDS: Mupirocin Ointment 22gm Tube 1 APPLIC TOPICAL ×2 (11:13→22:17)
[2021-08-04] MEDS: Oxymetazoline 0.05% 1 SPRAY SPRAY.BTL 2 SPRAY NASAL ×2 (11:15→22:18)
[2021-08-04] MEDS: dexAMETHasone 4 MG Tablet 6 MG PO (11:17)
[2021-08-04] MEDS: Enoxaparin 60 MG/0.6 ML Syringe SC ×2 (11:18→22:19)
[2021-08-04] MEDS: Bisacodyl 5 MG Tablet PO (11:19)
[2021-08-04] MEDS: Insulin Lispro 100 UNIT/ML INSULN.PEN SC ×2 (13:47→18:36)
[2021-08-04 14:01] LABS: Bedside Glucose 311 mg/dL (70-110)
--- NOTE | 2021-08-04 16:07 | PCM.PN.HOSP ---
Subjective Subjective Epistaxis has resolved with cauterization in the OR yesterday. The patient indicates she is feeling much better. She is now on 4 L nasal cannula with an SPO2 of 91 to 94%. She was tested on room air and saturations were 88% at rest on room air 90% to 92% on 4 L at rest and with ambulation. Objective Data Objective Data Vital Signs: Vital Signs Temp Pulse Resp BP Pulse Ox 98.6 F 69 18 105/55 L 91 08/04/21 09:45 08/04/21 12:58 08/04/21 09:45 08/04/21 11:41 08/04/21 15:11 Oxygen Flow Rate (L/min) [ 4 AMBULATING with Oxygen #1] Oxygen Flow Rate (L/min) [At 4 REST with Oxygen] Oxygen Flow Rate (L/min) [At 0 REST on Room Air] Oxygen Flow Rate (L/min) 4 Oxygen Delivery Method Nasal Cannula Weight: 63.7 kg Body Mass Index (BMI) 28.3 Intake & Output: Intake and Output for Last 24 Hours 08/02/21 08/03/21 08/04/21 23:59 23:59 23:59 Intake Total 1776.25 / 1776.25 1810 / 1810 560 / 560 Output Total 1600 / 1600 1600 / 1600 100 / 100 Balance 176.25 / 176.25 210 / 210 460 / 460 Medical Nutrition Assessment Dietitian: Malnutrition Criteria Met Start: 07/24/21 14:45 Freq: Status: Active Protocol: Document 07/31/21 12:15 RMA (Rec: 07/31/21 12:15 RMA [id number]) Nutrition Malnutrition Evidence of Malnutrition Exists Yes Malnutrition (severe): Acute Illness/Injury Evidenced By Suboptimal Energy Intake ( Severe),Weight Loss (Severe) Intake Problem Inadequate Oral Intake Etiology r/t decreased appetite w/ acute illness Signs/Symptoms as evidenced by nursing reports of pt consuming ~50% or less of meals Status Active Problem Clinical Problem Acute Disease or Injury Related Malnutrition Etiology severe, acute malnutrition r/t inadequate energy intake w/ increased energy needs d/t acute illness Signs/Symptoms as evidenced by estimated PO intake meeting <50% of estimated nutritional needs >1 week; 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 Will try fortified pudding w/ meals for tolerance. Lab / Micro Data Result Diagrams: 08/04/21 08:30 08/04/21 08:30 Labs: Laboratory Results - last 24 hr 08/03/21 17:19: POC Glucose 374 H 08/03/21 22:35: POC Glucose 291 H 08/04/21 06:24: POC Glucose 131 H 08/04/21 08:30: Vancomycin Trough 4.2 L 08/04/21 08:30: WBC 11.9 H, RBC 3.81 L, Hgb 11.7 L, Hct 35.2 L, MCV 92.4, MCH 30.7, MCHC 33.2, RDW Std Deviation 44.4 H, RDW Coeff of Renetta 13.2, Plt Count 233, MPV 10.4, Immature Gran % (Auto) 3.400 H, Neut % (Auto) 82.7 H, Lymph % (Auto) 3.9 L, [place] % (Auto) 7.8, Eos % (Auto) 1.9, Baso % (Auto) 0.3, Absolute Neuts (auto) 9.8 H, Absolute Lymphs (auto) 0.46 L, Nucleated RBC % 0, Differential Comment SCANNED 08/04/21 08:30: Sodium 136, Potassium 4.1, Chloride 104, Carbon Dioxide 21.0, Anion Gap 11, BUN 13, Creatinine 0.52 L, Estim Creat Clear Calc 45.12, Est GFR (MDRD) Af Amer 147, Est GFR (MDRD) Non-Af 121, BUN/Creatinine Ratio 25.1 H, Glucose 98, Calcium 8.2 L 08/04/21 13:44: POC Glucose 311 H Micro: Microbiology 08/01/21 10:00 Blood Culture (Wb) - Left Hand Blood Culture - Preliminary No growth in 48 hours. 08/01/21 09:54 Blood Culture (Wb) - Right Hand Blood Culture - Preliminary No growth in 48 hours. 07/23/21 05:30 Sputum, Expectorated/Coughed Gram Stain - Final 07/23/21 05:30 Sputum, Expectorated/Coughed Respiratory Culture - Final 07/15/21 22:34 Blood Culture (Wb) - Venous Blood Culture - Final No growth in 5 days. 07/15/21 16:00 Blood Culture (Wb) - Arm Left Blood Culture - Final No growth in 5 days. Physical Exam Const alert, oriented x3, no apparent distress and average body habitus Constitutional Narrative: Slightly overweight elderly white female sitting up in bed on a nasal cannula 4 L, nursing is at the bedside, nontoxic, patient is currently eating breakfast and watching television without any issues General Appearance: cooperative Exam Limitations: no limitations Nutritional Appearance: overweight HEENT normocephalic, head/scalp atraumatic and moist oral mucous membranes HEENT Narrative: Epistaxis has resolved Head and Scalp: normocephalic Resp normal respiratory effort, no retractions, no use of accessory muscles and clear to auscultation bilaterally Resp Narrative: Diffusely diminished Auscultation: crackles and diminished lung sounds; Negative for rales, rhonchi or wheezes Cardio regular rate, regular rhythm, S1 normal heart sound, S2 normal heart sound, no murmurs, no rub, no gallops, no clicks and no JVD GI normal to inspection, nondistended, normoactive bowel sounds, soft to palpation, non-tender and non-distended Extremity normal to inspection and no clubbing, cyanosis or edema Peripheral Pulses: Yes pulses 2+ throughout Neuro oriented x3, moves all extremities and no focal motor deficits Sensorium / Orientation: awake and alert Speech: speech normal Psych Appearance: appropriate Assessment & Plan Assessment/Plan (1) Acute respiratory failure with hypoxia: (2) Pneumonia due to 2019 novel coronavirus: (3) Hyponatremia: (4) Bradycardia: PLAN: Acute hypoxic respiratory failure secondary to COVID-19 pneumonia -Sputum culture from 07/23/2021 is negative -Repeat cultures are negative -Continue Zosyn for a full 5 to 7 days treatment -Patient was vaccinated -Currently on a Ventimask secondary to epistaxis at 10 L -Continue Decadron dose 8 of 10 of a second course of Decadron -Remdesivir completed -Baricitinib completed -No diuresis again today -Prone positioning is able -Wean oxygen as able -Pulmonary reconsulted today with increasing FiO2 and appreciate input Temporary altered mental status -Seem to be atypical -No loss of consciousness but patient also does not remember the event -States this has resolved and no further issues -EEG negative Bilateral pulmonary emboli -CTA from 07/26/2021 found bilateral pulmonary emboli worse on the right -Had a negative scan on 07/17/2021 -Continue on Lovenox at this point with her persistent hypoxia and transition to Eliquis when she is more clinically stable in the future -We will need at least 3 months of treatment given the fact that these are provoked Epistaxis -Resolved with cauterization in the OR yesterday -Appreciate ENT intervention Intermittent bradycardia -Patient is on a beta-wu at baseline -Patient was placed on telemetry given her event earlier today -Toprol held today and yesterday DM-2 -Oral agents on hold -Continue Lantus to 8 units as a.m. fasting glucose was 98 this morning -But sugars still remain somewhat labile and tend to trend up in the afternoon -Continue SSI as ordered -Goal blood sugar 140-180 -Continue Accu-Cheks Hypertension -We will continue to hold metoprolol for now -Monitor blood pressure and restart beta-wu as able -As needed meds available GERD -Continue PPI Depression -Continue venlafaxine CODE STATUS -DNR CCA no intubation Charges/Coding Visit Charges Inpatient E&M: 73872 Subs Hosp L2
[2021-08-04 18:51] LABS: Bedside Glucose 378 mg/dL (70-110)
[2021-08-04] MEDS: Sodium Chloride 0.65% 1 SPRAY SPRAY.BTL 2 SPRAY NASAL (22:17)
[2021-08-04 22:51] LABS: Bedside Glucose 180 mg/dL (70-110)
[2021-08-05] VITALS (14 sets, daily range): BP systolic 93–125; BP diastolic 45–61; PULSE 58–80; RESP 16–18; TEMP 36.4–37; O2SAT 87–98
[2021-08-05] MEDS: Venlafaxine HCl 25 MG Tablet PO ×3 (05:03→21:30)
[2021-08-05] MEDS: Nystatin Powder 15gm Bottle 1 APPLIC TOPICAL ×3 (05:03→21:31)
[2021-08-05] MEDS: Sodium Chloride 0.65% 1 SPRAY SPRAY.BTL 2 SPRAY NASAL ×2 (05:04→21:29)
[2021-08-05] MEDS: Pantoprazole Sodium 40 MG Tablet PO (05:04)
[2021-08-05 06:30] LABS: Bedside Glucose 114 mg/dL (70-110)
[2021-08-05 08:05] LABS: Absolute Lymphocyte Count 0.42 X10^3/uL (0.83-4.51); Absolute Neutrophil Count 9.9 X10^3/uL (2.0-7.7); Basophil# 0.04 X10^3/uL; Basophil% 0.3 % (0-1); Eosinophil# 0.19 X10^3/uL; Eosinophils% 1.6 % (0-5); Hematocrit 32.6 % (37-47); Hemoglobin 10.9 g/dL (12.0-15.0); Lymphocyte # 0.42 X10^3/ul (0.83-4.51); Lymphocyte % 3.6 % (19-41); Mean Corp Hgb Conc 33.4 g/dL (32-36); Mean Corpuscular Hgb 30.7 pg (27.0-32.0); Mean Corpuscular Volume 91.8 fL (81-99); Mean Platelet Vol. 10.3 fl (6.2-12.0); Monocyte% 6.8 % (0-10); NRBC Flagged by Analyzer 0 % (0-5); Neutrophil # 9.93 X10^3/uL (2.7-7.7); Neutrophil % 84.4 % (47-70); POSITIVE DIFFERENTIAL YES; Platelet Count 228 K/mm3 (150-450); RBC Distribution Width CV 13.1 % (11.6-14.6); RBC Distribution Width SD 43.8 fl (35.1-43.9); Red Blood Count 3.55 M/mm3 (4.2-5.4); White Blood Count 11.8 K/mm3 (4.4-11.0)
[2021-08-05 08:09] LABS: Differential Indicated SCAN CRITERIA MET
--- NOTE | 2021-08-05 08:25 | PN.CC_ITS ---
Assessment & Plan Assessment/Plan (1) Pneumonia due to 2019 novel coronavirus: (2) Acute respiratory failure with hypoxia: PLAN: RECOMMENDATIONS: 1. Completed Remdesivir, baricitinib and 2 courses of Decadron 2. Diuretics as tolerated to maintain euvolemia. 3. Encourage incentive spirometer, Acapella and prone positioning as tolerated 4. Consider discontinuation of empiric antibiotics 5. Okay to discharge from a pulmonary perspective, but may need rehab IMPRESSIONS: 1. Acute hypoxic respiratory failure secondary to COVID-19 Patient with significant improvement through the day yesterday. Clinical suspicion for decreased oxygen delivery secondary to epistaxis. Unfortunately, patient has had documented pulmonary emboli, so anticoagulation would be recommended for at least 3 months. Patient with significant improvement following control of nasal bleeding. Will obtain a walking oximetry today. If patient tolerates ambulation on 6 L or less, okay to discharge from a pulmonary perspective. Patient will need at least 3 months of anticoagulation. Patient was advised on the proper use of supplemental oxygen. Patient should follow-up in the pulmonary office 4 to 6 weeks after being home. 2. Diabetes mellitus/hypertension/GERD/advanced age Complicates care, management, recovery and prognosis. We will have to watch blood sugars and pressure closely given cessation of Decadron therapy and long-acting insulin. Subjective Subjective Patient did well overnight. No acute issues were reported. Patient subjectively feels improved compared to previous. Patient does report significant weakness/lack of strength with ambulation. Objective Data Objective Data Vital Signs: Vital Signs Temp Pulse Resp BP Pulse Ox 36.6 C 64 18 125/61 H 95 08/05/21 05:05 08/05/21 05:05 08/05/21 05:05 08/05/21 05:05 08/05/21 05:05 Oxygen Flow Rate (L/min) [ 4 AMBULATING with Oxygen #1] Oxygen Flow Rate (L/min) [At 4 REST with Oxygen] Oxygen Flow Rate (L/min) [At 0 REST on Room Air] Oxygen Flow Rate (L/min) 4 Oxygen Delivery Method Nasal Cannula Weight: 65.091 kg Body Mass Index (BMI) 28.3 Intake & Output: Intake and Output for Last 24 Hours 08/03/21 08/04/21 08/05/21 23:59 23:59 23:59 Intake Total 1810 / 1810 1010 / 1010 50 / 50 Output Total 1600 / 1600 100 / 100 900 / 900 Balance 210 / 210 910 / 910 -850 / -850 Medical Nutrition Assessment Dietitian: Malnutrition Criteria Met Start: 07/24/21 14:45 Freq: Status: Active Protocol: Document 07/31/21 12:15 RMA (Rec: 07/31/21 12:15 RMA [id number]) Nutrition Malnutrition Evidence of Malnutrition Exists Yes Malnutrition (severe): Acute Illness/Injury Evidenced By Suboptimal Energy Intake ( Severe),Weight Loss (Severe) Intake Problem Inadequate Oral Intake Etiology r/t decreased appetite w/ acute illness Signs/Symptoms as evidenced by nursing reports of pt consuming ~50% or less of meals Status Active Problem Clinical Problem Acute Disease or Injury Related Malnutrition Etiology severe, acute malnutrition r/t inadequate energy intake w/ increased energy needs d/t acute illness Signs/Symptoms as evidenced by estimated PO intake meeting <50% of estimated nutritional needs >1 week; 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 Will try fortified pudding w/ meals for tolerance. Lab / Micro Data Result Diagrams: 08/05/21 06:54 08/04/21 08:30 Labs: Laboratory Results - last 24 hr 08/04/21 08:30: Vancomycin Trough 4.2 L 08/04/21 08:30: WBC 11.9 H, RBC 3.81 L, Hgb 11.7 L, Hct 35.2 L, MCV 92.4, MCH 30.7, MCHC 33.2, RDW Std Deviation 44.4 H, RDW Coeff of Renetta 13.2, Plt Count 233, MPV 10.4, Immature Gran % (Auto) 3.400 H, Neut % (Auto) 82.7 H, Lymph % (Auto) 3.9 L, [place] % (Auto) 7.8, Eos % (Auto) 1.9, Baso % (Auto) 0.3, Absolute Neuts (auto) 9.8 H, Absolute Lymphs (auto) 0.46 L, Nucleated RBC % 0, Differential Comment SCANNED 08/04/21 08:30: Sodium 136, Potassium 4.1, Chloride 104, Carbon Dioxide 21.0, Anion Gap 11, BUN 13, Creatinine 0.52 L, Estim Creat Clear Calc 45.12, Est GFR ( MDRD) Af Amer 147, Est GFR (MDRD) Non-Af 121, BUN/Creatinine Ratio 25.1 H, Gl ucose 98, Calcium 8.2 L 08/04/21 13:44: POC Glucose 311 H 08/04/21 18:33: POC Glucose 378 H 08/04/21 22:47: POC Glucose 180 H 08/05/21 06:25: POC Glucose 114 H 08/05/21 06:54: WBC 11.8 H, RBC 3.55 L, Hgb 10.9 L, Hct 32.6 L, MCV 91.8, MCH 30.7, MCHC 33.4, RDW Std Deviation 43.8, RDW Coeff of Renetta 13.1, Plt Count 228, MPV 10.3, Immature Gran % (Auto) 3.300 H, Neut % (Auto) 84.4 H, Lymph % (Auto) 3.6 L, [place] % (Auto) 6.8, Eos % (Auto) 1.6, Baso % (Auto) 0.3, Absolute Neuts (auto) 9.9 H, Absolute Lymphs (auto) 0.42 L, Nucleated RBC % 0 Micro: Microbiology 08/01/21 10:00 Blood Culture (Wb) - Left Hand Blood Culture - Preliminary No growth in 48 hours. 08/01/21 09:54 Blood Culture (Wb) - Right Hand Blood Culture - Preliminary No growth in 48 hours. 07/23/21 05:30 Sputum, Expectorated/Coughed Gram Stain - Final 07/23/21 05:30 Sputum, Expectorated/Coughed Respiratory Culture - Final 07/15/21 22:34 Blood Culture (Wb) - Venous Blood Culture - Final No growth in 5 days. 07/15/21 16:00 Blood Culture (Wb) - Arm Left Blood Culture - Final No growth in 5 days. Physical Exam Const alert, oriented x3 and no apparent distress General Appearance: cooperative Exam Limitations: no limitations HEENT normocephalic, head/scalp atraumatic and moist oral mucous membranes HEENT Narrative: No blood noted in nares Head and Scalp: normocephalic Eyes PERRL, EOMs intact bilaterally and conjunctivae normal Neck no lymphadenopathy, supple and no JVD Chest inspection of chest normal Chest: symmetrical chest wall rise; Negative for crepitus Resp normal respiratory effort, no retractions and no use of accessory muscles Resp Narrative: On nasal cannula Auscultation: diminished lung sounds Cardio regular rate, regular rhythm, S1 normal heart sound, S2 normal heart sound and no murmurs GI normal to inspection, nondistended, normoactive bowel sounds, soft to palpation, non-tender and non-distended Extremity normal to inspection, full ROM and no clubbing, cyanosis or edema Skin no rashes or lesions noted Neuro oriented x3, CN's II-XII intact bilaterally, moves all extremities, no focal motor deficits and no sensory deficits noted Sensorium / Orientation: awake and alert Psych affect normal Appearance: appropriate Mood & Affect: depressed Charges/Coding Visit Charges Inpatient E&M: 54993 Subs Hosp L2
[2021-08-05 09:46] LABS: Differential Comment SCANNED
[2021-08-05] MEDS: Bisacodyl 5 MG Tablet PO (10:28)
[2021-08-05] MEDS: Mupirocin Ointment 22gm Tube 1 APPLIC TOPICAL ×2 (10:28→21:31)
[2021-08-05] MEDS: Oxymetazoline 0.05% 1 SPRAY SPRAY.BTL 2 SPRAY NASAL ×2 (10:28→21:31)
[2021-08-05] MEDS: Enoxaparin 60 MG/0.6 ML Syringe SC (10:29)
[2021-08-05] MEDS: Insulin Lispro 100 UNIT/ML INSULN.PEN SC ×2 (11:13→16:22)
[2021-08-05 11:21] LABS: Bedside Glucose 248 mg/dL (70-110)
--- NOTE | 2021-08-05 13:55 | PN.HOSP_ITS ---
Subjective Subjective Patient reports she is feeling well. Denies any shortness of breath. No further epistaxis. Patient is anxious to go home. Objective Data Objective Data Vital Signs: Vital Signs Temp Pulse Resp BP Pulse Ox 97.6 F L 80 18 117/53 L 93 08/05/21 13:21 08/05/21 13:21 08/05/21 13:21 08/05/21 13:21 08/05/21 13:21 Oxygen Flow Rate (L/min) [ 4 AMBULATING with Oxygen #1] Oxygen Flow Rate (L/min) [At 7 REST with Oxygen] Oxygen Flow Rate (L/min) [At 0 REST on Room Air] Oxygen Flow Rate (L/min) 7 Oxygen Delivery Method Nasal Cannula Weight: 65.091 kg Body Mass Index (BMI) 28.3 Intake & Output: Intake and Output for Last 24 Hours 08/03/21 08/04/21 08/05/21 23:59 23:59 23:59 Intake Total 1810 / 1810 1010 / 1010 100 / 100 Output Total 1600 / 1600 100 / 100 900 / 900 Balance 210 / 210 910 / 910 -800 / -800 Medical Nutrition Assessment Dietitian: Malnutrition Criteria Met Start: 07/24/21 14:45 Freq: Status: Active Protocol: Document 07/31/21 12:15 RMA (Rec: 07/31/21 12:15 RMA [id number]) Nutrition Malnutrition Evidence of Malnutrition Exists Yes Malnutrition (severe): Acute Illness/Injury Evidenced By Suboptimal Energy Intake ( Severe),Weight Loss (Severe) Intake Problem Inadequate Oral Intake Etiology r/t decreased appetite w/ acute illness Signs/Symptoms as evidenced by nursing reports of pt consuming ~50% or less of meals Status Active Problem Clinical Problem Acute Disease or Injury Related Malnutrition Etiology severe, acute malnutrition r/t inadequate energy intake w/ increased energy needs d/t acute illness Signs/Symptoms as evidenced by estimated PO intake meeting <50% of estimated nutritional needs >1 week; 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 Will try fortified pudding w/ meals for tolerance. Lab / Micro Data Result Diagrams: 08/05/21 06:54 08/04/21 08:30 Labs: Laboratory Results - last 24 hr 08/04/21 13:44: POC Glucose 311 H 08/04/21 18:33: POC Glucose 378 H 08/04/21 22:47: POC Glucose 180 H 08/05/21 06:25: POC Glucose 114 H 08/05/21 06:54: WBC 11.8 H, RBC 3.55 L, Hgb 10.9 L, Hct 32.6 L, MCV 91.8, MCH 30.7, MCHC 33.4, RDW Std Deviation 43.8, RDW Coeff of Renetta 13.1, Plt Count 228, MPV 10.3, Immature Gran % (Auto) 3.300 H, Neut % (Auto) 84.4 H, Lymph % (Auto) 3.6 L, [place] % (Auto) 6.8, Eos % (Auto) 1.6, Baso % (Auto) 0.3, Absolute Neuts (auto) 9.9 H, Absolute Lymphs (auto) 0.42 L, Nucleated RBC % 0, Differential Comment SCANNED 08/05/21 11:08: POC Glucose 248 H Micro: Microbiology 08/01/21 10:00 Blood Culture (Wb) - Left Hand Blood Culture - Preliminary No growth in 48 hours. 08/01/21 09:54 Blood Culture (Wb) - Right Hand Blood Culture - Preliminary No growth in 48 hours. 07/23/21 05:30 Sputum, Expectorated/Coughed Gram Stain - Final 07/23/21 05:30 Sputum, Expectorated/Coughed Respiratory Culture - Final 07/15/21 22:34 Blood Culture (Wb) - Venous Blood Culture - Final No growth in 5 days. 07/15/21 16:00 Blood Culture (Wb) - Arm Left Blood Culture - Final No growth in 5 days. Physical Exam Const alert, oriented x3, no apparent distress and average body habitus Constitutional Narrative: Slightly overweight elderly white female sitting up in the chair at the bedside on a nasal cannula 6 L, nontoxic, patient is currently eating breakfast and watching television without any issues General Appearance: cooperative Exam Limitations: no limitations Nutritional Appearance: overweight HEENT normocephalic, head/scalp atraumatic and moist oral mucous membranes HEENT Narrative: No thrush Head and Scalp: normocephalic Neck supple Resp normal respiratory effort, no retractions, no use of accessory muscles and clear to auscultation bilaterally Resp Narrative: Diffusely diminished Auscultation: crackles and diminished lung sounds; Negative for rales, rhonchi or wheezes Cardio regular rate, regular rhythm, S1 normal heart sound, S2 normal heart sound, no murmurs, no rub, no gallops, no clicks and no JVD Cardio Narrative: Mild bradycardia GI normal to inspection, nondistended, normoactive bowel sounds, soft to palpation, non-tender and non-distended Extremity normal to inspection and no clubbing, cyanosis or edema Peripheral Pulses: Yes pulses 2+ throughout Skin no rashes or lesions noted Neuro oriented x3, moves all extremities and no focal motor deficits Sensorium / Orientation: awake and alert Speech: speech normal Psych Appearance: appropriate Assessment & Plan Assessment/Plan (1) Acute respiratory failure with hypoxia: (2) Pneumonia due to 2019 novel coronavirus: (3) Hyponatremia: (4) Bradycardia: PLAN: Acute hypoxic respiratory failure secondary to COVID-19 pneumonia -Sputum culture from 07/23/2021 is negative -Repeat cultures are negative -Continue Zosyn for a full 6 to 7 days treatment -Patient was vaccinated -Patient has been on 4 to 6 L of oxygen at rest -Decadron is completed X2 full courses -Remdesivir completed -Baricitinib completed -No diuresis again today -Prone positioning is able -Wean oxygen as able -Pulmonary reconsulted today with increasing FiO2 and appreciate input Temporary altered mental status -Seem to be atypical -No loss of consciousness but patient also does not remember the event -States this has resolved and no further issues -EEG negative Bilateral pulmonary emboli -CTA from 07/26/2021 found bilateral pulmonary emboli worse on the right -Had a negative scan on 07/17/2021 -Discontinue Lovenox and start Eliquis this evening at 10 mg twice daily for 7 days and then 5 mg twice daily to complete treatment -We will need at least 3 months of treatment given the fact that these are provoked Epistaxis -Resolved with cauterization in the OR 08/03/2021 -Appreciate ENT intervention Intermittent bradycardia -Patient is on a beta-wu at baseline -Patient is on telemetry given previous altered mental status states -Toprol held today and yesterday DM-2 -Oral agents on hold -Continue Lantus to 8 units as a.m. fasting glucose was 98 this morning -Blood sugars have tended to be labile with good fasting sugars and trend up throughout the day although overall appearing to be improving -Continue SSI as ordered -Goal blood sugar 140-180 -Continue Accu-Cheks Hypertension -We will continue to hold metoprolol for now -Monitor blood pressure and restart beta-wu as able -As needed meds available GERD -Continue PPI Depression -Continue venlafaxine CODE STATUS -DNR CCA no intubation Charges/Coding Visit Charges Inpatient E&M: 33715 Subs Hosp L2
[2021-08-05 16:31] LABS: Bedside Glucose 216 mg/dL (70-110)
[2021-08-05] MEDS: APIXABAN 5 MG TABLET 10 MG PO (21:30)
[2021-08-05 22:01] LABS: Bedside Glucose 244 mg/dL (70-110)
[2021-08-06] VITALS (11 sets, daily range): BP systolic 85–119; BP diastolic 42–64; PULSE 58–81; RESP 16–18; TEMP 36.7–37.2; O2SAT 89–99
[2021-08-06] MEDS: Venlafaxine HCl 25 MG Tablet PO ×3 (05:43→21:17)
[2021-08-06] MEDS: Pantoprazole Sodium 40 MG Tablet PO (05:44)
[2021-08-06] MEDS: Nystatin Powder 15gm Bottle 1 APPLIC TOPICAL ×3 (05:44→20:32)
[2021-08-06] MEDS: Polyethylene Glycol 3350 17 GM PACKET 34 GM PO ×2 (05:45→09:13)
[2021-08-06] MEDS: Sodium Chloride 0.65% 1 SPRAY SPRAY.BTL 2 SPRAY NASAL (05:45)
[2021-08-06 06:41] LABS: Bedside Glucose 129 mg/dL (70-110)
[2021-08-06 07:22] LABS: Absolute Lymphocyte Count 0.43 X10^3/uL (0.83-4.51); Absolute Neutrophil Count 9.6 X10^3/uL (2.0-7.7); Basophil# 0.06 X10^3/uL; Basophil% 0.5 % (0-1); Eosinophil# 0.41 X10^3/uL; Eosinophils% 3.5 % (0-5); Hematocrit 34.6 % (37-47); Hemoglobin 11.6 g/dL (12.0-15.0); Lymphocyte # 0.43 X10^3/ul (0.83-4.51); Lymphocyte % 3.7 % (19-41); Mean Corp Hgb Conc 33.5 g/dL (32-36); Mean Corpuscular Hgb 30.7 pg (27.0-32.0); Mean Corpuscular Volume 91.5 fL (81-99); Mean Platelet Vol. 10.1 fl (6.2-12.0); Monocyte# 0.82 X10^3/uL; NRBC Flagged by Analyzer 0 % (0-5); Neutrophil # 9.63 X10^3/uL (2.7-7.7); Neutrophil % 82.2 % (47-70); POSITIVE DIFFERENTIAL YES; Platelet Count 201 K/mm3 (150-450); RBC Distribution Width CV 13.2 % (11.6-14.6); RBC Distribution Width SD 43.5 fl (35.1-43.9); Red Blood Count 3.78 M/mm3 (4.2-5.4); White Blood Count 11.7 K/mm3 (4.4-11.0)
[2021-08-06 07:23] LABS: Differential Indicated SCAN CRITERIA MET
[2021-08-06 07:33] LABS: BUN 15 mg/dL (7-18); Creatinine, Serum 0.46 mg/dL (0.55-1.02); Estimated Creatinine Clearance 65.38 ml/min; Glucose 133 mg/dL (74-106)
[2021-08-06 07:34] LABS: Anion Gap 9 (5-15); BUN/Creat Ratio 32.4 RATIO (10-20); Calcium,Total 8.3 mg/dL (8.5-10.1); Chloride 102 mmol/L (98-107); EST Glomerular Filtration Rate 138 mL/min (>60); Est Glom Filt Rate - Afr Amer 167 mL/min (>60); Potassium 4.1 mmol/L (3.5-5.1); Sodium Level 137 mmol/L (136-145)
--- NOTE | 2021-08-06 08:21 | PN.CC_ITS ---
Assessment & Plan Assessment/Plan (1) Pneumonia due to 2019 novel coronavirus: (2) Acute respiratory failure with hypoxia: PLAN: RECOMMENDATIONS: 1. Completed Remdesivir, baricitinib and 2 courses of Decadron 2. Diuretics as tolerated to maintain euvolemia. Hold for now 3. Encourage incentive spirometer, Acapella and prone positioning as tolerated 4. Consider discontinuation of empiric antibiotics 5. Check orthostatic blood pressures. Consider Florinef if positive IMPRESSIONS: 1. Acute hypoxic respiratory failure secondary to COVID-19 Patient with significant improvement through the day yesterday. Clinical suspicion for decreased oxygen delivery secondary to epistaxis. Unfortunately, patient has had documented pulmonary emboli, so anticoagulation would be recommended for at least 3 months. Patient with significant improvement following control of nasal bleeding. If patient tolerates ambulation on 6 L or less, okay to discharge from a pulmonary perspective. Patient will need at least 3 months of anticoagulation. Patient was advised on the proper use of supplemental oxygen. Patient should follow-up in the pulmonary office 4 to 6 weeks after being home. 2. Diabetes mellitus/hypertension/GERD/advanced age Complicates care, management, recovery and prognosis. We will have to watch blood sugars and pressure closely given cessation of Decadron therapy and long-acting insulin. Patient now having orthostatic symptoms. Will check orthostatics. Hold on Lasix for now. Patient has been off of Decadron for a couple of days and may have some relative adrenal insufficiency. Consider Florinef if orthostatics are positive. Subjective Subjective Patient with multiple presyncopal episodes yesterday. Patient states subjectively she feels her respiratory status is improved compared to previous. No recurrence of epistaxis has been reported. Patient is still requiring nasal cannula oxygen, but it is much improved compared to yesterday evening. Objective Data Objective Data Vital Signs: Vital Signs Temp Pulse Resp BP Pulse Ox 36.7 C 62 16 108/54 L 99 08/06/21 03:30 08/06/21 07:17 08/06/21 03:30 08/06/21 03:30 08/06/21 03:30 Oxygen Flow Rate (L/min) [ 4 AMBULATING with Oxygen #1] Oxygen Flow Rate (L/min) [At 7 REST with Oxygen] Oxygen Flow Rate (L/min) [At 0 REST on Room Air] Oxygen Flow Rate (L/min) 5 Oxygen Delivery Method Nasal Cannula Weight: 92.3 kg Body Mass Index (BMI) 28.3 Intake & Output: Intake and Output for Last 24 Hours 08/04/21 08/05/21 08/06/21 23:59 23:59 23:59 Intake Total 1010 / 1010 400 / 400 200 / 200 Output Total 100 / 100 900 / 900 Balance 910 / 910 -500 / -500 200 / 200 Medical Nutrition Assessment Dietitian: Malnutrition Criteria Met Start: 07/24/21 14:45 Freq: Status: Active Protocol: Document 07/31/21 12:15 RMA (Rec: 07/31/21 12:15 RMA [id number]) Nutrition Malnutrition Evidence of Malnutrition Exists Yes Malnutrition (severe): Acute Illness/Injury Evidenced By Suboptimal Energy Intake ( Severe),Weight Loss (Severe) Intake Problem Inadequate Oral Intake Etiology r/t decreased appetite w/ acute illness Signs/Symptoms as evidenced by nursing reports of pt consuming ~50% or less of meals Status Active Problem Clinical Problem Acute Disease or Injury Related Malnutrition Etiology severe, acute malnutrition r/t inadequate energy intake w/ increased energy needs d/t acute illness Signs/Symptoms as evidenced by estimated PO intake meeting <50% of estimated nutritional needs >1 week; 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 Will try fortified pudding w/ meals for tolerance. Lab / Micro Data Result Diagrams: 08/06/21 06:55 08/06/21 06:55 Labs: Laboratory Results - last 24 hr 08/05/21 06:54: Differential Comment SCANNED 08/05/21 11:08: POC Glucose 248 H 08/05/21 16:19: POC Glucose 216 H 08/05/21 21:53: POC Glucose 244 H 08/06/21 06:34: POC Glucose 129 H 08/06/21 06:55: WBC 11.7 H, RBC 3.78 L, Hgb 11.6 L, Hct 34.6 L, MCV 91.5, MCH 30.7, MCHC 33.5, RDW Std Deviation 43.5, RDW Coeff of Renetta 13.2, Plt Count 201, MPV 10.1, Immature Gran % (Auto) 3.100 H, Neut % (Auto) 82.2 H, Lymph % (Auto) 3.7 L, [place] % (Auto) 7.0, Eos % (Auto) 3.5, Baso % (Auto) 0.5, Absolute Neuts (auto) 9.6 H, Absolute Lymphs (auto) 0.43 L, Nucleated RBC % 0, Differential Comment COMMENT 08/06/21 06:55: Sodium 137, Potassium 4.1, Chloride 102, Carbon Dioxide 26.0, Anion Gap 9, BUN 15, Creatinine 0.46 L, Estim Creat Clear Calc 65.38, Est GFR (MDRD) Af Amer 167, Est GFR (MDRD) Non-Af 138, BUN/Creatinine Ratio 32.4 H, Glucose 133 H, Calcium 8.3 L Micro: Microbiology 08/01/21 10:00 Blood Culture (Wb) - Left Hand Blood Culture - Preliminary No growth in 48 hours. 08/01/21 09:54 Blood Culture (Wb) - Right Hand Blood Culture - Preliminary No growth in 48 hours. 07/23/21 05:30 Sputum, Expectorated/Coughed Gram Stain - Final 07/23/21 05:30 Sputum, Expectorated/Coughed Respiratory Culture - Final 07/15/21 22:34 Blood Culture (Wb) - Venous Blood Culture - Final No growth in 5 days. 07/15/21 16:00 Blood Culture (Wb) - Arm Left Blood Culture - Final No growth in 5 days. Physical Exam Const alert, oriented x3 and no apparent distress General Appearance: cooperative Exam Limitations: no limitations HEENT normocephalic, head/scalp atraumatic and moist oral mucous membranes HEENT Narrative: No blood noted in nares Head and Scalp: normocephalic Eyes PERRL, EOMs intact bilaterally and conjunctivae normal Neck no lymphadenopathy, supple and no JVD Chest inspection of chest normal Chest: symmetrical chest wall rise; Negative for crepitus Resp normal respiratory effort, no retractions and no use of accessory muscles Resp Narrative: On nasal cannula Auscultation: diminished lung sounds Cardio regular rate, regular rhythm, S1 normal heart sound, S2 normal heart sound and no murmurs GI normal to inspection, nondistended, normoactive bowel sounds, soft to palpation, non-tender and non-distended Extremity normal to inspection, full ROM and no clubbing, cyanosis or edema Skin no rashes or lesions noted Neuro oriented x3, CN's II-XII intact bilaterally, moves all extremities, no focal motor deficits and no sensory deficits noted Sensorium / Orientation: awake and alert Psych affect normal Appearance: appropriate Mood & Affect: depressed Charges/Coding Visit Charges Inpatient E&M: 25816 Subs Hosp L2
[2021-08-06] MEDS: Oxymetazoline 0.05% 1 SPRAY SPRAY.BTL 2 SPRAY NASAL ×2 (09:11→20:32)
[2021-08-06] MEDS: Bisacodyl 5 MG Tablet PO (09:12)
[2021-08-06] MEDS: APIXABAN 5 MG TABLET 10 MG PO ×2 (09:12→21:17)
[2021-08-06] MEDS: Mupirocin Ointment 22gm Tube 1 APPLIC TOPICAL ×2 (09:12→21:18)
[2021-08-06 11:40] LABS: Bedside Glucose 153 mg/dL (70-110)
--- NOTE | 2021-08-06 15:56 | PN.HOSP_ITS ---
Subjective Subjective Patient seen and examined. She had no active complaints today. She was on 2L of oxygen. Review of systems is otherwise negative. She is now on 2L of oxygen by nasal canula. Objective Data Objective Data Vital Signs: Vital Signs Temp Pulse Resp BP Pulse Ox 98.9 F 61 16 118/60 89 08/06/21 09:30 08/06/21 14:35 08/06/21 09:30 08/06/21 09:30 08/06/21 09:38 Oxygen Flow Rate (L/min) [ 4 AMBULATING with Oxygen #1] Oxygen Flow Rate (L/min) [At 2 REST with Oxygen] Oxygen Flow Rate (L/min) [At 0 REST on Room Air] Oxygen Flow Rate (L/min) 2 Oxygen Delivery Method Nasal Cannula Weight: 144 lb 6.409 oz Body Mass Index (BMI) 28.3 Intake & Output: Intake and Output for Last 24 Hours 08/04/21 08/05/21 08/06/21 23:59 23:59 23:59 Intake Total 1010 / 1010 400 / 400 250 / 250 Output Total 100 / 100 900 / 900 Balance 910 / 910 -500 / -500 250 / 250 Medical Nutrition Assessment Dietitian: Malnutrition Criteria Met Start: 07/24/21 14:45 Freq: Status: Active Protocol: Document 07/31/21 12:15 RMA (Rec: 07/31/21 12:15 RMA [id number]) Nutrition Malnutrition Evidence of Malnutrition Exists Yes Malnutrition (severe): Acute Illness/Injury Evidenced By Suboptimal Energy Intake ( Severe),Weight Loss (Severe) Intake Problem Inadequate Oral Intake Etiology r/t decreased appetite w/ acute illness Signs/Symptoms as evidenced by nursing reports of pt consuming ~50% or less of meals Status Active Problem Clinical Problem Acute Disease or Injury Related Malnutrition Etiology severe, acute malnutrition r/t inadequate energy intake w/ increased energy needs d/t acute illness Signs/Symptoms as evidenced by estimated PO intake meeting <50% of estimated nutritional needs >1 week; 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 Will try fortified pudding w/ meals for tolerance. Lab / Micro Data Result Diagrams: 08/06/21 06:55 08/06/21 06:55 Labs: Laboratory Results - last 24 hr 08/05/21 16:19: POC Glucose 216 H 08/05/21 21:53: POC Glucose 244 H 08/06/21 06:34: POC Glucose 129 H 08/06/21 06:55: WBC 11.7 H, RBC 3.78 L, Hgb 11.6 L, Hct 34.6 L, MCV 91.5, MCH 30.7, MCHC 33.5, RDW Std Deviation 43.5, RDW Coeff of Renetta 13.2, Plt Count 201, MPV 10.1, Immature Gran % (Auto) 3.100 H, Neut % (Auto) 82.2 H, Lymph % (Auto) 3.7 L, [place] % (Auto) 7.0, Eos % (Auto) 3.5, Baso % (Auto) 0.5, Absolute Neuts (auto) 9.6 H, Absolute Lymphs (auto) 0.43 L, Nucleated RBC % 0, Differential Comment COMMENT 08/06/21 06:55: Sodium 137, Potassium 4.1, Chloride 102, Carbon Dioxide 26.0, Anion Gap 9, BUN 15, Creatinine 0.46 L, Estim Creat Clear Calc 65.38, Est GFR (MDRD) Af Amer 167, Est GFR (MDRD) Non-Af 138, BUN/Creatinine Ratio 32.4 H, Glucose 133 H, Calcium 8.3 L 08/06/21 11:36: POC Glucose 153 H Micro: Microbiology 08/01/21 10:00 Blood Culture (Wb) - Left Hand Blood Culture - Final No growth in 5 days. 08/01/21 09:54 Blood Culture (Wb) - Right Hand Blood Culture - Final No growth in 5 days. 07/23/21 05:30 Sputum, Expectorated/Coughed Gram Stain - Final 07/23/21 05:30 Sputum, Expectorated/Coughed Respiratory Culture - Final 07/15/21 22:34 Blood Culture (Wb) - Venous Blood Culture - Final No growth in 5 days. 07/15/21 16:00 Blood Culture (Wb) - Arm Left Blood Culture - Final No growth in 5 days. Physical Exam Const alert, oriented x3 and no apparent distress Exam Limitations: no limitations and altered mental status HEENT head/scalp atraumatic and moist oral mucous membranes Head and Scalp: normocephalic Eyes PERRL and EOMs intact bilaterally Neck no lymphadenopathy Resp Resp Narrative: diminished breath sounds bibasally, no wheezes or crackles. On 2L of oxygen by nasal canula. Cardio regular rate, regular rhythm, S1 normal heart sound, S2 normal heart sound and no murmurs GI normal to inspection, nondistended, normoactive bowel sounds, soft to palpation, non-tender and non-distended Extremity normal to inspection, full ROM and no clubbing, cyanosis or edema Peripheral Pulses: Yes pulses 2+ throughout Skin no rashes or lesions noted Neuro oriented x3, CN's II-XII intact bilaterally and moves all extremities Sensorium / Orientation: awake and alert Psych affect normal Assessment & Plan Assessment/Plan (1) Acute respiratory failure with hypoxia: (2) Pneumonia due to 2019 novel coronavirus: PLAN: #Acute hypoxic respiratory failure due to covid 19 pneumonia * now on 2L of oxygen. * on IV zosyn for empiric pneuonia * on decadron. today is day 9 of a 10 day course * completed remdesivir and decadron * titrate oxygen to maintain sats >90% * #Bilateral PE:on eliquis. #Epistaxis: * resolved after she had cauterization by ENT on 08/03/2021 * #Intermittent bradycardia' * metoprolol on hold. * will monitor * #Type 2 diabetes mellitus * on lantus 8 units qam. * ISS. Accuchecks ACHS * #GERD: on PPI #Depression: on venlafaxinie DVT prophylaxis: not indicated as she is on eliquis for dvt treatment Code status: DNRCCA disposition: for likely DC home tomorrow Charges/Coding Visit Charges Inpatient E&M: 35099 Subs Hosp L2
[2021-08-06 16:16] LABS: Bedside Glucose 145 mg/dL (70-110)
[2021-08-06 21:25] LABS: Bedside Glucose 285 mg/dL (70-110)
[2021-08-07] VITALS (16 sets, daily range): BP systolic 101–123; BP diastolic 53–68; PULSE 57–94; RESP 16–18; TEMP 36.5–36.8; O2SAT 80–96
[2021-08-07] MEDS: Nystatin Powder 15gm Bottle 1 APPLIC TOPICAL ×3 (06:14→20:23)
[2021-08-07] MEDS: Venlafaxine HCl 25 MG Tablet PO ×3 (06:14→20:23)
[2021-08-07] MEDS: Pantoprazole Sodium 40 MG Tablet PO (06:15)
[2021-08-07 06:45] LABS: Bedside Glucose 137 mg/dL (70-110)
[2021-08-07 07:05] LABS: Absolute Lymphocyte Count 0.63 X10^3/uL (0.83-4.51); Absolute Neutrophil Count 9.1 X10^3/uL (2.0-7.7); Basophil# 0.04 X10^3/uL; Basophil% 0.4 % (0-1); Eosinophil# 0.34 X10^3/uL; Eosinophils% 3.1 % (0-5); Hematocrit 34.9 % (37-47); Hemoglobin 11.3 g/dL (12.0-15.0); Lymphocyte # 0.63 X10^3/ul (0.83-4.51); Lymphocyte % 5.7 % (19-41); Mean Corp Hgb Conc 32.4 g/dL (32-36); Mean Corpuscular Hgb 30.2 pg (27.0-32.0); Mean Corpuscular Volume 93.3 fL (81-99); Mean Platelet Vol. 9.6 fl (6.2-12.0); Monocyte# 0.64 X10^3/uL; Monocyte% 5.8 % (0-10); NRBC Flagged by Analyzer 0 % (0-5); Neutrophil # 9.06 X10^3/uL (2.7-7.7); Neutrophil % 82.1 % (47-70); Platelet Count 220 K/mm3 (150-450); RBC Distribution Width CV 13.6 % (11.6-14.6); RBC Distribution Width SD 46.1 fl (35.1-43.9); Red Blood Count 3.74 M/mm3 (4.2-5.4)
[2021-08-07 07:37] LABS: ALB/GLOB Ratio 0.5 RATIO (0.9-2.4); AST(SGOT) 14 U/L (15-37); Alanine Aminotransfer ALT/SGPT 19 U/L (13-56); Albumin, Serum 2.2 g/dL (3.2-5.0); Alkaline Phosphatase 77 U/L (45-117); Anion Gap 6 (5-15); BUN 13 mg/dL (7-18); BUN/Creat Ratio 28.4 RATIO (10-20); Calcium,Total 8.7 mg/dL (8.5-10.1); Chloride 102 mmol/L (98-107); Creatinine, Serum 0.46 mg/dL (0.55-1.02); EST Glomerular Filtration Rate 140 mL/min (>60); Est Glom Filt Rate - Afr Amer 169 mL/min (>60); Estimated Creatinine Clearance 47.03 ml/min; Globulin 4.1 g/dL (2.2-4.2); Glucose 150 mg/dL (74-106); Potassium 3.9 mmol/L (3.5-5.1); Protein, Total 6.3 g/dL (6.4-8.2); Sodium Level 136 mmol/L (136-145)
--- NOTE | 2021-08-07 07:52 | PCM.PN.INT ---
Assessment & Plan Assessment/Plan (1) Pneumonia due to 2019 novel coronavirus: (2) Acute respiratory failure with hypoxia: PLAN: RECOMMENDATIONS: 1. Completed Remdesivir, baricitinib and 2 courses of Decadron 2. Diuretics as tolerated to maintain euvolemia. Add Florinef 3. Encourage incentive spirometer, Acapella and prone positioning as tolerated 4. Discontinue antibiotics 5. Hemodynamically stable on room air. Will sign off from a critical care/pulmonary perspective 6. Patient should follow-up with us 4 to 6 weeks after being home IMPRESSIONS: 1. Acute hypoxic respiratory failure secondary to COVID-19 Patient with significant improvement through the day yesterday. Clinical suspicion for decreased oxygen delivery secondary to epistaxis. Unfortunately, patient has had documented pulmonary emboli, so anticoagulation would be recommended for at least 3 months. Patient with significant improvement following control of nasal bleeding. If patient tolerates ambulation on 6 L or less, okay to discharge from a pulmonary perspective. Patient will need at least 3 months of anticoagulation. Patient was advised on the proper use of supplemental oxygen. Patient should follow-up in the pulmonary office 4 to 6 weeks after being home. 2. Diabetes mellitus/hypertension/GERD/advanced age Complicates care, management, recovery and prognosis. We will have to watch blood sugars and pressure closely given cessation of Decadron therapy and long-acting insulin. Patient now having orthostatic symptoms. Orthostatic positive. Hold on Lasix for now. Patient has been off of Decadron for a couple of days and may have some relative adrenal insufficiency. Florinef added Subjective Subjective Patient did well overnight. Patient was orthostatic positive yesterday, but feels subjectively improved compared to previous. Patient is asking about the discharge plan. No chest pain or palpitations have been reported. Objective Data Objective Data Vital Signs: Vital Signs Temp Pulse Resp BP Pulse Ox 36.5 C L 57 L 18 121/60 H 92 08/07/21 02:20 08/07/21 05:03 08/07/21 02:20 08/07/21 02:20 08/07/21 06:41 Oxygen Flow Rate (L/min) [ 6 AMBULATING with Oxygen #2] Oxygen Flow Rate (L/min) [ 4 AMBULATING with Oxygen #1] Oxygen Flow Rate (L/min) [At 2 REST with Oxygen] Oxygen Flow Rate (L/min) [At 0 REST on Room Air] Oxygen Flow Rate (L/min) 2 Oxygen Delivery Method Nasal Cannula Weight: 66.4 kg Body Mass Index (BMI) 28.3 Intake & Output: Intake and Output for Last 24 Hours 08/05/21 08/06/21 08/07/21 23:59 23:59 23:59 Intake Total 400 / 400 300 / 300 50 / 50 Output Total 900 / 900 400 / 400 Balance -500 / -500 300 / 300 -350 / -350 Medical Nutrition Assessment Dietitian: Malnutrition Criteria Met Start: 07/24/21 14:45 Freq: Status: Active Protocol: Document 07/31/21 12:15 RMA (Rec: 07/31/21 12:15 RMA [id number]) Nutrition Malnutrition Evidence of Malnutrition Exists Yes Malnutrition (severe): Acute Illness/Injury Evidenced By Suboptimal Energy Intake ( Severe),Weight Loss (Severe) Intake Problem Inadequate Oral Intake Etiology r/t decreased appetite w/ acute illness Signs/Symptoms as evidenced by nursing reports of pt consuming ~50% or less of meals Status Active Problem Clinical Problem Acute Disease or Injury Related Malnutrition Etiology severe, acute malnutrition r/t inadequate energy intake w/ increased energy needs d/t acute illness Signs/Symptoms as evidenced by estimated PO intake meeting <50% of estimated nutritional needs >1 week; 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 Will try fortified pudding w/ meals for tolerance. Lab / Micro Data Result Diagrams: 08/07/21 06:50 08/07/21 06:50 Labs: Laboratory Results - last 24 hr 08/06/21 06:55: Differential Comment COMMENT 08/06/21 11:36: POC Glucose 153 H 08/06/21 16:11: POC Glucose 145 H 08/06/21 21:22: POC Glucose 285 H 08/07/21 06:19: POC Glucose 137 H 08/07/21 06:50: WBC 11.0, RBC 3.74 L, Hgb 11.3 L, Hct 34.9 L, MCV 93.3, MCH 30.2, MCHC 32.4, RDW Std Deviation 46.1 H, RDW Coeff of Renetta 13.6, Plt Count 220, MPV 9.6, Immature Gran % (Auto) 2.900 H, Neut % (Auto) 82.1 H, Lymph % (Auto) 5.7 L, [place] % (Auto) 5.8, Eos % (Auto) 3.1, Baso % (Auto) 0.4, Absolute Neuts (auto) 9.1 H, Absolute Lymphs (auto) 0.63 L, Nucleated RBC % 0 08/07/21 06:50: Sodium 136, Potassium 3.9, Chloride 102, Carbon Dioxide 28.0, Anion Gap 6, BUN 13, Creatinine 0.46 L, Estim Creat Clear Calc 47.03, Est GFR (MDRD) Af Amer 169, Est GFR (MDRD) Non-Af 140, BUN/Creatinine Ratio 28.4 H, Glucose 150 H, Calcium 8.7, Total Bilirubin 0.40, AST 14 L, ALT 19, Alkaline Phosphatase 77, Total Protein 6.3 L, Albumin 2.2 L, Globulin 4.1, Albumin/Globulin Ratio 0.5 L Micro: Microbiology 08/01/21 10:00 Blood Culture (Wb) - Left Hand Blood Culture - Final No growth in 5 days. 08/01/21 09:54 Blood Culture (Wb) - Right Hand Blood Culture - Final No growth in 5 days. 07/23/21 05:30 Sputum, Expectorated/Coughed Gram Stain - Final 07/23/21 05:30 Sputum, Expectorated/Coughed Respiratory Culture - Final 07/15/21 22:34 Blood Culture (Wb) - Venous Blood Culture - Final No growth in 5 days. 07/15/21 16:00 Blood Culture (Wb) - Arm Left Blood Culture - Final No growth in 5 days. Physical Exam Const alert, oriented x3 and no apparent distress General Appearance: cooperative Exam Limitations: no limitations HEENT normocephalic, head/scalp atraumatic and moist oral mucous membranes HEENT Narrative: No blood noted in nares Head and Scalp: normocephalic Eyes PERRL, EOMs intact bilaterally and conjunctivae normal Neck no lymphadenopathy, supple and no JVD Chest inspection of chest normal Chest: symmetrical chest wall rise; Negative for crepitus Resp normal respiratory effort, no retractions and no use of accessory muscles Resp Narrative: On nasal cannula Auscultation: diminished lung sounds Cardio regular rate, regular rhythm, S1 normal heart sound, S2 normal heart sound and no murmurs GI normal to inspection, nondistended, normoactive bowel sounds, soft to palpation, non-tender and non-distended Extremity normal to inspection, full ROM and no clubbing, cyanosis or edema Skin no rashes or lesions noted Neuro oriented x3, CN's II-XII intact bilaterally, moves all extremities, no focal motor deficits and no sensory deficits noted Sensorium / Orientation: awake and alert Psych affect normal Appearance: appropriate Mood & Affect: depressed Charges/Coding Visit Charges Inpatient E&M: 06652 Subs Hosp L2
[2021-08-07] MEDS: Mupirocin Ointment 22gm Tube 1 APPLIC TOPICAL ×2 (10:58→20:22)
[2021-08-07] MEDS: Bisacodyl 5 MG Tablet PO (10:58)
[2021-08-07] MEDS: Oxymetazoline 0.05% 1 SPRAY SPRAY.BTL 2 SPRAY NASAL ×2 (10:58→20:22)
[2021-08-07] MEDS: Polyethylene Glycol 3350 17 GM PACKET 34 GM PO (10:59)
[2021-08-07] MEDS: APIXABAN 5 MG TABLET 10 MG PO ×2 (10:59→20:23)
--- NOTE | 2021-08-07 11:12 | CASEMGMT ---
JORGE BLACK made tc to Leonel at [facility] to make aware of possible dc today pending walking pox as she failed this morning or possibly tomorow.
[2021-08-07] MEDS: Fludrocortisone Acetate 0.1 MG Tablet 0.05 MG PO (11:44)
[2021-08-07] MEDS: Insulin Lispro 100 UNIT/ML INSULN.PEN SC ×2 (11:45→16:47)
[2021-08-07 12:00] LABS: Bedside Glucose 274 mg/dL (70-110)
--- NOTE | 2021-08-07 14:27 | PN.HOSP_ITS ---
Subjective Subjective Patient seen and examined. She had no complaints today and felt well. She was on 2 L of oxygen at time of review. She was hopeful about being discharged home today. She does remain hemodynamically stable. Objective Data Objective Data Vital Signs: Vital Signs Temp Pulse Resp BP Pulse Ox 97.9 F 67 16 123/68 H 86 08/07/21 09:00 08/07/21 09:00 08/07/21 09:00 08/07/21 09:00 08/07/21 11:21 Oxygen Flow Rate (L/min) [ 6 AMBULATING with Oxygen #2] Oxygen Flow Rate (L/min) [ 2 AMBULATING with Oxygen #1] Oxygen Flow Rate (L/min) [At 2 REST with Oxygen] Oxygen Flow Rate (L/min) [At 0 REST on Room Air] Oxygen Flow Rate (L/min) 2 Oxygen Delivery Method Nasal Cannula Weight: 146 lb 6.191 oz Body Mass Index (BMI) 28.3 Intake & Output: Intake and Output for Last 24 Hours 08/05/21 08/06/21 08/07/21 23:59 23:59 23:59 Intake Total 400 / 400 300 / 300 100 / 100 Output Total 900 / 900 400 / 400 Balance -500 / -500 300 / 300 -300 / -300 Medical Nutrition Assessment Dietitian: Malnutrition Criteria Met Start: 07/24/21 14:45 Freq: Status: Active Protocol: Document 07/31/21 12:15 RMA (Rec: 07/31/21 12:15 RMA [id number]) Nutrition Malnutrition Evidence of Malnutrition Exists Yes Malnutrition (severe): Acute Illness/Injury Evidenced By Suboptimal Energy Intake ( Severe),Weight Loss (Severe) Intake Problem Inadequate Oral Intake Etiology r/t decreased appetite w/ acute illness Signs/Symptoms as evidenced by nursing reports of pt consuming ~50% or less of meals Status Active Problem Clinical Problem Acute Disease or Injury Related Malnutrition Etiology severe, acute malnutrition r/t inadequate energy intake w/ increased energy needs d/t acute illness Signs/Symptoms as evidenced by estimated PO intake meeting <50% of estimated nutritional needs >1 week; 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 Will try fortified pudding w/ meals for tolerance. Lab / Micro Data Result Diagrams: 08/07/21 06:50 08/07/21 06:50 Labs: Laboratory Results - last 24 hr 08/06/21 16:11: POC Glucose 145 H 08/06/21 21:22: POC Glucose 285 H 08/07/21 06:19: POC Glucose 137 H 08/07/21 06:50: WBC 11.0, RBC 3.74 L, Hgb 11.3 L, Hct 34.9 L, MCV 93.3, MCH 30.2, MCHC 32.4, RDW Std Deviation 46.1 H, RDW Coeff of Renetta 13.6, Plt Count 220, MPV 9.6, Immature Gran % (Auto) 2.900 H, Neut % (Auto) 82.1 H, Lymph % (Auto) 5.7 L, [place] % (Auto) 5.8, Eos % (Auto) 3.1, Baso % (Auto) 0.4, Absolute Neuts (auto) 9.1 H, Absolute Lymphs (auto) 0.63 L, Nucleated RBC % 0 08/07/21 06:50: Sodium 136, Potassium 3.9, Chloride 102, Carbon Dioxide 28.0, Anion Gap 6, BUN 13, Creatinine 0.46 L, Estim Creat Clear Calc 47.03, Est GFR (MDRD) Af Amer 169, Est GFR (MDRD) Non-Af 140, BUN/Creatinine Ratio 28.4 H, Glucose 150 H, Calcium 8.7, Total Bilirubin 0.40, AST 14 L, ALT 19, Alkaline Phosphatase 77, Total Protein 6.3 L, Albumin 2.2 L, Globulin 4.1, Albumin/Globulin Ratio 0.5 L 08/07/21 11:43: POC Glucose 274 H Micro: Microbiology 08/01/21 10:00 Blood Culture (Wb) - Left Hand Blood Culture - Final No growth in 5 days. 08/01/21 09:54 Blood Culture (Wb) - Right Hand Blood Culture - Final No growth in 5 days. 07/23/21 05:30 Sputum, Expectorated/Coughed Gram Stain - Final 07/23/21 05:30 Sputum, Expectorated/Coughed Respiratory Culture - Final 07/15/21 22:34 Blood Culture (Wb) - Venous Blood Culture - Final No growth in 5 days. 07/15/21 16:00 Blood Culture (Wb) - Arm Left Blood Culture - Final No growth in 5 days. Physical Exam Const alert, oriented x3 and no apparent distress General Appearance: cooperative Exam Limitations: no limitations HEENT normocephalic, head/scalp atraumatic and moist oral mucous membranes Head and Scalp: normocephalic Eyes PERRL, EOMs intact bilaterally and conjunctivae normal Neck no lymphadenopathy and supple Resp normal respiratory effort, no retractions and clear to auscultation bilaterally Resp Narrative: diminished breath sounds bibasally, no wheezes or crackles. still On 2L of oxygen by nasal canula. Auscultation: crackles and diminished lung sounds; Negative for rales, rhonchi o r wheezes Cardio regular rate, regular rhythm, S1 normal heart sound, S2 normal heart sound, no murmurs, no rub, no gallops, no clicks and no JVD GI normal to inspection, nondistended, normoactive bowel sounds, soft to palpation, non-tender and non-distended Extremity normal to inspection, full ROM and no clubbing, cyanosis or edema Peripheral Pulses: Yes pulses 2+ throughout Skin no rashes or lesions noted Neuro oriented x3, CN's II-XII intact bilaterally, moves all extremities and no focal motor deficits Sensorium / Orientation: awake and alert Speech: speech normal Psych affect normal Appearance: appropriate Mood & Affect: depressed Assessment & Plan Assessment/Plan (1) Acute respiratory failure with hypoxia: (2) Pneumonia due to 2019 novel coronavirus: PLAN: #Acute hypoxic respiratory failure due to covid 19 pneumonia * now on 2L of oxygen. * antibiotics discontinued today. * completed a second course of decadron today. * completed remdesivir and first course of decadron * titrate oxygen to maintain sats >90% * Plan was for discharge home today. However with walking pulse ox patient required up to 6 L of oxygen and was only saturating at around 89 to 90%. We will therefore keep patient for 1 more day to optimize her better. * #Bilateral PE:on eliquis. #Epistaxis: * resolved after she had cauterization by ENT on 08/03/2021 * #Intermittent bradycardia * metoprolol on hold. * will monitor * #Type 2 diabetes mellitus * on lantus 8 units qam. * ISS. Accuchecks ACHS * #GERD: on PPI #Depression: on venlafaxinie DVT prophylaxis: not indicated as she is on eliquis for dvt treatment Code status: DNRCCA disposition: for likely DC home tomorrow once home oxygen requirements have improved. Charges/Coding Visit Charges Inpatient E&M: 10031 Subs Hosp L2
[2021-08-07 16:56] LABS: Bedside Glucose 227 mg/dL (70-110)
[2021-08-08] VITALS (10 sets, daily range): BP systolic 109–129; BP diastolic 51–60; PULSE 75–80; RESP 16–18; TEMP 36.7–36.9; O2SAT 84–96
[2021-08-08] MEDS: Venlafaxine HCl 25 MG Tablet PO ×2 (06:27→14:53)
[2021-08-08] MEDS: Nystatin Powder 15gm Bottle 1 APPLIC TOPICAL ×2 (06:27→14:53)
[2021-08-08] MEDS: Insulin Lispro 100 UNIT/ML INSULN.PEN SC ×3 (06:28→17:39)
[2021-08-08] MEDS: Pantoprazole Sodium 40 MG Tablet PO (06:31)
[2021-08-08 06:35] LABS: Bedside Glucose 152 mg/dL (70-110)
[2021-08-08 06:51] LABS: Absolute Lymphocyte Count 0.58 X10^3/uL (0.83-4.51); Absolute Neutrophil Count 8.3 X10^3/uL (2.0-7.7); Basophil# 0.02 X10^3/uL; Basophil% 0.2 % (0-1); Eosinophil# 0.36 X10^3/uL; Eosinophils% 3.5 % (0-5); Hematocrit 30.4 % (37-47); Lymphocyte # 0.58 X10^3/ul (0.83-4.51); Lymphocyte % 5.7 % (19-41); Mean Corp Hgb Conc 32.9 g/dL (32-36); Mean Corpuscular Hgb 30.6 pg (27.0-32.0); Mean Platelet Vol. 9.6 fl (6.2-12.0); Monocyte# 0.72 X10^3/uL; Monocyte% 7.1 % (0-10); NRBC Flagged by Analyzer 0 % (0-5); Neutrophil # 8.27 X10^3/uL (2.7-7.7); Neutrophil % 81.1 % (47-70); POSITIVE DIFFERENTIAL YES; Platelet Count 214 K/mm3 (150-450); RBC Distribution Width CV 13.6 % (11.6-14.6); Red Blood Count 3.27 M/mm3 (4.2-5.4); White Blood Count 10.2 K/mm3 (4.4-11.0)
[2021-08-08 07:00] LABS: Differential Indicated SCAN CRITERIA MET
[2021-08-08 07:28] LABS: ALB/GLOB Ratio 0.5 RATIO (0.9-2.4); AST(SGOT) 12 U/L (15-37); Alanine Aminotransfer ALT/SGPT 18 U/L (13-56); Albumin, Serum 2.1 g/dL (3.2-5.0); Alkaline Phosphatase 71 U/L (45-117); Anion Gap 7 (5-15); BUN 17 mg/dL (7-18); BUN/Creat Ratio 37.4 RATIO (10-20); Calcium,Total 8.5 mg/dL (8.5-10.1); Chloride 102 mmol/L (98-107); Creatinine, Serum 0.46 mg/dL (0.55-1.02); EST Glomerular Filtration Rate 140 mL/min (>60); Est Glom Filt Rate - Afr Amer 170 mL/min (>60); Estimated Creatinine Clearance 47.25 ml/min; Globulin 3.9 g/dL (2.2-4.2); Glucose 145 mg/dL (74-106); Potassium 3.9 mmol/L (3.5-5.1); Sodium Level 136 mmol/L (136-145)
[2021-08-08] MEDS: Mupirocin Ointment 22gm Tube 1 APPLIC TOPICAL (07:35)
[2021-08-08] MEDS: Fludrocortisone Acetate 0.1 MG Tablet 0.05 MG PO (07:35)
[2021-08-08] MEDS: Oxymetazoline 0.05% 1 SPRAY SPRAY.BTL 2 SPRAY NASAL (07:35)
[2021-08-08] MEDS: Polyethylene Glycol 3350 17 GM PACKET 34 GM PO (07:36)
[2021-08-08] MEDS: Bisacodyl 5 MG Tablet PO (07:36)
[2021-08-08] MEDS: APIXABAN 5 MG TABLET 10 MG PO (07:44)
[2021-08-08 08:42] LABS: Differential Comment SCANNED
--- NOTE | 2021-08-08 09:59 | CASEMGMT ---
Addendum entered by Padma Rodriguez 08/08/21 10:05: Updated hospitalist on pt dc plan. TC to Leonel at [facility] to make aware as well. Original Note: TC with hospitalist today as pt required more O2 on testing today than yesterday. Per pt nurse, pt also was unsteady. RN CM in to pt room. Discussed with patient options as she is requiring more O2 today. Pt states she would not object to anything if she can get out of the hospital. Pt is agreeable to going to a SNF short term for therapy. Pt did not have a preference on facility and would like a list. Notified Tamiko MCNAIR of pt wish to dc to SNF.
--- NOTE | 2021-08-08 10:17 | CASEMGMT ---
Social Work Note SW received referral for SNF placement. SW in to speak with pt. SW introduced self and role at [facility]. Pt is alert and orientated. SW spoke with pt regarding SNF options. Patient was provided a list of SNF providers including quality and resource use data and consistent with the patient?s preferred geographic region, medical needs, and insurance network. SW spoke with pt about how [facility] has been the easiest to work with regarding SNF placement for COVID pt's but this worker can try any SNF pt wants. Pt states [facility] is fine. SW placed a call to Farhad at [facility] and provided referral. SW faxed referral to [facility]. 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
--- NOTE | 2021-08-08 10:51 | CASEMGMT ---
XU called [facility] and requested positive COVID test be faxed over to [facility]. JOBY Mathews
[2021-08-08 11:35] LABS: Bedside Glucose 156 mg/dL (70-110)
--- NOTE | 2021-08-08 12:39 | CASEMGMT ---
Addendum entered by Janeth Ambriz 08/08/21 13:01: XU spoke w/Naun, she only received the last 11 pages of the referral. XU refaxed, for the third time, referral to [facility], this time to a different fax number. JOBY Mathews Original Note: Naun called, original fax did not go through and family is visiting the facility. XU refaxed referral to [facility], confirmation received that the referral went through. JOBY Mathews
--- NOTE | 2021-08-08 15:26 | DS.PCM_ITS ---
Providers Date of Admission: 07/15/21 Primary Care Physician: Dr. Jose Collier MD Consultations 07/17/21 10:26 Consult: Infectious Disease Routine Consulting Provider: Ernie Contreras Reason for Consult: COVID EMERGENT Consult: No MD Notified: Yes Date Notified: 07/17/21 Time Notified: 10:26 Method of Notification: Verbal Consult: Android Software Engineer / Pulmonary Medicine Routine Consulting Provider: Pulmonary Medicine [facility] Reason for Consult: COVID EMERGENT Consult: No Notified: Yes Date Notified: 07/17/21 Time Notified: 10:26 Method of Notification: Verbal 08/01/21 07:32 Consult: Android Software Engineer / Pulmonary Medicine Routine Consulting Provider: Pulmonary Medicine [facility] Reason for Consult: Covid-Hypoxia EMERGENT Consult: No Notified: Yes Date Notified: 08/01/21 Time Notified: 07:52 Method of Notification: via cortext 08/02/21 09:26 Consult: ENT Routine Consulting Provider: Ronald Mcdaniel Reason for Consult: Epistaxis EMERGENT Consult: No Notified: Yes Date Notified: 08/02/21 Time Notified: 09:36 Method of Notification: Verbal Comments:: pt needs to remain on anticoagulation for new PE Reason For Visit: COVID Diagnosis Discharge Diagnosis (1) Acute respiratory failure with hypoxia: Status: Acute Code(s): J96.01 - Acute respiratory failure with hypoxia (2) Pneumonia due to 2019 novel coronavirus: Status: Acute Code(s): U07.1 - COVID-19; J12.82 - Pneumonia due to coronavirus disease 2019 Medications at Discharge Home Medications metoprolol succinate 100 mg PO DAILY 10/10/20 pantoprazole 40 mg PO 0700 10/10/20 glimepiride 2 mg PO DAILY 07/15/21 apixaban [Eliquis DVT-PE Treat 30D Start] 5 mg PO BID #74 tab 08/08/21 metoprolol succinate 25 mg PO DAILY #30 tab 08/08/21 Hospital Course Operations None Procedures None Summary of Care Provided Minutes Spent on Discharge: 50 Hospital Course: Patient is an 18-year-old female with a past medical history of hypertension and diabetes mellitus who was admitted through the ED on 09/14/2021 with a complaint of shortness of breath. She has been having Covid-like symptoms for 7 to 10 days prior to admission was tested at the [facility] on the day before admission. She was notified on the day of admission that her test came back positive for Covid. Her pulse ox checked at home was 82% in the morning and later came up to 88% in the afternoon the day of admission so brought her to the hospital. Patient also had associated weakness. Chest x-ray showed bilateral pneumonia and D-dimer was 0.6. Lactic acid was elevated at 3.5. She was admitted to be managed for acute hypoxic respiratory failure due to COVID-19 pneumonia. She was started on remdesivir and Decadron and given oxygen to be titrated to maintain saturation above 90%. Patient completed a course of remdesivir and Decadron. ID and pulmonology were consulted due to her worsening respiratory status which required use of BiPAP and interval. Patient had a long protracted course of admission due to COVID-19 and acute hypoxic respiratory failure. She also required empiric antibiotics for superimposed pneumonia. Hospital course was complicated by bilateral PE for which she was started on Eliquis and also by intermittent bradycardia which improved after metoprolol was held. Patient completed a second course of Decad jarvis as well. She was eventually weaned down to 2 L of oxygen. Of note, hospital course was also complicated by epistasis which resolved with cauterization by ENT. Plan initially was for patient to be discharged home but due to weakness and debility, as well as her requiring increasing amounts of oxygen up to 8 L with ambulation, patient was agreeable to placement. She was discharged to a senior care facility on 08/08/2021. She is to follow-up with her primary care doctor and pulmonology. Patient seen and examined prior to discharge. She had no active complaints. Review of symptoms otherwise negative. Labs and vitals reviewed. Her medication reviewed and reconciled. Physical Exam Const alert, oriented x3, no apparent distress and average body habitus General Appearance: cooperative and comfortable Exam Limitations: no limitations and altered mental status Nutritional Appearance: overweight HEENT normocephalic, head/scalp atraumatic and moist oral mucous membranes Eyes PERRL, EOMs intact bilaterally and conjunctivae normal Neck no lymphadenopathy and supple Resp normal respiratory effort, no retractions, no use of accessory muscles and clear to auscultation bilaterally Resp Narrative: diminished breath sounds bibasally, no wheezes or crackles. still On 2L of oxygen by nasal canula. Auscultation: crackles and diminished lung sounds; Negative for rales, rhonchi or wheezes Cardio regular rate, regular rhythm, S1 normal heart sound, S2 normal heart sound, no murmurs, no rub, no gallops, no clicks and no JVD GI normal to inspection, nondistended, normoactive bowel sounds, soft to palpation, non-tender and non-distended Extremity normal to inspection, full ROM and no clubbing, cyanosis or edema Skin no rashes or lesions noted Neuro oriented x3, CN's II-XII intact bilaterally, moves all extremities and no focal motor deficits Sensorium / Orientation: awake and alert Speech: speech normal Psych affect normal Appearance: appropriate Mood & Affect: depressed Medical Records Data Medical Nutrition Assessment Dietitian: Malnutrition Criteria Met Start: 07/24/21 14:45 Freq: Status: Active Protocol: Document 07/31/21 12:15 RMA (Rec: 07/31/21 12:15 RMA [id number]) Nutrition Malnutrition Evidence of Malnutrition Exists Yes Malnutrition (severe): Acute Illness/Injury Evidenced By Suboptimal Energy Intake ( Severe),Weight Loss (Severe) Intake Problem Inadequate Oral Intake Etiology r/t decreased appetite w/ acute illness Signs/Symptoms as evidenced by nursing reports of pt consuming ~50% or less of meals Status Active Problem Clinical Problem Acute Disease or Injury Related Malnutrition Etiology severe, acute malnutrition r/t inadequate energy intake w/ increased energy needs d/t acute illness Signs/Symptoms as evidenced by estimated PO intake meeting <50% of estimated nutritional needs >1 week; 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 Will try fortified pudding w/ meals for tolerance. Weight / BMI Weight Weight: 147 lb 0.773 oz Body Mass Index (BMI) 28.3 ABG / Lab / Microbiology Data Result Diagrams: 08/08/21 06:40 08/08/21 06:40 Laboratory: Laboratory Results - last 24 hr 08/07/21 16:45: POC Glucose 227 H 08/08/21 06:25: POC Glucose 152 H 08/08/21 06:40: WBC 10.2, RBC 3.27 L, Hgb 10.0 L, Hct 30.4 L, MCV 93.0, MCH 30.6, MCHC 32.9, RDW Std Deviation 46.0 H, RDW Coeff of Renetta 13.6, Plt Count 214, MPV 9.6, Immature Gran % (Auto) 2.400 H, Neut % (Auto) 81.1 H, Lymph % (Auto) 5.7 L, Bland % (Auto) 7.1, Eos % (Auto) 3.5, Baso % (Auto) 0.2, Absolute Neuts (auto) 8.3 H, Absolute Lymphs (auto) 0.58 L, Nucleated RBC % 0, Differential Comment SCANNED 08/08/21 06:40: Sodium 136, Potassium 3.9, Chloride 102, Carbon Dioxide 27.0, Anion Gap 7, BUN 17, Creatinine 0.46 L, Estim Creat Clear Calc 47.25, Est GFR (MDRD) Af Amer 170, Est GFR (MDRD) Non-Af 140, BUN/Creatinine Ratio 37.4 H, Glucose 145 H, Calcium 8.5, Total Bilirubin 0.30, AST 12 L, ALT 18, Alkaline Phosphatase 71, Total Protein 6.0 L, Albumin 2.1 L, Globulin 3.9, Albumin/Globulin Ratio 0.5 L 08/08/21 11:30: POC Glucose 156 H Microbiology: Microbiology 08/01/21 10:00 Blood Culture (Wb) - Left Hand Blood Culture - Final No growth in 5 days. 08/01/21 09:54 Blood Culture (Wb) - Right Hand Blood Culture - Final No growth in 5 days. 07/23/21 05:30 Sputum, Expectorated/Coughed Gram Stain - Final 07/23/21 05:30 Sputum, Expectorated/Coughed Respiratory Culture - Final 07/15/21 22:34 Blood Culture (Wb) - Venous Blood Culture - Final No growth in 5 days. 07/15/21 16:00 Blood Culture (Wb) - Arm Left Blood Culture - Final No growth in 5 days. D/C Instructions Discharge Diet: Low fat / Low cholesterol and 1800 Calorie Control Diet Discharge Activity: Return to Normal Activity Weight Bearing Status: Weight bearing as tolerated Call your doctor if you observe: Fever of 101 or Higher, Shortness of breath, Dizziness, Swelling in the ankles and Increased palpitations (irregular heartbeat) Meaningful Use Info Meaningful Use Diagnoses (Choose all that apply): VTE VTE Anticoag overlap given w/in hospital stay or rx'd at dc?: Yes Pt receive overlap for 5 days?: No Reason overlap not ordered, prescribed, or given for 5 days: Procedure Not Indicated Discharge Plan Admission Admit Date/Time: 07/15/21 17:31 Primary Reason for Your Visit: acute hypoxic respiratory failure due to COVID 19 pneumonia, bilateral PE Attending Provider: Yohana Solo Primary Care Provider: Jose Collier Consulting Providers: Ernie Contreras ; Ashu Roca ; Vitor Cruz ; Gladys Cobos NP ; Ronald Mcdaniel Instructions Additional Instructions / Restrictions: use oxygen as needed for shortness of breath Discharge Orders/Prescriptions Prescriptions: New metoprolol succinate 25 mg tablet extended release 24 hr 25 mg PO DAILY Qty: 30 RF: 1 Eliquis DVT-PE Treat 30D Start 5 mg (74 tabs) tablets,dose pack 5 mg PO BID Qty: 74 RF: 0 Continued metoprolol succinate 100 MG tablet extended release 24 hr 100 mg PO DAILY RF: 0 pantoprazole 40 MG tablet 40 mg PO 0700 RF: 0 glimepiride 2 mg tablet 2 mg PO DAILY RF: 0 Referrals / Follow Up: Vitor Cruz DO [STAFF PHYSICIAN] - Within 2 Weeks Jose Collier MD [Primary Care Provider] - Within 2 Weeks Disposition Disposition (needs filled in before D/C Order can be placed): [facility] Facility Charges/Coding Visit Charges Inpatient E&M: 68088 Disch Hosp
--- NOTE | 2021-08-08 15:47 | TREXTCAR_ITS ---
Diet 07/21/21 13:58 Diet: Regular - General Is pt able to select menu?: Yes Diet Comments: glucerna shake w/ meals; fortified pudding BID Routine Orders/Code Status Enema Type: Fleetz Enema Frequency: Daily PRN Suppository Type: Dulcolax 10mg Suppository Frequency: Daily PRN O2 Frequency: PRN Keep PO Greater than or Equal to (%): 90 Code Status: DNRCC-A Wound(s) nose: Wound Type: CAUTERIZATION Therapies Weight Bearing: Weight bearing as tolerated Physical Therapy: Eval and Treat Occupational Therapy: Eval and Treat Problem/Diagnosis (1) Acute respiratory failure with hypoxia: Status: Acute (2) Pneumonia due to 2019 novel coronavirus: Status: Acute Allergies/Procedures Done in Hospital Allergies shellfish derived Allergy (Verified 10/09/20 16:55) Other Procedures: None Type of Care/Length of Stay Estimated LOS: Convalescent Care Less Than 30 days Type of Care Needed: Skilled Rehab Potential: Good Prognosis: Fair Additional Orders/Day of Discharge Day of Discharge: 08/08/21 Dietary and Speech Recommendations Dietitian Recommendations/Changes: Will continue regular diet and po supplments (fortified pudding and 120mL Glucerna ONS) w/ meals for additional calories/protein if consumed given malnutrition. 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[employer] ; Ronald Mcdaniel Instructions Additional Instructions / Restrictions: use oxygen as needed for shortness of breath Discharge Orders/Prescriptions Prescriptions: New metoprolol succinate 25 mg tablet extended release 24 hr 25 mg PO DAILY Qty: 30 RF: 1 Eliquis DVT-PE Treat 30D Start 5 mg (74 tabs) tablets,dose pack 5 mg PO BID Qty: 74 RF: 0 Continued metoprolol succinate 100 MG tablet extended release 24 hr 100 mg PO DAILY RF: 0 pantoprazole 40 MG tablet 40 mg PO 0700 RF: 0 glimepiride 2 mg tablet 2 mg PO DAILY RF: 0 Referrals / Follow Up: Vitor Cruz DO [STAFF PHYSICIAN] - Within 2 Weeks Jose Collier MD [Primary Care Provider] - Within 2 Weeks Disposition Disposition (needs filled in before D/C Order can be placed): Senior Living Facility
--- NOTE | 2021-08-08 16:12 | CASEMGMT ---
[facility] can take pt today. SW spoke w/pt, let her know, she is agreeable to go to [facility] today. SW completed the hospital exemption in the [facility] system and printed it. SW set up a 6:30pm wheelchair van pickup. SW did let know that they will get a bill for transport, states understanding. SW let pt, porter marina, pt's and [facility] know time of pickup. SW faxed hospital exemption and transfer to extended care to [facility]. SW will leave fax cover sheet w/staff to fax med list over to [facility] once it is completed. Plan: [facility], convalescent stay, skilled level of care. JOBY Mathews
[2021-08-08 16:15] LABS: Bedside Glucose 194 mg/dL (70-110)
--- NOTE | 2021-08-08 17:45 | NURSING ---
Report called to [facility] at this time.
== END 2021-08-08 19:15 | disposition skilled nursing facility (03) | DRG 177 ==
LOC: ED 17:38 → MS3 18:59
PROVIDERS: Anesthesiology; Internal Medicine; Internal Medicine Critical Care Medicine; Internal Medicine Infectious Disease; Nurse Practitioner Family; Otolaryngology; Admitting Provider Family Medicine; Emergency Provider Emergency Medicine; PCP Family Medicine; Visit Provider Student in an Organized Health Care Education/Training Program
PROC: 093K8ZZ Control Bleeding in Nasal Mucosa and Soft Tissue, Via Natural or Artificial Opening Endoscopic (ICD-10-PCS; principal; 2021-08-03 14:25)
DX: U07.1 COVID-19 (principal); J12.82 Pneumonia due to coronavirus disease 2019; J96.01 Acute respiratory failure with hypoxia; I26.99 Other pulmonary embolism without acute cor pulmonale; E43 Unspecified severe protein-calorie malnutrition; J15.9 Unspecified bacterial pneumonia; R04.0 Epistaxis; R04.2 Hemoptysis; E87.1 Hypo-osmolality and hyponatremia; R00.1 Bradycardia, unspecified; R41.82 Altered mental status, unspecified; E87.6 Hypokalemia; R55 Syncope and collapse; R62.7 Adult failure to thrive; E11.65 Type 2 diabetes mellitus with hyperglycemia; I10 Essential (primary) hypertension; F03.90 Unspecified dementia, unspecified severity, without behavioral disturbance, psychotic disturbance, mood disturbance, and anxiety; K21.9 Gastro-esophageal reflux disease without esophagitis; F32.A Depression, unspecified; E66.3 Overweight; Z79.84 Long term (current) use of oral hypoglycemic drugs; Z79.899 Other long term (current) drug therapy; Z85.72 Personal history of non-Hodgkin lymphomas; Z68.29 Body mass index [BMI] 29.0-29.9, adult; Z86.19 Personal history of other infectious and parasitic diseases
CPT/HCPCS: 36415; 71045; 71046; 71275; 80048; 80053; 80202; 82962; 83036; 83605; 83735; 83880; 84100; 84145; 84484; 85025; 85379; 85610; 85730; 86140; 87040; 87070; 87205; 93005; 94003; 94660; 94667; 94668; 94762; 95819; 97110; 97116; 97150; 97162; 97166; 97530; 97535; 99251; 99285; J7030; J7040; J7050; Q9967; A4216; G0463; J1940

== ENCOUNTER 2021-12-12 10:20 | Outpatient (CLI) | payer MEDICARE, BC, SELFPAY ==
--- NOTE | 2021-12-13 07:37 | PFT_ITS ---
INTRODUCTION: The patient is an 81-year-old female that presents for pulmonary function studies secondary to a diagnosis of shortness of breath. Respiratory therapy reported that the patient had difficulty with testing. Bronchodilators were used during testing. INTERPRETATION: Forced expiration spirometry demonstrates no evidence of a large airways obstructive ventilatory defect. There was no significant response to aerosolized bronchodilators. Spirograms are of fair quality and plateau gradually indicating slow to in the lungs. Body plethysmography was performed a nd revealed a decreased TLC to 2.57 L, 66% of predicted, indicative of a moderate restrictive ventilatory impairment. Diffusing capacity by single breath CO was reduced at 58% of predicted. 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
== END 2021-12-12 23:59 | disposition home or self-care (01) ==
LOC: PSN 10:21
PROVIDERS: PCP Family Medicine; Visit Provider Internal Medicine Critical Care Medicine
DX: R06.02 Shortness of breath (principal)
CPT/HCPCS: 94060; 94726; 94729